=== PATIENT | female | born 1965 | race Caucasian/White ===

== ENCOUNTER → 2017-12-16 | Outpatient (CLI) | payer MEDICARE ==
[~2017-12-16] MED LIST: ASPI1TAB PO; BACLOFEN; CALCIUM PO; CEPH500C PO; CLN.1T PO; CYMBALTA; DCS100C PO; DIPH25TA82 PO; DOXY100C2 PO; DULO60CA6 PO; LD5PT TOP; LEVO125T PO; LISI40TA PO; MTH10T PO; MTH750T; MULT1CAP27 PO; OMG1KC PO; SENN-35 PO; TPR100T
--- NOTE | 2017-12-16 12:24 | Diagnostic Imaging Report ---
INDICATION: Routine screening. COMPARISON: 01/18/2011. TECHNIQUE: 2D and 3D bilateral screening mammography was performed with CAD. FINDINGS: Both breasts are heterogeneously dense, limiting the sensitivity of mammography. The overall parenchymal pattern appears stable. No discrete mass or malignant appearing microcalcifications are seen. The axillae are unremarkable. IMPRESSION: No mammographic features suspicious for malignancy are identified. ACR BI-RADS Category 1: Negative. Result letter will be mailed to the patient. Note: At least 10% of breast cancer is not imaged by mammography. Dictated by: Dictated on workstation # [id number]
== END ==
LOC: RAD 08:47
PROVIDERS: ATTEND Internal Medicine
DX: Z12.31 Encounter for screening mammogram for malignant neoplasm of breast (principal)
CPT/HCPCS: 77067

== ENCOUNTER 2020-04-22 13:52 | Emergency (ER) | payer MEDICARE ==
[~2020-04-22] VITALS: Ht 160 cm; Wt 74.8 kg
--- NOTE | 2020-04-22 14:16 | ED General ---
General Stated Complaint: AMS Source of Information: Patient, EMS Exam Limitations: Physical Impairments History of Present Illness Date Seen by Provider: Apr 22, 2020 Time Seen by Provider: 14:00 Initial Comments Patient is a 55-year-old female who presents to the emergency room by ambulance today with possible accidental overdose on baclofen. Reportedly by EMS patient's home health nurse called EMS secondary to the patient's altered mental status. It was determined that the patient took 2 10 mg baclofen tablets this morning around 7 AM. In addition to this she has a baclofen pump with morphine in place in her abdomen. 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 Patient is intermittently responsive to questions but seems to become distracted and agitated quite easily. Patient states as far as review of systems "the weather really knocked me down". She will not answer specific questions as to recent fever, chills, cough congestion, nausea vomiting or diarrhea. Review of systems is difficult secondary to the patient's level of altered mental status. Timing/Duration: 4-6 Hours Severity: Moderate Allergies and Home Medications Allergies Coded Allergies: No Known Drug Allergies (Verified , 08/15/11) Home Medications Aspirin/Acetaminophen/Caffeine 1 Tab Tablet, 1 TAB PO Q6H PRN, (Reported) Cephalexin Monohydrate 500 Mg Capsule, 500 EACH PO TID, (Reported) Clonidine Hcl 0.1 Mg Tab, 0.1 MG PO HS, (Reported) Diphenhydramine Hcl 25 Mg Tablet, 25 MG PO BID PRN, (Reported) NEEDED FOR ITCHING Docusate Sodium 100 Mg Capsule, 100 MG PO TID PRN, (Reported) NEEDED FOR CONSTIPATION Doxycycline Hyclate 100 Mg Capsule, 100 MG PO BID, (Reported) Duloxetine Hcl 60 Mg Capsule.dr, 60 MG PO DAILY, (Reported) Levothyroxine Sodium 125 Mcg Tablet, 125 MCG PO DAILY, (Reported) Lidocaine 1 Ea Patch, 1 EA TOP DAILY PRN, (Reported) NEEDED ON IN AM OFF AT HS Lisinopril 40 Mg Tablet, 40 MG PO HS, (Reported) Methadone Hcl 10 Mg Tab, 40 MG PO TID, (Reported) Multivitamins 1 Each Capsule, 1 EACH PO DAILY, (Reported) Straughn 3 Polyunsat Fatty Acids 1,000 Mg Cap, 1,000 MG PO 1200, 1700, (Reported) Sennosides/Docusate Sodium 1 Tab Tablet, 1 TAB PO Q48H PRN, (Reported) [Calcium ] , 300 MG PO 1200, 1700, (Reported) Patient Home Medication List Home Medication List Reviewed: Yes Review of Systems Review of Systems Constitutional: see HPI Past Agoqzzg-Nuykqi-Mkurgd Hx Past Medical History Reproductive Disorders: No Physical Exam Vital Signs Vital Signs - First Documented 04/22/20 04/22/20 04/22/20 13:52 16:00 18:29 Temp 36.4 Pulse 94 Resp 14 B/P (MAP) 86/56 (66) Pulse Ox 98 O2 Delivery Room Air O2 Flow Rate 2.00 Capillary Refill : Height, Weight, BMI Height: '" Weight: lbs. oz. kg; BMI Method: General Appearance: No Apparent Distress, WD/WN HEENT: PERRL/EOMI Neck: Normal Inspection Respiratory: No Accessory Muscle Use, Crackles (RIGHT UPPER LUNG), Decreased Breath Sounds (RIGHT LOWER LUNG), Other (Coarse wheezy breath sounds noted to the left lateral lung herrera; respiratory effort appears adequate, the patient is breathing approximately 14 times a minute) Cardiovascular: Regular Rate, Rhythm, Systolic Murmur (3/6 at LUSB), Tachycardia Gastrointestinal: Normal Bowel Sounds, Non Tender, Soft, Other (Baclofen pump palpated in the left lower abdomen) Extremity: Normal Inspection, No Pedal Edema Neurologic/Psychiatric: Alert, No Motor/Sensory Deficits, Depressed Affect, Disoriented Skin: Pallor Focused Exam Lactate Level 04/22/20 14:03: Lactic Acid Level 2.62*H 04/22/20 16:10: Lactic Acid Level 1.40 Lactic Acid Level Procedures/Interventions Lumen: triple Central Line Procedure: betadine prep, sterile drapes applied, sterile dressing applied Position: femoral (R) Anesthesia: Lidocaine Volume Anesthetic (ccs): 2 Complications: none Post Position: sutured, good blood return Progress/Results/Core Measures Suspected Sepsis SIRS Temperature: Pulse: Respiratory Rate: Laboratory Tests 04/22/20 14:03: White Blood Count 33.4*H Blood Pressure / Mean: 04/22/20 14:03: Lactic Acid Level 2.62*H 04/22/20 16:10: Lactic Acid Level 1.40 Laboratory Tests 04/22/20 14:03: Creatinine 2.64H, Platelet Count 431H, Total Bilirubin 0.3 Results/Orders Lab Results Laboratory Tests Test 04/22/20 14:03 04/22/20 14:22 04/22/20 15:40 04/22/20 15:42 Range/Units White Blood Count 33.4 *H 4.3-11.0 10^3/uL Red Blood Count 3.19 L 3.80-5.11 10^6/uL Hemoglobin 9.6 L 11.5-16.0 g/dL Hematocrit 31 L 35-52 % Mean Corpuscular Volume 98 80-99 fL Mean Corpuscular Hemoglobin 30 25-34 pg Mean Corpuscular Hemoglobin Concent 31 L 32-36 g/dL Red Cell Distribution Width 12.9 10.0-14.5 % Platelet Count 431 H 130-400 10^3/uL Mean Platelet Volume 11.6 9.0-12.2 fL Immature Granulocyte % (Auto) 2 % Neutrophils (%) (Auto) 87 H 42-75 % Lymphocytes (%) (Auto) 5 L 12-44 % Monocytes (%) (Auto) 7 0-12 % Eosinophils (%) (Auto) 0 0-10 % Basophils (%) (Auto) 0 0-10 % Neutrophils # (Auto) 29.0 H 1.8-7.8 10^3/uL Lymphocytes # (Auto) 1.6 1.0-4.0 10^3/uL Monocytes # (Auto) 2.2 H 0.0-1.0 10^3/uL Eosinophils # (Auto) 0.0 0.0-0.3 10^3/uL Basophils # (Auto) 0.1 0.0-0.1 10^3/uL Immature Granulocyte # (Auto) 0.5 H 0.0-0.1 10^3/uL Neutrophils % (Manual) 78 % Lymphocytes % (Manual) 4 % Monocytes % (Manual) 4 % Eosinophils % (Manual) 0 % Basophils % (Manual) 0 % Band Neutrophils 14 % Blood Morphology Comment NORMAL Sodium Level 144 135-145 MMOL/L Potassium Level 2.9 L 3.6-5.0 MMOL/L Chloride Level 109 H 98-107 MMOL/L Carbon Dioxide Level 17 L 21-32 MMOL/L Anion Gap 18 H 5-14 MMOL/L Blood Urea Nitrogen 41 H 7-18 MG/DL Creatinine 2.64 H 0.60-1.30 MG/DL Estimat Glomerular Filtration Rate 19 BUN/Creatinine Ratio 16 Glucose Level 105 70-105 MG/DL Lactic Acid Level 2.62 *H 0.50-2.00 MMOL/L Calcium Level 8.8 8.5-10.1 MG/DL Corrected Calcium 9.4 8.5-10.1 MG/DL Total Bilirubin 0.3 0.1-1.0 MG/DL Aspartate Amino Transf (AST/SGOT) 9 5-34 U/L Alanine Aminotransferase (ALT/SGPT) 9 0-55 U/L Alkaline Phosphatase 114 40-136 U/L Total Protein 6.5 6.4-8.2 GM/DL Albumin 3.2 3.2-4.5 GM/DL Procalcitonin 16.86 H <0.10 NG/ML Urine Color YELLOW Urine Clarity CLOUDY Urine pH 5.0 5-9 Urine Specific [place] >=1.030 1.016-1.022 Urine Protein NEGATIVE NEGATIVE Urine Glucose (UA) NEGATIVE NEGATIVE Urine Ketones TRACE H NEGATIVE Urine Nitrite NEGATIVE NEGATIVE Urine Bilirubin 1+ H NEGATIVE Urine Urobilinogen 0.2 < = 1.0 MG/DL Urine Leukocyte Esterase NEGATIVE NEGATIVE Urine RBC (Auto) NEGATIVE NEGATIVE Urine RBC 0-2 /HPF Urine WBC 0-2 /HPF Urine Squamous Epithelial Cells 10-25 H /HPF Urine Crystals PRESENT H /LPF Urine Amorphous Sediment FEW LIDA URATES H /LPF Urine Bacteria TRACE /HPF Urine Casts NONE /LPF Urine Mucus NEGATIVE /LPF Urine Culture Indicated NO Blood Gas Puncture Site R RAD Blood Gas Patient Temperature 36.2 Arterial Blood pH 7.28 *L 7.37-7.43 Arterial Blood Partial Pressure CO2 35 35-45 MMHG Arterial Blood Partial Pressure O2 67 L 79-93 MMHG Arterial Blood HCO3 16 *L 23-27 MMOL/L Arterial Blood Total CO2 17.6 L 21.0-31.0 MMOL/L Arterial Blood Oxygen Saturation 92 L 94-100 % Arterial Blood Base Excess -9.1 L -2.5-2.5 MMOL/L Ray Test YES-POS Blood Gas Ventilator Setting NO Blood Gas Inspired Oxygen RA Coronavirus 2018 (JODI) Negative Negative Test 04/22/20 16:10 Range/Units Lactic Acid Level 1.40 0.50-2.00 MMOL/L Micro Results Microbiology 04/22/20 Blood Culture - Preliminary, Resulted No growth 04/22/20 Blood Culture - Preliminary, Resulted No growth My Orders Orders - ALBA DE DIOS MD Cbc With Automated Diff (04/22/20 14:18) Comprehensive Metabolic Panel (04/22/20 14:18) Blood Culture (04/22/20 14:18) Chest 1 View, Ap/Pa Only (04/22/20 14:18) Ed Iv/Invasive Line Start (04/22/20 14:18) Ed Iv/Invasive Line Start (04/22/20 14:18) Vital Signs Adult Sepsis Patie Q15M (04/22/20 14:18) O2 (04/22/20 14:18) Remove Rings In Anticipation O (04/22/20 14:18) Lactic Acid Analyzer (04/22/20 14:18) Ns Iv 1000 Ml (Sodium Chloride 0.9%) (04/22/20 14:30) Procalcitonin (Pct) (04/22/20 14:18) Manual Differential (04/22/20 14:03) Ua Culture If Indicated (04/22/20 14:44) Ceftriaxone For Iv Use (Rocephin For I (04/22/20 15:30) Vancomycin Injection (Vancomycin Injecti (04/22/20 15:30) Azithromycin Injection (Zithromax Inject (04/22/20 15:30) Ns Iv 1000 Ml (Sodium Chloride 0.9%) (04/22/20 15:30) Covid 19 Inhouse Test (04/22/20 15:36) Vancomycin Injection (Vancomycin Injecti (04/22/20 15:39) Ns (Ivpb) (Sodium Chloride 0.9%) (04/22/20 15:39) Arterial Blood Gas (04/22/20 15:44) Potassium Cl 10meq/50ml Ivpb (Kcl 10 Meq (04/22/20 16:00) Norepinephrine 4 Mg/250 Ml (Norepinephri (04/22/20 17:47) Norepinephrine 4 Mg/250 Ml (Norepinephri (04/22/20 18:00) Medications Given in ED Vital Signs/I&O 04/22/20 23:59 Intake Total 2630 ml Balance 2630 ml Capillary Refill : Progress Note : Time: 14:42 Progress Note Nathan, the patient significant other is also present for further history. He states that the patient has been suffering from significant episodes of spasticity and states that she has been taking her supplemental baclofen to try and alleviate the symptoms. He states this morning he guesses that she took 2 as 1 did not seem to help yesterday. He also states that for the last 3 months she has been suffering with some upper respiratory congestion. She has had several inhalers and nasal sprays through [facility] [place] as well as through [facility] pharmacy. On speaking with the pharmacist at [facility] the patient was on prednisone back in January 2020 as well as doxycycline. She also had prescriptions for ProAir, Zyrtec, Flonase and Symbicort. These were filled on January 21. Nathan states that the patient has had increased cough and congestion worsening over the last week. He is concerned that she might have pneumonia. He denies any other symptomatology such as dysuria, urgency or frequency or any complaints of diarrhea. He states that she is mostly constipated secondary to her spasticity. 1545 Patient reevaluated and noted to have respiratory effort of about 12 a minute. ABG is obtained. When I discussed with the patient transfer to [facility] the patient became wide-awake started breathing about 20-21 times a minute. She was quite agitated at the thought of having to be admitted to the hospital. Her significant other is at the bedside and telling her that she will be admitted for further care. I discussed the case with Mickie the midlevel practitioner on for Dr. Munroe at [facility] who accepts the patient for admission. Rapid Covid test has also been obtained. 1626 ABG shows a metabolic acidosis with concurrent respiratory acidosis, a total of approximately 2500 cc of fluids have been given which include 2 L of normal saline plus to 250 cc bags of antibiotics. Current blood pressure is 121/67 with a heart rate in the upper 90s; I did place the paatient on 3L of O2 per nasal cannula 1800 Also notified by the significant other that she has a cervico-pleural drain placed in late 2018. this may account for a portion of the fluid in her right chest cavity, but certainly not the septic shock Levophed started for Systolic blood pressure of 70 Diagnostic Imaging Diagonstic Imaging: Xray Plain Films/CT/US/NM/MRI: chest Comments [facility] [place], [place] NAME: CANDI CASAS [facility] REC#: [id number] PT STATUS: REG ER : 1965 PHYSICIAN: ALBA DE DIOS MD ADMIT DATE: 04/22/20/ER Draft Date of Exam:04/22/20 CHEST 1 VIEW, AP/PA ONLY INDICATION: Altered mental status. Sepsis. COMPARISON: 01/20/2007. FINDINGS: Single frontal radiographic view of the chest was obtained and demonstrates interval development of large opacification occupying the middle and lateral half of the right chest suggestive of loculated effusion. Radiopaque tubing is noted projecting over the right upper and right lung bases. This was present on prior exam and may be on the basis of prior HARNESS PREPARER shunt tubing. Clinical correlation however is advised. Cardiac silhouette and pulmonary vasculature are within normal limits. Left lung is relatively clear. There is no large effusion on the left. No pneumothorax is seen on either side. Osseous structures show no gross acute abnormalities. IMPRESSION: 1. Interval development of large right-sided pleural effusion; possibly loculated. Correlation with postcontrast CT of the chest may be of benefit. 2. Chronic radiopaque tubing projecting over the right upper and lower lung herrera. Correlation with previous HARNESS PREPARER shunt is recommended. Dictated on workstation # [id number] Dict: 04/22/20 1454 Trans: 04/22/20 1458 [facility] [id number] Interpreted by: PEDRO DRISCOLL MD Critical Care Note Critical Care Start Time: 14:00 Stop Time: 16:00 Total Time (minutes) 1 hour critical care time in the evaluation and management of this patient with sepsis, baclofen overdose. Time includes primary evaluation of the patient ongoing reevaluations, fluid resuscitation, antibiotics, interpretation of laboratory values, discussion with critical care at [facility], review of the medical record discussion with ancillary staff and family Departure Impression Primary Impression: Sepsis Qualified Codes: A41.9 - Sepsis, unspecified organism; R65.20 - Severe sepsis without septic shock; N17.9 - Acute kidney failure, unspecified Additional Impressions: Metabolic acidosis Acute respiratory acidosis Septic shock Disposition: XF SHT-TRM HOSP Condition: Stable Transfer Transfer Reason: Exceeds level of care Time Spoke to Accepting Phy: 15:40 Transfer Progress Notes Case discussed with Mickie the nurse practitioner on for critical care at [facility] who accepts the patient for admission for Dr. Munroe Transfer Time: 18:10 Transfer Facility: [facility] Method of Transfer: EMS Departure-Patient Inst. Referrals: DENAE VILLATORO MD (PCP/Family) Primary Care Physician ALBA DE DIOS MD Apr 22, 2020 14:16
[2020-04-22 14:24] LABS: BASOPHILS # (AUTO) 0.1 10^3/uL (0.0-0.1); BASOPHILS % (AUTO) 0 % (0-10); EOSINOPHILS % (AUTO) 0 % (0-10); HEMATOCRIT 31 % (35-52); HEMOGLOBIN 9.6 g/dL (11.5-16.0); LYMPHOCYTES # (AUTO) 1.6 10^3/uL (1.0-4.0); LYMPHOCYTES % (AUTO) 5 % (12-44); MEAN CORPUSCULAR HEMOGLOBIN 30 pg (25-34); MEAN CORPUSCULAR HGB CONC 31 g/dL (32-36); MEAN CORPUSCULAR VOLUME 98 fL (80-99); MEAN PLATELET VOLUME 11.6 fL (9.0-12.2); MONOCYTES # (AUTO) 2.2 10^3/uL (0.0-1.0); MONOCYTES % (AUTO) 7 % (0-12); NEUTROPHILS % (AUTO) 87 % (42-75); PLATELET COUNT 431 10^3/uL (130-400)
[2020-04-22 14:26] LABS: WHITE BLOOD COUNT 33.4 10^3/uL (4.3-11.0)
[2020-04-22 14:29] LABS: ALBUMIN 3.2 GM/DL (3.2-4.5)
[2020-04-22 14:30] LABS: POTASSIUM 2.9 MMOL/L (3.6-5.0)
[2020-04-22] MEDS ORDERED: NS IV 1000 ML 1,000 ML IV SCH ×2 (14:30→15:30)
[2020-04-22 14:31] LABS: CALCIUM 8.8 MG/DL (8.5-10.1)
[2020-04-22 14:32] LABS: TOTAL PROTEIN 6.5 GM/DL (6.4-8.2)
[2020-04-22 14:34] LABS: BILIRUBIN,TOTAL 0.3 MG/DL (0.1-1.0)
[2020-04-22 14:36] LABS: CREATININE SERUM 2.64 MG/DL (0.60-1.30)
[2020-04-22 14:42] LABS: BAND NEUTROPHILS 14 %; BASOPHILS % (MANUAL) 0 %; EOSINOPHILS % (MANUAL) 0 %; LYMPHOCYTES % (MANUAL) 4 %; MONOCYTES % (MANUAL) 4 %; NEUTROPHILS % (MANUAL) 78 %; RBC MORPH NORMAL
[2020-04-22 14:49] LABS: CLARITY,URINE CLOUDY; COLOR,URINE YELLOW; GLUCOSE, URINE (UA) NEGATIVE (NEGATIVE); KETONES,URINE TRACE (NEGATIVE); LEUKOCYTE ESTERASE ,URINE NEGATIVE (NEGATIVE); NITRITE,URINE NEGATIVE (NEGATIVE); PROTEIN,URINE NEGATIVE (NEGATIVE)
--- NOTE | 2020-04-22 14:58 | Diagnostic Imaging Report ---
INDICATION: Altered mental status. Sepsis. COMPARISON: 01/20/2007. FINDINGS: Single frontal radiographic view of the chest was obtained and demonstrates interval development of large opacification occupying the middle and lateral half of the right chest suggestive of loculated effusion. Radiopaque tubing is noted projecting over the right upper and right lung bases. This was present on prior exam and may be on the basis of prior RAIL SETTER shunt tubing. Clinical correlation however is advised. Cardiac silhouette and pulmonary vasculature are within normal limits. Left lung is relatively clear. There is no large effusion on the left. No pneumothorax is seen on either side. Osseous structures show no gross acute abnormalities. IMPRESSION: 1. Interval development of large right-sided pleural effusion; possibly loculated. Correlation with postcontrast CT of the chest may be of benefit. 2. Chronic radiopaque tubing projecting over the right upper and lower lung herrera. Correlation with previous RAIL SETTER shunt is recommended. Dictated by: Dictated on workstation # [id number]
[2020-04-22 15:01] LABS: BACTERIA,URINE TRACE /HPF; RBC,URINE 0-2 /HPF; WBC,URINE 0-2 /HPF
[2020-04-22 15:02] LABS: AMORPHOUS SEDIMENT,UR FEW AMOR URATES /LPF; BILIRUBIN,URINE 1+ (NEGATIVE)
[2020-04-22] MEDS ORDERED: VANCOMYCIN INJECTION 1,000 MG in NS (IVPB) 250 ML IV SCH (15:30)
[2020-04-22] MEDS ORDERED: cefTRIAXone FOR IV USE 1,000 MG in WATER (STERILE) FOR INJECTION 10 ML IV ONE (15:30)
[2020-04-22] MEDS ORDERED: AZITHROMYCIN INJECTION 500 MG in NS (IVPB) 250 ML IV ONE (15:30)
[2020-04-22] MEDS ORDERED: NS (IVPB) 250 ML ONE (15:39)
[2020-04-22] MEDS ORDERED: VANCOMYCIN 1000 MG/VIAL ONE (15:39)
[2020-04-22 15:48] LABS: ABG BASE EXCESS -9.1 MMOL/L (-2.5-2.5); ABG OXYGEN SATURATION 92 % (94-100); ABG PCO2 35 MMHG (35-45); ABG PO2 67 MMHG (79-93); ABG TCO2 17.6 MMOL/L (21.0-31.0)
[2020-04-22 15:49] LABS: ALLENS TEST YES-POS; INSPIRED O2 RA; PATIENT TEMP 36.2; VENTILATOR NO
[2020-04-22 15:51] LABS: ABG PH 7.28 (7.37-7.43)
[2020-04-22] MEDS: POTASSIUM CL 10MEQ/50ML IVPB 50 ML IV SCH ×2 (16:18→17:18)
[2020-04-22] MEDS ORDERED: NOREPINEPHRINE 4 MG/250 ML 250 ML IV ONE (17:47)
[2020-04-22] MEDS ORDERED: NOREPINEPHRINE 4 MG/250 ML 250 ML IV SCH (18:00)
[2020-04-22 18:29] VITALS: BP 129/80
== END 2020-04-22 18:29 | disposition short-term general hospital (02) ==
LOC: EDUNIT# 13:52 → ER 13:54
DX: A41.9 Sepsis, unspecified organism (principal); R65.21 Severe sepsis with septic shock; E87.2 Acidosis; Z20.822 Contact with and (suspected) exposure to COVID-19; Z79.82 Long term (current) use of aspirin
CPT/HCPCS: 51702; 71045; 80053; 81000; 82805; 83605; 84145; 85007; 85027; 87040; 96361; 96365; 96367; 96368; 96375; 99285; U0002; 36415; 87635

== ENCOUNTER 2020-05-12 13:34 | Inpatient (IN) | payer MEDICARE ==
[~2020-05-12] VITALS: Ht 160 cm; Wt 60.6 kg
[2020-05-12 13:20] VITALS: BP 140/92
[~2020-05-12 13:34] MED LIST changes: +ACET250T3 PO; +ALPRAZolam 0.25 MG (XANAX) TAB PO PRN; +BACL10TA PO; +BISACODYL 10 MG SUPP (DULCOLAX) PR PRN; +CALCIUM CARBONATE 500 MG (TUMS) TAB.CHEW PO PRN; +DOCUSATE SODIUM 100 MG (COLACE) CAP PO PRN; +DULO60CA59 PO; +FLEET ENEMA ADULT 1 EA BTL PR PRN; +LACTULOSE SYRUP 10GM/15ML (ENULOSE) 30ML UDC PO PRN; +LISI20TA26 PO; +LOPERAMIDE 2 MG (IMODIUM) TABLET PO PRN; +METH10TA2 PO; +MULT-1136 PO; +ONDANSETRON 4 MG (ZOFRAN) ORAL DISSOLVE TAB PO PRN; +POLY17PO6 PO; +THYR180T2 PO; +diphenhydrAMINE 25 MG TAB (BENADRYL) PO PRN; +guaiFENesin/CODEINE (ROBITUSSIN AC) 10ML UDC PO PRN
--- NOTE | 2020-05-12 14:53 | Occupational Therapy Eval ---
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 Current History Pt admitted with sepsis and AMS 04/22/20, then transferred to [facility]. Pt intubated 04/23 with respiratory failure, extubated 05/03. Pt transferred to [facility] 05/12/20 for continued medication management and skilled therapies. Reviewed History: Yes Social History Home: Single Level Current Living Status: Significant Other Entry Into Home: Stairs With Railing Steps Into Home: 2 ADL-Prior Level of Function SCALE: Activities may be completed with or without assistive devices. 0-Bbwptrliwj-lpmxvqy completes the activity by him/herself with no assistance from a helper. 5-Set-up or Clean-up Assistance-helper sets up or cleans up; patient completes activity. [place] assists only prior to or following the activity. 4-Supervision or Touching Assistance-helper provides verbal cues and/or touching/steadying and/or contact guard assistance as patient completes activity. Assistance may be provided throughout the activity or intermittently. 3-Partial/Moderate Assistance-helper does LESS THAN HALF the effort. [place] lifts, holds or supports trunk or limbs, but provides less than half the effort. 2-Substantial/Maximal Assistance-helper does MORE THAN HALF the effort. [place] lifts or holds trunk or limbs and provides more than half the effort. 6-Kqxirprld-zlogum does ALL the effort. Patient does none of the effort to complete the activity. Or, the assistance of 2 or more helpers is required for the patient to complete the activity. If activity was not attempted, code reason: 7-Patient Refused. 9-Not Applicable-not attempted and the patient did not perform the activity before the current illness, exacerbation or injury. 10-Not Attempted due to Environmental Limitations-(lack of equipment, weather restraints, etc.). 88-Not Attempted due to Medical Conditions or Safety Concerns. ADL PLOF Comments Pt reports being independent with ADLs using AE as needed independent and functional mobility without AD. She has a tub/shower with a shower chair, grab bars in the tub and by the toilet. She was physically able to do all IADLs she needed to but her s.o. Nathan, helps with laundry and cooking. She has 2 dogs and a cat at home. Self Care: Independent Functional Cognition: Independent DME/Equipment: Bath Chair, Grab Bars, Shower Leisure Interests: hand embroidery, spending time with her pets. OT Current Status Subjective Pt agreeable to OT evaluation, then OT/PT cotreat. Pt did not verbalize any pain during tx. Mental Status/Objective Patient Orientation: Person, Place, Time, Situation Current Glasses/Contacts: Yes Hand Dominance: Right Upper Extremity ROM decreased, BUE shoulder flexion to approx 90 degrees. WFL PROM. Upper Extremity Coordination decreased Upper Extremity Sensation Pt reports having decreased sensation throughout her whole body (L side worse than R), then only area that feels "normal" is on her R cheek of her face. Pt states she has no feeling in her L ulnar nerve distribution. Upper Extremity Strength grossly 3/5 BUEs ADL-Treatment Eating (QC): 5 (Per pt report, she requires assistance opening containers. She is able to use utensils to cut food and bring food to mouth.) Oral Hygiene (QC): 7 Shower/Bathe Self (QC): 7 Upper Body Dressing (QC): 7 Lower Body Dressing (QC): 7 On/Off Footwear (QC): 7 Toileting Hygiene (QC): 3 (Pt required assistance managing clothes down, able to perform hygiene and manage clothes up.) Other Treatments OT evaluation complete, then OT/PT cotreat due to skill of 2 clinicians required which a rehab/pre vocational counselor could not perform in order to coordinate UE/LEs, and due to pt's limitations in strength, mobility, activity tolerance, and to decrease fall risk. OT focused on ADLs, UE placement, cues for sequencing and safety while PT focused on LE placement, gross overall movement, mobility, and transfers. Pt transferred from w/c to [facility] over toilet, completed toileting, then used FWW to ambulate to recliner in her room. Pt took a rest break, then performed functional transfer to EOB, then supine <-> sit. Pt used FWW to ambulate to [facility], performing functional transfers in/out of car simulation, 1 step, and over uneven surface mat, then into the therapy gym. Pt took a seated rest b reak, then attempted to turkey picker an object from the floor. Pt indicates her dogs are trained to turkey picker items off of the floor and this is not something she has done in a very long time. In order to increase dynamic standing balance, activity tolerance, and UE strength, pt stood in parallel bars and complete balloon batting activity with OT (pt held onto bar with 1 hand, hitting balloon with other hand), as PT focused on balance. Pt completed x2 with seated rest break between trials. Pt used FWW to return to her room, sat EOB, then supine. Patient performs bed mobility and supine <-> sit with independence, sit <-> stand min assist, transfers min assist, car transfer CGA. Patient needs occasional cues for hand placement or positioning during transfers. Post tx, pt laying in bed, call light in reach and all needs met. Education OT Patient Education: Correct positioning, Energy conservation, Exercise program, Modified ADL techniques, Progress toward Goal/Update tx plan, Purpose of tx/functional activities, Rehab process Teaching Recipient: Patient Teaching Methods: Discussion Response to Teaching: Verbalize Understanding OT Short Term Goals Short Term Goals Time Frame: May 25, 2020 Toileting hygiene: 4 Shower/bathe self: 4 Upper body dressin Lower body dressin Putting on/taking off footwear: 4 OT Financial Aid Counselor Goals Usp Goals Time Frame: Jun 03, 2020 Eating (QC): 6 Oral Hygiene (QC): 6 Toileting Hygiene (QC): 6 Shower/Bathe Self (QC): 6 Upper Body Dressing (QC): 6 Lower Body Dressing (QC): 6 On/Off Footwear (QC): 6 Additional Goals: 1-Demonstrate ADL Tasks, 2-Verbalize Understanding, 3- ImproveStrength/Gerald 1=Demonstrate adherence to instructed precautions during ADL tasks. 2=Patient will verbalize/demonstrate understanding of assistive devices/modifications for ADL. 3=Patient will improve strength/tolerance for activity to enable patient to perform ADL's. OT Education/Plan Problem List/Assessment Assessment: Decreased Activ Tolerance, Decreased UE Strength, Impaired Funct Balance, Impaired I ADL's, Impaired Self-Care Skills, Visual-Perceptual Deficit Discharge Recommendations Plan/Recommendations: Continue POC Therapy Discharge Recommendati: Home & Family Treatment Plan/Plan of Care Patient would benefit from OT for education, treatment and training to promote independence in ADL's, mobility, safety and/or upper extremity function for ADL's. Plan of Care: ADL Retraining, Functional Mobility, Group Exercise/Act as Ind, UE Funct Exercise/Act Treatment Duration: Jun 03, 2020 Frequency: At least 5 of 7 days/Wk (IRF) Estimated Hrs Per Day: 1.5 hours per day Agreement: Yes Rehab Potential: Good Time/GCodes Start Time: 13:20 Stop Time: 14:45 Total Time Billed (hr/min): 75 Billed Treatment Time 1028-8358 OT evaluation, 0480-2241 PT evaluation, [id number] OT/PT cotreat. 1, EVM (10'), ADL (15'), FA 3 (50') ELIF ALVARADO OT May 12, 2020 14:53
[2020-05-12] MEDS ORDERED: BACLOFEN 10 MG (LIORESAL) TAB PO PRN (15:00)
[2020-05-12] MEDS ORDERED: polyethylene glycoL POWDER 17 GM (MIRALAX) PACK PO PRN (15:00)
--- NOTE | 2020-05-12 15:02 | Physical Therapy Evaluation ---
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 Reviewed History: Yes Social History Home: Single Level Current Living Status: Significant Other Entry Into Home: Stairs With Railing PT Steps Into Home: 2 Prior Prior Level of Function SCALE: Activities may be completed with or without assistive devices. 3-Fymjsxduph-gduoafz completes the activity by him/herself with no assistance from a helper. 5-Set-up or Clean-up Assistance-helper sets up or cleans up; patient completes activity. [place] assists only prior to or following the activity. 4-Supervision or Touching Assistance-helper provides verbal cues and/or touchin g/steadying and/or contact guard assistance as patient completes activity. Assistance may be provided throughout the activity or intermittently. 3-Partial/Moderate Assistance-helper does LESS THAN HALF the effort. [place] lifts, holds or supports trunk or limbs, but provides less than half the effort. 2-Substantial/Maximal Assistance-helper does MORE THAN HALF the effort. [place] lifts or holds trunk or limbs and provides more than half the effort. 3-Mksncwtqm-hfrlwk does ALL the effort. Patient does none of the effort to complete the activity. Or, the assistance of 2 or more helpers is required for the patient to complete the activity. If activity was not attempted, code reason: 7-Patient Refused. 9-Not Applicable-not attempted and the patient did not perform the activity before the current illness, exacerbation or injury. 10-Not Attempted due to Environmental Limitations-(lack of equipment, weather restraints, etc.). 88-Not Attempted due to Medical Conditions or Safety Concerns. Bed Mobility: 6 Transfers (B,C,W/C): 6 Gait: 6 Stairs: 6 Indoor Mobility (Ambulation): Independent Stairs: Independent PT Evaluation-Current Subjective Patient in WC pre tx, agrees to PT, has no complaints of pain, will be co- treating with OT for part of tx due to poor patient mobility, severe fatigue with activity, coordinate UE and LE during activity, safety and reduce risk of falls. Pt/Family Goals to be independent at home Objective Patient Orientation: Person, Place, Situation ROM/Strength ROM Lower Extremities WNL Strength Lower Extremities LLE (hip flexion 3+/5, knee flexion 3+/5, knee extension 4/5, dorsiflexion 4/5), RLE (hip flexion 3+/5, knee flexion 3+/5, knee extension 4/5, dorsiflexion 4/5) Sensory Vision: Functional Hearing: Functional Sensation Right Lower Extremit: Impaired Sensation Left Lower Extremity: Impaired Transfers Roll Left & Right (QC): 6 Sit to Lying (QC): 6 Lying to Sitting/Side of Bed(Q: 6 Sit to Stand (QC): 3 Chair/Ljn-xe-Phtig Xfer(QC): 3 Toilet Transfer (QC): 3 Car Transfer (QC): 4 Patient performs bed mobility and supine <-> sit with independence, sit <-> stand min assist, transfers min assist, car transfer CGA. Patient needs occasional cues for hand placement or positioning during transfers. Gait Does the Patient Walk?: Yes Mode of Locomotion: Walk Anticipated Mode of Locomotion: Walk Walk 10 feet (QC): 4 Walk 50 ft with 2 Turns(QC): 4 Walk 150 ft (QC): 88 Walking 10ft/uneven surface-QC: 4 Distance: 120', 60'x2 Gait Assistive Device: FWW Comments/Gait Description Patient can ambulate 120' with a rolling walker with CGA (including 50' with at least 2 turns of 90 degrees and 10' over an uneven surface). Patient has ataxic gait and has unsteady moments during ambulation but did not have a forrest LOB. Wheelchair Training Does the Pt Use a Wheelchair?: No Wheel 50 ft with 2 turns (QC): 9 Wheel 150 ft (QC): 9 Stairs #of Steps: 1 1 Step (curb) (QC): 3 4 Steps (QC): 88 12 Steps (QC): 88 Walking Assistive Device: Walker Patient can go up and down 1 step using a rolling walker with min assist, needed assist to maintain balance as she was stepping up and down Balance Sitting Static: Normal Sitting Dynamic: Normal Standing Static: Fair Standing Dynamic: Fair Picking up an Object (QC): 3 Treatment Standing balance and endurance activity hitting balloon with one hand while supporting with the other. Assessment/Needs Patient in bed post tx with nurse call, phone, tray, all needs met. Patient has impaired mobility, strength, endurance, balance. Patient is unsteady during ambulation and needs somebody with her to walk to the restroom or even during transfers to recliner. Rehab Potential: Fair PT Short Term Goals Short Term Goals Time Frame: May 19, 2020 Roll Left & Right: 6 Sit to lyin Lying to sitting on side of be: 6 Sit to stand: 4 Chair/nhe-lz-vsrlx transfer: 4 Walk 10 feet: 4 Walk 50 feet with two turns: 4 Walk 150 feet: 4 PT Headlight Adjuster Goals Headlight Adjuster Goals PT Headlight Adjuster Goals Time Frame: Jun 02, 2020 Roll Left & Right (QC): 6 Sit to Lying (QC): 6 Lying-Sitting on Side/Bed(QC): 6 Sit to Stand (QC): 6 Chair/Dua-nw-Ohdke Xfer(QC): 6 Toilet Transfer (QC): 6 Car Transfer (QC): 6 Does the Patient Walk: Yes Walk 10 feet (QC): 4 (SBA) Walk 50ft with 2 Turns (QC): 4 (SBA) Walk 150 ft (QC): 4 (SBA) Walking 10ft on Uneven Surface: 4 (SBA) 1 Step (curb) (QC): 4 4 Steps (QC): 4 12 Steps (QC): 88 Picking up an Object (QC): 4 Wheel 50 feet with 2 turns (QC: 9 Wheel 150 feet: 9 PT Plan Problem List Problem List: Activity Tolerance, Functional Strength, Safety, Balance, Gait, Transfer, Bed Mobility, ROM Treatment/Plan Treatment Plan: Continue Plan of Care Treatment Plan: Bed Mobility, Education, Functional Activity Gerald, Functional Strength, Group Therapy, Gait, Safety, Therapeutic Exercise, Transfers Treatment Duration: Jun 02, 2020 Frequency: At least 5 of 7 days/Wk (IRF) Estimated Hrs Per Day: 1.5 hours per day Patient and/or Family Agrees t: Yes Safety Risks/Education Patient Education: Gait Training, Transfer Techniques, Steps, Correct Positioning, Safety Issues Teaching Recipient: Patient Teaching Methods: Demonstration, Discussion Response to Teaching: Reinforcement Needed Discharge Recommendations Plan Patient will perform bed mobility and transfer training, balance and endurance training, functional strengthening, stair training, gait training, and education, to improve functional mobility and independence at home. Therapy Discharge Recommendati: Home & Family Time/GCodes Time In: 1330 Time Out: 1445 Total Billed Treatment Time: 75 Total Billed Treatment 1 visit EVM 10' EX 15' FA 50' [id number] PT talhaal, [id number] co-treat MYRNA SILVERIO PT May 12, 2020 15:02
--- NOTE | 2020-05-12 15:39 | ST Cognitive Linguistic Eval ---
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 Cadena Medical History Pertinent Medical History: HTN Reviewed History: Yes Social History Current Living Status: Significant Other Speech PLF-Current Status Prior Level of Function Patient lives at home with her significant other who assists her as needed. Subjective Patient was pleasant with the cognitive and dysphagia assessments. Language Eval: Auditory Comprehends Simple Yes/No Ques: Functional Indent/Objects Multiple Rubio: Functional Ident/Pics in Multiple Rubio: Functional Follows 1-Step Commands: Functional Follows Complex Directions: Functional Follows General Conversations: Functional Language Eval: Verbal Language Completes Spontaneous Greeting: Functional Produces Auto, Serial Info: Functional Imitates Simple Words/Phrases: Functional Word Finding: Functional Requests Basic Needs: Functional States Basic Personal Info: Functional Expresses Complex Ideas: Functional Cognitive Patient Orientation A and O x3 Objective Cognitive Domain Attention: WNL Memory: WNL Problem Solving: Functional Executive Functions: WNL Visuospatial Skills: WNL Composite Severity Rating: WNL Clock Drawing Severity Rating: WNL Objective Formal/Standardized Tests [facility] Mental Status ([facility]) Results 29/30, within normal range of function Oral Motor/Speech Production Within Normal Limits Impression Patient is a pleasant 55 y/o female who was admitted to the ARU due to debility and recent intubation. Patient was given the SLUMS at bedside with a score of 29/30 obtained. This score is within normal range of function and does not indicate the need for further cognitive services. Patient is currently on a Dysphagia II diet level which she will need to continue with. Due to her spinal disorders, she has difficulty with mastication of regular texture foods. The softer diet level decreases this need. Patient will receive skilled dysphagia therapy for safe oral intake training. Speech Patient Assess Expression of Ideas/Wants: Expression (4) Understanding Verbal Content: Understands (4) Brief Interview-Mental Status: Yes Repetition of Three Words: Three (3) Temporal Orientation: Year: Correct (3) Temporal Orientation: Month: Accurate within 5 days(2) Temporal Orientation: Day: Correct (1) Recall : Wear to say "Sock": Yes, no cue required (2) Recall : Color: Yes, no cue required (2) Recall : Bed: Yes, no cue required (2) Memory/Recall Ability: Current season, That he or she is in a hsp/hsp unit Speech Short Term Goals Short Term Goals Short Term Goals 1) The patient will tolerate least restrictive diet level without s/s of aspiration at 90% or greater. 2) Patient/caregiver will utilize compensatory strategies as trained at 90% or greater so that she can have safe oral intake. Speech Mcfp Goals Mcfp Goals Patient will maintain adequate nutrition/hydration via safe effective swallow function. Speech-Plan Patient/Family Goals Patient/Family Goals: Patient plans on returning to her home where she lives with her SO. Treatment Plan Speech Therapy Treatment Plan: Continue Plan of Care Treatment Duration: May 12, 2020 Frequency: 4 times per week (Patient will receive dysphagia therapy 4-5x per week) Estimated Hrs Per Day: .5 hour per day Rehab Potential: Fair Barriers to Learning: None identified Pt/Family Agrees to Plan: Yes Safety Risks/Education Teaching Recipient: Patient Teaching Methods: Discussion Response to Teaching: Verbalize Understanding Education Topics Provided: Safety within her room, communication of wants/needs Diet level, safety strategies for oral intake Time Speech Therapy Time In: 15:15 Speech Therapy Time Out: 15:45 Total Billed Time: 30 Billed Treatment Time 1, SHILO, AYESHA, DYSEVS, DYST JOSHUA Hu May 12, 2020 15:39
[2020-05-12 16:00] VITALS: BP 131/65
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
[2020-05-12] MEDS: METHADONE 10 MG (DOLOPHINE) TAB PO SCH (20:41)
[2020-05-12] MEDS: SENNA W/DOCUSATE (SENOKOT S) TABLET PO SCH ×2 (20:41→20:42)
[2020-05-12] MEDS: MELATONIN 3 MG TABLET PO PRN (20:41)
[2020-05-12] MEDS: DOCUSATE SODIUM 100 MG (COLACE) CAP PO SCH (20:41)
[2020-05-12] MEDS: polyethylene glycoL POWDER 17 GM (MIRALAX) PACK PO SCH ×2 (20:41→20:42)
[2020-05-13 06:03] VITALS: BP 111/56
[2020-05-13 06:03] LABS: BASOPHILS % (AUTO) 1 % (0-10); EOSINOPHILS # (AUTO) 0.3 10^3/uL (0.0-0.3); EOSINOPHILS % (AUTO) 4 % (0-10); HEMATOCRIT 34 % (35-52); HEMOGLOBIN 10.1 g/dL (11.5-16.0); LYMPHOCYTES # (AUTO) 1.9 10^3/uL (1.0-4.0); LYMPHOCYTES % (AUTO) 22 % (12-44); MEAN CORPUSCULAR HEMOGLOBIN 30 pg (25-34); MEAN CORPUSCULAR HGB CONC 30 g/dL (32-36); MEAN CORPUSCULAR VOLUME 101 fL (80-99); MONOCYTES % (AUTO) 12 % (0-12); NEUTROPHILS # (AUTO) 5.3 10^3/uL (1.8-7.8); NEUTROPHILS % (AUTO) 62 % (42-75); PLATELET COUNT 259 10^3/uL (130-400); WHITE BLOOD COUNT 8.6 10^3/uL (4.3-11.0)
[2020-05-13 06:04] LABS: CHLORIDE 108 MMOL/L (98-107); SODIUM 142 MMOL/L (135-145)
[2020-05-13 06:06] LABS: GLUCOSE 90 MG/DL (70-105)
[2020-05-13 06:07] LABS: CARBON DIOXIDE 21 MMOL/L (21-32)
[2020-05-13 06:08] LABS: BILIRUBIN,TOTAL 0.4 MG/DL (0.1-1.0)
[2020-05-13 06:09] LABS: ALKALINE PHOSPHATASE 136 U/L (40-136)
[2020-05-13 06:10] LABS: CREATININE SERUM 0.67 MG/DL (0.60-1.30); GFR ESTIMATED > 60
[2020-05-13 06:11] LABS: BUN/CREATININE RATIO 15
[2020-05-13 06:12] LABS: ALANINE AMINOTRANSFERASE 17 U/L (0-55)
--- NOTE | 2020-05-13 06:17 | PM&R Progress Note ---
Subjective HPI/CC On Admission Date Seen by Provider: May 13, 2020 Time Seen by Provider: 11:00 Subjective/Events-last exam 05/13/20: Patient doing well No pain reported Previous diarrhea before admit to holding laxatives but giving Colace Talked about labs results Potassium OTC at home for years but potassium level is 4.0 so will continue to hold and I updated her on that Review of Systems General: Fatigue Neurological: Weakness Objective Exam Vital Signs Vital Signs Date Time Temp Pulse Resp B/P (MAP) Pulse Ox O2 Delivery O2 Flow Rate FiO2 05/14/20 06:00 35.8 90 16 115/71 (86) 97 Room Air Capillary Refill : General Appearance: No Apparent Distress, WD/WN HEENT: PERRL/EOMI, Normal ENT Inspection, Pharynx Normal Neck: Full Range of Motion, Normal Inspection, Non Tender, Supple, Carotid Bruit Respiratory: Chest Non Tender, Lungs Clear, Normal Breath Sounds, No Accessory Muscle Use, No Respiratory Distress Cardiovascular: Regular Rate, Rhythm, No Edema, No Gallop, No JVD, No Murmur, Normal Peripheral Pulses Gastrointestinal: Normal Bowel Sounds, No Organomegaly, No Pulsatile Mass, Non Tender, Soft Back: Normal Inspection, No CVA Tenderness, No Vertebral Tenderness Extremity: Normal Capillary Refill, Normal Inspection, Normal Range of Motion, Non Tender, No Calf Tenderness, No Pedal Edema Neurologic/Psychiatric: Alert, Oriented x3, No Motor/Sensory Deficits, Normal Mood/Affect, Abnormal Gait, Motor Weakness (lower extremities 4/5) Skin: Normal Color, Warm/Dry Lymphatic: No Adenopathy Results/Procedures Lab Patient resulted labs reviewed. FIM Transfers Therapy Code Descriptions/Definitions Functional [place] Measure: 0=Not Assessed/NA 4=Minimal Assistance 1=Total Assistance 5=Supervision or Setup 2=Maximal Assistance 6=Modified [place] 3=Moderate Assistance 7=Complete IndependenceSCALE: Activities may be completed with or without assistive devices. 8-Bbttdqtbjz-vqenjdq completes the activity by him/herself with no assistance from a helper. 5-Set-up or Clean-up Assistance-helper sets up or cleans up; patient completes activity. [place] assists only prior to or following the activity. 4-Supervision or Touching Assistance-helper provides verbal cues and/or to uching/steadying and/or contact guard assistance as patient completes activity. Assistance may be provided throughout the activity or intermittently. 3-Partial/Moderate Assistance-helper does LESS THAN HALF the effort. [place] lifts, holds or supports trunk or limbs, but provides less than half the effort. 2-Substantial/Maximal Assistance-helper does MORE THAN HALF the effort. [place] lifts or holds trunk or limbs and provides more than half the effort. 3-Qsnzfptmm-yffvkj does ALL the effort. Patient does none of the effort to complete the activity. Or, the assistance of 2 or more helpers is required for the patient to complete the activity. If activity was not attempted, code reason: 7-Patient Refused. 9-Not Applicable-not attempted and the patient did not perform the activity before the current illness, exacerbation or injury. 10-Not Attempted due to Environmental Limitations-(lack of equipment, weather restraints, etc.). 88-Not Attempted due to Medical Conditions or Safety Concerns. Roll Left to Right (QC): 6 Sit to Lying (QC): 6 Sit to Stand (QC): 3 Chair/Vot-xk-[place] Xfer(QC): 3 Car Transfer (QC): 4 Gait Training Does the Patient Walk?: Yes Walk 10 feet (QC): 4 Walk 50 ft with 2 Turns(QC): 4 Walk 150 ft (QC): 88 Walking 10ft/uneven surface-QC: 4 Gait Assistive Device: FWW Wheelchair Training Does the Pt Use a Wheelchair?: No Wheel 50 ft with 2 turns (QC): 9 Wheel 150 ft (QC): 9 Stair Training #of Steps: 1 1 Step (curb) (QC): 3 4 Steps (QC): 88 12 Steps (QC): 88 Balance Picking up an Object (QC): 3 ADL-Treatment Eating (QC): 5 (Per pt report, she requires assistance opening containers. 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
--- NOTE | 2020-05-13 06:17 | Individualized Plan of Care ---
Individualized Plan of Care Rehab Nursing IPOC Order Admission Date May 12, 2020 at 13:34 Current Orders Orders Admission Order(Inpt,Obs,Sdc) (05/12/20 05:28) Vital Signs: Per Unit Policy ( ,16,00 (05/12/20 05:28) Andrea Fair[place] (05/12/20 05:28) Sequential Compression Device .admit (05/12/20 05:28) Licensed Plumber-Inpt Rehab Con (05/12/20 05:28) Rehab Nursing Orders-Ipoc (05/12/20 05:28) Physical Therapy Rehab Orders (05/12/20 05:28) Occupational Therapy Rehab Ord (05/12/20 05:28) Speech Therapy Rehab Orders (05/12/20 05:28) Cbc With Automated Diff (05/13/20 06:00) Comprehensive Metabolic Panel (05/13/20 06:00) Intake & Output 06,14,22 (05/12/20 05:28) Precautions (Aru) (05/12/20 05:28) Rehab-Intensity Of Therapy (05/12/20 05:28) Initiate Admission Nursing Pro .admission (05/12/20 05:28) Alprazolam Tablet (Xanax Tablet) (05/12/20 05:30) Calcium Carbonate Chew Tablet (Antacid C (05/12/20 05:30) Diphenhydramine Tablet (Benadryl Tablet) (05/12/20 05:30) Docusate Sodium Capsule (Colace Capsule) (05/12/20 09:00) Docusate Sodium Capsule (Colace Capsule) (05/12/20 05:30) Bisacodyl Suppository (Dulcolax Supposit (05/12/20 05:30) Lactulose Oral Solution (Enulose Oral So (05/12/20 05:30) Na Phos/Na Biphos Enema (Fleet Enema Yovani (05/12/20 05:30) Guaifenesin/Codeine Syrup (Robitussin Ac (05/12/20 05:30) Loperamide Tablet (Imodium Tablet) (05/12/20 05:30) Melatonin Tablet (Melatonin Tablet) (05/12/20 05:30) Polyethylene Glycol Powder Pkt (Miralax (05/12/20 09:00) Ondansetron Oral Dissolve Tab (Zofran (05/12/20 05:30) Senna S Tablet (Senokot S Tablet) (05/12/20 09:00) Initiate Admission Nursing Pro .admission (05/12/20 05:28) Admission Arrival Bed Request (05/12/20 13:34) Acetaminophen Tablet/Caplet (Tylenol T (05/12/20 14:15) Patient Visit (05/12/20 ) Speech Sound Lang Comp (05/12/20 ) Treat. Speech/Lang/Voice (05/12/20 ) Dysphagia Evaluation Std (05/12/20 ) Dysphagia Therapy (05/12/20 ) Acetazolamide Tablet (Diamox Tablet) (05/13/20 09:00) Baclofen Tablet (Lioresal Tablet) (05/12/20 15:00) Lisinopril Tablet (Zestril Tablet) (05/13/20 09:00) Methadone Tablet (Dolophine Tablet) (05/12/20 21:00) Polyethylene Glycol Powder Pkt (Miralax (05/12/20 15:00) Duloxetine Capsule (Cymbalta Capsule) (05/13/20 09:00) Therapeutic Multivitamin Tab (Vitamins, (05/13/20 07:00) Thyroid ([place]) Tablet (Thyroid ([place] (05/13/20 09:00) Patient Visit (05/12/20 ) Pt Eval Moderate Complexity (05/12/20 ) Exercise Therap, Ea 15 Min (05/12/20 ) Functional Activities, Ea 15 (05/12/20 ) Dys2 Mechanically Altered (05/13/20 Breakfast) Patient Visit (05/13/20 ) Functional Activities, Ea 15 (05/13/20 ) Gait Training, Ea 15 Min (05/13/20 ) Exercise Therap, Ea 15 Min (05/13/20 ) Patient Visit (05/13/20 ) Dysphagia Therapy (05/13/20 ) Rehab Nursing Orders: Ongoing Assess. of Cognitive Status, Ongoing Assess. of Function Status, Bladder Management, Bladder Scan, Bladder Training, Bowel Management, Bowel Training, Disease Management & Educaiton, DVT Prophylaxis, Fall Prevention, Fluid/Electrolyte/Nutrition Mgmt, Infection Prevention, Medication Management & Education, Management of Risks & Complications, Nutrition Management, Pain Management, Patient/Family Support, Safety Management Intensity of Therapy to be met Patient to be seen: Min.3h per day/5 of 7d PT IPOC Problem List: Activity Tolerance, Functional Strength, Safety, Balance, Gait, Transfer, Bed Mobility, ROM Treatment Plan: Continue Plan of Care Bed Mobility, Education, Functional Activity Gerald, Functional Strength, Group Therapy, Gait, Safety, Therapeutic Exercise, Transfers Treatment Duration: Jun 02, 2020 Frequency: At least 5 of 7 days/Wk (IRF) Estimated Hrs Per Day: 1.5 hours per day OT IPOC Problems: Decreased Activ Tolerance, Decreased UE Strength, Impaired Funct Balance, Impaired I ADL's, Impaired Self-Care Skills, Visual-Perceptual Deficit OT Treatment, Training and Edu: Yes Plan of Care: ADL Retraining, Functional Mobility, Group Exercise/Act as Ind, UE Funct Exercise/Act Treatment Duration: Jun 03, 2020 Frequency: At least 5 of 7 days/Wk (IRF) Estimated Hrs Per Day: 1.[address] IPOC Speech Therapy Treatment Plan: Continue Plan of Care Treatment Duration: May 12, 2020 Frequency: 4 times per week (Patient will receive dysphagia therapy 4-5x per week) Estimated Hrs Per Day: .5 hour per day Licensed Plumber/Case Mgmt Licensed Plumber/Case Managemen: Discharge Planning Dietitian/Director Of Clinical Trials Dietitian/Director Of Clinical Trials to monitor nutritional status and make changes and/or recommendations as needed and work with speech pathology on dietary upgrades as the occur. Physician IPOC Medical Issues being managed closely and that require the 24 hour availability of a physician: Patient with severe neuro deficit chronically and recent empyema with long ICU course at [facility] will need close monitoring for decompensation Medical Issues: Bowel/Bladder Function, DVT Prophylaxis, Falls Precautions, Fluid/Electrolyte/Nutrition Balance, Infection Protection, Pain Management Brief Synthesis of Preadmission Screen, Post-Admission Evaluation, and Therapy Evaluations: PT OT will focus on regaining strength and mobility with the use of AD in order to regain enough independence to return to live alone Medical Prognosis: Good Anticipated Length of Stay: 10 days MAYKEL BURNS DO May 13, 2020 06:17
[2020-05-13] MEDS: MULTIVIT W/MINERALS TAB (THERAGRAN M) PO SCH (06:41)
[2020-05-13] MEDS: DOCUSATE SODIUM 100 MG (COLACE) CAP PO SCH ×2 (07:57→21:23)
[2020-05-13] MEDS: DULoxetine 30 MG (CYMBALTA) CAP PO SCH (07:58)
[2020-05-13] MEDS: lisINopril 20 MG (PRINIVIL) TABLET PO SCH (07:58)
--- NOTE | 2020-05-13 08:11 | Occupational Ther Daily Note ---
OT Current Status-Daily Note Subjective Pt alert, sitting on EOB. Pt agrees to therapy. Pt c/o aching in lower body. Mental Status/Objective Patient Orientation: Person, Place, Time, Situation ADL-Treatment Pt agrees to shower. CGA for ambulation due to weakness of B LE's. Pt stated that she had already completed toilet with nrsg. CGA to transfer into shower using FWW, grabbars and shower bench. Min A to stand from shower bench and transfer out of shower due to increased fatigue. Pt then sits to complete dressing. After set up, pt completes upper body dressing and footwear by self. After set up, threads clothing over feet by self then CGA for safety in standing while pt manipulate pants. Pt ambulates and stands at sink to complete oral care with SBA for safety. Pt ambulated to bed using FWW. Independent with bed mobility. After session, pt lying in bed with call light/phone in reach. All needs met in room. Nrsg in room. Therapy Code Descriptions/Definitions Functional [place] Measure: 0=Not Assessed/NA 4=Minimal Assistance 1=Total Assistance 5=Supervision or Setup 2=Maximal Assistance 6=Modified [place] 3=Moderate Assistance 7=Complete IndependenceSCALE: Activities may be completed with or without assistive devices. 9-Fslnwmxqsk-alpswvu completes the activity by him/herself with no assistance from a helper. 5-Set-up or Clean-up Assistance-helper sets up or cleans up; patient completes activity. [place] assists only prior to or following the activity. 4-Supervision or Touching Assistance-helper provides verbal cues and/or touching/steadying and/or contact guard assistance as patient completes activity. Assistance may be provided throughout the activity or intermittently. 3-Partial/Moderate Assistance-helper does LESS THAN HALF the effort. [place] lifts, holds or supports trunk or limbs, but provides less than half the effort. 2-Substantial/Maximal Assistance-helper does MORE THAN HALF the effort. [place] lifts or holds trunk or limbs and provides more than half the effort. 0-Abdvhwjrq-tosjmx does ALL the effort. Patient does none of the effort to complete the activity. Or, the assistance of 2 or more helpers is required for the patient to complete the activity. If activity was not attempted, code reason: 7-Patient Refused. 9-Not Applicable-not attempted and the patient did not perform the activity before the current illness, exacerbation or injury. 10-Not Attempted due to Environmental Limitations-(lack of equipment, weather restraints, etc.). 88-Not Attempted due to Medical Conditions or Safety Concerns. Eating (QC): 5 Oral Hygiene (QC): 4 Shower/Bathe Self (QC): 4 (Using hand held shower, grabbars and shower bench pt completes with SBA for safety.) Upper Body Dressing (QC): 5 Lower Body Dressing (QC): 4 On/Off Footwear: 5 Toileting Hygiene (QC): 4 (Using clinical judgment, pt requires CGA to manipulate clothing and sits to cleanse self.) Toilet Transfer (QC): 4 (Using clinical judgement CGA for safety during transfer.) OT Short Term Goals Short Term Goals Time Frame: May 25, 2020 Toileting hygiene: 4 Shower/bathe self: 4 Upper body dressin Lower body dressin Putting on/taking off footwear: 4 OT Assisted Goals Transit Clerk Goals Time Frame: Jun 03, 2020 Eating (QC): 6 Oral Hygiene (QC): 6 Toileting Hygiene (QC): 6 Shower/Bathe Self (QC): 6 Upper Body Dressing (QC): 6 Lower Body Dressing (QC): 6 On/Off Footwear (QC): 6 Additional Goals: 1-Demonstrate ADL Tasks, 2-Verbalize Understanding, 3- ImproveStrength/Gerald 1=Demonstrate adherence to instructed precautions during ADL tasks. 2=Patient will verbalize/demonstrate understanding of assistive devices/modifications for ADL. 3=Patient will improve strength/tolerance for activity to enable patient to perform ADL's. OT Education/Plan Problem List/Assessment Assessment: Decreased Activ Tolerance, Impaired Funct Balance, Impaired Self- Care Skills Discharge Recommendations Plan/Recommendations: Continue POC Treatment Plan/Plan of Care Patient would benefit from OT for education, treatment and training to promote independence in ADL's, mobility, safety and/or upper extremity function for ADL's. Plan of Care: ADL Retraining, Functional Mobility, Group Exercise/Act as Ind, UE Funct Exercise/Act Treatment Duration: Jun 03, 2020 Frequency: At least 5 of 7 days/Wk (IRF) Estimated Hrs Per Day: 1.5 hours per day Agreement: Yes Rehab Potential: Fair Time/GCodes Start Time: 07:00 Stop Time: 08:15 Total Time Billed (hr/min): 75 Billed Treatment Time 1 visit-ADL 5 (75 min) FRITZ MELO May 13, 2020 08:11
[2020-05-13] MEDS: METHADONE 10 MG (DOLOPHINE) TAB PO SCH ×2 (08:31→21:23)
[2020-05-13] MEDS: THYROID (ARMOUR) 60 MG TABLET PO SCH (08:31)
[2020-05-13] MEDS: acetaZOLAMIDE 250 MG (DIAMOX) TAB PO SCH (08:31)
[2020-05-13] MEDS: SENNA W/DOCUSATE (SENOKOT S) TABLET PO SCH ×2 (08:45→21:24)
[2020-05-13] MEDS: polyethylene glycoL POWDER 17 GM (MIRALAX) PACK PO SCH ×2 (08:45→21:24)
--- NOTE | 2020-05-13 09:56 | Speech Therapy Daily Note ---
Speech Daily Progress Note Subjective Date Seen by Provider: May 13, 2020 Time Seen by Provider: 00:30 Patient was sitting on the side of her bed when I entered her room. Patient states she slept well last night. Objective Patient drank a protein shake with small sips at 90% as directed without s/s of aspiration given minimal cuing. Assessment Assessment Current Status: Good Progress Treatment Plan Continue Plan of Care Speech Short Term Goals Short Term Goals Short Term Goals 1) The patient will tolerate least restrictive diet level without s/s of aspiration at 90% or greater. 2) Patient/caregiver will utilize compensatory strategies as trained at 90% or greater so that she can have safe oral intake. Speech Assisted Goals Biochemist Goals Patient will maintain adequate nutrition/hydration via safe effective swallow function. Speech-Plan Patient/Family Goals Patient/Family Goals: Patient plans on returning to her home where she lives with her SO. Treatment Plan Speech Therapy Treatment Plan: Continue Plan of Care Treatment Duration: May 20, 2020 Frequency: 4 times per week (Patient will receive dysphagia therapy 4-5x per week) Estimated Hrs Per Day: .5 hour per day Rehab Potential: Fair Barriers to Learning: Patient's recent serious illness for weeks Pt/Family Agrees to Plan: Yes Safety Risks/Education Teaching Recipient: Patient Teaching Methods: Demonstration, Discussion Response to Teaching: Verbalize Understanding, Return Demonstration Education Topics Provided: Continued safety of oral intake strategies Time Speech Therapy Time In: 09:00 Speech Therapy Time Out: 09:30 Total Billed Time: 30 Billed Treatment Time 1KAR BETHANIA May 13, 2020 09:56
--- NOTE | 2020-05-13 11:54 | Physical Therapy Daily Note ---
PT Daily Note-Current Subjective Pt sitting at EOB of bed finishing ST upon arrival. Pt agrees to PT. Pain Location: No Pain Reported Mental Status Patient Orientation: Person, Place, Time, Situation Transfers SCALE: Activities may be completed with or without assistive devices. 4-Lalkcbikud-hxlradz completes the activity by him/herself with no assistance from a helper. 5-Set-up or Clean-up Assistance-helper sets up or cleans up; patient completes activity. [place] assists only prior to or following the activity. 4-Supervision or Touching Assistance-helper provides verbal cues and/or touching/steadying and/or contact guard assistance as patient completes activity. Assistance may be provided throughout the activity or intermittently. 3-Partial/Moderate Assistance-helper does LESS THAN HALF the effort. [place] lifts, holds or supports trunk or limbs, but provides less than half the effort. 2-Substantial/Maximal Assistance-helper does MORE THAN HALF the effort. [place] lifts or holds trunk or limbs and provides more than half the effort. 5-Qinlsllbt-gsxxtg does ALL the effort. Patient does none of the effort to complete the activity. Or, the assistance of 2 or more helpers is required for the patient to complete the activity. If activity was not attempted, code reason: 7-Patient Refused. 9-Not Applicable-not attempted and the patient did not perform the activity before the current illness, exacerbation or injury. 10-Not Attempted due to Environmental Limitations-(lack of equipment, weather restraints, etc.). 88-Not Attempted due to Medical Conditions or Safety Concerns. Sit to Stand (QC): 4 Toilet Transfer (QC): 4 Weight Bearing Full Weight Bearing Full Weight Bearing Gait Training Does the Patient Walk?: Yes Distance: 150' Walk 10 feet (QC): 4 Walk 50 ft with 2 Turns(QC): 4 Walk 150 ft (QC): 4 Gait Persons Needed: 1 Gait Assistive Device: FWW Exercises NuStep Minutes: 15 NuStep Workload: 3 Treatments TF to standing then uses BR. Pt amb. in hallway then takes short RB followed by using NuStep. After taking RB, pt amb. back to room to rest. Pt lays Supine in bed with all needs met, call light in hand. [id number]: Pt transfers to standing then uses BR before amb. in hallway. Pt returns to room to rest in bed at end of tx. All needs met, call light in hand. Assessment Current Status: Good Progress Pt fatigued by end of tx. PT Short Term Goals Short Term Goals Time Frame: May 19, 2020 Roll Left & Right: 6 Sit to lyin Lying to sitting on side of be: 6 Sit to stand: 4 Chair/hvo-ye-jdlnn transfer: 4 Walk 10 feet: 4 Walk 50 feet with two turns: 4 Walk 150 feet: 4 PT Usp Goals Poultice Machine Operator Goals PT Usp Goals Time Frame: Jun 02, 2020 Roll Left & Right (QC): 6 Sit to Lying (QC): 6 Lying-Sitting on Side/Bed(QC): 6 Sit to Stand (QC): 6 Chair/Rak-ix-Epadz Xfer(QC): 6 Toilet Transfer (QC): 6 Car Transfer (QC): 6 Does the Patient Walk: Yes Walk 10 feet (QC): 4 (SBA) Walk 50ft with 2 Turns (QC): 4 (SBA) Walk 150 ft (QC): 4 (SBA) Walking 10ft on Uneven Surface: 4 (SBA) 1 Step (curb) (QC): 4 4 Steps (QC): 4 12 Steps (QC): 88 Picking up an Object (QC): 4 Wheel 50 feet with 2 turns (QC: 9 Wheel 150 feet: 9 PT Plan Problem List Problem List: Activity Tolerance, Functional Strength, Safety, Gait, Transfer Treatment/Plan Treatment Plan: Continue Plan of Care Treatment Plan: Bed Mobility, Education, Functional Activity Gerald, Functional Strength, Group Therapy, Gait, Safety, Therapeutic Exercise, Transfers Treatment Duration: Jun 02, 2020 Frequency: At least 5 of 7 days/Wk (IRF) Estimated Hrs Per Day: 1.5 hours per day Patient and/or Family Agrees t: Yes Safety Risks/Education Patient Education: Gait Training, Transfer Techniques, Correct Positioning, Safety Issues Teaching Recipient: Patient Teaching Methods: Discussion Response to Teaching: Verbalize Understanding Time/GCodes Time In: 1320 Time Out: 1340 Total Billed Treatment Time: 20 Total Billed Treatment 1, GT (20m) OLESYA GRANADOS DRESS DESIGNER May 13, 2020 11:54
[2020-05-13 17:35] VITALS: BP 126/73
[2020-05-13] MEDS: MELATONIN 3 MG TABLET PO PRN (21:23)
[2020-05-14 06:00] VITALS: BP 115/71
[2020-05-14] MEDS: MULTIVIT W/MINERALS TAB (THERAGRAN M) PO SCH (06:21)
[2020-05-14] MEDS: THYROID (ARMOUR) 60 MG TABLET PO SCH (08:02)
[2020-05-14] MEDS: METHADONE 10 MG (DOLOPHINE) TAB PO SCH ×2 (08:02→20:46)
[2020-05-14] MEDS: DULoxetine 30 MG (CYMBALTA) CAP PO SCH (08:02)
[2020-05-14] MEDS: acetaZOLAMIDE 250 MG (DIAMOX) TAB PO SCH (08:02)
[2020-05-14] MEDS: polyethylene glycoL POWDER 17 GM (MIRALAX) PACK PO SCH ×2 (08:02→20:45)
[2020-05-14] MEDS: DOCUSATE SODIUM 100 MG (COLACE) CAP PO SCH ×2 (08:02→20:45)
[2020-05-14] MEDS: SENNA W/DOCUSATE (SENOKOT S) TABLET PO SCH ×2 (08:02→20:45)
[2020-05-14] MEDS: lisINopril 20 MG (PRINIVIL) TABLET PO SCH (08:02)
--- NOTE | 2020-05-14 11:25 | Physical Therapy Daily Note ---
PT Daily Note-Current Subjective Pt laying Supine in bed upon arrival. Pt agrees to PT. Pain Location: No Pain Reported Mental Status Patient Orientation: Person, Place, Time, Situation Transfers SCALE: Activities may be completed with or without assistive devices. 2-Tbrvuqvtkg-svuhiey completes the activity by him/herself with no assistance from a helper. 5-Set-up or Clean-up Assistance-helper sets up or cleans up; patient completes activity. [place] assists only prior to or following the activity. 4-Supervision or Touching Assistance-helper provides verbal cues and/or touching/steadying and/or contact guard assistance as patient completes activity. Assistance may be provided throughout the activity or intermittently. 3-Partial/Moderate Assistance-helper does LESS THAN HALF the effort. [place] lifts, holds or supports trunk or limbs, but provides less than half the effort. 2-Substantial/Maximal Assistance-helper does MORE THAN HALF the effort. [place] lifts or holds trunk or limbs and provides more than half the effort. 2-Jlryhseiw-gazemq does ALL the effort. Patient does none of the effort to complete the activity. Or, the assistance of 2 or more helpers is required for the patient to complete the activity. If activity was not attempted, code reason: 7-Patient Refused. 9-Not Applicable-not attempted and the patient did not perform the activity be fore the current illness, exacerbation or injury. 10-Not Attempted due to Environmental Limitations-(lack of equipment, weather restraints, etc.). 88-Not Attempted due to Medical Conditions or Safety Concerns. Sit to Lying (QC): 5 Lying to Sitting/Side of Bed(Q: 5 Sit to Stand (QC): 4 Toilet Transfer (QC): 4 Weight Bearing Full Weight Bearing Full Weight Bearing Gait Training Does the Patient Walk?: Yes Distance: 175' Walk 10 feet (QC): 4 Walk 50 ft with 2 Turns(QC): 4 Walk 150 ft (QC): 4 Gait Persons Needed: 1 Gait Assistive Device: FWW Treatments TF to EOB then standing. Pt asks to use BR then amb in hallway. Pt returns to rest in bed at end of tx. All needs met, call light in hand. Assessment Current Status: Good Progress Pt is demonstrating increased activity tolerance and body control. PT Short Term Goals Short Term Goals Time Frame: May 19, 2020 Roll Left & Right: 6 Sit to lyin Lying to sitting on side of be: 6 Sit to stand: 4 Chair/gzl-qu-oacub transfer: 4 Walk 10 feet: 4 Walk 50 feet with two turns: 4 Walk 150 feet: 4 PT Anesthesia Technician Goals Long-Term Goals PT Anesthesia Technician Goals Time Frame: Jun 02, 2020 Roll Left & Right (QC): 6 Sit to Lying (QC): 6 Lying-Sitting on Side/Bed(QC): 6 Sit to Stand (QC): 6 Chair/Psx-pw-Evvvm Xfer(QC): 6 Toilet Transfer (QC): 6 Car Transfer (QC): 6 Does the Patient Walk: Yes Walk 10 feet (QC): 4 (SBA) Walk 50ft with 2 Turns (QC): 4 (SBA) Walk 150 ft (QC): 4 (SBA) Walking 10ft on Uneven Surface: 4 (SBA) 1 Step (curb) (QC): 4 4 Steps (QC): 4 12 Steps (QC): 88 Picking up an Object (QC): 4 Wheel 50 feet with 2 turns (QC: 9 Wheel 150 feet: 9 PT Plan Problem List Problem List: Activity Tolerance, Transfer Treatment/Plan Treatment Plan: Continue Plan of Care Treatment Plan: Bed Mobility, Education, Functional Activity Gerald, Functional Strength, Group Therapy, Gait, Safety, Therapeutic Exercise, Transfers Treatment Duration: Jun 02, 2020 Frequency: At least 5 of 7 days/Wk (IRF) Estimated Hrs Per Day: 1.5 hours per day Patient and/or Family Agrees t: Yes Safety Risks/Education Patient Education: Transfer Techniques, Correct Positioning, Safety Issues Teaching Recipient: Patient Teaching Methods: Discussion Response to Teaching: Verbalize Understanding Time/GCodes Time In: 1010 Time Out: 1030 Total Billed Treatment Time: 20 Total Billed Treatment 1, GT (20m) OLESYA GRANADOS GARAGE MECHANIC May 14, 2020 11:25
--- NOTE | 2020-05-14 12:24 | PM&R Progress Note ---
Subjective HPI/CC On Admission Date Seen by Provider: May 14, 2020 Time Seen by Provider: 12:00 Subjective/Events-last exam 05/14/20: Patient doing well Tired today No BM yet since 05/10 No falls 05/13/20: Patient doing well No pain reported Previous diarrhea before admit to holding laxatives but giving Colace Talked about labs results Potassium OTC at home for years but potassium level is 4.0 so will continue to hold and I updated her on that Review of Systems General: Fatigue Neurological: Weakness Objective Exam Vital Signs Vital Signs Date Time Temp Pulse Resp B/P (MAP) Pulse Ox O2 Delivery O2 Flow Rate FiO2 05/14/20 18:18 36.5 92 18 110/68 (82) 94 Room Air Capillary Refill : General Appearance: No Apparent Distress, WD/WN HEENT: PERRL/EOMI, Normal ENT Inspection, Pharynx Normal Neck: Full Range of Motion, Normal Inspection, Non Tender, Supple, Carotid Bruit Respiratory: Chest Non Tender, Lungs Clear, Normal Breath Sounds, No Accessory Muscle Use, No Respiratory Distress Cardiovascular: Regular Rate, Rhythm, No Edema, No Gallop, No JVD, No Murmur, Normal Peripheral Pulses Gastrointestinal: Normal Bowel Sounds, No Organomegaly, No Pulsatile Mass, Non Tender, Soft Back: Normal Inspection, No CVA Tenderness, No Vertebral Tenderness Extremity: Normal Capillary Refill, Normal Inspection, Normal Range of Motion, Non Tender, No Calf Tenderness, No Pedal Edema Neurologic/Psychiatric: Alert, Oriented x3, No Motor/Sensory Deficits, Normal Mood/Affect, Abnormal Gait, Motor Weakness (lower extremities 4/5) Skin: Normal Color, Warm/Dry Lymphatic: No Adenopathy Results/Procedures Lab Patient resulted labs reviewed. FIM Transfers Therapy Code Descriptions/Definitions Functional [place] Measure: 0=Not Assessed/NA 4=Minimal Assistance 1=Total Assistance 5=Supervision or Setup 2=Maximal Assistance 6=Modified [place] 3=Moderate Assistance 7=Complete IndependenceSCALE: Activities may be completed with or without assistive devices. 3-Ylhwcbuqka-nrelams completes the activity by him/herself with no assistance from a helper. 5-Set-up or Clean-up Assistance-helper sets up or cleans up; patient completes activity. [place] assists only prior to or following the activity. 4-Supervision or Touching Assistance-helper provides verbal cues and/or touching/steadying and/or contact guard assistance as patient completes activity. Assistance may be provided throughout the activity or intermittently. 3-Partial/Moderate Assistance-helper does LESS THAN HALF the effort. [place] lifts, holds or supports trunk or limbs, but provides less than half the effort. 2-Substantial/Maximal Assistance-helper does MORE THAN HALF the effort. [place] lifts or holds trunk or limbs and provides more than half the effort. 7-Gbalzocaw-bnopnx does ALL the effort. Patient does none of the effort to complete the activity. Or, the assistance of 2 or more helpers is required for the patient to complete the activity. If activity was not attempted, code reason: 7-Patient Refused. 9-Not Applicable-not attempted and the patient did not perform the activity before the current illness, exacerbation or injury. 10-Not Attempted due to Environmental Limitations-(lack of equipment, weather restraints, etc.). 88-Not Attempted due to Medical Conditions or Safety Concerns. Roll Left to Right (QC): 6 Sit to Lying (QC): 5 Sit to Stand (QC): 4 Chair/Zjt-qr-Jelim Xfer(QC): 3 Car Transfer (QC): 4 Gait Training Does the Patient Walk?: Yes Distance: 175' Walk 10 feet (QC): 4 Walk 50 ft with 2 Turns(QC): 4 Walk 150 ft (QC): 4 Walking 10ft/uneven surface-QC: 4 Gait Persons Needed: 1 Gait Assistive Device: FWW Wheelchair Training Does the Pt Use a Wheelchair?: No Wheel 50 ft with 2 turns (QC): 9 Wheel 150 ft (QC): 9 Stair Training #of Steps: 1 1 Step (curb) (QC): 3 4 Steps (QC): 88 12 Steps (QC): 88 Balance Picking up an Object (QC): 3 ADL-Treatment Eating (QC): 5 Oral Hygiene (QC): 4 Shower/Bathe Self (QC): 4 (Using hand held shower, grabbars and shower bench pt completes with SBA for safety.) Upper Body Dressing (QC): 5 Lower Body Dressing (QC): 4 On/Off Footwear (QC): 5 Toileting Hygiene (QC): 4 (Using clinical judgment, pt requires CGA to manipulate clothing and sits to cleanse self.) Toilet Transfer (QC): 4 (Using clinical judgement CGA for safety during transfer.) Assessment/Plan Assessment and Plan Assess & Plan/Chief Complaint Assessment: 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
[2020-05-14 18:18] VITALS: BP 110/68
[2020-05-14] MEDS: MELATONIN 3 MG TABLET PO PRN (20:46)
[2020-05-15 05:24] VITALS: BP 99/68
[2020-05-15] MEDS: MULTIVIT W/MINERALS TAB (THERAGRAN M) PO SCH (06:58)
[2020-05-15 09:55] VITALS: BP 127/60
[2020-05-15] MEDS: acetaZOLAMIDE 250 MG (DIAMOX) TAB PO SCH (09:56)
[2020-05-15] MEDS: lisINopril 20 MG (PRINIVIL) TABLET PO SCH (09:56)
[2020-05-15] MEDS: METHADONE 10 MG (DOLOPHINE) TAB PO SCH ×2 (09:56→20:35)
[2020-05-15] MEDS: THYROID (ARMOUR) 60 MG TABLET PO SCH (09:57)
[2020-05-15] MEDS: DULoxetine 30 MG (CYMBALTA) CAP PO SCH (09:57)
[2020-05-15] MEDS: SENNA W/DOCUSATE (SENOKOT S) TABLET PO SCH ×2 (09:59→20:40)
[2020-05-15] MEDS: DOCUSATE SODIUM 100 MG (COLACE) CAP PO SCH ×2 (09:59→20:40)
[2020-05-15] MEDS: polyethylene glycoL POWDER 17 GM (MIRALAX) PACK PO SCH ×2 (09:59→20:35)
--- NOTE | 2020-05-15 12:03 | PM&R Progress Note ---
Subjective HPI/CC On Admission Date Seen by Provider: May 15, 2020 Time Seen by Provider: 12:10 Subjective/Events-last exam 05/15/20: Patient denies issues Family at bedside today No falls Feels good Eating well 05/14/20: Patient doing well Tired today No BM yet since 05/10 No falls 05/13/20: Patient doing well No pain reported Previous diarrhea before admit to holding laxatives but giving Colace Talked about labs results Potassium OTC at home for years but potassium level is 4.0 so will continue to hold and I updated her on that Review of Systems General: Fatigue, Malaise Neurological: Weakness, Incoordination Objective Exam Vital Signs Vital Signs Date Time Temp Pulse Resp B/P (MAP) Pulse Ox O2 Delivery O2 Flow Rate FiO2 05/15/20 17:06 36.3 89 18 111/53 (72) 93 Room Air Capillary Refill : General Appearance: No Apparent Distress, WD/WN HEENT: PERRL/EOMI, Normal ENT Inspection, Pharynx Normal Neck: Full Range of Motion, Normal Inspection, Non Tender, Supple, Carotid Bruit Respiratory: Chest Non Tender, Lungs Clear, Normal Breath Sounds, No Accessory Muscle Use, No Respiratory Distress Cardiovascular: Regular Rate, Rhythm, No Edema, No Gallop, No JVD, No Murmur, Normal Peripheral Pulses Gastrointestinal: Normal Bowel Sounds, No Organomegaly, No Pulsatile Mass, Non Tender, Soft Back: Normal Inspection, No CVA Tenderness, No Vertebral Tenderness Extremity: Normal Capillary Refill, Normal Inspection, Normal Range of Motion, Non Tender, No Calf Tenderness, No Pedal Edema Neurologic/Psychiatric: Alert, Oriented x3, No Motor/Sensory Deficits, Normal Mood/Affect, Abnormal Gait, Motor Weakness (lower extremities 4/5) Skin: Normal Color, Warm/Dry Lymphatic: No Adenopathy Results/Procedures Lab Patient resulted labs reviewed. FIM Transfers Therapy Code Descriptions/Definitions Functional [place] Measure: 0=Not Assessed/NA 4=Minimal Assistance 1=Total Assistance 5=Supervision or Setup 2=Maximal Assistance 6=Modified [place] 3=Moderate Assistance 7=Complete IndependenceSCALE: Activities may be completed with or without assistive devices. 0-Qgavftfzrs-glpdewe completes the activity by him/herself with no assistance from a helper. 5-Set-up or Clean-up Assistance-helper sets up or cleans up; patient completes activity. [place] assists only prior to or following the activity. 4-Supervision or Touching Assistance-helper provides verbal cues and/or touching/steadying and/or contact guard assistance as patient completes a ctivity. Assistance may be provided throughout the activity or intermittently. 3-Partial/Moderate Assistance-helper does LESS THAN HALF the effort. [place] lifts, holds or supports trunk or limbs, but provides less than half the effort. 2-Substantial/Maximal Assistance-helper does MORE THAN HALF the effort. [place] lifts or holds trunk or limbs and provides more than half the effort. 8-Iexnhaqkc-quhzqt does ALL the effort. Patient does none of the effort to complete the activity. Or, the assistance of 2 or more helpers is required for the patient to complete the activity. If activity was not attempted, code reason: 7-Patient Refused. 9-Not Applicable-not attempted and the patient did not perform the activity before the current illness, exacerbation or injury. 10-Not Attempted due to Environmental Limitations-(lack of equipment, weather restraints, etc.). 88-Not Attempted due to Medical Conditions or Safety Concerns. Roll Left to Right (QC): 6 Sit to Lying (QC): 5 Sit to Stand (QC): 4 Chair/Dbr-np-Mcjrp Xfer(QC): 3 Car Transfer (QC): 4 Gait Training Does the Patient Walk?: Yes Distance: 175' Walk 10 feet (QC): 4 Walk 50 ft with 2 Turns(QC): 4 Walk 150 ft (QC): 4 Walking 10ft/uneven surface-QC: 4 Gait Persons Needed: 1 Gait Assistive Device: FWW Wheelchair Training Does the Pt Use a Wheelchair?: No Wheel 50 ft with 2 turns (QC): 9 Wheel 150 ft (QC): 9 Stair Training #of Steps: 1 1 Step (curb) (QC): 3 4 Steps (QC): 88 12 Steps (QC): 88 Balance Picking up an Object (QC): 3 ADL-Treatment Eating (QC): 5 Oral Hygiene (QC): 4 Shower/Bathe Self (QC): 4 (Using hand held shower, grabbars and shower bench pt completes with SBA for safety.) Upper Body Dressing (QC): 5 Lower Body Dressing (QC): 4 On/Off Footwear (QC): 5 Toileting Hygiene (QC): 4 (Using clinical judgment, pt requires CGA to manipulate clothing and sits to cleanse self.) Toilet Transfer (QC): 4 (Using clinical judgement CGA for safety during transfer.) Assessment/Plan Assessment and Plan Assess & Plan/Chief Complaint Assessment: 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
[2020-05-15 17:06] VITALS: BP 111/53
[2020-05-15] MEDS: MELATONIN 3 MG TABLET PO PRN (20:39)
[2020-05-16 05:14] VITALS: BP 120/57
[2020-05-16 05:31] LABS: BASOPHILS % (AUTO) 0 % (0-10); EOSINOPHILS # (AUTO) 0.2 10^3/uL (0.0-0.3); EOSINOPHILS % (AUTO) 4 % (0-10); HEMATOCRIT 32 % (35-52); HEMOGLOBIN 9.4 g/dL (11.5-16.0); LYMPHOCYTES # (AUTO) 1.8 10^3/uL (1.0-4.0); LYMPHOCYTES % (AUTO) 28 % (12-44); MEAN CORPUSCULAR HEMOGLOBIN 30 pg (25-34); MEAN CORPUSCULAR HGB CONC 29 g/dL (32-36); MEAN CORPUSCULAR VOLUME 101 fL (80-99); MEAN PLATELET VOLUME 10.7 fL (9.0-12.2); MONOCYTES # (AUTO) 0.8 10^3/uL (0.0-1.0); MONOCYTES % (AUTO) 12 % (0-12); NEUTROPHILS # (AUTO) 3.6 10^3/uL (1.8-7.8); NEUTROPHILS % (AUTO) 56 % (42-75); PLATELET COUNT 283 10^3/uL (130-400); WHITE BLOOD COUNT 6.4 10^3/uL (4.3-11.0)
[2020-05-16 05:59] LABS: ALANINE AMINOTRANSFERASE 17 U/L (0-55); ALKALINE PHOSPHATASE 147 U/L (40-136); BILIRUBIN,TOTAL 0.2 MG/DL (0.1-1.0); BUN/CREATININE RATIO 22; CALCIUM 8.9 MG/DL (8.5-10.1); CARBON DIOXIDE 21 MMOL/L (21-32); CHLORIDE 112 MMOL/L (98-107); CREATININE SERUM 0.78 MG/DL (0.60-1.30); GFR ESTIMATED > 60; GLUCOSE 98 MG/DL (70-105); SODIUM 143 MMOL/L (135-145)
[2020-05-16] MEDS: MULTIVIT W/MINERALS TAB (THERAGRAN M) PO SCH (06:33)
[2020-05-16] MEDS: DULoxetine 30 MG (CYMBALTA) CAP PO SCH (07:19)
[2020-05-16] MEDS: METHADONE 10 MG (DOLOPHINE) TAB PO SCH ×2 (07:20→20:46)
[2020-05-16] MEDS: SENNA W/DOCUSATE (SENOKOT S) TABLET PO SCH ×2 (07:20→20:47)
[2020-05-16] MEDS: acetaZOLAMIDE 250 MG (DIAMOX) TAB PO SCH (07:20)
[2020-05-16] MEDS: lisINopril 20 MG (PRINIVIL) TABLET PO SCH (07:20)
[2020-05-16] MEDS: polyethylene glycoL POWDER 17 GM (MIRALAX) PACK PO SCH ×2 (07:20→20:47)
[2020-05-16] MEDS: DOCUSATE SODIUM 100 MG (COLACE) CAP PO SCH ×2 (07:21→20:47)
[2020-05-16] MEDS: THYROID (ARMOUR) 60 MG TABLET PO SCH (07:21)
--- NOTE | 2020-05-16 08:53 | Occupational Ther Daily Note ---
OT Current Status-Daily Note Subjective Pt alert, sitting on EOB. Nrsg in room. No c/o pain. Agrees to therapy. Mental Status/Objective Patient Orientation: Person, Place, Time, Situation Attachments: Other-See Comments (Baclofen pump L side upper torso) ADL-Treatment Pt is progressing with endurance and strength though at times quadriceps do give out, B LE's buckle and requires min A to CGA for sit <--> stand. Pt able to set up own meal and use regular utensils to eat. Pt ambulates to bathroom and transfers to toilet using FWW and CGA for safety. Pt stabilizes B LE against toilet while manipulating clothing with SBA then is able to sit and complete hygiene after toileting by self. CGA to transfer into shower using FWW, grabbars and hand held shower. Sitting on shower bench, pt is able to complete own shower (leans side to side to cleanse buttocks). After set up, pt able to complete upper body dressing and footwear by self. After set up, pt able to thread pants/briefs over feet then CGA for safety in standing while pt hikes pants over hips by self. Pt standing at sink, stabilizing body against counter, completes oral care independently. Due to fatigue pt lays down on bed before ambulating to therapy gym. Therapy Code Descriptions/Definitions Functional [place] Measure: 0=Not Assessed/NA 4=Minimal Assistance 1=Total Assistance 5=Supervision or Setup 2=Maximal Assistance 6=Modified [place] 3=Moderate Assistance 7=Complete IndependenceSCALE: Activities may be completed with or without assistive devices. 5-Mrtzmlabxq-rhroxed completes the activity by him/herself with no assistance from a helper. 5-Set-up or Clean-up Assistance-helper sets up or cleans up; patient completes activity. [place] assists only prior to or following the activity. 4-Supervision or Touching Assistance-helper provides verbal cues and/or touching/steadying and/or contact guard assistance as patient completes activity. Assistance may be provided throughout the activity or intermittently. 3-Partial/Moderate Assistance-helper does LESS THAN HALF the effort. [place] lifts, holds or supports trunk or limbs, but provides less than half the effort. 2-Substantial/Maximal Assistance-helper does MORE THAN HALF the effort. [place] lifts or holds trunk or limbs and provides more than half the effort. 5-Jxhyttfig-cwuiqh does ALL the effort. Patient does none of the effort to complete the activity. Or, the assistance of 2 or more helpers is required for the patient to complete the activity. If activity was not attempted, code reason: 7-Patient Refused. 9-Not Applicable-not attempted and the patient did not perform the activity before the current illness, exacerbation or injury. 10-Not Attempted due to Environmental Limitations-(lack of equipment, weather restraints, etc.). 88-Not Attempted due to Medical Conditions or Safety Concerns. Eating (QC): 6 Oral Hygiene (QC): 6 Shower/Bathe Self (QC): 5 Upper Body Dressing (QC): 5 Lower Body Dressing (QC): 4 On/Off Footwear: 5 Toileting Hygiene (QC): 4 Toilet Transfer (QC): 4 Other Treatment Pt ambulated to therapy gym to complete arm bike to increase strength and activity tolerance for daily functional tasks. 8 min at 15 grace resistance with extended break after to recovery before ambulating back to room. Pt independent with bed mobility. After session, pt lying in bed with call light/phone in reach. All needs met in room. OT Short Term Goals Short Term Goals Time Frame: May 25, 2020 Toileting hygiene: 4 Shower/bathe self: 4 Upper body dressin Lower body dressin Putting on/taking off footwear: 4 OT Printing Machine Operator Goals Printing Machine Operator Goals Time Frame: Jun 03, 2020 Eating (QC): 6 Oral Hygiene (QC): 6 Toileting Hygiene (QC): 6 Shower/Bathe Self (QC): 6 Upper Body Dressing (QC): 6 Lower Body Dressing (QC): 6 On/Off Footwear (QC): 6 Additional Goals: 1-Demonstrate ADL Tasks, 2-Verbalize Understanding, 3- ImproveStrength/Gerald 1=Demonstrate adherence to instructed precautions during ADL tasks. 2=Patient will verbalize/demonstrate understanding of assistive devices/modifi cations for ADL. 3=Patient will improve strength/tolerance for activity to enable patient to perform ADL's. OT Education/Plan Problem List/Assessment Assessment: Decreased Activ Tolerance, Decreased UE Strength, Impaired Funct Balance, Impaired Self-Care Skills Discharge Recommendations Plan/Recommendations: Continue POC Treatment Plan/Plan of Care Patient would benefit from OT for education, treatment and training to promote independence in ADL's, mobility, safety and/or upper extremity function for ADL's. Plan of Care: ADL Retraining, Functional Mobility, Group Exercise/Act as Ind, UE Funct Exercise/Act Treatment Duration: Jun 03, 2020 Frequency: At least 5 of 7 days/Wk (IRF) Estimated Hrs Per Day: 1.5 hours per day Agreement: Yes Rehab Potential: Fair Time/GCodes Start Time: 07:15 Stop Time: 08:45 Total Time Billed (hr/min): 90 Billed Treatment Time 1 visit-ADL 5 (70 min) EX 1 (20 min) FRITZ MELO May 16, 2020 08:53
--- NOTE | 2020-05-16 09:10 | PM&R Progress Note ---
Subjective HPI/CC On Admission Date Seen by Provider: May 16, 2020 Time Seen by Provider: 09:15 Subjective/Events-last exam 05/16/20: No major issues No BM since 05/12 Hgb 9.4 Albumin 3.3 05/15/20: Patient denies issues Family at bedside today No falls Feels good Eating well 05/14/20: Patient doing well Tired today No BM yet since 05/10 No falls 05/13/20: Patient doing well No pain reported Previous diarrhea before admit to holding laxatives but giving Colace Talked about labs results Potassium OTC at home for years but potassium level is 4.0 so will continue to hold and I updated her on that Review of Systems General: Fatigue, Malaise Neurological: Weakness Objective Exam Vital Signs Vital Signs Date Time Temp Pulse Resp B/P (MAP) Pulse Ox O2 Delivery O2 Flow Rate FiO2 05/16/20 20:30 94 Room Air 05/16/20 16:33 36.1 92 16 98/51 (67) Capillary Refill : General Appearance: No Apparent Distress, WD/WN HEENT: PERRL/EOMI, Normal ENT Inspection, Pharynx Normal Neck: Full Range of Motion, Normal Inspection, Non Tender, Supple, Carotid Bruit Respiratory: Chest Non Tender, Lungs Clear, Normal Breath Sounds, No Accessory Muscle Use, No Respiratory Distress Cardiovascular: Regular Rate, Rhythm, No Edema, No Gallop, No JVD, No Murmur, Normal Peripheral Pulses Gastrointestinal: Normal Bowel Sounds, No Organomegaly, No Pulsatile Mass, Non Tender, Soft Back: Normal Inspection, No CVA Tenderness, No Vertebral Tenderness Extremity: Normal Capillary Refill, Normal Inspection, Normal Range of Motion, Non Tender, No Calf Tenderness, No Pedal Edema Neurologic/Psychiatric: Alert, Oriented x3, No Motor/Sensory Deficits, Normal Mood/Affect, Abnormal Gait, Motor Weakness (lower extremities 4/5) Skin: Normal Color, Warm/Dry Lymphatic: No Adenopathy Results/Procedures Lab Laboratory Tests 05/16/20 05:25 Patient resulted labs reviewed. FIM Transfers Therapy Code Descriptions/Definitions Functional [place] Measure: 0=Not Assessed/NA 4=Minimal Assistance 1=Total Assistance 5=Supervision or Setup 2=Maximal Assistance 6=Modified [place] 3=Moderate Assistance 7=Complete IndependenceSCALE: Activities may be completed with or without assistive devices. 2-Zelgtpwvys-cfloaof completes the activity by him/herself with no assistance from a helper. 5-Set-up or Clean-up Assistance-helper sets up or cleans up; patient completes activity. [place] assists only prior to or following the activity. 4-Supervision or Touching Assistance-helper provides verbal cues and/or touching/steadying and/or contact guard assistance as patient completes activity. Assistance may be provided throughout the activity or intermittently. 3-Partial/Moderate Assistance-helper does LESS THAN HALF the effort. [place] lifts, holds or supports trunk or limbs, but provides less than half the effort. 2-Substantial/Maximal Assistance-helper does MORE THAN HALF the effort. [place] lifts or holds trunk or limbs and provides more than half the effort. 7-Pmcuaheft-ymojps does ALL the effort. Patient does none of the effort to complete the activity. Or, the assistance of 2 or more helpers is required for the patient to complete the activity. If activity was not attempted, code reason: 7-Patient Refused. 9-Not Applicable-not attempted and the patient did not perform the activity before the current illness, exacerbation or injury. 10-Not Attempted due to Environmental Limitations-(lack of equipment, weather restraints, etc.). 88-Not Attempted due to Medical Conditions or Safety Concerns. Roll Left to Right (QC): 6 Sit to Lying (QC): 5 Sit to Stand (QC): 4 Chair/Gbx-wp-Nypkz Xfer(QC): 3 Car Transfer (QC): 4 Gait Training Does the Patient Walk?: Yes Distance: 175' Walk 10 feet (QC): 4 Walk 50 ft with 2 Turns(QC): 4 Walk 150 ft (QC): 4 Walking 10ft/uneven surface-QC: 4 Gait Persons Needed: 1 Gait Assistive Device: FWW Wheelchair Training Does the Pt Use a Wheelchair?: No Wheel 50 ft with 2 turns (QC): 9 Wheel 150 ft (QC): 9 Stair Training #of Steps: 1 1 Step (curb) (QC): 3 4 Steps (QC): 88 12 Steps (QC): 88 Balance Picking up an Object (QC): 3 ADL-Treatment Eating (QC): 6 Oral Hygiene (QC): 6 Shower/Bathe Self (QC): 5 Upper Body Dressing (QC): 5 Lower Body Dressing (QC): 4 On/Off Footwear (QC): 5 Toileting Hygiene (QC): 4 Toilet Transfer (QC): 4 Assessment/Plan Assessment and Plan Assess & Plan/Chief Complaint Assessment: 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
--- NOTE | 2020-05-16 09:58 | Physical Therapy Daily Note ---
PT Daily Note-Current Subjective Pt. agrees to Rx. States she just needs some rest breaks . c/o she has a headache starting but is she rests she will be able to stop it in its tracks Pain Location: Medial Location Body Site: Head Pain Description: Ache Mental Status Patient Orientation: Normal For Age Attachments: Other-See Comments (mask) Transfers SCALE: Activities may be completed with or without assistive devices. 6-Eqtwtpyzkg-ctaytke completes the activity by him/herself with no assistance from a helper. 5-Set-up or Clean-up Assistance-helper sets up or cleans up; patient completes activity. [place] assists only prior to or following the activity. 4-Supervision or Touching Assistance-helper provides verbal cues and/or touching/steadying and/or contact guard assistance as patient completes activity. Assistance may be provided throughout the activity or intermittently. 3-Partial/Moderate Assistance-helper does LESS THAN HALF the effort. [place] lifts, holds or supports trunk or limbs, but provides less than half the effort. 2-Substantial/Maximal Assistance-helper does MORE THAN HALF the effort. [place] lifts or holds trunk or limbs and provides more than half the effort. 6-Tstijrcgl-uummkj does ALL the effort. Patient does none of the effort to complete the activity. Or, the assistance of 2 or more helpers is required for the patient to complete the activity. If activity was not attempted, code reason: 7-Patient Refused. 9-Not Applicable-not attempted and the patient did not perform the activity before the current illness, exacerbation or injury. 10-Not Attempted due to Environmental Limitations-(lack of equipment, weather restraints, etc.). 88-Not Attempted due to Medical Conditions or Safety Concerns. Roll Left & Right (QC): 6 Sit to Lying (QC): 6 Lying to Sitting/Side of Bed(Q: 6 Sit to Stand (QC): 4 Chair/Oul-jp-Zukyl Xfer(QC): 4 emphasis on sit to stand , wt shift forward and glut strength, pt. using rocking momentum to rise, counting to 3 Weight Bearing Full Weight Bearing Full Weight Bearing Gait Training Does the Patient Walk?: Yes Walk 10 feet (QC): 4 Walk 50 ft with 2 Turns(QC): 4 Gait Persons Needed: 1 Gait Assistive Device: FWW [id number], 75ftx2 wide FAIZA, no forrest LOB, min ataxia Exercises Supine Ex: Bridging, Ankle pumps, Quad Set, Rolling, Glut sets, Heel Slides, Short Arc Quads, Scooting, Straight leg raise, Hip abd/add Supine Reps: 15 Seated Therapy Exercises: Ankle pumps, Sit to stand, Long arc quads, Hip flexion, Hip abd/add Seated Reps: 12 Assessment Current Status: Good Progress PT Short Term Goals Short Term Goals Time Frame: May 19, 2020 Roll Left & Right: 6 Sit to lyin Lying to sitting on side of be: 6 Sit to stand: 4 Chair/djo-ie-sqrub transfer: 4 Walk 10 feet: 4 Walk 50 feet with two turns: 4 Walk 150 feet: 4 PT Radiation Therapist Goals Radiation Therapist Goals PT Radiation Therapist Goals Time Frame: Jun 02, 2020 Roll Left & Right (QC): 6 Sit to Lying (QC): 6 Lying-Sitting on Side/Bed(QC): 6 Sit to Stand (QC): 6 Chair/Fmj-ei-Xgisk Xfer(QC): 6 Toilet Transfer (QC): 6 Car Transfer (QC): 6 Does the Patient Walk: Yes Walk 10 feet (QC): 4 (SBA) Walk 50ft with 2 Turns (QC): 4 (SBA) Walk 150 ft (QC): 4 (SBA) Walking 10ft on Uneven Surface: 4 (SBA) 1 Step (curb) (QC): 4 4 Steps (QC): 4 12 Steps (QC): 88 Picking up an Object (QC): 4 Wheel 50 feet with 2 turns (QC: 9 Wheel 150 feet: 9 PT Plan Treatment/Plan Treatment Plan: Continue Plan of Care Treatment Plan: Bed Mobility, Education, Functional Activity Gerald, Functional Strength, Group Therapy, Gait, Safety, Therapeutic Exercise, Transfers Treatment Duration: Jun 02, 2020 Frequency: At least 5 of 7 days/Wk (IRF) Estimated Hrs Per Day: 1.5 hours per day Patient and/or Family Agrees t: Yes Safety Risks/Education Patient Education: Gait Training, Transfer Techniques, Correct Positioning, Disease Process, Safety Issues Teaching Recipient: Patient Teaching Methods: Demonstration, Discussion Response to Teaching: Verbalize Understanding, Return Demonstration, Reinforcement Needed Time/GCodes Time In: 900 Time Out: 1000 Total Billed Treatment Time: 60 Total Billed Treatment 1,EX30m,FA10m,GT20m CHAI HANNA COURT OFFICER May 16, 2020 09:58
--- NOTE | 2020-05-16 10:20 | Progress Note ---
PRECIOUS SCHNEIDER MED STUDENT 05/16/20 1020: Progress Note PROGRESS: Pt awake and lying in bed following OT session. Pt notes being tired following session and shower earlier in the morning. Pt denies pain/ SOB/ chest pain, but notes no BM since 05/12. Pt does explain that this is not unusual for her to go days without one. Very pleasant conversation. PLAN: Labs stable Continue PT/OT to regain strength Evaluate PT/OT progress at end of week SIRI BURNS DO 05/17/20 0510: Supervisory-Addendum Brief Verification & Attestation Participated in pt care: history, MDM, physical Personally performed: exam, history, MDM, supervision of care Care discussed with: Medical Student Procedures: n/a Results interpretation: Verified all documentation Verification and Attestation of Medical Student E/M Service A medical student performed and documented this service in my presence. I reviewed and verified all information documented by the medical student and made modifications to such information, when appropriate. I personally performed the physical exam and medical decision making. Siri Burns, May 17, 2020,05:10 PRECIOUS SCHNEIDER MED STUDENT May 16, 2020 10:20 SIRI BURNS DO May 17, 2020 05:10
[2020-05-16] MEDS: ACETAMINOPHEN 325 MG TABLET PO PRN (13:44)
--- NOTE | 2020-05-16 14:27 | Physical Therapy Daily Note ---
PT Daily Note-Current Subjective Pt. c/o headache still hanging on at 08/11 and requests pain meds of nurse. Pain Numeric Pain Scale: 6 Location: Medial Location Body Site: Head Pain Description: Ache Mental Status Patient Orientation: Normal For Age Attachments: Other-See Comments (mask) Transfers SCALE: Activities may be completed with or without assistive devices. 5-Pqtdvohsui-diyehpn completes the activity by him/herself with no assistance from a helper. 5-Set-up or Clean-up Assistance-helper sets up or cleans up; patient completes activity. [place] assists only prior to or following the activity. 4-Supervision or Touching Assistance-helper provides verbal cues and/or touching/steadying and/or contact guard assistance as patient completes activity. Assistance may be provided throughout the activity or intermittently. 3-Partial/Moderate Assistance-helper does LESS THAN HALF the effort. [place] lifts, holds or supports trunk or limbs, but provides less than half the effort. 2-Substantial/Maximal Assistance-helper does MORE THAN HALF the effort. [place] lifts or holds trunk or limbs and provides more than half the effort. 2-Oprjifmzm-mirkck does ALL the effort. Patient does none of the effort to complete the activity. Or, the assistance of 2 or more helpers is required for the patient to complete the activity. If activity was not attempted, code reason: 7-Patient Refused. 9-Not Applicable-not attempted and the patient did not perform the activity before the current illness, exacerbation or injury. 10-Not Attempted due to Environmental Limitations-(lack of equipment, weather restraints, etc.). 88-Not Attempted due to Medical Conditions or Safety Concerns. sup to sit SBA, sit to stands all CGA to min as pt. fatigues needing more assist Weight Bearing Full Weight Bearing Full Weight Bearing Gait Training Does the Patient Walk?: Yes Gait Assistive Device: FWW 75 ft x 2 50 ft x 1 , slow, CGA Exercises Seated Therapy Exercises: Ankle pumps, Sit to stand, Long arc quads, Hip flexion, Hip abd/add Seated Reps: 12 Treatments in bed after Rx with call mueller and cool cloth Assessment Current Status: Good Progress PT Short Term Goals Short Term Goals Time Frame: May 19, 2020 Roll Left & Right: 6 Sit to lyin Lying to sitting on side of be: 6 Sit to stand: 4 Chair/cng-qf-mjold transfer: 4 Walk 10 feet: 4 Walk 50 feet with two turns: 4 Walk 150 feet: 4 PT Fpc Goals Instructor Physical Education Goals PT Instructor Physical Education Goals Time Frame: Jun 02, 2020 Roll Left & Right (QC): 6 Sit to Lying (QC): 6 Lying-Sitting on Side/Bed(QC): 6 Sit to Stand (QC): 6 Chair/Pfb-lf-Lcgrw Xfer(QC): 6 Toilet Transfer (QC): 6 Car Transfer (QC): 6 Does the Patient Walk: Yes Walk 10 feet (QC): 4 (SBA) Walk 50ft with 2 Turns (QC): 4 (SBA) Walk 150 ft (QC): 4 (SBA) Walking 10ft on Uneven Surface: 4 (SBA) 1 Step (curb) (QC): 4 4 Steps (QC): 4 12 Steps (QC): 88 Picking up an Object (QC): 4 Wheel 50 feet with 2 turns (QC: 9 Wheel 150 feet: 9 PT Plan Treatment/Plan Treatment Plan: Continue Plan of Care Treatment Plan: Bed Mobility, Education, Functional Activity Gerald, Functional Strength, Group Therapy, Gait, Safety, Therapeutic Exercise, Transfers Treatment Duration: Jun 02, 2020 Frequency: At least 5 of 7 days/Wk (IRF) Estimated Hrs Per Day: 1.5 hours per day Patient and/or Family Agrees t: Yes Safety Risks/Education Patient Education: Gait Training, Disease Process, Safety Issues Time/GCodes Time In: 1330 Time Out: 1345 Total Billed Treatment Time: 15 Total Billed Treatment 1,GT15m CHAI HANNA INSPECTOR HEATING AND REFRIGERATION May 16, 2020 14:27
--- NOTE | 2020-05-16 14:51 | Speech Therapy Daily Note ---
Speech Daily Progress Note Subjective Date Seen by Provider: May 16, 2020 Time Seen by Provider: 00:30 Patient was resting in her bed following her other therapies. Objective Patient continues to utilize compensatory strategies as trained for all oral intake at 85%. Assessment Assessment Current Status: Good Progress Treatment Plan Continue Plan of Care Speech Short Term Goals Short Term Goals Short Term Goals 1) The patient will tolerate least restrictive diet level without s/s of aspiration at 90% or greater. 2) Patient/caregiver will utilize compensatory strategies as trained at 90% or greater so that she can have safe oral intake. Speech Prison Goals Prison Goals Patient will maintain adequate nutrition/hydration via safe effective swallow function. Speech-Plan Patient/Family Goals Patient/Family Goals: Patient plans on returning to her home where she lives with her SO. Treatment Plan Speech Therapy Treatment Plan: Continue Plan of Care Treatment Duration: May 20, 2020 Frequency: 4 times per week (Patient will receive dysphagia therapy 4-5x per week) Estimated Hrs Per Day: .5 hour per day Rehab Potential: Fair Barriers to Learning: Patient's recent serious illness for many days under sedation Pt/Family Agrees to Plan: Yes Safety Risks/Education Teaching Recipient: Patient Teaching Methods: Demonstration, Discussion Response to Teaching: Verbalize Understanding, Return Demonstration Education Topics Provided: Continued safety with oral intake Time Speech Therapy Time In: 14:30 Speech Therapy Time Out: 15:00 Total Billed Time: 30 Billed Treatment Time 1KAR BETHANIA May 16, 2020 14:51
[2020-05-16 16:33] VITALS: BP 98/51
[2020-05-16] MEDS: MELATONIN 3 MG TABLET PO PRN (20:46)
[2020-05-17] MEDS: MULTIVIT W/MINERALS TAB (THERAGRAN M) PO SCH (06:29)
[2020-05-17 06:30] VITALS: BP 142/72
[2020-05-17] MEDS: METHADONE 10 MG (DOLOPHINE) TAB PO SCH ×2 (08:28→20:47)
[2020-05-17] MEDS: THYROID (ARMOUR) 60 MG TABLET PO SCH (08:28)
[2020-05-17] MEDS: acetaZOLAMIDE 250 MG (DIAMOX) TAB PO SCH (08:28)
[2020-05-17] MEDS: DULoxetine 30 MG (CYMBALTA) CAP PO SCH (08:29)
[2020-05-17 08:30] VITALS: BP 100/64
--- NOTE | 2020-05-17 08:31 | Occupational Ther Daily Note ---
OT Current Status-Daily Note Subjective Pt alert, sitting EOB. Pt agrees to therapy. No c/o pain. Mental Status/Objective Patient Orientation: Person, Place, Time, Situation Attachments: Other-See Comments (Baclofen pump) ADL-Treatment Pt declines shower today. Pt requests to use toilet. Using FWW, pt ambulates to bathroom with close SBA due to B LE weakness. SBA for toilet transfer and clothing manipulation, independent sitting to cleanse after toileting. Pt stood at sink with supervision to complete oral care. Therapy Code Descriptions/Definitions Functional [place] Measure: 0=Not Assessed/NA 4=Minimal Assistance 1=Total Assistance 5=Supervision or Setup 2=Maximal Assistance 6=Modified [place] 3=Moderate Assistance 7=Complete IndependenceSCALE: Activities may be completed with or without assistive devices. 0-Hetzkqpiwl-tdpndqa completes the activity by him/herself with no assistance from a helper. 5-Set-up or Clean-up Assistance-helper sets up or cleans up; patient completes activity. [place] assists only prior to or following the activity. 4-Supervision or Touching Assistance-helper provides verbal cues and/or touching/steadying and/or contact guard assistance as patient completes activity. Assistance may be provided throughout the activity or intermittently. 3-Partial/Moderate Assistance-helper does LESS THAN HALF the effort. [place] lifts, holds or supports trunk or limbs, but provides less than half the effort. 2-Substantial/Maximal Assistance-helper does MORE THAN HALF the effort. [place] lifts or holds trunk or limbs and provides more than half the effort. 6-Ztiitrjmr-chzbca does ALL the effort. Patient does none of the effort to complete the activity. Or, the assistance of 2 or more helpers is required for the patient to complete the activity. If activity was not attempted, code reason: 7-Patient Refused. 9-Not Applicable-not attempted and the patient did not perform the activity before the current illness, exacerbation or injury. 10-Not Attempted due to Environmental Limitations-(lack of equipment, weather restraints, etc.). 88-Not Attempted due to Medical Conditions or Safety Concerns. Pt takes increased time to complete all tasks due to low endurance and increased time needed for recovery. Other Treatment Pt ambulated to/from therapy gym using FWW with CGA for safety due to B LE weakness. B UE strengthening and fine motor dexterity exercises completed for daily functional tasks and increasing activity tolerance. Arm bike 15 min with minimal resistance, standing at counter and completing fine motor tasks. After session, pt lying in bed with call light/phone in reach. All needs met in room. Education OT Patient Education: Energy conservation Teaching Recipient: Patient Teaching Methods: Discussion Response to Teaching: Verbalize Understanding, Return Demonstration OT Short Term Goals Short Term Goals Time Frame: May 25, 2020 Toileting hygiene: 4 Shower/bathe self: 4 Upper body dressin Lower body dressin Putting on/taking off footwear: 4 OT Dry Mill Operator Goals Dry Mill Operator Goals Time Frame: Jun 03, 2020 Eating (QC): 6 Oral Hygiene (QC): 6 Toileting Hygiene (QC): 6 Shower/Bathe Self (QC): 6 Upper Body Dressing (QC): 6 Lower Body Dressing (QC): 6 On/Off Footwear (QC): 6 Additional Goals: 1-Demonstrate ADL Tasks, 2-Verbalize Understanding, 3- ImproveStrength/Gerald 1=Demonstrate adherence to instructed precautions during ADL tasks. 2=Patient will verbalize/demonstrate understanding of assistive devic es/modifications for ADL. 3=Patient will improve strength/tolerance for activity to enable patient to perform ADL's. OT Education/Plan Problem List/Assessment Assessment: Decreased Activ Tolerance, Decreased UE Strength, Impaired Coordination, Impaired Funct Balance Discharge Recommendations Plan/Recommendations: Continue POC Treatment Plan/Plan of Care Patient would benefit from OT for education, treatment and training to promote independence in ADL's, mobility, safety and/or upper extremity function for ADL's. Plan of Care: ADL Retraining, Functional Mobility, Group Exercise/Act as Ind, UE Funct Exercise/Act Treatment Duration: Jun 03, 2020 Frequency: At least 5 of 7 days/Wk (IRF) Estimated Hrs Per Day: 1.5 hours per day Agreement: Yes Rehab Potential: Fair Time/GCodes Start Time: 07:15 Stop Time: 08:30 Total Time Billed (hr/min): 75 Billed Treatment Time 1 visit-ADL 2 (30 min) EX 3 (45 min) FRITZ MELO May 17, 2020 08:31
[2020-05-17] MEDS: DOCUSATE SODIUM 100 MG (COLACE) CAP PO SCH ×2 (09:18→20:48)
[2020-05-17] MEDS: SENNA W/DOCUSATE (SENOKOT S) TABLET PO SCH ×2 (09:19→20:48)
[2020-05-17] MEDS: polyethylene glycoL POWDER 17 GM (MIRALAX) PACK PO SCH ×2 (09:19→20:48)
[2020-05-17 09:53] VITALS: BP 119/57
[2020-05-17] MEDS: lisINopril 20 MG (PRINIVIL) TABLET PO SCH (09:53)
--- NOTE | 2020-05-17 09:53 | PM&R Progress Note ---
Subjective HPI/CC On Admission Date Seen by Provider: May 17, 2020 Time Seen by Provider: 08:45 Subjective/Events-last exam 05/17/20: No issues reported No pain reported Participating in therapy Gaining strength 05/16/20: No major issues No BM since 05/12 Hgb 9.4 Albumin 3.3 05/15/20: Patient denies issues Family at bedside today No falls Feels good Eating well 05/14/20: Patient doing well Tired today No BM yet since 05/10 No falls 05/13/20: Patient doing well No pain reported Previous diarrhea before admit to holding laxatives but giving Colace Talked about labs results Potassium OTC at home for years but potassium level is 4.0 so will continue to hold and I updated her on that Review of Systems Neurological: Weakness Objective Exam Vital Signs Vital Signs Date Time Temp Pulse Resp B/P (MAP) Pulse Ox O2 Delivery O2 Flow Rate FiO2 05/17/20 20:50 Room Air 05/17/20 16:07 36.3 92 16 101/52 (68) 93 Capillary Refill : General Appearance: No Apparent Distress, WD/WN HEENT: PERRL/EOMI, Normal ENT Inspection, Pharynx Normal Neck: Full Range of Motion, Normal Inspection, Non Tender, Supple, Carotid Bruit Respiratory: Chest Non Tender, Lungs Clear, Normal Breath Sounds, No Accessory Muscle Use, No Respiratory Distress Cardiovascular: Regular Rate, Rhythm, No Edema, No Gallop, No JVD, No Murmur, Normal Peripheral Pulses Gastrointestinal: Normal Bowel Sounds, No Organomegaly, No Pulsatile Mass, Non Tender, Soft Back: Normal Inspection, No CVA Tenderness, No Vertebral Tenderness Extremity: Normal Capillary Refill, Normal Inspection, Normal Range of Motion, Non Tender, No Calf Tenderness, No Pedal Edema Neurologic/Psychiatric: Alert, Oriented x3, No Motor/Sensory Deficits, Normal Mood/Affect, Abnormal Gait, Motor Weakness (lower extremities 4/5) Skin: Normal Color, Warm/Dry Lymphatic: No Adenopathy Results/Procedures Lab Patient resulted labs reviewed. FIM Transfers Therapy Code Descriptions/Definitions Functional [place] Measure: 0=Not Assessed/NA 4=Minimal Assistance 1=Total Assistance 5=Supervision or Setup 2=Maximal Assistance 6=Modified [place] 3=Moderate Assistance 7=Complete IndependenceSCALE: Activities may be completed with or without assistive devices. 7-Jkbwmfncxp-chrrpfu completes the activity by him/herself with no assistance from a helper. 5-Set-up or Clean-up Assistance-helper sets up or cleans up; patient completes activity. [place] assists only prior to or following the activity. 4-Supervision or Touching Assistance-helper provides verbal cues and/or touching/steadying and/or contact guard assistance as patient completes activity. Assistance may be provided throughout the activity or intermittently. 3-Partial/Moderate Assistance-helper does LESS THAN HALF the effort. [place] lifts, holds or supports trunk or limbs, but provides less than half the effort. 2-Substantial/Maximal Assistance-helper does MORE THAN HALF the effort. [place] lifts or holds trunk or limbs and provides more than half the effort. 2-Odmkozmuq-boalvu does ALL the effort. Patient does none of the effort to complete the activity. Or, the assistance of 2 or more helpers is required for the patient to complete the activity. If activity was not attempted, code reason: 7-Patient Refused. 9-Not Applicable-not attempted and the patient did not perform the activity before the current illness, exacerbation or injury. 10-Not Attempted due to Environmental Limitations-(lack of equipment, weather restraints, etc.). 88-Not Attempted due to Medical Conditions or Safety Concerns. Roll Left to Right (QC): 6 Sit to Lying (QC): 6 Sit to Stand (QC): 4 Chair/Hlb-pw-Zreus Xfer(QC): 4 Car Transfer (QC): 4 Gait Training Does the Patient Walk?: Yes Distance: 175' Walk 10 feet (QC): 4 Walk 50 ft with 2 Turns(QC): 4 Walk 150 ft (QC): 4 Walking 10ft/uneven surface-QC: 4 Gait Persons Needed: 1 Gait Assistive Device: FWW Wheelchair Training Does the Pt Use a Wheelchair?: No Wheel 50 ft with 2 turns (QC): 9 Wheel 150 ft (QC): 9 Stair Training #of Steps: 1 1 Step (curb) (QC): 3 4 Steps (QC): 88 12 Steps (QC): 88 Balance Picking up an Object (QC): 3 ADL-Treatment Eating (QC): 6 Oral Hygiene (QC): 6 Shower/Bathe Self (QC): 5 Upper Body Dressing (QC): 5 Lower Body Dressing (QC): 4 On/Off Footwear (QC): 5 Toileting Hygiene (QC): 4 Toilet Transfer (QC): 4 Assessment/Plan Assessment and Plan Assess & Plan/Chief Complaint Assessment: 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
--- NOTE | 2020-05-17 11:17 | Speech Therapy Daily Note ---
Speech Daily Progress Note Subjective Date Seen by Provider: May 17, 2020 Time Seen by Provider: 00:30 Patient was resting in her bed following her OT session which she says really worked her hard today. Objective Patient is utilizing compensatory strategies as trained with food/drink alternating, small bites/sips and chin tuck at 85% with minimal cuing. Assessment Assessment Current Status: Good Progress Treatment Plan Continue Plan of Care Speech Short Term Goals Short Term Goals Short Term Goals 1) The patient will tolerate least restrictive diet level without s/s of a spiration at 90% or greater. 2) Patient/caregiver will utilize compensatory strategies as trained at 90% or greater so that she can have safe oral intake. Speech Gang Hemstitching Machine Operator Goals [facility]dc Goals Patient will maintain adequate nutrition/hydration via safe effective swallow function. Speech-Plan Patient/Family Goals Patient/Family Goals: Patient plans on returning to her home where she lives with her SO. Treatment Plan Speech Therapy Treatment Plan: Continue Plan of Care Treatment Duration: May 20, 2020 Frequency: 4 times per week (Patient will receive dysphagia therapy 4-5x per week) Estimated Hrs Per Day: .5 hour per day Rehab Potential: Fair Barriers to Learning: Patient's recent lengthy serious illness, debility Pt/Family Agrees to Plan: Yes Safety Risks/Education Teaching Recipient: Patient Teaching Methods: Demonstration, Discussion Response to Teaching: Verbalize Understanding, Return Demonstration Education Topics Provided: Continued safety of all oral intake, protein intake Time Speech Therapy Time In: 09:30 Speech Therapy Time Out: 10:00 Total Billed Time: 30 Billed Treatment Time 1, DYST JOSHUA Hu May 17, 2020 11:17
--- NOTE | 2020-05-17 12:18 | Physical Therapy Daily Note ---
PT Daily Note-Current Subjective Pt laying Supine in bed upon arrival. Pt agrees to PT. Pain Location: No Pain Reported Mental Status Patient Orientation: Person, Place, Time, Situation Transfers SCALE: Activities may be completed with or without assistive devices. 2-Qvvuwampbk-ncyxxgw completes the activity by him/herself with no assistance from a helper. 5-Set-up or Clean-up Assistance-helper sets up or cleans up; patient completes activity. [place] assists only prior to or following the activity. 4-Supervision or Touching Assistance-helper provides verbal cues and/or touching/steadying and/or contact guard assistance as patient completes activity. Assistance may be provided throughout the activity or intermittently. 3-Partial/Moderate Assistance-helper does LESS THAN HALF the effort. Emily lifts, holds or supports trunk or limbs, but provides less than half the effort. 2-Substantial/Maximal Assistance-helper does MORE THAN HALF the effort. Emily lifts or holds trunk or limbs and provides more than half the effort. 0-Clecjufbg-uomgpw does ALL the effort. Patient does none of the effort to complete the activity. Or, the assistance of 2 or more helpers is required for the patient to complete the activity. If activity was not attempted, code reason: 7-Patient Refused. 9-Not Applicable-not attempted and the patient did not perform the activity be fore the current illness, exacerbation or injury. 10-Not Attempted due to Environmental Limitations-(lack of equipment, weather restraints, etc.). 88-Not Attempted due to Medical Conditions or Safety Concerns. Sit to Lying (QC): 5 Lying to Sitting/Side of Bed(Q: 5 Sit to Stand (QC): 4 Weight Bearing Full Weight Bearing Full Weight Bearing Gait Training Does the Patient Walk?: Yes Distance: 150' Walk 10 feet (QC): 4 Walk 50 ft with 2 Turns(QC): 4 Walk 150 ft (QC): 4 Gait Persons Needed: 1 Gait Assistive Device: FWW Exercises Seated Therapy Exercises: Ankle pumps, Long arc quads, Hip flexion, Kicking ac tivity, Glut set Seated Reps: 15 NuStep Minutes: 15 NuStep Workload: 4 Treatments [id number]: TF to standing and uses RB. Pt amb in hallway. After short RB, pt uses NuStep for 15m at WL 4 and completes Seated Ex before amb in hallway. Pt returns to room and rests in bed at end of tx after practicing TF stand-sit. All needs met, call light in hand. [id number]: LOAN INSPECTOR issues and reviews written HEP for Supine & Seated Ex. Pt resting in bed at end of tx. All needs met, call light in hand. Assessment Current Status: Good Progress Pt is gaining strength and activity tolerance. PT Short Term Goals Short Term Goals Time Frame: May 19, 2020 Roll Left & Right: 6 Sit to lyin Lying to sitting on side of be: 6 Sit to stand: 4 Chair/mmg-zt-teyux transfer: 4 Walk 10 feet: 4 Walk 50 feet with two turns: 4 Walk 150 feet: 4 PT Sole Leather Cutting Machine Operator Goals Sole Leather Cutting Machine Operator Goals PT Sole Leather Cutting Machine Operator Goals Time Frame: Jun 02, 2020 Roll Left & Right (QC): 6 Sit to Lying (QC): 6 Lying-Sitting on Side/Bed(QC): 6 Sit to Stand (QC): 6 Chair/Qtv-vn-Metbp Xfer(QC): 6 Toilet Transfer (QC): 6 Car Transfer (QC): 6 Does the Patient Walk: Yes Walk 10 feet (QC): 4 (SBA) Walk 50ft with 2 Turns (QC): 4 (SBA) Walk 150 ft (QC): 4 (SBA) Walking 10ft on Uneven Surface: 4 (SBA) 1 Step (curb) (QC): 4 4 Steps (QC): 4 12 Steps (QC): 88 Picking up an Object (QC): 4 Wheel 50 feet with 2 turns (QC: 9 Wheel 150 feet: 9 PT Plan Treatment/Plan Treatment Plan: Continue Plan of Care Treatment Plan: Bed Mobility, Education, Functional Activity Gerald, Functional Strength, Group Therapy, Gait, Safety, Therapeutic Exercise, Transfers Treatment Duration: Jun 02, 2020 Frequency: At least 5 of 7 days/Wk (IRF) Estimated Hrs Per Day: 1.5 hours per day Patient and/or Family Agrees t: Yes Safety Risks/Education Patient Education: Transfer Techniques, Correct Positioning, Safety Issues Teaching Recipient: Patient Teaching Methods: Discussion Response to Teaching: Verbalize Understanding Time/GCodes Time In: 1000 Time Out: 1400 Total Billed Treatment Time: 80 Total Billed Treatment [id number]: 1, EX x2 (30m), FA (15m), GT (15m) [id number]: 1, EX (15m) OLESYA GRANADOS LOAN INSPECTOR May 17, 2020 12:18
[2020-05-17] MEDS ORDERED: LISI1TAB26 PO (15:15)
[2020-05-17] MEDS ORDERED: THYR90TA PO (15:15)
[2020-05-17] MEDS ORDERED: MELA3TAB39 PO (15:16)
[2020-05-17 16:07] VITALS: BP 101/52
[2020-05-17] MEDS: MELATONIN 3 MG TABLET PO PRN (20:46)
[2020-05-18 06:15] VITALS: BP 106/53
[2020-05-18] MEDS: MULTIVIT W/MINERALS TAB (THERAGRAN M) PO SCH (06:58)
[2020-05-18] MEDS: THYROID (ARMOUR) 60 MG TABLET PO SCH (08:25)
[2020-05-18] MEDS: DULoxetine 30 MG (CYMBALTA) CAP PO SCH (08:25)
[2020-05-18] MEDS: lisINopril 20 MG (PRINIVIL) TABLET PO SCH (08:26)
[2020-05-18] MEDS: METHADONE 10 MG (DOLOPHINE) TAB PO SCH ×2 (08:26→20:38)
[2020-05-18] MEDS: acetaZOLAMIDE 250 MG (DIAMOX) TAB PO SCH (08:26)
[2020-05-18] MEDS: DOCUSATE SODIUM 100 MG (COLACE) CAP PO SCH ×2 (08:27→20:40)
[2020-05-18] MEDS: SENNA W/DOCUSATE (SENOKOT S) TABLET PO SCH ×2 (08:28→20:40)
[2020-05-18] MEDS: polyethylene glycoL POWDER 17 GM (MIRALAX) PACK PO SCH ×2 (08:28→20:40)
[2020-05-18 08:31] VITALS: BP 120/60
--- NOTE | 2020-05-18 08:33 | Occupational Ther Daily Note ---
OT Current Status-Daily Note Subjective Pt alert, sitting EOB. Pt agrees to therapy. No c/o pain at this time. Mental Status/Objective Patient Orientation: Person, Place, Time, Situation Attachments: Other-See Comments (Baclofen Pump) ADL-Treatment Pt agrees to shower. Pt able to open containers and use regular utensils to eat, independently. Pt was given bags to retrieve clothes sitting on EOB then pt used FWW to transport clothing into bathroom. Supervision to transfer onto toilet and manipulate clothing then while sitting pt completes hygiene by self. Pt doffs upper body clothing and footwear by self, supervision in standing to hike pants over hips then doffs by self over feet in sitting. Pt transfers into shower with CGA for safety. Pt completes shower independently sitting on shower bench to bathe entire body (leans side to side to cleanse buttocks) using grabbars and hand held shower. Pt dons upper body clothing and footwear independently. Pt threads feet through pants legs independently, SBA in standing to hike pants over hips for safety. Pt then ambulates to sink using FWW and stabilizes self with counter to complete oral care independently. Therapy Code Descriptions/Definitions Functional [place] Measure: 0=Not Assessed/NA 4=Minimal Assistance 1=Total Assistance 5=Supervision or Setup 2=Maximal Assistance 6=Modified [place] 3=Moderate Assistance 7=Complete IndependenceSCALE: Activities may be completed with or without assistive devices. 4-Exylpwllkw-ubrrond completes the activity by him/herself with no assistance from a helper. 5-Set-up or Clean-up Assistance-helper sets up or cleans up; patient completes activity. [place] assists only prior to or following the activity. 4-Supervision or Touching Assistance-helper provides verbal cues and/or touching/steadying and/or contact guard assistance as patient completes activity. Assistance may be provided throughout the activity or intermittently. 3-Partial/Moderate Assistance-helper does LESS THAN HALF the effort. [place] lifts, holds or supports trunk or limbs, but provides less than half the effort. 2-Substantial/Maximal Assistance-helper does MORE THAN HALF the effort. [place] lifts or holds trunk or limbs and provides more than half the effort. 5-Cdxwzcgdx-ecwqyb does ALL the effort. Patient does none of the effort to co mplete the activity. Or, the assistance of 2 or more helpers is required for the patient to complete the activity. If activity was not attempted, code reason: 7-Patient Refused. 9-Not Applicable-not attempted and the patient did not perform the activity before the current illness, exacerbation or injury. 10-Not Attempted due to Environmental Limitations-(lack of equipment, weather restraints, etc.). 88-Not Attempted due to Medical Conditions or Safety Concerns. Eating (QC): 6 Oral Hygiene (QC): 6 Shower/Bathe Self (QC): 6 Upper Body Dressing (QC): 5 Lower Body Dressing (QC): 4 On/Off Footwear: 5 Toileting Hygiene (QC): 4 Toilet Transfer (QC): 4 Pt has AE and AD at home for transfers and ADLs. Pt's will be taking off a week from work to make sure of pt's safety. Other Treatment Pt given light resistance theraband and exercises to increase wrist and hand strength for daily functional tasks. Skilled instruction needed for correct technique and modifications. Pt completed wrist flex/ext/radial deviation exercises 2 sets 10 reps. Pt fatigued quickly. After session, pt lying in bed with call light/phone in reach. All needs met in room. OT Short Term Goals Short Term Goals Time Frame: May 25, 2020 Toileting hygiene: 4 Shower/bathe self: 4 Upper body dressin Lower body dressin Putting on/taking off footwear: 4 OT Detention Goals Transmission Engineer Goals Time Frame: Jun 03, 2020 Eating (QC): 6 Oral Hygiene (QC): 6 Toileting Hygiene (QC): 6 Shower/Bathe Self (QC): 6 Upper Body Dressing (QC): 6 Lower Body Dressing (QC): 6 On/Off Footwear (QC): 6 Additional Goals: 1-Demonstrate ADL Tasks, 2-Verbalize Understanding, 3- ImproveStrength/Gerald 1=Demonstrate adherence to instructed precautions during ADL tasks. 2=Patient will verbalize/demonstrate understanding of assistive devices/modifications for ADL. 3=Patient will improve strength/tolerance for activity to enable patient to perform ADL's. OT Education/Plan Problem List/Assessment Assessment: Decreased Activ Tolerance, Decreased UE Strength, Impaired Funct Balance Discharge Recommendations Plan/Recommendations: Continue POC Treatment Plan/Plan of Care Patient would benefit from OT for education, treatment and training to promote independence in ADL's, mobility, safety and/or upper extremity function for ADL's. Plan of Care: ADL Retraining, Functional Mobility, Group Exercise/Act as Ind, UE Funct Exercise/Act Treatment Duration: Jun 03, 2020 Frequency: At least 5 of 7 days/Wk (IRF) Estimated Hrs Per Day: 1.5 hours per day Agreement: Yes Rehab Potential: Fair Time/GCodes Start Time: 07:15 Stop Time: 08:30 Total Time Billed (hr/min): 75 Billed Treatment Time 1 visit-ADL 4 (55 min) EX 1 (20 min) FRITZ MELO May 18, 2020 08:32
--- NOTE | 2020-05-18 09:39 | PM&R Progress Note ---
Subjective HPI/CC On Admission Date Seen by Provider: May 18, 2020 Time Seen by Provider: 09:30 Subjective/Events-last exam 05/18/20: Monitor closely Diarrhea is an issue since laxatives given for days HR usually 110 no symptoms Getting stronger 05/17/20: No issues reported No pain reported Participating in therapy Gaining strength 05/16/20: No major issues No BM since 05/12 Hgb 9.4 Albumin 3.3 05/15/20: Patient denies issues Family at bedside today No falls Feels good Eating well 05/14/20: Patient doing well Tired today No BM yet since 05/10 No falls 05/13/20: Patient doing well No pain reported Previous diarrhea before admit to holding laxatives but giving Colace Talked about labs results Potassium OTC at home for years but potassium level is 4.0 so will continue to hold and I updated her on that Review of Systems General: Fatigue, Malaise Neurological: Weakness Objective Exam Vital Signs Vital Signs Date Time Temp Pulse Resp B/P (MAP) Pulse Ox O2 Delivery O2 Flow Rate FiO2 05/18/20 20:40 Room Air 05/18/20 17:19 36.2 89 18 95/49 (64) 97 Capillary Refill : General Appearance: No Apparent Distress, WD/WN HEENT: PERRL/EOMI, Normal ENT Inspection, Pharynx Normal Neck: Full Range of Motion, Normal Inspection, Non Tender, Supple, Carotid Bruit Respiratory: Chest Non Tender, Lungs Clear, Normal Breath Sounds, No Accessory Muscle Use, No Respiratory Distress Cardiovascular: Regular Rate, Rhythm, No Edema, No Gallop, No JVD, No Murmur, Normal Peripheral Pulses Gastrointestinal: Normal Bowel Sounds, No Organomegaly, No Pulsatile Mass, Non Tender, Soft Back: Normal Inspection, No CVA Tenderness, No Vertebral Tenderness Extremity: Normal Capillary Refill, Normal Inspection, Normal Range of Motion, Non Tender, No Calf Tenderness, No Pedal Edema Neurologic/Psychiatric: Alert, Oriented x3, No Motor/Sensory Deficits, Normal Mood/Affect, Abnormal Gait, Motor Weakness (lower extremities 4/5) Skin: Normal Color, Warm/Dry Lymphatic: No Adenopathy Results/Procedures Lab Patient resulted labs reviewed. FIM Transfers Therapy Code Descriptions/Definitions Functional [place] Measure: 0=Not Assessed/NA 4=Minimal Assistance 1=Total Assistance 5=Supervision or Setup 2=Maximal Assistance 6=Modified [place] 3=Moderate Assistance 7=Complete IndependenceSCALE: Activities may be completed with or without assistive devices. 1-Nkizykfjbo-ecglfpz completes the activity by him/herself with no assistance from a helper. 5-Set-up or Clean-up Assistance-helper sets up or cleans up; patient completes activity. [place] assists only prior to or following the activity. 4-Supervision or Touching Assistance-helper provides verbal cues and/or touching/steadying and/or contact guard assistance as patient completes activity. Assistance may be provided throughout the activity or intermittently. 3-Partial/Moderate Assistance-helper does LESS THAN HALF the effort. [place] lifts, holds or supports trunk or limbs, but provides less than half the effort. 2-Substantial/Maximal Assistance-helper does MORE THAN HALF the effort. [place] lifts or holds trunk or limbs and provides more than half the effort. 6-Mtcdqxmbl-bdgobt does ALL the effort. Patient does none of the effort to complete the activity. Or, the assistance of 2 or more helpers is required for the patient to complete the activity. If activity was not attempted, code reason: 7-Patient Refused. 9-Not Applicable-not attempted and the patient did not perform the activity before the current illness, exacerbation or injury. 10-Not Attempted due to Environmental Limitations-(lack of equipment, weather restraints, etc.). 88-Not Attempted due to Medical Conditions or Safety Concerns. Roll Left to Right (QC): 6 Sit to Lying (QC): 5 Sit to Stand (QC): 4 Chair/Ugx-yu-Dbbls Xfer(QC): 4 Car Transfer (QC): 4 Gait Training Does the Patient Walk?: Yes Distance: 150' Walk 10 feet (QC): 4 Walk 50 ft with 2 Turns(QC): 4 Walk 150 ft (QC): 4 Walking 10ft/uneven surface-QC: 4 Gait Persons Needed: 1 Gait Assistive Device: FWW Wheelchair Training Does the Pt Use a Wheelchair?: No Wheel 50 ft with 2 turns (QC): 9 Wheel 150 ft (QC): 9 Stair Training #of Steps: 1 1 Step (curb) (QC): 3 4 Steps (QC): 88 12 Steps (QC): 88 Balance Picking up an Object (QC): 3 ADL-Treatment Eating (QC): 6 Oral Hygiene (QC): 6 Shower/Bathe Self (QC): 6 Upper Body Dressing (QC): 5 Lower Body Dressing (QC): 4 On/Off Footwear (QC): 5 Toileting Hygiene (QC): 4 Toilet Transfer (QC): 4 Assessment/Plan Assessment and Plan Assess & Plan/Chief Complaint Assessment: 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
--- NOTE | 2020-05-18 11:26 | Speech Therapy Daily Note ---
Speech Daily Progress Note Subjective Date Seen by Provider: May 18, 2020 Time Seen by Provider: 00:30 Patient was resting in her bed following her shower this morning. Objective Patient continues to utilize compensatory strategies as trained at 90% with minimal cues. Assessment Assessment Current Status: Good Progress Treatment Plan Continue Plan of Care Speech Short Term Goals Short Term Goals Short Term Goals 1) The patient will tolerate least restrictive diet level without s/s of aspiration at 90% or greater. 2) Patient/caregiver will utilize compensatory strategies as trained at 90% or greater so that she can have safe oral intake. Speech Database Design Analyst Goals Assisted Goals Patient will maintain adequate nutrition/hydration via safe effective swallow function. Speech-Plan Patient/Family Goals Patient/Family Goals: Patient plans on returning to her home with her SO upon discharge. Treatment Plan Speech Therapy Treatment Plan: Continue Plan of Care Treatment Duration: May 20, 2020 Frequency: 4 times per week (Patient will receive dysphagia therapy 4-5x per week) Estimated Hrs Per Day: .5 hour per day Rehab Potential: Fair Barriers to Learning: Recovery from serious illness for a few weeks Pt/Family Agrees to Plan: Yes Safety Risks/Education Teaching Recipient: Patient Teaching Methods: Demonstration, Discussion Response to Teaching: Verbalize Understanding, Return Demonstration Education Topics Provided: Continued safety of oral intake Time Speech Therapy Time In: 09:30 Speech Therapy Time Out: 10:00 Total Billed Time: 30 Billed Treatment Time [address] May 18, 2020 11:26
--- NOTE | 2020-05-18 12:05 | Physical Therapy Daily Note ---
PT Daily Note-Current Subjective Pt sitting at EOB upon arrival. Pt agrees to PT. Pain Location: No Pain Reported Mental Status Patient Orientation: Person, Place, Time, Situation Transfers SCALE: Activities may be completed with or without assistive devices. 7-Lntkdhndqz-ljzhltm completes the activity by him/herself with no assistance from a helper. 5-Set-up or Clean-up Assistance-helper sets up or cleans up; patient completes activity. [place] assists only prior to or following the activity. 4-Supervision or Touching Assistance-helper provides verbal cues and/or touching/steadying and/or contact guard assistance as patient completes activity. Assistance may be provided throughout the activity or intermittently. 3-Partial/Moderate Assistance-helper does LESS THAN HALF the effort. [place] lifts, holds or supports trunk or limbs, but provides less than half the effort. 2-Substantial/Maximal Assistance-helper does MORE THAN HALF the effort. [place] lifts or holds trunk or limbs and provides more than half the effort. 4-Cmfpvvasi-upwsxh does ALL the effort. Patient does none of the effort to complete the activity. Or, the assistance of 2 or more helpers is required for the patient to complete the activity. If activity was not attempted, code reason: 7-Patient Refused. 9-Not Applicable-not attempted and the patient did not perform the activity before the current illness, exacerbation or injury. 10-Not Attempted due to Environmental Limitations-(lack of equipment, weather restraints, etc.). 88-Not Attempted due to Medical Conditions or Safety Concerns. Roll Left & Right (QC): 6 Sit to Lying (QC): 6 Lying to Sitting/Side of Bed(Q: 6 Sit to Stand (QC): 5 Chair/Xst-hr-Pwpse Xfer(QC): 5 Toilet Transfer (QC): 5 Car Transfer (QC): 6 Weight Bearing Full Weight Bearing Full Weight Bearing Gait Training Does the Patient Walk?: Yes Distance: 150'. 100' Walk 10 feet (QC): 5 Walk 50 ft with 2 Turns(QC): 5 Walk 150 ft (QC): 5 Walking 10ft/uneven surface-QC: 5 Gait Persons Needed: 1 Gait Assistive Device: FWW Wheelchair Training Does the Pt Use a Wheelchair?: No Stair Training Stair Training: Handrails/: 2 handrails #of Steps: 8 1 Step (curb) (QC): 5 4 Steps (QC): 5 12 Steps (QC): 7 Stairs: Pattern: Step to Balance Picking up an Object (QC): 5 Exercises NuStep Minutes: 15 NuStep Workload: 5 Treatments TF to standing and amb. in hallway. Pt completes QC scoring items listed above. Pt returns to room at end of tx with all needs met, call light in hand. Assessment Current Status: Good Progress Fox. tx well PT Short Term Goals Short Term Goals Time Frame: May 19, 2020 Roll Left & Right: 6 Sit to lyin Lying to sitting on side of be: 6 Sit to stand: 4 Chair/row-iw-unyye transfer: 4 Walk 10 feet: 4 Walk 50 feet with two turns: 4 Walk 150 feet: 4 PT Director For [employer] Goals Director For [employer] Goals PT [facility] Goals Time Frame: Jun 02, 2020 Roll Left & Right (QC): 6 Sit to Lying (QC): 6 Lying-Sitting on Side/Bed(QC): 6 Sit to Stand (QC): 6 Chair/Emf-fw-Cmlki Xfer(QC): 6 Toilet Transfer (QC): 6 Car Transfer (QC): 6 Does the Patient Walk: Yes Walk 10 feet (QC): 4 (SBA) Walk 50ft with 2 Turns (QC): 4 (SBA) Walk 150 ft (QC): 4 (SBA) Walking 10ft on Uneven Surface: 4 (SBA) 1 Step (curb) (QC): 4 4 Steps (QC): 4 12 Steps (QC): 88 Picking up an Object (QC): 4 Wheel 50 feet with 2 turns (QC: 9 Wheel 150 feet: 9 PT Plan Problem List Problem List: Activity Tolerance Treatment/Plan Treatment Plan: Continue Plan of Care Treatment Plan: Bed Mobility, Education, Functional Activity Gerald, Functional Strength, Group Therapy, Gait, Safety, Therapeutic Exercise, Transfers Treatment Duration: Jun 02, 2020 Frequency: At least 5 of 7 days/Wk (IRF) Estimated Hrs Per Day: 1.5 hours per day Patient and/or Family Agrees t: Yes Safety Risks/Education Patient Education: Steps, Correct Positioning, Safety Issues Teaching Recipient: Patient Teaching Methods: Discussion Response to Teaching: Verbalize Understanding Time/GCodes Time In: 1030 Time Out: 1145 Total Billed Treatment Time: 75 Total Billed Treatment 1, GT (15m), EX x2 (30m), FA x2 (30m) OLESYA GRANADOS PTA May 18, 2020 12:05
[2020-05-18] MEDS: ACETAMINOPHEN 325 MG TABLET PO PRN (12:30)
[2020-05-18 17:19] VITALS: BP 95/49
[2020-05-18] MEDS: MELATONIN 3 MG TABLET PO PRN (20:39)
[2020-05-19 05:50] VITALS: BP 103/55
--- NOTE | 2020-05-19 06:06 | PM&R Progress Note ---
Subjective HPI/CC On Admission Date Seen by Provider: May 19, 2020 Time Seen by Provider: 08:00 Subjective/Events-last exam 05/19/20: Patient doing well BM this am DC tomorrow 05/18/20: Monitor closely Diarrhea is an issue since laxatives given for days HR usually 110 no symptoms Getting stronger 05/17/20: No issues reported No pain reported Participating in therapy Gaining strength 05/16/20: No major issues No BM since 05/12 Hgb 9.4 Albumin 3.3 05/15/20: Patient denies issues Family at bedside today No falls Feels good Eating well 05/14/20: Patient doing well Tired today No BM yet since 05/10 No falls 05/13/20: Patient doing well No pain reported Previous diarrhea before admit to holding laxatives but giving Colace Talked about labs results Potassium OTC at home for years but potassium level is 4.0 so will continue to hold and I updated her on that Review of Systems General: Fatigue, Malaise Objective Exam Vital Signs Vital Signs Date Time Temp Pulse Resp B/P (MAP) Pulse Ox O2 Delivery O2 Flow Rate FiO2 05/19/20 20:00 Room Air 05/19/20 15:57 36.0 87 16 97/66 (76) 97 Capillary Refill : General Appearance: No Apparent Distress, WD/WN HEENT: PERRL/EOMI, Normal ENT Inspection, Pharynx Normal Neck: Full Range of Motion, Normal Inspection, Non Tender, Supple, Carotid Bruit Respiratory: Chest Non Tender, Lungs Clear, Normal Breath Sounds, No Accessory Muscle Use, No Respiratory Distress Cardiovascular: Regular Rate, Rhythm, No Edema, No Gallop, No JVD, No Murmur, Normal Peripheral Pulses Gastrointestinal: Normal Bowel Sounds, No Organomegaly, No Pulsatile Mass, Non Tender, Soft Back: Normal Inspection, No CVA Tenderness, No Vertebral Tenderness Extremity: Normal Capillary Refill, Normal Inspection, Normal Range of Motion, Non Tender, No Calf Tenderness, No Pedal Edema Neurologic/Psychiatric: Alert, Oriented x3, No Motor/Sensory Deficits, Normal Mood/Affect, Abnormal Gait, Motor Weakness (lower extremities 4/5) Skin: Normal Color, Warm/Dry Lymphatic: No Adenopathy Results/Procedures Lab Patient resulted labs reviewed. FIM Transfers Therapy Code Descriptions/Definitions Functional [place] Measure: 0=Not Assessed/NA 4=Minimal Assistance 1=Total Assistance 5=Supervision or Setup 2=Maximal Assistance 6=Modified [place] 3=Moderate Assistance 7=Complete IndependenceSCALE: Activities may be completed with or without assistive devices. 2-Ysbbohoorm-pqxqxzg completes the activity by him/herself with no assistance from a helper. 5-Set-up or Clean-up Assistance-helper sets up or cleans up; patient completes activity. [place] assists only prior to or following the activity. 4-Supervision or Touching Assistance-helper provides verbal cues and/or touching/steadying and/or contact guard assistance as patient completes activity. Assistance may be provided throughout the activity or intermittently. 3-Partial/Moderate Assistance-helper does LESS THAN HALF the effort. [place] lifts, holds or supports trunk or limbs, but provides less than half the effort. 2-Substantial/Maximal Assistance-helper does MORE THAN HALF the effort. [place] lifts or holds trunk or limbs and provides more than half the effort. 0-Iyisvhfck-ebebcx does ALL the effort. Patient does none of the effort to complete the activity. Or, the assistance of 2 or more helpers is required for the patient to complete the activity. If activity was not attempted, code reason: 7-Patient Refused. 9-Not Applicable-not attempted and the patient did not perform the activity befo re the current illness, exacerbation or injury. 10-Not Attempted due to Environmental Limitations-(lack of equipment, weather re straints, etc.). 88-Not Attempted due to Medical Conditions or Safety Concerns. Roll Left to Right (QC): 6 Sit to Lying (QC): 6 Sit to Stand (QC): 5 Chair/Oyt-mr-Mglmp Xfer(QC): 5 Car Transfer (QC): 6 Gait Training Does the Patient Walk?: Yes Distance: 150'. 100' Walk 10 feet (QC): 5 Walk 50 ft with 2 Turns(QC): 5 Walk 150 ft (QC): 5 Walking 10ft/uneven surface-QC: 5 Gait Persons Needed: 1 Gait Assistive Device: FWW Wheelchair Training Does the Pt Use a Wheelchair?: No Wheel 50 ft with 2 turns (QC): 9 Wheel 150 ft (QC): 9 Stair Training Stair Training: Handrails/: 2 handrails #of Steps: 8 1 Step (curb) (QC): 5 4 Steps (QC): 5 12 Steps (QC): 7 Stairs: Pattern: Step to Balance Picking up an Object (QC): 5 ADL-Treatment Eating (QC): 6 Oral Hygiene (QC): 6 Shower/Bathe Self (QC): 6 Upper Body Dressing (QC): 5 Lower Body Dressing (QC): 4 On/Off Footwear (QC): 5 Toileting Hygiene (QC): 4 Toilet Transfer (QC): 4 Assessment/Plan Assessment and Plan Assess & Plan/Chief Complaint Assessment: 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
[2020-05-19] MEDS: MULTIVIT W/MINERALS TAB (THERAGRAN M) PO SCH (06:41)
[2020-05-19] MEDS ORDERED: LISI20TA26 PO (08:25)
[2020-05-19] MEDS: SENNA W/DOCUSATE (SENOKOT S) TABLET PO SCH ×2 (08:25→19:37)
[2020-05-19] MEDS: polyethylene glycoL POWDER 17 GM (MIRALAX) PACK PO SCH ×2 (08:25→19:37)
[2020-05-19] MEDS: DOCUSATE SODIUM 100 MG (COLACE) CAP PO SCH ×2 (08:25→19:37)
--- NOTE | 2020-05-19 08:26 | D/C HH Face to Face Order ---
D/C Face to Face Orders Reconcile Patient Problems Problems Reviewed?: Yes Instructions for Patient Via [facility], Patient Instructions/FollowUp: PCP 1 week Physician to follow Patient: PCP Discharge Diet for Home: No Restrictions Patient Problems: Debility s/p critical illness Patient Data-Allergies,Ht & Wt Patient Allergies: Coded Allergies: No Known Drug Allergies (Verified , 08/15/11) Home Health Need/Face to Face Date of Face to Face: May 19, 2020 Clinical Findings: Generalized weakness and fatigue, Instability, Muscle weakness, Shortness of breath, Unsteady gait I have seen Pt [id number]: Yes Discharged To: Home Diagnosis/Conditions: Debility s/p critical illness Patient is Homebound due to: Gabriela fall risk due to instabilty, Muscle weakness Homebound Status Due to the above stated illness, injury or surgical procedure (medical condition or diagnosis) and associated clinical findings, the patient is homebound because of his/her inability to leave home except with aid of a supportive device and/or person AND leaving the home requires a considerable and taxing effort or is medically contraindicated. Pt req the following assistanc: Walker Home Health Nursing Orders Home Health Services Order: Nursing Services, Design Specialist-Evaluate & Treat, Physical Therapy-Evaluate & Treat Certify Stmt I certify that this patient is under my care and that I, a nurse practitioner or a physician; a periodicals library assistant working with me, had a face to face encounter that - meets the physician face to face encounter requirements with this patient as MAYKEL Carpenter DO May 19, 2020 08:26
[2020-05-19] MEDS: THYROID (ARMOUR) 60 MG TABLET PO SCH (08:27)
[2020-05-19] MEDS: acetaZOLAMIDE 250 MG (DIAMOX) TAB PO SCH (08:27)
[2020-05-19] MEDS: DULoxetine 30 MG (CYMBALTA) CAP PO SCH (08:27)
--- NOTE | 2020-05-19 08:27 | Occupational Ther Daily Note ---
OT Current Status-Daily Note Subjective Pt alert, sitting on EOB. Pt agrees to therapy. No c/o pain at this time. Mental Status/Objective Patient Orientation: Person, Place, Time, Situation ADL-Treatment Pt declines shower and change of clothing today. Pt dons/doffs shoes independently. Pt ambulates into bathroom and stands at sink to complete oral care independently. Independent with toilet transfer and toileting. Therapy Code Descriptions/Definitions Functional [place] Measure: 0=Not Assessed/NA 4=Minimal Assistance 1=Total Assistance 5=Supervision or Setup 2=Maximal Assistance 6=Modified [place] 3=Moderate Assistance 7=Complete IndependenceSCALE: Activities may be completed with or without assistive devices. 7-Zsgtkbtfwv-qlslhii completes the activity by him/herself with no assistance from a helper. 5-Set-up or Clean-up Assistance-helper sets up or cleans up; patient completes activity. [place] assists only prior to or following the activity. 4-Supervision or Touching Assistance-helper provides verbal cues and/or touching/steadying and/or contact guard assistance as patient completes activity. Assistance may be provided throughout the activity or intermittently. 3-Partial/Moderate Assistance-helper does LESS THAN HALF the effort. [place] lifts, holds or supports trunk or limbs, but provides less than half the effort. 2-Substantial/Maximal Assistance-helper does MORE THAN HALF the effort. [place] lifts or holds trunk or limbs and provides more than half the effort. 8-Atwpssgfl-lgyeig does ALL the effort. Patient does none of the effort to complete the activity. Or, the assistance of 2 or more helpers is required for the patient to complete the activity. If activity was not attempted, code reason: 7-Patient Refused. 9-Not Applicable-not attempted and the patient did not perform the activity before the current illness, exacerbation or injury. 10-Not Attempted due to Environmental Limitations-(lack of equipment, weather restraints, etc.). 88-Not Attempted due to Medical Conditions or Safety Concerns. Oral Hygiene (QC): 6 On/Off Footwear: 6 Toileting Hygiene (QC): 6 Toilet Transfer (QC): 6 Other Treatment Pt ambulates to therapy gym using FWW. B UE strengthening completed to increase strength and activity tolerance for daily functional tasks. Arm bike at 15 grace resistance for 12 min. Using 1# hand wt, pt completed wrist flex/ext and radial dev exercises 3 sets 10 reps. Multiple resistive fine motor tasks completed to increase whiskey regauger and pinch strength. After therapy, pt lying in bed with call light/phone in reach. All needs met in room. OT Short Term Goals Short Term Goals Time Frame: May 25, 2020 Toileting hygiene: 4 Shower/bathe self: 4 Upper body dressin Lower body dressin Putting on/taking off footwear: 4 OT Supervisor Sleeping Bag Department Goals Nursing Home Goals Time Frame: Jun 03, 2020 Eating (QC): 6 (met) Oral Hygiene (QC): 6 (met) Toileting Hygiene (QC): 6 (met) Shower/Bathe Self (QC): 6 (met) Upper Body Dressing (QC): 6 (not met-set up) Lower Body Dressing (QC): 6 (not met-set up) On/Off Footwear (QC): 6 (met) Additional Goals: 1-Demonstrate ADL Tasks, 2-Verbalize Understanding, 3- ImproveStrength/Gerald 1=Demonstrate adherence to instructed precautions during ADL tasks. 2=Patient will verbalize/demonstrate understanding of assistive devices/modifications for ADL. 3=Patient will improve strength/tolerance for activity to enable patient to perform ADL's. OT Education/Plan Problem List/Assessment Assessment: Decreased Activ Tolerance Discharge Recommendations Plan/Recommendations: Continue POC Treatment Plan/Plan of Care Patient would benefit from OT for education, treatment and training to promote independence in ADL's, mobility, safety and/or upper extremity function for ADL's. Plan of Care: ADL Retraining, Functional Mobility, Group Exercise/Act as Ind, UE Funct Exercise/Act Treatment Duration: Jun 03, 2020 Frequency: At least 5 of 7 days/Wk (IRF) Estimated Hrs Per Day: 1.5 hours per day Agreement: Yes Rehab Potential: Fair Time/GCodes Start Time: 07:15 Stop Time: 08:30 Total Time Billed (hr/min): 75 Billed Treatment Time 1 visit-ADL 2 (30 min) EX 3 (45 min) FRITZ MELO May 19, 2020 08:27
[2020-05-19] MEDS: METHADONE 10 MG (DOLOPHINE) TAB PO SCH ×2 (08:28→20:39)
[2020-05-19] MEDS: lisINopril 20 MG (PRINIVIL) TABLET PO SCH (08:28)
--- NOTE | 2020-05-19 12:11 | Speech Therapy Daily Note ---
Speech Daily Progress Note Subjective Date Seen by Provider: May 19, 2020 Time Seen by Provider: 00:30 Patient was resting in her bed following her OT and PT this morning. Objective Patient continues to utilize compensatory strategies for safe intake at 95% without cues needed. Assessment Assessment Current Status: Good Progress Treatment Plan Discontinue ST, Goals Met Speech Short Term Goals Short Term Goals Short Term Goals 1) The patient will tolerate least restrictive diet level without s/s of aspiration at 90% or greater. 2) Patient/caregiver will utilize compensatory strategies as trained at 90% or greater so that she can have safe oral intake. Speech Care Home Goals Care Home Goals Patient will maintain adequate nutrition/hydration via safe effective swallow function. Speech-Plan Patient/Family Goals Patient/Family Goals: Patient is returning to her home tomorrow where she lives with her SO. Treatment Plan Speech Therapy Treatment Plan: Discontinue ST, Goals Met Treatment Duration: May 20, 2020 Frequency: 4 times per week (Patient will receive dysphagia therapy 4-5x per week) Estimated Hrs Per Day: .5 hour per day Rehab Potential: Fair Barriers to Learning: Patient's recent critical illness/recovery Pt/Family Agrees to Plan: Yes Safety Risks/Education Teaching Recipient: Patient Teaching Methods: Demonstration, Discussion Response to Teaching: Verbalize Understanding, Return Demonstration Education Topics Provided: Continued safety with oral intake upon her return home Time Speech Therapy Time In: 10:00 Speech Therapy Time Out: 10:30 Total Billed Time: 30 Billed Treatment Time 1, DYST No QUALITY CODES: EXPRESSION OF IDEAS/NEEDS: 4 UNDERSTANDING VERBAL CONTENT: 4 BRIEF INTERVIEW: YES REPETITION OF 3 WORDS: 3 TEMPORAL ORIENTATION: YEAR: CORRECT, MONTH: CORRECT, DAY: CORRECT RECALL: SOCK: YES, COLOR: YES, BED: YES MEMORY/RECALL ABILITY: SEASON, LOCATION OF ROOM, STAFF NAMES, THAT SHE IS IN THE HOSPITAL JOSHUA DELCID May 19, 2020 12:11
--- NOTE | 2020-05-19 12:15 | Physical Therapy Daily Note ---
PT Daily Note-Current Subjective Pt sitting on EOB upon arrival. Pt agrees to PT. Pt excited for DC tomorrow. Pain Location: No Pain Reported Mental Status Patient Orientation: Person, Place, Time, Situation Transfers SCALE: Activities may be completed with or without assistive devices. 0-Fsofobqymy-xzmkoyn completes the activity by him/herself with no assistance from a helper. 5-Set-up or Clean-up Assistance-helper sets up or cleans up; patient completes activity. [place] assists only prior to or following the activity. 4-Supervision or Touching Assistance-helper provides verbal cues and/or touching/steadying and/or contact guard assistance as patient completes activity. Assistance may be provided throughout the activity or intermittently. 3-Partial/Moderate Assistance-helper does LESS THAN HALF the effort. [place] lifts, holds or supports trunk or limbs, but provides less than half the effort. 2-Substantial/Maximal Assistance-helper does MORE THAN HALF the effort. [place] lifts or holds trunk or limbs and provides more than half the effort. 8-Xjeymjjky-vlbwkh does ALL the effort. Patient does none of the effort to complete the activity. Or, the assistance of 2 or more helpers is required for the patient to complete the activity. If activity was not attempted, code reason: 7-Patient Refused. 9-Not Applicable-not attempted and the patient did not perform the activity before the current illness, exacerbation or injury. 10-Not Attempted due to Environmental Limitations-(lack of equipment, weather restraints, etc.). 88-Not Attempted due to Medical Conditions or Safety Concerns. Roll Left & Right (QC): 6 Sit to Lying (QC): 6 Lying to Sitting/Side of Bed(Q: 6 Sit to Stand (QC): 6 Chair/Cbl-xw-Tyqnz Xfer(QC): 6 Toilet Transfer (QC): 6 Car Transfer (QC): 6 Weight Bearing Full Weight Bearing Full Weight Bearing Gait Training Does the Patient Walk?: Yes Distance: 150' x2 Walk 10 feet (QC): 6 Walk 50 ft with 2 Turns(QC): 6 Walk 150 ft (QC): 6 Walking 10ft/uneven surface-QC: 6 Gait Persons Needed: 1 Gait Assistive Device: FWW Wheelchair Training Does the Pt Use a Wheelchair?: No Stair Training Stair Training: Handrails/: 2 handrails #of Steps: 4 1 Step (curb) (QC): 5 4 Steps (QC): 5 12 Steps (QC): 7 Stairs: Pattern: Step to Balance Picking up an Object (QC): 6 Exercises Seated Therapy Exercises: Ankle pumps, Long arc quads, Hip flexion, Kicking activity, Glut set Seated Reps: 15 NuStep Minutes: 15 NuStep Workload: 4 Treatments [id number]: TF to standing and amb. in hallway. Pt completes Seated EX then uses NuStep before taking short RB. Pt amb in hallway and returns to room to use BR and return to EOB. All needs met, call light in hand. [id number]: TF to standing and amb in hallway (150' x2) with short RB before returning to room at end of tx. All needs met, call light in hand. Assessment Current Status: Good Progress Pt has gained confidence and improved with strength, activity tolerance and independence of tasks. PT Short Term Goals Short Term Goals Time Frame: May 19, 2020 Roll Left & Right: 6 Sit to lyin Lying to sitting on side of be: 6 Sit to stand: 4 Chair/mnz-sk-omwgj transfer: 4 Walk 10 feet: 4 Walk 50 feet with two turns: 4 Walk 150 feet: 4 PT Photographer Still Goals Photographer Still Goals PT Photographer Still Goals Time Frame: Jun 02, 2020 Roll Left & Right (QC): 6 Sit to Lying (QC): 6 Lying-Sitting on Side/Bed(QC): 6 Sit to Stand (QC): 6 Chair/Zls-kb-Kwcyu Xfer(QC): 6 Toilet Transfer (QC): 6 Car Transfer (QC): 6 Does the Patient Walk: Yes Walk 10 feet (QC): 4 (SBA) Walk 50ft with 2 Turns (QC): 4 (SBA) Walk 150 ft (QC): 4 (SBA) Walking 10ft on Uneven Surface: 4 (SBA) 1 Step (curb) (QC): 4 4 Steps (QC): 4 12 Steps (QC): 88 Picking up an Object (QC): 4 Wheel 50 feet with 2 turns (QC: 9 Wheel 150 feet: 9 PT Plan Treatment/Plan Treatment Plan: Continue Plan of Care Treatment Plan: Bed Mobility, Education, Functional Activity Gerald, Functional Strength, Group Therapy, Gait, Safety, Therapeutic Exercise, Transfers Treatment Duration: Jun 02, 2020 Frequency: At least 5 of 7 days/Wk (IRF) Estimated Hrs Per Day: 1.5 hours per day Patient and/or Family Agrees t: Yes Safety Risks/Education Patient Education: Steps, Correct Positioning, Safety Issues Teaching Recipient: Patient Teaching Methods: Discussion Response to Teaching: Verbalize Understanding Time/GCodes Time In: 1100 Time Out: 1445 Total Billed Treatment Time: 80 Total Billed Treatment [id number]: 1, GT (15m), EX x2 (30m) & FA (15m) [id number]: 1, FA (20m) OLESYA GRANADOS [address] May 19, 2020 12:15
[2020-05-19 15:57] VITALS: BP 97/66
[2020-05-19] MEDS: MELATONIN 3 MG TABLET PO PRN (20:38)
--- NOTE | 2020-05-20 05:36 | Discharge Summary ---
Diagnosis/Chief Complaint Date of Admission May 12, 2020 at 13:34 Date of Discharge Discharge Date: May 20, 2020 Discharge Summary Discharge Physical Examination Allergies: Coded Allergies: No Known Drug Allergies (Verified , 08/15/11) Vitals & I&Os Vital Signs Date Time Temp Pulse Resp B/P (MAP) Pulse Ox O2 Delivery O2 Flow Rate FiO2 05/19/20 20:00 Room Air 05/19/20 15:57 36.0 87 16 97/66 (76) 97 Hospital Course Labs (last 24 hrs) Laboratory Tests 05/13/20 05:46: White Blood Count 8.6, Red Blood Count 3.36L, Hemoglobin 10.1L, Hematocrit 34L, Mean Corpuscular Volume 101H, Mean Corpuscular Hemoglobin 30, Mean Corpuscular Hemoglobin Concent 30L, Red Cell Distribution Width 16.0H, Platelet Count 259, Mean Platelet Volume 11.0, Immature Granulocyte % (Auto) 0, Neutrophils (%) (Auto) 62, Lymphocytes (%) (Auto) 22, Monocytes (%) (Auto) 12, Eosinophils (%) (Auto) 4, Basophils (%) (Auto) 1, Neutrophils # (Auto) 5.3, Lymphocytes # (Auto) 1.9, Monocytes # (Auto) 1.0, Eosinophils # (Auto) 0.3, Basophils # (Auto) 0.0, Immature Granulocyte # (Auto) 0.0, Sodium Level 142, Potassium Level 4.0, Chloride Level 108H, Carbon Dioxide Level 21, Anion Gap 13, Blood Urea Nitrogen 10, Creatinine 0.67, Estimat Glomerular Filtration Rate > 60, BUN/Creatinine Ratio 15, Glucose Level 90, Calcium Level 9.0, Corrected Calcium 9.8, Total Bilirubin 0.4, Aspartate Amino Transf (AST/SGOT) 20, Alanine Aminotransferase (ALT/SGPT) 17, Alkaline Phosphatase 136, Total Protein 6.0L, Albumin 3.0L 05/16/20 05:25: White Blood Count 6.4, Red Blood Count 3.18L, Hemoglobin 9.4L, Hematocrit 32L, Mean Corpuscular Volume 101H, Mean Corpuscular Hemoglobin 30, Mean Corpuscular Hemoglobin Concent 29L, Red Cell Distribution Width 15.9H, Platelet Count 283, Mean Platelet Volume 10.7, Immature Granulocyte % (Auto) 0, Neutrophils (%) (Auto) 56, Lymphocytes (%) (Auto) 28, Monocytes (%) (Auto) 12, Eosinophils (%) (Auto) 4, Basophils (%) (Auto) 0, Neutrophils # (Auto) 3.6, Lymphocytes # (Auto) 1.8, Monocytes # (Auto) 0.8, Eosinophils # (Auto) 0.2, Basophils # (Auto) 0.0, Immature Granulocyte # (Auto) 0.0, Sodium Level 143, Potassium Level 4.0, Chloride Level 112H, Carbon Dioxide Level 21, Anion Gap 10, Blood Urea Nitrogen 17, Creatinine 0.78, Estimat Glomerular Filtration Rate > 60, BUN/Creatinine Ratio 22, Glucose Level 98, Calcium Level 8.9, Corrected Calcium 9.7, Total Bilirubin 0.2, Aspartate Amino Transf (AST/SGOT) 20, Alanine Aminotransferase (ALT/SGPT) 17, Alkaline Phosphatase 147H, Total Protein 6.0L, Albumin 3.0L Pending Labs Laboratory Tests 05/13/20 05:46: White Blood Count 8.6, Red Blood Count 3.36, Hemoglobin 10.1, Hematocrit 34, Mean Corpuscular Volume 101, Mean Corpuscular Hemoglobin 30, Mean Corpuscular Hemoglobin Concent 30, Red Cell Distribution Width 16.0, Platelet Count 259, Mean Platelet Volume 11.0, Immature Granulocyte % (Auto) 0, Neutrophils (%) (Auto) 62, Lymphocytes (%) (Auto) 22, Monocytes (%) (Auto) 12, Eosinophils (%) (Auto) 4, Basophils (%) (Auto) 1, Neutrophils # (Auto) 5.3, Lymphocytes # (Auto) 1.9, Monocytes # (Auto) 1.0, Eosinophils # (Auto) 0.3, Basophils # (Auto) 0.0, Immature Granulocyte # (Auto) 0.0, Sodium Level 142, Potassium Level 4.0, Chloride Level 108, Carbon Dioxide Level 21, Anion Gap 13, Blood Urea Nitrogen 10, Creatinine 0.67, Estimat Glomerular Filtration Rate > 60, BUN/Creatinine Ratio 15, Glucose Level 90, Calcium Level 9.0, Corrected Calcium 9.8, Total Bilirubin 0.4, Aspartate Amino Transf (AST/SGOT) 20, Alanine Aminotransferase (ALT/SGPT) 17, Alkaline Phosphatase 136, Total Protein 6.0, Albumin 3.0 05/16/20 05:25: White Blood Count 6.4, Red Blood Count 3.18, Hemoglobin 9.4, Hematocrit 32, Mean Corpuscular Volume 101, Mean Corpuscular Hemoglobin 30, Mean Corpuscular Hemoglobin Concent 29, Red Cell Distribution Width 15.9, Platelet Count 283, Mean Platelet Volume 10.7, Immature Granulocyte % (Auto) 0, Neutrophils (%) (Auto) 56, Lymphocytes (%) (Auto) 28, Monocytes (%) (Auto) 12, Eosinophils (%) (Auto) 4, Basophils (%) (Auto) 0, Neutrophils # (Auto) 3.6, Lymphocytes # (Auto) 1.8, Monocytes # (Auto) 0.8, Eosinophils # (Auto) 0.2, Basophils # (Auto) 0.0, Immature Granulocyte # (Auto) 0.0, Sodium Level 143, Potassium Level 4.0, Chl oride Level 112, Carbon Dioxide Level 21, Anion Gap 10, Blood Urea Nitrogen 17, Creatinine 0.78, Estimat Glomerular Filtration Rate > 60, BUN/Creatinine Ratio 22, Glucose Level 98, Calcium Level 8.9, Corrected Calcium 9.7, Total Bilirubin 0.2, Aspartate Amino Transf (AST/SGOT) 20, Alanine Aminotransferase (ALT/SGPT) 17, Alkaline Phosphatase 147, Total Protein 6.0, Albumin 3.0 Discharge Home Medications: Active Scripts Active Lisinopril 20 Mg Tablet 20 Mg PO DAILY Reported Melatonin 3 Mg Tablet 3 Mg PO HS Lisinopril-Hctz 20-25 mg Tab (Lisinopril/Hydrochlorothiazide) 1 Each Tablet 1 Ea PO BID [place] Thyroid (Thyroid,Pork) 90 Mg Tablet 180 Mg PO DAILY Miralax (Polyethylene Glycol 3350) 17 Gm Powd.pack 17 Gm PO DAILY PRN Multivitamin 1 Each Tablet 1 Each PO DAILY Methadone HCl 10 Mg Tablet 10 Mg PO BID Duloxetine HCl 60 Mg Capsule.dr 60 Mg PO DAILY Baclofen 10 Mg Tablet 10 Mg PO TID PRN Acetazolamide 250 Mg Tablet 250 Mg PO DAILY Instructions to patient/family Please see electronic discharge instructions given to patient. Diagnosis/Problems Diagnosis/Problems (1) Arnold-Chiari malformation MAYKEL BURNS DO May 20, 2020 05:36
[2020-05-20 05:37] VITALS: BP 125/73
--- NOTE | 2020-05-20 05:37 | Discharge Summary ---
Diagnosis/Chief Complaint Date of Admission May 12, 2020 at 13:34 Date of Discharge Discharge Date: May 20, 2020 Discharge Summary Discharge Physical Examination Allergies: Coded Allergies: No Known Drug Allergies (Verified , 08/15/11) Vitals & I&Os Vital Signs Date Time Temp Pulse Resp B/P (MAP) Pulse Ox O2 Delivery O2 Flow Rate FiO2 05/20/20 05:37 36.0 85 17 125/73 (90) 96 Room Air Hospital Course Labs (last 24 hrs) Laboratory Tests 05/13/20 05:46: White Blood Count 8.6, Red Blood Count 3.36L, Hemoglobin 10.1L, Hematocrit 34L, Mean Corpuscular Volume 101H, Mean Corpuscular Hemoglobin 30, Mean Corpuscular Hemoglobin Concent 30L, Red Cell Distribution Width 16.0H, Platelet Count 259, Mean Platelet Volume 11.0, Immature Granulocyte % (Auto) 0, Neutrophils (%) (Auto) 62, Lymphocytes (%) (Auto) 22, Monocytes (%) (Auto) 12, Eosinophils (%) (Auto) 4, Basophils (%) (Auto) 1, Neutrophils # (Auto) 5.3, Lymphocytes # (Auto) 1.9, Monocytes # (Auto) 1.0, Eosinophils # (Auto) 0.3, Basophils # (Auto) 0.0, Immature Granulocyte # (Auto) 0.0, Sodium Level 142, Potassium Level 4.0, Chloride Level 108H, Carbon Dioxide Level 21, Anion Gap 13, Blood Urea Nitrogen 10, Creatinine 0.67, Estimat Glomerular Filtration Rate > 60, BUN/Creatinine Ratio 15, Glucose Level 90, Calcium Level 9.0, Corrected Calcium 9.8, Total Bilirubin 0.4, Aspartate Amino Transf (AST/SGOT) 20, Alanine Aminotransferase (ALT/SGPT) 17, Alkaline Phosphatase 136, Total Protein 6.0L, Albumin 3.0L 05/16/20 05:25: White Blood Count 6.4, Red Blood Count 3.18L, Hemoglobin 9.4L, Hematocrit 32L, Mean Corpuscular Volume 101H, Mean Corpuscular Hemoglobin 30, Mean Corpuscular Hemoglobin Concent 29L, Red Cell Distribution Width 15.9H, Platelet Count 283, Mean Platelet Volume 10.7, Immature Granulocyte % (Auto) 0, Neutrophils (%) (Auto) 56, Lymphocytes (%) (Auto) 28, Monocytes (%) (Auto) 12, Eosinophils (%) (Auto) 4, Basophils (%) (Auto) 0, Neutrophils # (Auto) 3.6, Lymphocytes # (Auto) 1.8, Monocytes # (Auto) 0.8, Eosinophils # (Auto) 0.2, Basophils # (Auto) 0.0, Immature Granulocyte # (Auto) 0.0, Sodium Level 143, Potassium Level 4.0, Chloride Level 112H, Carbon Dioxide Level 21, Anion Gap 10, Blood Urea Nitrogen 17, Creatinine 0.78, Estimat Glomerular Filtration Rate > 60, BUN/Creatinine Ratio 22, Glucose Level 98, Calcium Level 8.9, Corrected Calcium 9.7, Total Bilirubin 0.2, Aspartate Amino Transf (AST/SGOT) 20, Alanine Aminotransferase (ALT/SGPT) 17, Alkaline Phosphatase 147H, Total Protein 6.0L, Albumin 3.0L Pending Labs Laboratory Tests 05/13/20 05:46: White Blood Count 8.6, Red Blood Count 3.36, Hemoglobin 10.1, Hematocrit 34, Mean Corpuscular Volume 101, Mean Corpuscular Hemoglobin 30, Mean Corpuscular Hemoglobin Concent 30, Red Cell Distribution Width 16.0, Platelet Count 259, Mean Platelet Volume 11.0, Immature Granulocyte % (Auto) 0, Neutrophils (%) (Auto) 62, Lymphocytes (%) (Auto) 22, Monocytes (%) (Auto) 12, Eosinophils (%) (Auto) 4, Basophils (%) (Auto) 1, Neutrophils # (Auto) 5.3, Lymphocytes # (Auto) 1.9, Monocytes # (Auto) 1.0, Eosinophils # (Auto) 0.3, Basophils # (Auto) 0.0, Immature Granulocyte # (Auto) 0.0, Sodium Level 142, Potassium Level 4.0, Chloride Level 108, Carbon Dioxide Level 21, Anion Gap 13, Blood Urea Nitrogen 10, Creatinine 0.67, Estimat Glomerular Filtration Rate > 60, BUN/Creatinine Ratio 15, Glucose Level 90, Calcium Level 9.0, Corrected Calcium 9.8, Total Bilirubin 0.4, Aspartate Amino Transf (AST/SGOT) 20, Alanine Aminotransferase (ALT/SGPT) 17, Alkaline Phosphatase 136, Total Protein 6.0, Albumin 3.0 3/15/21 05:25: White Blood Count 6.4, Red Blood Count 3.18, Hemoglobin 9.4, Hematocrit 32, Mean Corpuscular Volume 101, Mean Corpuscular Hemoglobin 30, Mean Corpuscular Hemoglobin Concent 29, Red Cell Distribution Width 15.9, Platelet Count 283, Mean Platelet Volume 10.7, Immature Granulocyte % (Auto) 0, Neutrophils (%) (Auto) 56, Lymphocytes (%) (Auto) 28, Monocytes (%) (Auto) 12, Eosinophils (%) (Auto) 4, Basophils (%) (Auto) 0, Neutrophils # (Auto) 3.6, Lymphocytes # (Auto) 1.8, Monocytes # (Auto) 0.8, Eosinophils # (Auto) 0.2, Basophils # (Auto) 0.0, Immature Granulocyte # (Auto) 0.0, Sodium Level 143, Potassium Level 4.0, Chloride Level 112, Carbon Dioxide Level 21, Anion Gap 10, Blood Urea Nitrogen 17, Creatinine 0.78, Estimat Glomerular Filtration Rate > 60, BUN/Creatinine Ratio 22, Glucose Level 98, Calcium Level 8.9, Corrected Calcium 9.7, Total Bilirubin 0.2, Aspartate Amino Transf (AST/SGOT) 20, Alanine Aminotransferase (ALT/SGPT) 17, Alkaline Phosphatase 147, Total Protein 6.0, Albumin 3.0 Discharge Home Medications: Active Scripts Active Lisinopril 20 Mg Tablet 20 Mg PO DAILY Reported Melatonin 3 Mg Tablet 3 Mg PO HS [place] Thyroid (Thyroid,Pork) 90 Mg Tablet 180 Mg PO DAILY Miralax (Polyethylene Glycol 3350) 17 Gm Powd.pack 17 Gm PO DAILY PRN Multivitamin 1 Each Tablet 1 Each PO DAILY Methadone HCl 10 Mg Tablet 10 Mg PO BID Duloxetine HCl 60 Mg Capsule.dr 60 Mg PO DAILY Baclofen 10 Mg Tablet 10 Mg PO TID PRN Acetazolamide 250 Mg Tablet 250 Mg PO DAILY Instructions to patient/family Please see electronic discharge instructions given to patient. Diagnosis/Problems Diagnosis/Problems (1) Arnold-Chiari malformation MAYKEL BURNS DO May 20, 2020 05:37
[2020-05-20] MEDS: MULTIVIT W/MINERALS TAB (THERAGRAN M) PO SCH (06:10)
[2020-05-20] MEDS: THYROID (ARMOUR) 60 MG TABLET PO SCH (07:45)
[2020-05-20] MEDS: DULoxetine 30 MG (CYMBALTA) CAP PO SCH (07:46)
[2020-05-20] MEDS: METHADONE 10 MG (DOLOPHINE) TAB PO SCH (07:47)
[2020-05-20] MEDS: lisINopril 20 MG (PRINIVIL) TABLET PO SCH (07:47)
[2020-05-20] MEDS: acetaZOLAMIDE 250 MG (DIAMOX) TAB PO SCH (07:47)
[2020-05-20] MEDS: SENNA W/DOCUSATE (SENOKOT S) TABLET PO SCH (07:55)
[2020-05-20] MEDS: polyethylene glycoL POWDER 17 GM (MIRALAX) PACK PO SCH (07:55)
[2020-05-20] MEDS: DOCUSATE SODIUM 100 MG (COLACE) CAP PO SCH (07:55)
[2020-05-20 09:45] VITALS: BP 125/73
--- NOTE | 2020-05-20 10:25 | Therapy Team Discharge Summary ---
Therapy Discharge Summary Discharge Recommendations Date of Discharge Occupational Therapy Decreased Activ Tolerance Speech-Language Pathology Patient was admitted to the ARU s/p critical illness with debility. Patient was treated by ST due to dysphagia and difficulty with oral intake. Patient received skilled dysphagia therapy with all goals met. The patient is returning to her home today where she lives with her SO. PT Longterm Goals Longterm Goals PT Machine Shop Specialist Goals Time Frame: Jun 02, 2020 Roll Left to Right (QC): 6 Sit to Lying (QC): 6 Lying-Sitting on Side/Bed(QC): 6 Sit to Stand (QC): 6 Chair/Rkg-bd-Ypfzn Xfer(QC): 6 Car Transfer (QC): 6 Does the Patient Walk: Yes Walk 10 feet (QC): 4 (SBA) Walk 10ft-Uneven Surface(QC): 4 (SBA) Walk 50ft with 2 Turns (QC): 4 (SBA) Walk 150 ft (QC): 4 (SBA) Wheel 50 feet with 2 turns (QC: 9 1 Step (curb) (QC): 4 4 Steps (QC): 4 12 Steps (QC): 88 Picking up an Object (QC): 4 OT Machine Shop Specialist Goals Longterm Goals Time Frame: Jun 03, 2020 Eating (FIM): 6 Eating (QC): 6 (met) Oral Hygiene (QC): 6 (met) Shower/Bathe Self (QC): 6 (met) Upper Body Dressing (QC): 6 (not met-set up) Lower Body Dressing (QC): 6 (not met-set up) On/Off Footwear (QC): 6 (met) Toileting(FIM): 6 Toileting Hygiene (QC): 6 (met) Toilet/Commode Transfer (QC): 6 Additional Goals: 1-Demonstrate ADL Tasks, 2-Verbalize Understanding, 3- ImproveStrength/Gerald 1=Demonstrate adherence to instructed precautions during ADL tasks. 2=Patient will verbalize/demonstrate understanding of assistive devices/modifications for ADL. 3=Patient will improve strength/tolerance for activity to enable patient to perform ADL's. Speech Longterm Goals Machine Shop Specialist Goals Patient will maintain adequate nutrition/hydration via safe effective swallow f unction. JOSHUA DELCID May 20, 2020 10:25
--- NOTE | 2020-05-20 10:38 | Therapy Team Discharge Summary ---
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 At OF, pt was independent with I/ADLs and functional mobility, no AD/AE. Upon initial evaluation, pt required set up assist with eating, SBA oral care, SBA showering, set up upper body dressing, CGA lower body dressing, set up footwear and min A toileting. OT txs focused on increasing BUE strength and endurance, and increasing safety and independence with ADLs and functional mobility. At discharge pt was independent with eating, oral care, showering, footwear and toileting, but required set up assist with upper/lower body dressing. Pt met all LTGs except for upper/lower body dressing. Pt to discharge from facility on this date, d/c from OT at this time. Decreased Activ Tolerance PT Half-Way Goals Kettle Chipper Goals PT Kettle Chipper Goals Time Frame: Jun 02, 2020 Roll Left to Right (QC): 6 Sit to Lying (QC): 6 Lying-Sitting on Side/Bed(QC): 6 Sit to Stand (QC): 6 Chair/Zth-no-Ofume Xfer(QC): 6 Car Transfer (QC): 6 Does the Patient Walk: Yes Walk 10 feet (QC): 4 (SBA) Walk 10ft-Uneven Surface(QC): 4 (SBA) Walk 50ft with 2 Turns (QC): 4 (SBA) Walk 150 ft (QC): 4 (SBA) Wheel 50 feet with 2 turns (QC: 9 1 Step (curb) (QC): 4 4 Steps (QC): 4 12 Steps (QC): 88 Picking up an Object (QC): 4 OT Kettle Chipper Goals Kettle Chipper Goals Time Frame: Jun 03, 2020 Eating (FIM): 6 Eating (QC): 6 (met) Oral Hygiene (QC): 6 (met) Shower/Bathe Self (QC): 6 (met) Upper Body Dressing (QC): 6 (not met-set up) Lower Body Dressing (QC): 6 (not met-set up) On/Off Footwear (QC): 6 (met) Toileting(FIM): 6 Toileting Hygiene (QC): 6 (met) Toilet/Commode Transfer (QC): 6 Additional Goals: 1-Demonstrate ADL Tasks, 2-Verbalize Understanding, 3- ImproveStrength/Gerald 1=Demonstrate adherence to instructed precautions during ADL tasks. 2=Patient will verbalize/demonstrate understanding of assistive devices/modifications for ADL. 3=Patient will improve strength/tolerance for activity to enable patient to perform ADL's. Speech Half-Way Goals Kettle Chipper Goals Patient will maintain adequate nutrition/hydration via safe effective swallow function. ELIF ALVARADO OT May 20, 2020 10:38
--- NOTE | 2020-05-20 14:39 | Therapy Team Discharge Summary ---
Therapy Discharge Summary Discharge Recommendations Date of Discharge May 20, 2020 at 09:45 Physical Therapy Patient presents due to dx of Arnold Chiari Malformation Type 1 with Syringomyelia/Syringobulbia. Upon admission, patient performs bed mobility and supine <-> sit with independence, sit <-> stand min assist, transfers min assist, car transfer CGA, can ambulate 120' with a rolling walker with CGA (including 50' with at least 2 turns of 90 degrees and 10' over an uneven surface), can go up and down 1 step using a rolling walker with min assist, and can garbage pick up man an object off of the ground with min assist. Patient made good overall progress and was able to meet all LTG's. Now, patient performs transfers and ambulation (including ambulating 50' with 2 turns, and ambulating 10' on uneven surface) with independence, is independent with picking up objects off of floor, and needs set up with 2 handrails when navigating 4 steps. Patient was d/c from this facility today and is being d/c from PT. Occupational Therapy Decreased Activ Tolerance PT Fire Captain Marine Goals Mcc Goals PT Mcc Goals Time Frame: Jun 02, 2020 Roll Left to Right (QC): 6 Sit to Lying (QC): 6 Lying-Sitting on Side/Bed(QC): 6 Sit to Stand (QC): 6 Chair/Fbv-lh-Coped Xfer(QC): 6 Car Transfer (QC): 6 Does the Patient Walk: Yes Walk 10 feet (QC): 4 (SBA) Walk 10ft-Uneven Surface(QC): 4 (SBA) Walk 50ft with 2 Turns (QC): 4 (SBA) Walk 150 ft (QC): 4 (SBA) Wheel 50 feet with 2 turns (QC: 9 1 Step (curb) (QC): 4 4 Steps (QC): 4 12 Steps (QC): 88 Picking up an Object (QC): 4 OT Mcc Goals Mcc Goals Time Frame: Jun 03, 2020 Eating (FIM): 6 Eating (QC): 6 (met) Oral Hygiene (QC): 6 (met) Shower/Bathe Self (QC): 6 (met) Upper Body Dressing (QC): 6 (not met-set up) Lower Body Dressing (QC): 6 (not met-set up) On/Off Footwear (QC): 6 (met) Toileting(FIM): 6 Toileting Hygiene (QC): 6 (met) Toilet/Commode Transfer (QC): 6 Additional Goals: 1-Demonstrate ADL Tasks, 2-Verbalize Understanding, 3- ImproveStrength/Gerald 1=Demonstrate adherence to instructed precautions during ADL tasks. 2=Patient will verbalize/demonstrate understanding of assistive devices/modifications for ADL. 3=Patient will improve strength/tolerance for activity to enable patient to perform ADL's. Speech Fire Captain Marine Goals Mcc Goals Patient will maintain adequate nutrition/hydration via safe effective swallow function. MYRNA SILVERIO PT May 20, 2020 14:39
== END 2020-05-20 09:45 | disposition home health service (06) | DRG 91 ==
PROVIDERS: ADMIT Internal Medicine; ATTEND Internal Medicine
DX: G72.81 Critical illness myopathy (principal); G93.5 Compression of brain; G95.0 Syringomyelia and syringobulbia; K52.1 Toxic gastroenteritis and colitis; F32.9 Major depressive disorder, single episode, unspecified; T47.4X5A Adverse effect of other laxatives, initial encounter
CPT/HCPCS: 36415; 80053; 85025

== ENCOUNTER → 2020-08-19 | Outpatient (CLI) | payer MEDICARE ==
[~2020-08-19] MED LIST changes: -ALPRAZolam 0.25 MG (XANAX) TAB PO PRN; -BISACODYL 10 MG SUPP (DULCOLAX) PR PRN; -CALCIUM CARBONATE 500 MG (TUMS) TAB.CHEW PO PRN; -DOCUSATE SODIUM 100 MG (COLACE) CAP PO PRN; -FLEET ENEMA ADULT 1 EA BTL PR PRN; -LACTULOSE SYRUP 10GM/15ML (ENULOSE) 30ML UDC PO PRN; +LISI1TAB26 PO; -LOPERAMIDE 2 MG (IMODIUM) TABLET PO PRN; +MELA3TAB39 PO; -ONDANSETRON 4 MG (ZOFRAN) ORAL DISSOLVE TAB PO PRN; +THYR90TA PO; -diphenhydrAMINE 25 MG TAB (BENADRYL) PO PRN; -guaiFENesin/CODEINE (ROBITUSSIN AC) 10ML UDC PO PRN
--- NOTE | 2020-08-19 13:20 | Diagnostic Imaging Report ---
INDICATION: Routine screening. COMPARISON is made with prior mammogram from 12/16/2017. 2-D and 3-D bilateral screening mammography was performed with CAD. Both breasts are heterogeneously dense, limiting the sensitivity of mammography. No mass or malignant appearing microcalcifications are seen. Axillae are unremarkable. IMPRESSION: BI-RADS Category 1 No mammographic features suspicious for malignancy are identified. ACR BI-RADS Category 1: Negative. Result letter will be mailed to the patient. Note: At least 10% of breast cancer is not imaged by mammography. Dictated by: Dictated on workstation # [id number]
== END ==
LOC: RAD 09:16
PROVIDERS: ATTEND Internal Medicine
DX: Z12.31 Encounter for screening mammogram for malignant neoplasm of breast (principal)
CPT/HCPCS: 77063; 77067

== ENCOUNTER 2021-06-21 19:40 | Emergency (ER) | payer MEDICARE ==
[~2021-06-21] VITALS: Ht 160 cm; Wt 69.0 kg
[~2021-06-21 19:40] MED LIST changes: -LISI1TAB26 PO; +LISI1TAB48 PO; +METH-742 PO; -METH10TA2 PO
[2021-06-21 20:43] LABS: BASOPHILS % (AUTO) 0 % (0-10); EOSINOPHILS # (AUTO) 0.3 10^3/uL (0.0-0.3); EOSINOPHILS % (AUTO) 3 % (0-10); HEMATOCRIT 39 % (35-52); HEMOGLOBIN 12.3 g/dL (11.5-16.0); LYMPHOCYTES % (AUTO) 21 % (12-44); MEAN CORPUSCULAR HEMOGLOBIN 31 pg (25-34); MEAN CORPUSCULAR HGB CONC 32 g/dL (32-36); MEAN CORPUSCULAR VOLUME 97 fL (80-99); MEAN PLATELET VOLUME 10.6 fL (9.0-12.2); MONOCYTES # (AUTO) 0.5 10^3/uL (0.0-1.0); MONOCYTES % (AUTO) 5 % (0-12); NEUTROPHILS # (AUTO) 6.7 10^3/uL (1.8-7.8); NEUTROPHILS % (AUTO) 70 % (42-75); PLATELET COUNT 279 10^3/uL (130-400); WHITE BLOOD COUNT 9.6 10^3/uL (4.3-11.0)
[2021-06-21 20:51] LABS: ALBUMIN 4.1 GM/DL (3.2-4.5); POTASSIUM 3.6 MMOL/L (3.6-5.0)
[2021-06-21 20:52] LABS: CALCIUM 9.6 MG/DL (8.5-10.1)
[2021-06-21 20:53] LABS: TOTAL PROTEIN 6.5 GM/DL (6.4-8.2)
--- NOTE | 2021-06-21 20:54 | ED General ---
General Chief Complaint: Neurological Problems Stated Complaint: HIGH BLOOD PRESSURE, BODYACHES Nursing Triage Note: PT AMB TO RM 8 WITH HELP FROM WITH C/O WORESENING WEAKNESS, INCREASED BP, TROUBLE SWOLLING AND BLURRY VISION THAT GOT WORSE TODAY BUT HAS BEEN GOING ON FOR A FEW WEEKS Source of Information: Patient, Spouse History of Present Illness Date Seen by Provider: Jun 21, 2021 Time Seen by Provider: 20:25 Initial Comments PT ARRIVES VIA POV FROM HOME, PT WALKS IN WITH ASSIST FROM PT WITH A MULTITUDE OF CHRONIC COMPLAINTS STATES SHE HAS "SPINAL CORD DISEASE" ALL OF HER LIFE--SINCE CHILDHOOD--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 SHE HAS CHRONIC GENERALIZED PAIN, ESPECIALLY TO HER HEAD AND NECK. THIS PAIN IS WORSE WITH LAYING FLAT. SHE HAS HAD 2 "HINDBRAIN DECOMPRESSION SURGERIES" AND 2 "CERVICAL PLEURAL SHUNTS" AT C4--FIRST ONE IN 2002 WHICH FAILED AND HAD REPEAT SURGERY 2018. PT HAS A BACLOFEN PUMP, TAKES ORAL BACLOFEN AND METHADONE SHE HAS HYPERTENSION AND IS ON LISINOPRIL--STATES "MY BLOOD PRESSURE SKYROCKETS" AND TODAY IT WAS UP TO 150'S/90'S, AND FELT LIKE HER HEART RATE WAS FAST, BUT DID NOT CHECK HER PULSE. SHE ALSO TAKES DULOXETINE AND ARMOUR THYROID PT WITH CHRONIC GENERALIZED WEAKNESS AND COORDINATION PROBLEMS--LEFT > RIGHT CHRONIC BLURRY VISION/DECREASED VISION HAS CHRONIC DIFFICULTY SWALLOWING HAS CHRONIC NUMBNESS ON LEFT SIDE OF BODY FOR MANY YEARS, AND IN THE LAST YEAR SHE STARTED HAVING NUMBNESS ON THE RIGHT SIDE OF HER BODY STATES SHE DOES HAVE CONTROL OF BOWEL AND BLADDER "FOR THE MOST PART" HAS "WAVES OF DIZZINESS" --WORSE SINCE MARCH ALL SYMPTOMS ARE CHRONIC FOR MANY YEARS, AND PROGRESSIVELY GETTING WORSE OVER TIME, ESPECIALLY IN THE LAST YEAR, AND MORE SO SINCE MARCH. NONE OF THESE PROBLEMS ARE NEW IN ANY WAY. PT WAS REFERRED BACK TO NEUROSURGEON IN [place] THIS [place]AR, AND SAW HIM LAST WEEK. LAB AND MRI "AND SOME OTHER TESTS" ARE SCHEDULED FOR NEXT WEEK. BACLOFEN PUMP IS MANAGED BY [facility] [place], [place]. SHE HAS NOT HAD ANY RECENT CHANGES TO ANY OF HER MEDICATIONS NO MISSED DOSES OF MEDICATIONS SHE TOOK 1 EXCEDRIN AT 1600 TODAY FOR HER HEAD PAIN-NO RELIEF. NO FEVER OR RECENT ILLNESS NO URI SYMPTOMS NO NAUSEA/VOMITING NO COUGH, CHEST PAIN OR SHORTNESS OF BREATH PT HAS HAD COVID-19 VACCINE X 3 PT HAS HAD FLU VACCINE. PCP: DR. VILLATORO AT [facility] Allergies and Home Medications Allergies Coded Allergies: No Known Drug Allergies (Verified , 08/15/11) Patient Home Medication List Acetazolamide (Acetazolamide) 250 Mg Tablet, 250 MG PO DAILY, (Reported) Entered as Reported by: MARVIN WEBB on 05/12/20 1149 Baclofen (Baclofen) 10 Mg Tablet, 10 MG PO TID PRN for MUSCLE SPASMS, (Reported) Entered as Reported by: MARVIN WEBB on 05/12/20 1149 Duloxetine HCl (Duloxetine HCl) 60 Mg Capsule.dr, 60 MG PO DAILY, (Reported) Entered as Reported by: MARVIN WEBB on 05/12/20 1149 Hydrocodone/Acetaminophen (Hydrocodone-Acetamin 5-325 mg) 5 Mg-325 Mg Tablet, 1 EACH PO Q4-6 HOURS PRN for PAIN Prescribed by: HECTOR MARIANO on 06/21/21 2202 Lisinopril (Lisinopril) 20 Mg Tablet, 20 MG PO DAILY Prescribed by: MAYKEL BURNS on 05/19/20 0825 Melatonin (Melatonin) 3 Mg Tablet, 3 MG PO HS, (Reported) Entered as Reported by: MARVIN WEBB on 05/17/20 1516 Methadone HCl (Methadone HCl) 10 Mg Tablet, 10 MG PO BID, (Reported) Entered as Reported by: MARVIN WEBB on 05/12/20 1149 Multivitamin (Multivitamin) 1 Each Tablet, 1 EACH PO DAILY, (Reported) Entered as Reported by: MARVIN WEBB on 05/12/20 1149 Polyethylene Glycol 3350 (Miralax) 17 Gm Powd.pack, 17 GM PO DAILY PRN for CONSTIPATION-2ND LINE, (Reported) Entered as Reported by: MARVIN WEBB on 05/12/20 1149 Thyroid,Pork ([place] Thyroid) 90 Mg Tablet, 180 MG PO DAILY, (Reported) Entered as Reported by: MARVIN WEBB on 05/17/20 1515 Review of Systems Review of Systems Constitutional: see HPI EENTM: see HPI Respiratory: no symptoms reported Cardiovascular: no symptoms reported Gastrointestinal: no symptoms reported Genitourinary: no symptoms reported Musculoskeletal: see HPI Skin: no symptoms reported Psychiatric/Neurological: See HPI Past Abgqxyc-Zyyfqu-Vyzjne Hx Patient Social History Tobacco Use?: No Use of E-Cig and/or Vaping dev: No Substance use?: No Alcohol Use?: No Pt feels they are or have been: No Immunizations Up To Date Tetanus Booster (TDap): Unknown First/Initial COVID19 Vaccinat: 2020 Second COVID19 Vaccination Butch: 2020 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 PAST SURGICAL HISTORY: -2 "HIND BRAIN DECOMPRESSION SURGERIES" PER PT -2 "CERVICAL PLEURAL SHUNTS" AT C4--ONE IN 2002 ON THE RIGHT --FAILED, AND REPEAT SURGERY AT C4 ON THE LEFT IN 2018. -BACLOFEN PUMP PLACEMENT ADDITIONAL PAST MEDICAL HISTORY: -"SPINAL CORD DISEASE" ALL OF LIFE--SYRINGOMYELIA, SYRINGOBULBIA, ARACHNOIDITIS--( ARNOLD CHIARI MALFORMATION ) WITH AUTONOMIC DYSREFLEXIA, AND LEFT > RIGHT SIDE OF BODY NUMBNESS, BLURRY VISION, DIFFICULTY SWALLOWING, GENERALIZED PAIN--ESPECIALLY BACK OF HEAD AND NECK, AND GENERALIZED WEAKNESS Physical Exam Vital Signs Vital Signs - First Documented 06/21/21 20:00 Temp 36.7 Pulse 90 Resp 20 B/P (MAP) 157/99 (118) Capillary Refill : Height, Weight, BMI Height: '" Weight: lbs. oz. kg; 26.00 BMI Method: General Appearance: No Apparent Distress, WD/WN, Anxious, Other (MOANS AND WAILS WITH LAYING FLAT, TEARFUL) HEENT: PERRL/EOMI, TMs Normal, Normal ENT Inspection, Pharynx Normal, Moist Mucous Membranes, Other (PT IS ABLE TO HANDLE SECRETIONS AND SWALLOW LIQUIDS) Neck: Other (DIFFUSE POSTERIOR NECK TENDERNESS, VERY LIMITED ROM OF NECK DUE TO PAIN--IS CHRONIC AND NOT DIFFERENT THAN NORMAL) Respiratory: Normal Breath Sounds, No Accessory Muscle Use, No Respiratory Distress Cardiovascular: Regular Rate, Rhythm, No Edema, No JVD, No Murmur, Normal Peripheral Pulses Gastrointestinal: Non Tender, Soft Extremity: Normal Capillary Refill, Normal Range of Motion, Non Tender, No Calf Tenderness, No Pedal Edema Neurologic/Psychiatric: Alert, Oriented x3, aerodynamicist II-XII Norm as Tested, Other (TEARFUL AT TIMES. DECREASED SENSATION TO LEFT > RIGHT SIDE OF BODY--HAS VERY MINIMAL SENSATION TO LEFT ARM, HAS SOME SENSATION TO LEFT LEG. MOTOR INTACT, BUT HAS GENERALIZED WEAKNESS--LEFT> RIGHT, AND PROBLEMS WITH COORDINATION--UNABLE TO DO FINGER TO NOSE OR HEEL TO BRAR. PT HAS UNSTEADY GAIT --STATES IS CHRONIC AND NOT ANY DIFFERENT THAN NORMAL. ) Reflexes: 2+ Bicep (R), 2+ Bicep (L); 1+ Knee (R), 1+ Knee (L) Skin: Normal Color, Warm/Dry; No Rash Progress/Results/Core Measures Suspected Sepsis SIRS Temperature: Pulse: 90 Respiratory Rate: 20 Laboratory Tests 06/21/21 20:07: White Blood Count 9.6 Blood Pressure 157 /99 Mean: 118 Laboratory Tests 06/21/21 20:07: Creatinine 0.99, Platelet Count 279, Total Bilirubin 0.3 Results/Orders Lab Results Laboratory Tests Test 06/21/21 20:07 06/21/21 21:40 Range/Units White Blood Count 9.6 4.3-11.0 10^3/uL Red Blood Count 4.00 3.80-5.11 10^6/uL Hemoglobin 12.3 11.5-16.0 g/dL Hematocrit 39 35-52 % Mean Corpuscular Volume 97 80-99 fL Mean Corpuscular Hemoglobin 31 25-34 pg Mean Corpuscular Hemoglobin Concent 32 32-36 g/dL Red Cell Distribution Width 13.0 10.0-14.5 % Platelet Count 279 130-400 10^3/uL Mean Platelet Volume 10.6 9.0-12.2 fL Immature Granulocyte % (Auto) 0 % Neutrophils (%) (Auto) 70 42-75 % Lymphocytes (%) (Auto) 21 12-44 % Monocytes (%) (Auto) 5 0-12 % Eosinophils (%) (Auto) 3 0-10 % Basophils (%) (Auto) 0 0-10 % Neutrophils # (Auto) 6.7 1.8-7.8 10^3/uL Lymphocytes # (Auto) 2.0 1.0-4.0 10^3/uL Monocytes # (Auto) 0.5 0.0-1.0 10^3/uL Eosinophils # (Auto) 0.3 0.0-0.3 10^3/uL Basophils # (Auto) 0.0 0.0-0.1 10^3/uL Immature Granulocyte # (Auto) 0.0 0.0-0.1 10^3/uL Erythrocyte Sedimentation Rate 10 0-30 MM/HR Sodium Level 138 135-145 MMOL/L Potassium Level 3.6 3.6-5.0 MMOL/L Chloride Level 99 98-107 MMOL/L Carbon Dioxide Level 23 21-32 MMOL/L Anion Gap 16 H 5-14 MMOL/L Blood Urea Nitrogen 20 H 7-18 MG/DL Creatinine 0.99 0.60-1.30 MG/DL Estimat Glomerular Filtration Rate 68 BUN/Creatinine Ratio 20 Glucose Level 112 H 70-105 MG/DL Calcium Level 9.6 8.5-10.1 MG/DL Corrected Calcium 9.5 8.5-10.1 MG/DL Magnesium Level 1.8 1.6-2.4 MG/DL Total Bilirubin 0.3 0.1-1.0 MG/DL Aspartate Amino Transf (AST/SGOT) 23 5-34 U/L Alanine Aminotransferase (ALT/SGPT) 23 0-55 U/L Alkaline Phosphatase 123 40-136 U/L C-Reactive Protein High Sensitivity 0.21 0.00-0.50 MG/DL Total Protein 6.5 6.4-8.2 GM/DL Albumin 4.1 3.2-4.5 GM/DL TSH [place] Testing 2.81 0.35-4.94 UIU/ML Urine Color YELLOW Urine Clarity SL CLOUDY Urine pH 6.5 5-9 Urine Specific [place] >=1.030 1.016-1.022 Urine Protein TRACE H NEGATIVE Urine Glucose (UA) NEGATIVE NEGATIVE Urine Ketones 1+ H NEGATIVE Urine Nitrite NEGATIVE NEGATIVE Urine Bilirubin NEGATIVE NEGATIVE Urine Urobilinogen 0.2 < = 1.0 MG/DL Urine Leukocyte Esterase NEGATIVE NEGATIVE Urine RBC (Auto) NEGATIVE NEGATIVE Urine RBC NONE /HPF Urine WBC NONE /HPF Urine Squamous Epithelial Cells 10-25 H /HPF Urine Renal Epithelial Cells NONE /HPF Urine Crystals NONE /LPF Urine Bacteria NEGATIVE /HPF Urine Casts NONE /LPF Urine Mucus SMALL H /LPF Urine Other FEW SPERM H /HPF Urine Culture Indicated NO My Orders Orders - HECTOR MARIANO DO Ed Iv/Invasive Line Start (06/21/21 20:29) Monitor-Rhythm Ecg Trace Only (06/21/21 20:29) Cbc With Automated Diff (06/21/21:29) Comprehensive Metabolic Panel (06/21/21 20:29) Hs C Reactive Protein (06/21/21 20:29) Magnesium (06/21/21 20:29) Thyroid Analyzer (06/21/21 20:) Ua Culture If Indicated (06/21/21:) Erythrocyte Sedimentation Rate (06/21/21 20:29) Ekg Tracing (06/21/21 20:29) Ct Head/Cervical Spine Wo (06/21/21 20:41) Fentanyl Inj (Sublimaze Injection) (06/21/21 21:45) Medications Given in ED Current Medications Medications Dose Ordered Sig/Stevenson Route Start Time Stop Time Status Last Admin Dose Admin Fentanyl Citrate 50 mcg ONCE ONCE IVP 06/21/21 21:45 06/21/21 21:46 DC 06/21/21 21:43 50 MCG Vital Signs/I&O 06/21/21 20:00 Temp 36.7 Pulse 90 Resp 20 B/P (MAP) 157/99 (118) Capillary Refill : Blood Pressure Mean: 118 ECG Initial ECG Impression Date: Jun 21, 2021 Initial ECG Impression Time: 20:37 Initial ECG Rate: 82 Initial ECG Rhythm: Normal Sinus Diagnostic Imaging Comments CT HEAD/CERVICAL SPINE--PER RADIOLOGIST REPORT AT 2103 FINDINGS: The ventricles and sulci are within normal limits. There is no hydrocephalus. There is no midline shift. There is no mass, hemorrhage or extra-axial fluid collection. There is straightening of the normal cervical lordosis. There has been a laminectomy at C4-C5. Catheter is in place. Vertebral body heights are well-maintained. Prevertebral soft tissues are within normal limits. There is no fracture or traumatic subluxation. The odontoids intact. Lateral masses are well aligned. IMPRESSION: 1. No acute intracranial abnormality. 2. Postsurgical changes in the cervical spine with a C4-C5 laminectomy and catheter in place. There is, however, no acute fracture or traumatic subluxation. Reviewed: Reviewed by Me Departure Impression Primary Impression: exacerbation of chronic pain Disposition: HOME, SELF-CARE Condition: Stable Departure-Patient Inst. Decision time for Depature: 22:00 Referrals: DENAE VILLATORO MD (PCP/Family) Primary Care Physician Patient Instructions: Chronic Pain (DC) Add. Discharge Instructions: FOLLOW UP WITH DR. VILLATORO THIS WEEK FOR FURTHER CARE CONTINUE YOUR REGULAR MEDICATIONS PRESCRIBED All discharge instructions reviewed with patient and/or family. Voiced understanding. Scripts Hydrocodone/Acetaminophen (Hydrocodone-Acetamin 5-325 mg) 5 Mg-325 Mg Tablet 1 EACH PO Q4-6 HOURS PRN for PAIN, #20 TAB Prov: HECTOR MARIANO DO 06/21/21 HECTOR MARIANO DO Jun 21, 2021 20:54
[2021-06-21 20:55] LABS: BILIRUBIN,TOTAL 0.3 MG/DL (0.1-1.0)
[2021-06-21 20:57] LABS: CREATININE SERUM 0.99 MG/DL (0.60-1.30)
[2021-06-21 20:59] LABS: MAGNESIUM 1.8 MG/DL (1.6-2.4)
--- NOTE | 2021-06-21 21:00 | Diagnostic Imaging Report ---
PROCEDURE: CT head and CT cervical spine without contrast. TECHNIQUE: Multiple contiguous axial images were obtained through the brain and cervical spine without the use of intravenous contrast. Sagittal and coronal reformations through the cervical spine were then performed. Auto Exposure Controls were utilized during the CT exam to meet ALARA standards for radiation dose reduction. INDICATION: Head and neck pain. FINDINGS: The ventricles and sulci are within normal limits. There is no hydrocephalus. There is no midline shift. There is no mass, hemorrhage or extra-axial fluid collection. There is straightening of the normal cervical lordosis. There has been a laminectomy at C4-C5. Catheter is in place. Vertebral body heights are well-maintained. Prevertebral soft tissues are within normal limits. There is no fracture or traumatic subluxation. The odontoids intact. Lateral masses are well aligned. IMPRESSION: 1. No acute intracranial abnormality. 2. Postsurgical changes in the cervical spine with a C4-C5 laminectomy and catheter in place. There is, however, no acute fracture or traumatic subluxation. Dictated by: Dictated on workstation # [id number]
[2021-06-21 21:13] LABS: ERYTHROCYTE SEDIMENTATION RATE 10 MM/HR (0-30)
[2021-06-21 21:23] LABS: TSH (THYROID ANALYZER) 2.81 UIU/ML (0.35-4.94)
[2021-06-21] MEDS ORDERED: fentaNYL INJ 100 MCG/2 ML AMP IVP ONE (21:45)
[2021-06-21 21:48] LABS: BILIRUBIN,URINE NEGATIVE (NEGATIVE); CLARITY,URINE SL CLOUDY; COLOR,URINE YELLOW; GLUCOSE, URINE (UA) NEGATIVE (NEGATIVE); KETONES,URINE 1+ (NEGATIVE); LEUKOCYTE ESTERASE ,URINE NEGATIVE (NEGATIVE); NITRITE,URINE NEGATIVE (NEGATIVE); PH,URINE 6.5 (5-9); PROTEIN,URINE TRACE (NEGATIVE)
[2021-06-21 21:56] LABS: BACTERIA,URINE NEGATIVE /HPF
[2021-06-21 21:57] LABS: URINE OTHER FEW SPERM /HPF
[2021-06-21] MEDS ORDERED: ACHD5005 PO (22:02)
[2021-06-21 22:42] VITALS: BP 135/85
== END 2021-06-21 22:41 | disposition home or self-care (01) ==
LOC: EDUNIT# 19:40 → ER 19:42
DX: G89.29 Other chronic pain (principal); M54.2 Cervicalgia
CPT/HCPCS: 36415; 70450; 72125; 80053; 81000; 83735; 84443; 85025; 85652; 86141; 93005; 93041

== ENCOUNTER 2021-07-06 03:22 | Observation (INO) | payer MEDICARE ==
[~2021-07-06] VITALS: Ht 160 cm; Wt 68.7 kg
[~2021-07-06 03:22] MED LIST changes: +ACHD5005 PO
--- NOTE | 2021-07-06 03:40 | ED Psychosocial ---
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 She has a neurologist. She says she is in constant pain burning and she is not and she is tired of fighting and just wants to and be done with it. EMS remarks that her summonsed them because she was in the yard with a knife. She did not apparently make any harm to herself yet. She states she does not want to talk anymore and does not give much other meaningful history. She says she has not been able to sleep well for the past several days and is in constant pain but does not want anything for pain. Dr. Eduardo is her primary care doctor. 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 She has 2 decompression surgeries and cervical pleural shunts at C4 first in 2002 and a repeat in 2019. So after speaking to her and her together the crux of the story is that she has been having a rapidly progressing deterioration in her symptoms decreasing sensation and increasing pain throbbing in her head without any fevers or chills nausea or vomiting over the past several weeks. She did have a thorough work-up in the ER looking for infection. She also had MRIs repeated and got in with her neurosurgeon last week. She is upset because she has been calling trying to get a hold of her neurosurgeon to get a follow-up appointment to figure out what the next step of the plan is and was told by the neurosurgeons nurse that they are very busy and she needs to stop calling that they will get a hold of her with an appointment. This made her despair and brought her to her current presentation to the ER. Her states that just prior to coming to the ER she had said that she was done and had grabbed a knife and was mcc out the door although she struggles to walk in the past week. He got the knife away from her and that is when the patient informed her that she did not want to go on and there was no sense in treating her. Patient endorses insomnia despite melatonin 5 mg at night and has taken Benadryl a couple times with only minimal relief of her symptoms. She would like to explore something for her insomnia. She is not on anything for mood. Patient states she was on acetazolamide and it was helping up until a few weeks ago when it stopped helping so she stopped taking it. She did not discuss this with her neurosurgeon at her latest visit. (TAVO PADILLA) Allergies and Home Medications Allergies Coded Allergies: No Known Drug Allergies (Verified , 08/15/11) Patient Home Medication List Home Medication List Reviewed: Yes (TAVO PADILLA) Acetazolamide (Acetazolamide) 250 Mg Tablet, 250 MG PO DAILY, (Reported) Entered as Reported by: MARVIN WEBB on 05/12/20 1149 Baclofen (Baclofen) 10 Mg Tablet, 10 MG PO TID PRN for MUSCLE SPASMS, (Reported) Entered as Reported by: MARVIN WEBB on 05/12/20 1149 Duloxetine HCl (Duloxetine HCl) 60 Mg Capsule.dr, 60 MG PO DAILY, (Reported) Entered as Reported by: MARVIN WEBB on 05/12/20 1149 Hydrocodone/Acetaminophen (Hydrocodone-Acetamin 5-325 mg) 5 Mg-325 Mg Tablet, 1 EACH PO Q4-6 HOURS PRN for PAIN Prescribed by: HECTOR MARIANO on 06/21/21 2202 Lisinopril (Lisinopril) 20 Mg Tablet, 20 MG PO DAILY Prescribed by: MAYKEL BURNS on 05/19/20 0825 Melatonin (Melatonin) 3 Mg Tablet, 3 MG PO HS, (Reported) Entered as Reported by: MARVIN WEBB on 05/17/20 1516 Methadone HCl (Methadone HCl) 10 Mg Tablet, 10 MG PO BID, (Reported) Entered as Reported by: MARVIN WEBB on 05/12/20 1149 Multivitamin (Multivitamin) 1 Each Tablet, 1 EACH PO DAILY, (Reported) Entered as Reported by: MARVIN WEBB on 05/12/20 1149 Polyethylene Glycol 3350 (Miralax) 17 Gm Powd.pack, 17 GM PO DAILY PRN for CONSTIPATION-2ND LINE, (Reported) Entered as Reported by: MARVIN WEBB on 05/12/20 1149 Thyroid,Pork ([place] Thyroid) 90 Mg Tablet, 180 MG PO DAILY, (Reported) Entered as Reported by: MARVNI WEBB on 05/17/20 1515 Review of Systems Constitutional: No chills, No diaphoresis EENTM: No ear discharge, No ear pain Respiratory: No cough, No short of breath Cardiovascular: No chest pain, No edema Gastrointestinal: No abdominal pain, No constipation, No diarrhea, No nausea, No vomiting Genitourinary: No discharge, No dysuria Control/STD Prophylaxis: None Musculoskeletal: No back pain, No joint pain (TAVO PADILLA) All Other Systems Reviewed Negative Unless Noted: Yes (TAVO PADILLA) Past Yeewgqx-Hssaoj-Ncqnmp Hx Patient Social History Tobacco Use?: No Use of E-Cig and/or Vaping dev: No Substance use?: No (TAVO PADILLA) Immunizations Up To Date Tetanus Booster (TDap): Unknown First/Initial COVID19 Vaccinat: 2020 Second COVID19 Vaccination Butch: 2020 (TAVO PADILLA) Past Medical History Surgeries: Yes (SEE BELOW) Neurological Respiratory: Yes (EMPYEMA 04/2020) Pneumonia Cardiac: Yes (AUTONOMIC DYSREFLEXIA) Hypertension Neurological: Yes (SEE BELOW) Reproductive Disorders: No Genitourinary: Yes Bladder Infection Gastrointestinal: No Musculoskeletal: Yes (CHRONIC NECK/BACK/GENERALIZED PAIN ) Chronic Back Pain, Spasms Endocrine: No HEENT: Yes Psychosocial: Yes Anxiety, Depression Integumentary: No Blood Disorders: No (TAVO PADILLA) Family Medical History . 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 -BACLOFEN PUMP PLACEMENT -04/28/20--CHEST TUBE FOR EMPYEMA AND VATS PROCEDURE ADDITIONAL PAST MEDICAL HISTORY: -"SPINAL CORD DISEASE" ALL OF LIFE--SYRINGOMYELIA, SYRINGOBULBIA, ARACHNOIDITIS--( ARNOLD CHIARI MALFORMATION ) WITH AUTONOMIC DYSREFLEXIA, AND LEFT > RIGHT SIDE OF BODY NUMBNESS, BLURRY VISION, DIFFICULTY SWALLOWING, GENERALIZED PAIN--ESPECIALLY BACK OF HEAD AND NECK, AND GENERALIZED WEAKNESS 04/2020--ADMITTED TO [facility] FOR ACCIDENTAL OD ON BACLOFEN, REQUIRED INTUBATION; WAS ALSO SEPTIC WITH EMPYEMA AND REQUIRED CHEST TUBES AND VATS PROCEDURE--THOUGHT TO BE DUE TO SYRINGO-PLEURAL SHUNTS THAT HAD PREVIOUSLY BEEN PLACED IN 2019. (TAVO PADILLA) Physical Exam Vital Signs - First Documented 07/06/21 03:24 Temp 36.5 Pulse 90 Resp 18 B/P (MAP) 149/102 (118) Pulse Ox 99 O2 Delivery Room Air (JOSLYN QUINTANA MD) Capillary Refill : (TAVO PADILLA) Height, Weight, BMI Height: '" Weight: lbs. oz. kg; 26.00 BMI Method: General Appearance: WD/WN, mild distress HEENT: PERRL/EOMI, pharynx normal Neck: full range of motion, normal inspection Respiratory: no respiratory distress, no accessory muscle use Cardiovascular: normal peripheral pulses, regular rate, rhythm, no edema Extremities: normal inspection, normal capillary refill Neurologic/Psychiatric: alert, oriented x 3, other (Tearful, distraught, anxious affect. Endorsing suicidal ideation without a specific plan.) Behavior/Eye Contact: cooperative, good eye contact Skin: normal color, warm/dry (TAVO PADILLA) Progress/Results/Core Measures Results/Orders Lab Results Laboratory Tests Test 07/06/21 03:40 07/06/21 03:55 Range/Units White Blood Count 8.2 4.3-11.0 10^3/uL Red Blood Count 4.53 3.80-5.11 10^6/uL Hemoglobin 14.0 11.5-16.0 g/dL Hematocrit 44 35-52 % Mean Corpuscular Volume 97 80-99 fL Mean Corpuscular Hemoglobin 31 25-34 pg Mean Corpuscular Hemoglobin Concent 32 32-36 g/dL Red Cell Distribution Width 13.2 10.0-14.5 % Platelet Count 288 130-400 10^3/uL Mean Platelet Volume 10.6 9.0-12.2 fL Immature Granulocyte % (Auto) 0 % Neutrophils (%) (Auto) 49 42-75 % Lymphocytes (%) (Auto) 39 12-44 % Monocytes (%) (Auto) 7 0-12 % Eosinophils (%) (Auto) 4 0-10 % Basophils (%) (Auto) 1 0-10 % Neutrophils # (Auto) 4.0 1.8-7.8 10^3/uL Lymphocytes # (Auto) 3.2 1.0-4.0 10^3/uL Monocytes # (Auto) 0.6 0.0-1.0 10^3/uL Eosinophils # (Auto) 0.3 0.0-0.3 10^3/uL Basophils # (Auto) 0.0 0.0-0.1 10^3/uL Immature Granulocyte # (Auto) 0.0 0.0-0.1 10^3/uL Erythrocyte Sedimentation Rate 10 0-30 MM/HR Sodium Level 142 135-145 MMOL/L Potassium Level 3.4 L 3.6-5.0 MMOL/L Chloride Level 100 98-107 MMOL/L Carbon Dioxide Level 26 21-32 MMOL/L Anion Gap 16 H 5-14 MMOL/L Blood Urea Nitrogen 19 H 7-18 MG/DL Creatinine 1.15 0.60-1.30 MG/DL Estimat Glomerular Filtration Rate 57 BUN/Creatinine Ratio 17 Glucose Level 96 70-105 MG/DL Calcium Level 10.1 8.5-10.1 MG/DL Corrected Calcium 9.7 8.5-10.1 MG/DL Total Bilirubin 0.4 0.1-1.0 MG/DL Aspartate Amino Transf (AST/SGOT) 20 5-34 U/L Alanine Aminotransferase (ALT/SGPT) 17 0-55 U/L Alkaline Phosphatase 122 40-136 U/L Troponin I < 0.028 <0.028 NG/ML C-Reactive Protein High Sensitivity 1.25 H 0.00-0.50 MG/DL Total Protein 7.4 6.4-8.2 GM/DL Albumin 4.5 3.2-4.5 GM/DL Thyroid Stimulating Hormone (TSH) 1.10 0.35-4.94 UIU/ML Salicylates Level 10.1 5.0-20.0 MG/DL Acetaminophen Level < 10 L 10-30 UG/ML Serum Alcohol < 10 <10 MG/DL Urine Color YELLOW Urine Clarity CLEAR Urine pH 5.5 5-9 Urine Specific Chloride 1.020 1.016-1.022 Urine Protein NEGATIVE NEGATIVE Urine Glucose (UA) NEGATIVE NEGATIVE Urine Ketones TRACE H NEGATIVE Urine Nitrite NEGATIVE NEGATIVE Urine Bilirubin NEGATIVE NEGATIVE Urine Urobilinogen 0.2 < = 1.0 MG/DL Urine Leukocyte Esterase NEGATIVE NEGATIVE Urine RBC (Auto) NEGATIVE NEGATIVE Urine RBC NONE /HPF Urine WBC NONE /HPF Urine Squamous Epithelial Cells 10-25 H /HPF Urine Crystals NONE /LPF Urine Bacteria FEW H /HPF Urine Casts NONE /LPF Urine Mucus NEGATIVE /LPF Urine Culture Indicated NO Urine Opiates Screen NEGATIVE NEGATIVE Urine Oxycodone Screen NEGATIVE NEGATIVE Urine Methadone Screen POSITIVE H NEGATIVE Urine Propoxyphene Screen NEGATIVE NEGATIVE Urine Barbiturates Screen NEGATIVE NEGATIVE Ur Tricyclic Antidepressants Screen NEGATIVE NEGATIVE Urine Phencyclidine Screen NEGATIVE NEGATIVE Urine Amphetamines Screen NEGATIVE NEGATIVE Urine Methamphetamines Screen NEGATIVE NEGATIVE Urine Benzodiazepines Screen NEGATIVE NEGATIVE Urine Cocaine Screen NEGATIVE NEGATIVE Urine Cannabinoids Screen NEGATIVE NEGATIVE (JOSLYN QUINTANA MD) My Orders Orders - JOSLYN QUINTANA MD General/Regular (07/06/21 Breakfast) Lactic Acid Analyzer (07/06/21 07:45) Cefepime Injection (Maxipime Injection) (07/06/21 08:00) (JOSLYN QUINTANA MD) Medications Given in ED Current Medications Medications Dose Ordered Sig/Stevenson Route Start Time Stop Time Status Last Admin Dose Admin Lactated Ringer's 1,000 ml @ 0 mls/hr Q0M ONCE IV 07/06/21 03:45 07/06/21 03:46 DC 07/06/21 03:43 0 MLS/HR (JOSLYN QUINTANA MD) Vital Signs/I&O 07/06/21 03:24 Temp 36.5 Pulse 90 Resp 18 B/P (MAP) 149/102 (118) Pulse Ox 99 O2 Delivery Room Air (JOSLYN QUINTANA MD) Progress Progress Note #1: Time: 03:50 Progress Note Patient demanded to be left alone so we will oblige her for a while. She is a allowing us to obtain blood samples urine and an EKG. She does appear to be dehydrated so we will give her a liter of fluids IV. We offered something for her pain and she became incensed insisting she does not want to talk anymore and would like this provider to go away so we stepped out and let the nursing staff collect her labs. Progress Note #2: Time: 04:47 Progress Note Had a prolonged conversation with the patient and her and her opposition to her pain medicine is that it might make her feel good momentarily but if she does not have access to it all the time she does not want to just feel bad when she leaves here. She says she has a friend in one of her support groups who had their narcotics taken away from them rather abruptly and this caused her to almost so she has more fear of withdrawal from the narcotics than from addiction or dependency. She does want to have a repeat work-up today to make sure she is not having infection or anything else that we can figure out that might be causing her rapid progression of symptoms other than her Arnold-Chiari syndrome worsening. Plan to get labs including a CRP, ESR, blood cultures, chest x-ray, CT of the head and C-spine without IV contrast. Progress Note #3: Time: 05:18 Progress Note We will also check a TSH even though she says it was just checked 6 weeks ago and will suggest something for mood and sleep perhaps trazodone 150 mg at night. We have discussed resuming her acetazolamide with her as we have room to increase it upwards of 4 g a day. We suggested 250 twice a day for a week followed by a doubling to 500 twice a day. F/U with Dr Villatoro. Patient no longer endorses SI. (TAVO PADILLA) Progress Note : Time: 06:10 Progress Note Assumed care of the patient from Dr. Padilla. Bedside checkout done. Pending chest x-ray and CT results. Diamox 250 mg p[address] ordered by Dr. Padilla. We will continue that outpatient. We will likely get mental health screening pending medical clearance. Patient denies suicidality currently but does admit to situation earlier. Overall comfortable currently. Monitor patient. 0755: Chest x-ray does show concerns for right middle lobe pneumonia. Given her history of empyema and severe disease related to that including ICU stay and prolonged rehab, admission for IV antibiotics and repeat chest x-ray is indicated. I did discuss this with Dr. Burns and she agrees. Blood cultures and lactic acid ordered. Cefepime 1 g IV ordered. Patient to be admitted observation status. This was discussed with patient who agrees with plan. Concerns for depression and also being off Diamox also discussed as well has insomnia. (JOSLYN QUINTANA MD) Initial ECG Impression Date: July 06, 2021 Initial ECG Impression Time: 03:41 Initial ECG Rate: 86 Initial ECG Rhythm: Normal Sinus Initial ECG Intervals: Normal Initial ECG Impression: Normal Comment Normal sinus rhythm without clinically relevant ST changes. (TAVO PADILLA) Diagnostic Imaging Diagonstic Imaging: Xray Plain Films/CT/US/NM/MRI: chest Reviewed: Reviewed by Me Diagonstic Imaging: CT Plain Films/CT/US/NM/MRI: c-spine, head Reviewed: Reviewed by Me (TAVO PADILLA) Comments [facility], [place] NAME: AUGUSTOCANDI Schulz [facility] REC#: [id number] PT STATUS: REG ER : 1965 PHYSICIAN: TAVO PADILLA MD ADMIT DATE: 07/06/21/ER Draft Date of Exam:07/06/21 CHEST 1 VIEW, AP/PA ONLY INDICATION: Weakness. COMPARISON: 04/22/2020. FINDINGS: Single view of the chest demonstrates questionable developing infiltrate in the right middle lobe. Left lung is clear. The heart is normal. There is no pneumothorax or effusion. Osseous structures stable. IMPRESSION: Suspect infiltrate developing right middle lobe. Follow-up recommended. Dictated on workstation # [id number] Dict: 07/06/21620 Trans: 07/06/21622 [id number] Interpreted by: AMARILIS MULTANI Electronically signed by: Comments [facility] [place], [place] NAME: CANDI CASAS R [facility] REC#: [id number] PT STATUS: REG ER : 1965 PHYSICIAN: TAVO PADILLA MD ADMIT DATE: 07/06/21/ER Draft Date of Exam:07/06/21 CT HEAD/CERVICAL SPINE WO PROCEDURE: CT head and CT cervical spine without contrast. TECHNIQUE: Multiple contiguous axial images were obtained through the brain and cervical spine without the use of intravenous contrast. Sagittal and coronal reformations through the cervical spine were then performed. Auto Exposure Controls were utilized during the CT exam to meet ALARA standards for radiation dose reduction. INDICATION: Confusion, head and neck pain COMPARISON: 06/21/2021 CT head: There has been prior Chiari decompression. There is no ventriculomegaly. There is some stable effacement of the basal cisterns. There is no focus of acute ischemia or hemorrhage. There is no shift. No mass identified. There is no skull fracture. Paranasal sinuses and mastoids clear. IMPRESSION: 1. Status post prior Chiari decompression. No ventriculomegaly. 2. No focus of acute ischemia or hemorrhage. CT cervical spine: Postoperative changes seen involving the C4-C5 level. The shunt catheters are again seen in place. There is no traumatic malalignment or fracture. There is no inflammatory process. IMPRESSION: Stable postoperative changes involving the cervical spine. No obvious inflammatory change or fracture is identified. Dictated on workstation # [id number] Dict: 07/06/2144 Trans: 07/06/21 0658 [facility] [id number] Interpreted by: AMARILIS MULTANI Electronically signed by: (JOSLYN QUINTANA MD) Departure Communication (Admissions) Time/Spoke to Admitting Phy: 07:55 (JOSLYN QUINTANA MD) Impression Primary Impression: Right middle lobe pneumonia Qualified Codes: J18.9 - Pneumonia, unspecified organism Additional Impressions: Suicidal ideations Depression Qualified Codes: F32.A - Depression, unspecified Insomnia Qualified Codes: G47.00 - Insomnia, unspecified Disposition: 09 ADMITTED INPATIENT Condition: Stable Admissions Decision to Admit Reason: Admit from ER (General) Decision to Admit/Date: July 06, 2021 Time/Decision to Admit Time: 07:55 (JOSLYN QUINTANA MD) Departure-Patient Inst. Referrals: DENAE VILLATORO MD (PCP/Family) Primary Care Physician TAVO PADILLA July 06, 2021 03:40 JOSLYN QUINTANA MD July 06, 2021 06:47
[2021-07-06] MEDS ORDERED: LACTATED RINGERS 1,000 ML IV ONE (03:45)
[2021-07-06 03:52] LABS: BASOPHILS % (AUTO) 1 % (0-10); EOSINOPHILS # (AUTO) 0.3 10^3/uL (0.0-0.3); EOSINOPHILS % (AUTO) 4 % (0-10); HEMATOCRIT 44 % (35-52); LYMPHOCYTES # (AUTO) 3.2 10^3/uL (1.0-4.0); LYMPHOCYTES % (AUTO) 39 % (12-44); MEAN CORPUSCULAR HEMOGLOBIN 31 pg (25-34); MEAN CORPUSCULAR HGB CONC 32 g/dL (32-36); MEAN CORPUSCULAR VOLUME 97 fL (80-99); MEAN PLATELET VOLUME 10.6 fL (9.0-12.2); MONOCYTES # (AUTO) 0.6 10^3/uL (0.0-1.0); MONOCYTES % (AUTO) 7 % (0-12); NEUTROPHILS % (AUTO) 49 % (42-75); PLATELET COUNT 288 10^3/uL (130-400); WHITE BLOOD COUNT 8.2 10^3/uL (4.3-11.0)
[2021-07-06 04:00] LABS: BILIRUBIN,URINE NEGATIVE (NEGATIVE); CLARITY,URINE CLEAR; COLOR,URINE YELLOW; GLUCOSE, URINE (UA) NEGATIVE (NEGATIVE); KETONES,URINE TRACE (NEGATIVE); LEUKOCYTE ESTERASE ,URINE NEGATIVE (NEGATIVE); NITRITE,URINE NEGATIVE (NEGATIVE); PH,URINE 5.5 (5-9); PROTEIN,URINE NEGATIVE (NEGATIVE)
[2021-07-06 04:09] LABS: CHLORIDE 100 MMOL/L (98-107); POTASSIUM 3.4 MMOL/L (3.6-5.0); SODIUM 142 MMOL/L (135-145)
[2021-07-06 04:10] LABS: ALBUMIN 4.5 GM/DL (3.2-4.5)
[2021-07-06 04:11] LABS: CALCIUM 10.1 MG/DL (8.5-10.1)
[2021-07-06 04:12] LABS: GLUCOSE 96 MG/DL (70-105); TOTAL PROTEIN 7.4 GM/DL (6.4-8.2)
[2021-07-06 04:13] LABS: AMPHETAMINE SCREEN, URINE NEGATIVE (NEGATIVE); BACTERIA,URINE FEW /HPF; BARBITURATE SCREEN URINE NEGATIVE (NEGATIVE); BENZODIAZEPINES SCREEN URINE NEGATIVE (NEGATIVE); CANNABINOID SCREEN, URINE NEGATIVE (NEGATIVE); COCAINE SCREEN URINE NEGATIVE (NEGATIVE); METHADONE STAT POSITIVE (NEGATIVE); OPIATE SCREEN URINE NEGATIVE (NEGATIVE); OXYCODONE STAT NEGATIVE (NEGATIVE); PROPOXYPHENE STAT NEGATIVE (NEGATIVE); TRICYCLIC ANTIDEPRESSANTS SCRE NEGATIVE (NEGATIVE)
[2021-07-06 04:13] LABS: CARBON DIOXIDE 26 MMOL/L (21-32)
[2021-07-06 04:14] LABS: BILIRUBIN,TOTAL 0.4 MG/DL (0.1-1.0)
[2021-07-06 04:16] LABS: ALKALINE PHOSPHATASE 122 U/L (40-136); CREATININE SERUM 1.15 MG/DL (0.60-1.30); GFR ESTIMATED 57
[2021-07-06 04:17] LABS: ACETAMINOPHEN < 10 UG/ML (10-30); BUN/CREATININE RATIO 17
[2021-07-06 04:18] LABS: SALICYLATE 10.1 MG/DL (5.0-20.0)
[2021-07-06 04:19] LABS: ALANINE AMINOTRANSFERASE 17 U/L (0-55)
[2021-07-06] MEDS ORDERED: acetaZOLAMIDE 250 MG (DIAMOX) TAB PO STA (06:23)
--- NOTE | 2021-07-06 06:23 | Diagnostic Imaging Report ---
INDICATION: Weakness. COMPARISON: 04/22/2020. FINDINGS: Single view of the chest demonstrates questionable developing infiltrate in the right middle lobe. Left lung is clear. The heart is normal. There is no pneumothorax or effusion. Osseous structures stable. IMPRESSION: Suspect infiltrate developing right middle lobe. Follow-up recommended. Dictated by: Dictated on workstation # [id number]
--- NOTE | 2021-07-06 06:58 | Diagnostic Imaging Report ---
PROCEDURE: CT head and CT cervical spine without contrast. TECHNIQUE: Multiple contiguous axial images were obtained through the brain and cervical spine without the use of intravenous contrast. Sagittal and coronal reformations through the cervical spine were then performed. Auto Exposure Controls were utilized during the CT exam to meet ALARA standards for radiation dose reduction. INDICATION: Confusion, head and neck pain COMPARISON: 06/21/2021 CT head: There has been prior Chiari decompression. There is no ventriculomegaly. There is some stable effacement of the basal cisterns. There is no focus of acute ischemia or hemorrhage. There is no shift. No mass identified. There is no skull fracture. Paranasal sinuses and mastoids clear. IMPRESSION: 1. Status post prior Chiari decompression. No ventriculomegaly. 2. No focus of acute ischemia or hemorrhage. CT cervical spine: Postoperative changes seen involving the C4-C5 level. The shunt catheters are again seen in place. There is no traumatic malalignment or fracture. There is no inflammatory process. IMPRESSION: Stable postoperative changes involving the cervical spine. No obvious inflammatory change or fracture is identified. Dictated by: Dictated on workstation # [id number]
[2021-07-06] MEDS ORDERED: CEFEPIME INJECTION 1,000 MG in NS (IVPB) 50 ML IV ONE (08:00)
--- NOTE | 2021-07-06 08:00 | History & Physical-Hospitalist ---
History of Present Illness HPI/Chief Complaint CC: Fall HPI: This is a 56 yr old female with a past medical history of Chiari malformation. She recently had an MRI showing no problems with the apparatus that is worn internally for her condition. She presented to the ER with suicidal ideation, found to have a pneumonia and history of empyema. The decision was made to place her in observation, place her on IV antibiotics of Cefepime, and monitor closely. We will initiate PT and OT and evaluate her for rehab also. We will also have her screened from the [facility] for suicide. Source: patient Exam Limitations: no limitations Date Seen 07/06/21 Time Seen by a Provider: 11:30 Attending Physician PCP Ruslan Tracy MD Referring Physician Date of Admission Home Medications & Allergies Home Medications Reviewed patient Home Medication Reconciliation performed by pharmacy medication reconciliations prepress technician and/or nursing. Patients Allergies have been reviewed. Allergies Allergies Coded Allergies No Known Drug Allergies (Verified08/15/11) Past [id number]-Sauxlw Hx Patient Social History Marrital Status: Employed/Student: unemployed Tobacco Use?: No Smoking Status: Former Smoker Use of E-Cig and/or Vaping dev: No Substance use?: No Alcohol Use?: No Pt feels they are or have been: No Immunizations Up To Date Date of Influenza Vaccine: Mar 04, 2020 First/Initial COVID19 Vaccinat: 2020 Second COVID19 Vaccination Butch: 2020 Tetanus Booster (TDap): Unknown Date of Pneumonia Vaccine: Aug 02, 2009 Current Status Advance Directives: No Communicates: Verbally Primary Language: [place] Preferred Spoken Language: [place] Past Medical History Surgeries: Neurological Pneumonia Hypertension Bladder Infection Chronic Back Pain, Spasms Anxiety, Depression Blood Disorders: No Family Medical History . 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 -BACLOFEN PUMP PLACEMENT -04/28/20--CHEST TUBE FOR EMPYEMA AND VATS PROCEDURE ADDITIONAL PAST MEDICAL HISTORY: -"SPINAL CORD DISEASE" ALL OF LIFE--SYRINGOMYELIA, SYRINGOBULBIA, ARACHNOIDITIS--( ARNOLD CHIARI MALFORMATION ) WITH AUTONOMIC DYSREFLEXIA, AND LEFT > RIGHT SIDE OF BODY NUMBNESS, BLURRY VISION, DIFFICULTY SWALLOWING, GENERALIZED PAIN--ESPECIALLY BACK OF HEAD AND NECK, AND GENERALIZED WEAKNESS 04/2020--ADMITTED TO [facility] FOR ACCIDENTAL OD ON BACLOFEN, REQUIRED INTUBATION; WAS ALSO SEPTIC WITH EMPYEMA AND REQUIRED CHEST TUBES AND VATS PROCEDURE--THOUGHT TO BE DUE TO SYRINGO-PLEURAL SHUNTS THAT HAD PREVIOUSLY BEEN PLACED IN 2019. Review of Systems Constitutional: see HPI EENTM: no symptoms reported Respiratory: cough Cardiovascular: no symptoms reported Gastrointestinal: no symptoms reported Genitourinary: no symptoms reported Musculoskeletal: no symptoms reported Skin: no symptoms reported Psychiatric/Neurological: No Symptoms Reported All Other Systems Reviewed Negative Unless Noted: Yes Physical Exam Physical Exam Vital Signs Vital Signs - First Documented 07/06/21 03:24 Temp 36.5 Pulse 90 Resp 18 B/P (MAP) 149/102 (118) Pulse Ox 99 O2 Delivery Room Air Capillary Refill : Less Than 3 Seconds Height, Weight, BMI Height: '" Weight: lbs. oz. kg; 26.00 BMI Method: General Appearance: No Apparent Distress, Anxious, Chronically ill, Thin Eyes: Right Eye Normal Inspection, Right Eye PERRL HEENT: PERRL/EOMI, Normal ENT Inspection, Pharynx Normal, Moist Mucous Membranes Neck: Full Range of Motion, Normal Inspection, Non Tender Respiratory: Chest Non Tender, Lungs Clear, Normal Breath Sounds, No Accessory Muscle Use, No Respiratory Distress Cardiovascular: Regular Rate, Rhythm, No Edema, No Gallop, No JVD, No Murmur, Normal Peripheral Pulses Gastrointestinal: Normal Bowel Sounds, No Organomegaly, No Pulsatile Mass, Non Tender, Soft Back: Normal Inspection, No CVA Tenderness, No Vertebral Tenderness Extremity: Normal Capillary Refill, Normal Inspection, Normal Range of Motion, Non Tender, No Calf Tenderness, No Pedal Edema Neurologic/Psychiatric: Alert, Oriented x3, Depressed Affect, Motor Weakness (Lower extremity) Skin: Normal Color, Warm/Dry Lymphatic: No Adenopathy Results Results/Procedures Labs Laboratory Tests 07/06/21 03:40 Patient resulted labs reviewed. Assessment/Plan Admission Diagnosis Assessment: Early pneumonia History of empyema Arnold Chiari Malformation Type 1 with Syringomyelia/Syringobulbia Chronic debility Suicidal statements assessed to not be at risk by mental health screen Plan: IV antibiotics Supportive half-way meds Admission Status: Observation Diagnosis/Problems Diagnosis/Problems (1) Right middle lobe pneumonia (2) Suicidal ideations Status: Acute (3) Arnold-Chiari malformation (4) Insomnia Status: Acute Qualifiers: Insomnia type: unspecified Qualified Codes: G47.00 - Insomnia, unspecified MAYKEL BURNS DO July 06, 2021 08:00
[2021-07-06] MEDS ORDERED: diphenhydrAMINE 25 MG TAB (BENADRYL) PO PRN (09:00)
[2021-07-06] MEDS ORDERED: diphenhydrAMINE 50 MG/ML INJ (BENADRYL) IVP PRN (09:00)
[2021-07-06] MEDS ORDERED: morphine INJ 4 MG/ML 1 ML (VIAL/SYRINGE) IV PRN (09:00)
[2021-07-06] MEDS ORDERED: polyethylene glycoL POWDER 17 GM (MIRALAX) PACK PO PRN (09:00)
[2021-07-06] MEDS ORDERED: ONDANSETRON 4 MG/2 ML (SDV) Z0FRAN IV PRN (09:00)
[2021-07-06] MEDS ORDERED: MILK OF MAGNESIA 400 MG/5 ML 30 ML UDC PO PRN (09:00)
[2021-07-06] MEDS ORDERED: PATIENT MAY USE OWN MEDS, ALL PO SCH (09:00)
[2021-07-06] MEDS ORDERED: ANTACID SUSP 30 ML UDC (MYLANTA) PO PRN (09:00)
[2021-07-06] MEDS ORDERED: LACTULOSE SYRUP 10GM/15ML (ENULOSE) 30ML UDC PO PRN (09:00)
[2021-07-06] MEDS ORDERED: CEFEPIME INJECTION 2,000 MG in NS (IVPB) 50 ML IV SCH (09:00)
[2021-07-06] MEDS ORDERED: CALCIUM CARBONATE 500 MG (TUMS) TAB.CHEW PO PRN (09:00)
[2021-07-06] MEDS ORDERED: SENNOSIDES 8.6 MG (SENOKOT) TAB PO SCH (09:00)
[2021-07-06] MEDS ORDERED: DOCUSATE SODIUM 100 MG (COLACE) CAP PO SCH (09:00)
[2021-07-06] MEDS ORDERED: ENOXAPARIN 40 MG/0.4 ML (LOVENOX) SYR SC SCH (09:00)
[2021-07-06] MEDS ORDERED: NS IV 1000 ML 1,000 ML IV SCH (09:00)
[2021-07-06] MEDS ORDERED: BISACODYL 10 MG SUPP (DULCOLAX) PR PRN (09:00)
[2021-07-06] MEDS ORDERED: ONDANSETRON 4 MG (ZOFRAN) ORAL DISSOLVE TAB PO PRN (09:00)
[2021-07-06] MEDS ORDERED: MELATONIN 3 MG TABLET PO PRN (09:00)
[2021-07-06 09:09] VITALS: BP 140/82
[2021-07-06] MEDS ORDERED: METHADONE 10 MG (DOLOPHINE) TAB PO PRN (10:45)
[2021-07-06] MEDS: ACETAMINOPHEN 325 MG TABLET PO PRN ×2 (10:53→16:07)
[2021-07-06 11:11] VITALS: BP 176/90
--- NOTE | 2021-07-06 11:44 | Physical Therapy Progress Note ---
Therapy Progress Note Patient declined PT on this date due to 10/10 RAZA and sleep deprivation. RN notified. Will attempt tomorrow. 1 ref ADITYA NOLASCO PT July 06, 2021 11:44
[2021-07-06] MEDS ORDERED: ACET-2267 PO (12:07)
[2021-07-06] MEDS ORDERED: MECL-149 PO (12:07)
[2021-07-06] MEDS ORDERED: ASPI-789 PO (12:07)
[2021-07-06] MEDS ORDERED: MULT-1112 PO (12:07)
--- NOTE | 2021-07-06 12:51 | Occ Therapy Progress Note ---
Therapy Progress Note Pt declined OT/PT services on this date, OT will attempt evaluation tomorrow. ELIF ALVARADO OT July 06, 2021 12:50
[2021-07-06 16:00] VITALS: BP 132/82
[2021-07-06] MEDS ORDERED: CEFD300C3 PO (17:47)
--- NOTE | 2021-07-06 17:47 | Discharge Summary ---
Discharge Summary Hospital Course Was the Problem List Reviewed?: Yes Problems/Dx: (1) Right middle lobe pneumonia (2) Arnold-Chiari malformation Hospital Course Date of Admission: July 06, 2021 at 07:55 Admission Diagnosis : Family Physician/Provider: Ruslan Tracy MD Date of Discharge: 07/06/21 Discharge Diagnosis: Pneumonia Hospital Course: Brief course before she left AMA see HPI. Labs and Pending Lab Test: Laboratory Tests 07/06/21 03:40: White Blood Count 8.2, Red Blood Count 4.53, Hemoglobin 14.0, Hematocrit 44, Mean Corpuscular Volume 97, Mean Corpuscular Hemoglobin 31, Mean Corpuscular Hemoglobin Concent 32, Red Cell Distribution Width 13.2, Platelet Count 288, Mean Platelet Volume 10.6, Immature Granulocyte % (Auto) 0, Neutrophils (%) (Auto) 49, Lymphocytes (%) (Auto) 39, Monocytes (%) (Auto) 7, Eosinophils (%) (Auto) 4, Basophils (%) (Auto) 1, Neutrophils # (Auto) 4.0, Lymphocytes # (Auto) 3.2, Monocytes # (Auto) 0.6, Eosinophils # (Auto) 0.3, Basophils # (Auto) 0.0, Immature Granulocyte # (Auto) 0.0, Erythrocyte Sedimentation Rate 10, Sodium Level 142, Potassium Level 3.4L, Chloride Level 100, Carbon Dioxide Level 26, Anion Gap 16H, Blood Urea Nitrogen 19H, Creatinine 1.15, Estimat Glomerular Filtration Rate 57, BUN/Creatinine Ratio 17, Glucose Level 96, Calcium Level 10.1, Corrected Calcium 9.7, Total Bilirubin 0.4, Aspartate Amino Transf (AST/SGOT) 20, Alanine Aminotransferase (ALT/SGPT) 17, Alkaline Phosphatase 122, Troponin I < 0.028, C-Reactive Protein High Sensitivity 1.25H, Total Protein 7.4, Albumin 4.5, Thyroid Stimulating Hormone (TSH) 1.10, Salicylates Level 10.1, Acetaminophen Level < 10L, Serum Alcohol < 10 07/06/21 03:55: Urine Color YELLOW, Urine Clarity CLEAR, Urine pH 5.5, Urine Specific [place] 1.020, Urine Protein NEGATIVE, Urine Glucose (UA) NEGATIVE, Urine Ketones TRACEH , Urine Nitrite NEGATIVE, Urine Bilirubin NEGATIVE, Urine Urobilinogen 0.2, Urine Leukocyte Esterase NEGATIVE, Urine RBC (Auto) NEGATIVE, Urine RBC NONE, Urine WBC NONE, Urine Squamous Epithelial Cells 10-25H, Urine Crystals NONE, Urine Bacteria FEWH, Urine Casts NONE, Urine Mucus NEGATIVE, Urine Culture Indicated NO, Urine Opiates Screen NEGATIVE, Urine Oxycodone Screen NEGATIVE, Urine Methadone Screen POSITIVEH, Urine Propoxyphene Screen NEGATIVE, Urine Barbiturates Screen NEGATIVE, Ur Tricyclic Antidepressants Screen NEGATIVE, Urine Phencyclidine Screen NEGATIVE, Urine Amphetamines Screen NEGATIVE, Urine Methamphetamines Screen NEGATIVE, Urine Benzodiazepines Screen NEGATIVE, Urine Cocaine Screen NEGATIVE, Urine Cannabinoids Screen NEGATIVE 07/06/21 07:55: Lactic Acid Level 0.69 Home Meds Active Cefdinir 300 Mg Capsule 300 Mg PO BID Reported Excedrin Migraine Caplet (Aspirin/Acetaminophen/Caffeine) 250 Mg-250 Mg-65 Mg Tablet 2 Each PO Q6-8HR PRN Tylenol Extra Strength (Acetaminophen) 500 Mg Tablet 1,000 Mg PO Q8H PRN Meclizine HCl 25 Mg Tablet 25 Mg PO DAILY PRN Centrum Chewables Adults Tab (Multivit-Min/Iron/Folic/Vit K1) 8 Mg Iron-400 Mcg- 10 Mcg Tab.chew 1 Each PO DAILY Melatonin 3 Mg Tablet 3 Mg PO HS [place] Thyroid (Thyroid,Pork) 90 Mg Tablet 180 Mg PO DAILY TAKES 2 (90MG) TABS Methadone HCl 10 Mg Tablet 10 Mg PO DAILY Duloxetine HCl 60 Mg Capsule.dr 60 Mg PO DAILY Baclofen 10 Mg Tablet 10 Mg PO TID PRN Acetazolamide 250 Mg Tablet 250 Mg PO DAILY Assessment/Pt Instructions PCP in 1 week Discharge Planning: <30 minutes discharge planning Discharge Physical Examination Vital Signs Vital Signs Date Time Temp Pulse Resp B/P (MAP) Pulse Ox O2 Delivery O2 Flow Rate FiO2 07/06/21 16:00 35.9 80 18 132/82 (99) 93 Room Air Allergies: Coded Allergies: No Known Drug Allergies (Verified , 08/15/11) Discharge Summary Date of Admission July 06, 2021 at 07:55 Date of Discharge Discharge Date: July 06, 2021 MAYKEL BURNS DO July 06, 2021 17:47
[2021-07-06] MEDS ORDERED: MIRTAZAPINE 15 MG (REMERON) TAB PO SCH (21:00)
== END 2021-07-06 15:48 | disposition left against medical advice (07) ==
LOC: EDUNIT# 03:22 → ER 03:23 → 4TH 07:55
PROVIDERS: ADMIT Internal Medicine; ATTEND Internal Medicine
DX: J18.1 Lobar pneumonia, unspecified organism (principal); Q07.00 Arnold-Chiari syndrome without spina bifida or hydrocephalus; J43.9 Emphysema, unspecified; R53.81 Other malaise; G47.00 Insomnia, unspecified; R45.81 Low self-esteem; F32.A Depression, unspecified
CPT/HCPCS: 70450; 71045; 72125; 80053; 80306; 81000; 83605; 84443; 84484; 85025; 85652; 86141; 87040; 93005; 93041; 96372; 99284; G0378; G0480 ×3; 36415; 80320; 80329

== ENCOUNTER → 2022-05-24 | Outpatient (CLI) | payer MEDICARE ==
[~2022-05-24] MED LIST changes: +ACET-2267 PO; +ASPI1TAB23 PO; +CEFD300C3 PO; +MECL-149 PO; +MULT-1112 PO
[2022-05-24 13:31] LABS: BASOPHILS % (AUTO) 0 % (0-10); EOSINOPHILS # (AUTO) 0.4 10^3/uL (0.0-0.3); EOSINOPHILS % (AUTO) 3 % (0-10); HEMATOCRIT 30 % (35-52); HEMOGLOBIN 9.2 g/dL (11.5-16.0); LYMPHOCYTES % (AUTO) 14 % (12-44); MEAN CORPUSCULAR HEMOGLOBIN 30 pg (25-34); MEAN CORPUSCULAR HGB CONC 31 g/dL (32-36); MEAN CORPUSCULAR VOLUME 99 fL (80-99); MEAN PLATELET VOLUME 9.4 fL (9.0-12.2); MONOCYTES % (AUTO) 7 % (0-12); NEUTROPHILS # (AUTO) 11.1 10^3/uL (1.8-7.8); NEUTROPHILS % (AUTO) 76 % (42-75); PLATELET COUNT 354 10^3/uL (130-400); WHITE BLOOD COUNT 14.6 10^3/uL (4.3-11.0)
[2022-05-24 13:42] LABS: ALBUMIN 3.3 GM/DL (3.2-4.5); POTASSIUM 3.4 MMOL/L (3.6-5.0)
[2022-05-24 13:43] LABS: CALCIUM 9.2 MG/DL (8.5-10.1)
[2022-05-24 13:44] LABS: TOTAL PROTEIN 6.3 GM/DL (6.4-8.2)
[2022-05-24 13:46] LABS: BILIRUBIN,TOTAL 0.1 MG/DL (0.1-1.0)
[2022-05-24 13:48] LABS: CREATININE SERUM 1.51 MG/DL (0.60-1.30)
[2022-05-24 13:57] LABS: BAND NEUTROPHILS 2 %; LYMPHOCYTES % (MANUAL) 11 %; MONOCYTES % (MANUAL) 5 %; NEUTROPHILS % (MANUAL) 80 %
[2022-05-24 13:58] LABS: EOSINOPHILS % (MANUAL) 2 %; HYPOCHROMASIA SLIGHT
== END ==
LOC: WOUNDCARE 12:22
PROVIDERS: ATTEND Family Medicine
DX: G95.0 Syringomyelia and syringobulbia (principal); L89.313 Pressure ulcer of right buttock, stage 3; L89.323 Pressure ulcer of left buttock, stage 3; Q07.01 Arnold-Chiari syndrome with spina bifida; I95.89 Other hypotension; M62.3 Immobility syndrome (paraplegic); I96 Gangrene, not elsewhere classified
CPT/HCPCS: 11042; 80053; 85007; 85027; A6212; G0463; 36415

== ENCOUNTER → 2022-05-31 | Outpatient (CLI) | payer MEDICARE | LOC: WOUNDCARE 12:44 | PROVIDERS: ATTEND Family Medicine | DX: I96 Gangrene, not elsewhere classified (principal); L89.313 Pressure ulcer of right buttock, stage 3; L89.323 Pressure ulcer of left buttock, stage 3; G95.0 Syringomyelia and syringobulbia; Q07.01 Arnold-Chiari syndrome with spina bifida; I95.89 Other hypotension; M62.3 Immobility syndrome (paraplegic); D46.4 Refractory anemia, unspecified; N18.30 Chronic kidney disease, stage 3 unspecified; D63.1 Anemia in chronic kidney disease | CPT/HCPCS: 11042; 82306; 82607; 82728; 82746; 83540; 83550; 84134; A6212; G0463; 36415 ==

== ENCOUNTER → 2022-06-07 | Outpatient (CLI) | payer MEDICARE ==
[~2022-06-07] MED LIST changes: +AMOX1TAB12 PO; +AZIT250T12 PO; +BACI1CAP14 PO; +BACLOFEN INCATH; +CALC-308 PO; +LACT-72 PEG; +LORA10TA7 PO; +MELA5TAB14 PO; +POTA99TA26 PO; +TURM500T PO
== END ==
LOC: WOUNDCARE 12:44
PROVIDERS: ATTEND Family Medicine
DX: L89.313 Pressure ulcer of right buttock, stage 3 (principal); L89.323 Pressure ulcer of left buttock, stage 3; G95.0 Syringomyelia and syringobulbia; Q07.03 Arnold-Chiari syndrome with spina bifida and hydrocephalus; I95.89 Other hypotension; M62.3 Immobility syndrome (paraplegic); D46.4 Refractory anemia, unspecified; N18.30 Chronic kidney disease, stage 3 unspecified
CPT/HCPCS: 99212

== ENCOUNTER 2022-06-21 07:09 | Inpatient (IN) | payer MEDICARE, MEDICAID ==
[~2022-06-21] VITALS: Ht 155 cm; Wt 67.3 kg
[~2022-06-21 07:09] MED LIST changes: -AMOX1TAB12 PO; -AZIT250T12 PO; -BACI1CAP14 PO; -BACLOFEN INCATH; -CALC-308 PO; -LACT-72 PEG; -LORA10TA7 PO; -MELA5TAB14 PO; -POTA99TA26 PO; -TURM500T PO
[2022-06-21] MEDS ORDERED: methylPREDNISolone 125 MG (Solu-MEDROL) VIAL IV STA (07:16)
[2022-06-21] MEDS ORDERED: RT-ALBUTEROL SULF 2.5 MG/3 ML PRE-MIX VIAL INH STA (07:16)
[2022-06-21] MEDS ORDERED: NALOXONE 2 MG/2 ML (NARCAN) SYR ONE (07:27)
[2022-06-21] MEDS ORDERED: LIDOCAINE UROJET 2% GEL 10 ML PKG TOP ONE (07:30)
[2022-06-21] MEDS ORDERED: RT-ALBUTEROL/IPRATROPIUM 3 ML (DUONEB) VIAL INH ONE (07:30)
[2022-06-21] MEDS ORDERED: NS IV 1000 ML 1,000 ML IV SCH (07:30)
[2022-06-21] MEDS ORDERED: LACTATED RINGERS 1,000 ML IV ONE ×2 (07:30→09:57)
[2022-06-21 07:33] LABS: BASOPHILS # (AUTO) 0.1 10^3/uL (0.0-0.1); BASOPHILS % (AUTO) 0 % (0-10); EOSINOPHILS # (AUTO) 0.4 10^3/uL (0.0-0.3); EOSINOPHILS % (AUTO) 2 % (0-10); HEMATOCRIT 29 % (35-52); HEMOGLOBIN 8.6 g/dL (11.5-16.0); LYMPHOCYTES # (AUTO) 1.3 10^3/uL (1.0-4.0); LYMPHOCYTES % (AUTO) 7 % (12-44); MEAN CORPUSCULAR HEMOGLOBIN 29 pg (25-34); MEAN CORPUSCULAR HGB CONC 30 g/dL (32-36); MEAN CORPUSCULAR VOLUME 97 fL (80-99); MEAN PLATELET VOLUME 10.6 fL (9.0-12.2); MONOCYTES # (AUTO) 1.1 10^3/uL (0.0-1.0); MONOCYTES % (AUTO) 6 % (0-12); NEUTROPHILS # (AUTO) 15.9 10^3/uL (1.8-7.8); NEUTROPHILS % (AUTO) 84 % (42-75); PLATELET COUNT 327 10^3/uL (130-400); WHITE BLOOD COUNT 18.9 10^3/uL (4.3-11.0)
--- NOTE | 2022-06-21 07:41 | ED General ---
General Stated Complaint: UNRESPONSIVE Source of Information: EMS, Other (MALE S.O.-- LIVE-IN BOYFRIEND. ) (HECTOR HAMPTON DO) History of Present Illness Date Seen by Provider: Jun 21, 2022 Time Seen by Provider: 07:10 Initial Comments PT ARRIVES VIA EMS FROM HOME EMS WAS CALLED FOR PT WITH ALTERED MENTAL STATUS. INITIAL O2 SATS IN THE 60'S, UP TO 90'S ON O2 VIA NRB AT 10-12 LITERS INITIAL BP 60/18. NO IV BY EMS ON ARRIVAL, I SPOKE TO PT, AND SHE SAID "HELLO" AND ALSO "I'M HERE NOW" SHE HAS NOT HAD ANY OTHER VERBAL RESPONSE PT'S S.O. IS HERE SHORTLY AFTER PT'S ARRIVAL HE STATES THAT PT'S BASELINE IS NON-AMBULATORY, BUT IS NORMALLY VERY SHARP MENTALLY SHE IS NON-AMBULATORY AT BASELINE HE STATES SHE HAS HAD PROGRESSIVE LETHARGY, DECREASED MENTATION, AND SHORTNESS OF BREATH OVER THE LAST COUPLE OF WEEKS SHE WAS DIAGNOSED WITH PNEUMONIA 06/19/22 AND WAS PRESCRIBED AUGMENTIN AND ZITHROMAX AT [facility]. 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 CHRONIC DIZZINESS SHE IS FOLLOWED BY A NEUROSURGEON IN [place], [place] MALE S.O. STATES SHE HAS HAD BUILD UP OF FLUID AND PRESSURE IN HER HEAD OVER THE LAST COUPLE OF YEARS, AND HAS RECOMMENDED SHE HAVE PROCEDURE TO MONITOR INTRACRANIAL PRESSURE, BUT SHE HAS NOT BEEN WELL ENOUGH TO MAKE THE TRIP TO COMBINED LOCKS. HER BACLOFEN PUMP IS [facility]NAG[facility] [place], [place] HER METHADONE IS MANAGED BY DR. VILLATORO ALL THESE ISSUES ARE CHRONIC AND PROGRESSIVELY GETTING WORSE OVER THE LAST FEW YEARS ADDITIONALLY IN 2020, SHE HAD OVERDOSED ON BACLOFEN AND ALSO HAD PNEUMONIA WITH EMPYEMA AND REQUIRED INTUBATION AND PROLONGED HOSPITAL COURSE. PT'S S.O. HAS STATED THAT PT HAS VOICED MULTIPLE TIMES THAT SHE DID NOT WANT CPR OR TO BE ON A VENTILATOR EVER AGAIN. PCP: DR. VILLATORO (HECTOR HAMPTON DO) Allergies and Home Medications Allergies Coded Allergies: No Known Drug Allergies (Verified , 08/15/11) Patient Home Medication List Home Medication List Reviewed: Yes (ALBA DE DIOS MD) Acetazolamide (Acetazolamide) 250 Mg Tablet, 250 MG PO DAILY, (Reported) Entered as Reported by: MARVIN WEBB on 05/12/201148 Last Action: Reviewed Amoxicillin/Potassium Clav (Amox Tr-K Clv 875-125 mg Tab) 875 Mg-125 Mg Tablet, 1 EA PO BID, (Reported) Entered as Reported by: MARVIN WEBB on 06/21/221521 Last Action: Reviewed Azithromycin (Azithromycin) 250 Mg Tablet, 250 MG PO DAILY, (Reported) Entered as Reported by: MARVIN WEBB on 06/21/221521 Last Action: Reviewed Bacillus Coagulans/Inulin (Probiotic 1 B Cfu-250 mg Cap) 1 Billion Cell-250 Mg Capsule, 2 EACH PO 1800 W/DINNER, (Reported) Entered as Reported by: MARVIN WEBB on 06/21/221521 Last Action: Reviewed Baclofen (Baclofen) 10 Mg Tablet, 10 MG PO TID PRN for MUSCLE SPASMS, (Reported) Entered as Reported by: MARVIN WEBB on 05/12/201148 Last Action: Reviewed Calcium Carbonate (Calcium) 500 Mg Calcium (1250 Mg) Tab.chew, 1,000 MG PO 1800 W/DINNER, (Reported) Entered as Reported by: MARVIN WEBB on 06/21/221521 Last Action: Reviewed Duloxetine HCl (Duloxetine HCl) 60 Mg Capsule.dr, 60 MG PO DAILY, (Reported) Entered as Reported by: MARVIN WEBB on 05/12/201148 Last Action: Reviewed Lisinopril/Hydrochlorothiazide (Lisinopril-Hctz 20-25 mg Tab) 20 Mg-25 Mg Tablet, 1 EA PO BID WITH MEALS, (Reported) Entered as Reported by: MARVIN WEBB on 06/21/221521 Last Action: Reviewed Loratadine (Loratadine) 10 Mg Tablet, 10 MG PO 1800 W/DINNER, (Reported) Entered as Reported by: MARVIN WEBB on 06/21/22 152 Last Action: Reviewed Melatonin (Melatonin) 5 Mg Tablet, 5 MG PO HS, (Reported) Entered as Reported by: MARVIN WEBB on 06/21/22 152 Last Action: Reviewed Methadone HCl (Methadone HCl) 10 Mg Tablet, 20 MG PO DAILY W/BREAKFAST, (Reported) Entered as Reported by: MARVIN WEBB on 05/12/20 1149 Last Action: Continued Methadone HCl (Methadone HCl) 10 Mg Tablet, 10 MG PO 1800 W/DINNER, (Reported) Entered as Reported by: MARVIN WEBB on 06/21/221521 Last Action: Continued Multivit-Min/Iron/Folic/Vit K1 (Centrum Chewables Adults Tab) 8 Mg Iron-400 Mcg- 10 Mcg Tab.chew, 2 EACH PO 1800 W/DINNER, (Reported) Entered as Reported by: MARVIN WEBB on 07/06/21 120 Last Action: Reviewed Potassium Gluconate (Potassium) 595 Mg (99 Mg) Tablet, 99 MG PO 1800 W/DINNER, (Reported) Entered as Reported by: MARVIN WEBB on 06/21/22 152 Last Action: Reviewed Thyroid,Pork ([place] Thyroid) 90 Mg Tablet, 180 MG PO DAILY, (Reported) Entered as Reported by: MARVIN WEBB on 05/17/20 1515 Last Action: Reviewed Turmeric Root Extract (Turmeric) 500 Mg Tablet, 500 MG PO 1800 W/DINNER, (Reported) Entered as Reported by: MARVIN WEBB on 06/21/22 152 Last Action: Reviewed [Baclofen Infusion] , INCATH UD, (Reported) Entered as Reported by: MARVIN WEBB on 06/21/22 152 Last Action: Reviewed Discontinued Medications Acetaminophen (Tylenol Extra Strength) 500 Mg Tablet, 1,000 MG PO Q8H PRN for PAIN-MILD (1-4), (Reported) Discontinued Reason: No Longer Taking Entered as Reported by: MARVIN WEBB on 07/06/21 120 Last Action: Discontinued Aspirin/Acetaminophen/Caffeine (Excedrin Migraine Caplet) 250 Mg-250 Mg-65 Mg Tablet, 2 EACH PO Q6-8HR PRN for Headache, (Reported) Discontinued Reason: No Longer Taking Entered as Reported by: MARVIN WEBB on 07/06/21 120 Last Action: Discontinued Cefdinir (Cefdinir) 300 Mg Capsule, 300 MG PO BID Discontinued Reason: No Longer Taking Prescribed by: MAYKEL BURNS on 07/06/21 1747 Last Action: Discontinued Meclizine HCl (Meclizine HCl) 25 Mg Tablet, 25 MG PO DAILY PRN for DIZZINESS, (Reported) Discontinued Reason: No Longer Taking Entered as Reported by: MARVIN WEBB on 07/06/21 120 Last Action: Discontinued Melatonin (Melatonin) 3 Mg Tablet, 3 MG PO HS, (Reported) Discontinued Reason: No Longer Taking Entered as Reported by: MARVIN WEBB on 05/17/20 1516 Last Action: Discontinued Review of Systems Review of Systems Constitutional: see HPI Respiratory: see HPI Psychiatric/Neurological: See HPI (HECTOR HAMPTON DO) Past Gzhbdwm-Iosujh-Akjyqq Hx Immunizations Up To Date Tetanus Booster (TDap): Unknown First/Initial COVID19 Vaccinat: 2020 Second COVID19 Vaccination Butch: 2020 (HECTOR HAMPTON DO) Past Medical History Surgery/Hospitalization HX: shunt, baclofen pump Surgeries: Yes (SEE BELOW) Neurological Respiratory: Yes (EMPYEMA 04/2020) Pneumonia Cardiac: Yes (AUTONOMIC DYSREFLEXIA) Hypertension Neurological: Yes (SEE BELOW) Reproductive Disorders: No Genitourinary: Yes Bladder Infection Gastrointestinal: No Musculoskeletal: Yes (CHRONIC NECK/BACK/GENERALIZED PAIN ) Chronic Back Pain, Spasms Endocrine: No HEENT: Yes Psychosocial: Yes Anxiety, Depression Integumentary: No Blood Disorders: No (HECTOR HAMPTON DO) Family Medical History . PAST SURGICAL HISTORY: -2 "HIND BRAIN DECOMPRESSION SURGERIES" PER PT -2 "CERVICAL PLEURAL SHUNTS" AT C4--ONE IN 2002 ON THE RIGHT --FAILED, AND REPEAT SURGERY AT C4 ON THE LEFT IN 2018--SYRINGO-PLEURAL SHUNTS. -BACLOFEN PUMP PLACEMENT -04/28/20--CHEST TUBE FOR EMPYEMA AND VATS PROCEDURE ADDITIONAL PAST MEDICAL HISTORY: -"SPINAL CORD DISEASE" ALL OF LIFE--SYRINGOMYELIA, SYRINGOBULBIA, ARACHNOIDITIS--( ARNOLD CHIARI MALFORMATION ) WITH AUTONOMIC DYSREFLEXIA, AND LEFT > RIGHT SIDE OF BODY NUMBNESS, BLURRY VISION, DIFFICULTY SWALLOWING, GENERALIZED PAIN--ESPECIALLY BACK OF HEAD AND NECK, AND GENERALIZED WEAKNESS 04/2020--ADMITTED TO [facility] FOR ACCIDENTAL OD ON BACLOFEN, REQUIRED INTUBATION; WAS ALSO SEPTIC WITH EMPYEMA AND REQUIRED CHEST TUBES AND VATS PROCEDURE--THOUGHT TO BE DUE TO SYRINGO-PLEURAL SHUNTS THAT HAD PREVIOUSLY BEEN PLACED IN 2019. (HECTOR HAMPTON DO) Physical Exam Vital Signs Vital Signs - First Documented 06/21/22 07:11 Temp 36.6 Pulse 87 Resp 16 B/P (MAP) 64/43 (50) Pulse Ox 97 O2 Delivery Non Rebreather O2 Flow Rate 15.00 Capillary Refill : Height, Weight, BMI Height: '" Weight: lbs. oz. kg; 26.83 BMI Method: General Appearance: Mild Distress (VERY LETHARGIC, SEMI-ALERT. ) Respiratory: Other (DECREASED AERATION IN ALL LUNG PIMENTEL, BUT NO WHEEZING/RALES/RHONCHI. HAS FAIR RESPIRATORY EFFORT AT THIS TIME. ) Cardiovascular: Regular Rate, Rhythm Gastrointestinal: Soft Extremity: No Pedal Edema Neurologic/Psychiatric: Other (MENTATION NOTED ABOVE. PT OPENS EYES TO VOICE AND TACTILE STIMULI, SHE VERBALIZED A FEW WORDS ON ARRIVAL. SHE IS NOT ABLE TO ANSWER ANY QUESTIONS, OR FOLLOW COMMANDS. SHE HAS RANDOM NON-PURPOSEFUL MOVEMENTS OF HANDS) Skin: Pallor, Other (SOME MOTTLING TO LEFT HAND AND FOOT. ) (HECTOR HAMPTON DO) Vital Signs Vital Signs - First Documented 06/21/22 07:11 Temp 36.6 Pulse 87 Resp 16 B/P (MAP) 64/43 (50) Pulse Ox 97 O2 Delivery Non Rebreather O2 Flow Rate 15.00 (ALBA DE DIOS MD) Focused Exam Lactate Level 06/21/22 07:14: Lactic Acid Level 0.67 (HECTOR HAMPTON DO) Sepsis Stage: Septic Shock Possible Source: Pulmonary Lactate Level 06/21/22 07:14: Lactic Acid Level 0.67 (ALBA DE DIOS MD) Lactic Acid Level Laboratory Tests Test 06/21/22 07:14 Lactic Acid Level 0.67 MMOL/L (0.50-2.00) (HECTOR HAMPTON DO) Time of Focused Exam: 08:00 Respiratory: Rhonci (coarse ronchi bilaterally sats 93% on RA), Other (tachypnea) Cardiovascular: Regular Rate, Rhythm, Tachycardia Capillary Refill: Less Than 3 Seconds Peripheral Pulses: 1+ Radial Pulses (R), 1+ Radial Pulses (L) Skin: warm/dry, pallor Lactic Acid Level Laboratory Tests Test 06/21/22 07:14 Lactic Acid Level 0.67 MMOL/L (0.50-2.00) (ALBA DE DIOS MD) Within 3hrs of presentation: Admin fluids, Admin ABX, Blood cultures prior to ABX's, Focus exam, Lactate level (ALBA DE DIOS MD) Progress/Results/Core Measures Suspected Sepsis SIRS Temperature: Pulse: Respiratory Rate: Laboratory Tests 06/21/22 07:14: White Blood Count 18.9H Blood Pressure / Mean: 06/21/22 07:14: Lactic Acid Level 0.67 Laboratory Tests 06/21/22 07:14: Creatinine 4.25H, INR Comment 1.2, Platelet Count 327, Total Bilirubin 0.2 (HECTOR HAMPTON DO) SIRS Laboratory Tests 06/21/22 07:14: White Blood Count 18.9H 06/21/22 07:14: Lactic Acid Level 0.67 Laboratory Tests 06/21/22 07:14: Creatinine 4.25H, INR Comment 1.2, Platelet Count 327, Total Bilirubin 0.2 (ALBA DE DIOS MD) Results/Orders Lab Results Laboratory Tests Test 06/21/22 07:14 06/21/22 07:17 06/21/22 07:40 Range/Units White Blood Count 18.9 H 4.3-11.0 10^3/uL Red Blood Count 2.98 L 3.80-5.11 10^6/uL Hemoglobin 8.6 L 11.5-16.0 g/dL Hematocrit 29 L 35-52 % Mean Corpuscular Volume 97 80-99 fL Mean Corpuscular Hemoglobin 29 25-34 pg Mean Corpuscular Hemoglobin Concent 30 L 32-36 g/dL Red Cell Distribution Width 14.5 10.0-14.5 % Platelet Count 327 130-400 10^3/uL Mean Platelet Volume 10.6 9.0-12.2 fL Immature Granulocyte % (Auto) 1 % Neutrophils (%) (Auto) 84 H 42-75 % Lymphocytes (%) (Auto) 7 L 12-44 % Monocytes (%) (Auto) 6 0-12 % Eosinophils (%) (Auto) 2 0-10 % Basophils (%) (Auto) 0 0-10 % Neutrophils # (Auto) 15.9 H 1.8-7.8 10^3/uL Lymphocytes # (Auto) 1.3 1.0-4.0 10^3/uL Monocytes # (Auto) 1.1 H 0.0-1.0 10^3/uL Eosinophils # (Auto) 0.4 H 0.0-0.3 10^3/uL Basophils # (Auto) 0.1 0.0-0.1 10^3/uL Immature Granulocyte # (Auto) 0.1 0.0-0.1 10^3/uL Neutrophils % (Manual) 87 % Lymphocytes % (Manual) 4 % Monocytes % (Manual) 3 % Eosinophils % (Manual) 6 % Basophils % (Manual) 0 % Band Neutrophils 0 % Blood Morphology Comment NORMAL Erythrocyte Sedimentation Rate 28 0-30 MM/HR Prothrombin Time 15.9 H 12.2-14.7 SEC INR Comment 1.2 0.8-1.4 Activated Partial Thromboplast Time 38 H 24-35 SEC D-Dimer 1.81 H 0.00-0.49 UG/ML Sodium Level 137 135-145 MMOL/L Potassium Level 2.8 L 3.6-5.0 MMOL/L Chloride Level 100 98-107 MMOL/L Carbon Dioxide Level 20 L 21-32 MMOL/L Anion Gap 17 H 5-14 MMOL/L Blood Urea Nitrogen 70 H 7-18 MG/DL Creatinine 4.25 H 0.60-1.30 MG/DL Estimat Glomerular Filtration Rate 12 BUN/Creatinine Ratio 16 Glucose Level 113 H 70-105 MG/DL Lactic Acid Level 0.67 0.50-2.00 MMOL/L Calcium Level 8.8 8.5-10.1 MG/DL Corrected Calcium 9.7 8.5-10.1 MG/DL Magnesium Level 2.8 H 1.6-2.4 MG/DL Total Bilirubin 0.2 0.1-1.0 MG/DL Aspartate Amino Transf (AST/SGOT) 13 5-34 U/L Alanine Aminotransferase (ALT/SGPT) 9 0-55 U/L Alkaline Phosphatase 115 40-136 U/L Ammonia 20 11-32 UMOL/L Total Creatine Kinase 79 29-168 U/L Creatine Kinase MB 2.2 <6.6 NG/ML Myoglobin 534.9 H 10.0-92.0 NG/ML Troponin I < 0.028 <0.028 NG/ML C-Reactive Protein High Sensitivity 44.62 H 0.00-0.50 MG/DL B-Type Natriuretic Peptide 21.2 <100.0 PG/ML Total Protein 6.4 6.4-8.2 GM/DL Albumin 2.9 L 3.2-4.5 GM/DL Amylase Level 32 25-125 U/L Lipase 27 8-78 U/L Acetaminophen Level < 10 L 10-30 UG/ML Serum Alcohol < 10 <10 MG/DL Glucometer 106 70-110 MG/DL Urine Color YELLOW Urine Clarity SL CLOUDY Urine pH 5.5 5-9 Urine Specific [place] >=1.030 1.016-1.022 Urine Protein 1+ H NEGATIVE Urine Glucose (UA) NEGATIVE NEGATIVE Urine Ketones NEGATIVE NEGATIVE Urine Nitrite NEGATIVE NEGATIVE Urine Bilirubin NEGATIVE NEGATIVE Urine Urobilinogen 0.2 < = 1.0 MG/DL Urine Leukocyte Esterase 1+ H NEGATIVE Urine RBC (Auto) NEGATIVE NEGATIVE Urine RBC NONE /HPF Urine WBC 25-50 H /HPF Urine Squamous Epithelial Cells 5-10 /HPF Urine Renal Epithelial Cells 2-5 /HPF Urine Crystals NONE /LPF Urine Bacteria MODERATE H /HPF Urine Casts NONE /LPF Urine Mucus NEGATIVE /LPF Urine Culture Indicated CULTURE PENDING Urine Opiates Screen NEGATIVE NEGATIVE Urine Oxycodone Screen NEGATIVE NEGATIVE Urine Methadone Screen POSITIVE H NEGATIVE Urine Propoxyphene Screen NEGATIVE NEGATIVE Urine Barbiturates Screen NEGATIVE NEGATIVE Ur Tricyclic Antidepressants Screen NEGATIVE NEGATIVE Urine Phencyclidine Screen NEGATIVE NEGATIVE Urine Amphetamines Screen NEGATIVE NEGATIVE Urine Methamphetamines Screen NEGATIVE NEGATIVE Urine Benzodiazepines Screen NEGATIVE NEGATIVE Urine Cocaine Screen NEGATIVE NEGATIVE Urine Cannabinoids Screen NEGATIVE NEGATIVE My Orders Orders - HECTOR HAMPTON DO Accucheck Stat ONCE (06/21/22 07:16) Ed Iv/Invasive Line Start (06/21/22 07:16) Ekg Tracing (06/21/22 07:16) Catheter(Urinary) Insert & Ass 03,15 (06/21/22 07:16) O2 (06/21/22 07:16) Monitor-Rhythm Ecg Trace Only (06/21/22 07:16) Acetaminophen (06/21/22 07:16) Alcohol (06/21/22 07:16) Ammonia (06/21/22 07:16) Amylase (06/21/22 07:16) Arterial Blood Gas (06/21/22 07:16) Bnp Amanda (06/21/22 07:16) Cbc With Automated Diff (06/21/22 07:16) Comprehensive Metabolic Panel (06/21/22 07:16) Creatine Kinase (06/21/22 07:16) Creatine Kinase Mb (06/21/22 07:16) Hs C Reactive Protein (06/21/22 07:16) Fibrin Degradation Products (06/21/22 07:16) Drug Screen Stat (Urine) (06/21/22 07:16) Lactic Acid Analyzer (06/21/22 07:16) Lipase (06/21/22 07:16) Magnesium (06/21/22 07:16) Protime With Inr (06/21/22 07:16) Partial Thromboplastin Time (06/21/22 07:16) Thyroid Analyzer (06/21/22 07:16) Ua Culture If Indicated (06/21/22 07:16) Blood Culture (06/21/22 07:16) Erythrocyte Sedimentation Rate (06/21/22 07:16) Myoglobin Serum (06/21/22 07:16) Troponin I Sac (06/21/22 07:16) Chest 1 View, Ap/Pa Only (06/21/22 07:16) Ct Head Wo-R/O Stroke (06/21/22 07:16) Ed Iv/Invasive Line Start (06/21/22 07:16) Sputum Culture (06/21/22 07:16) Urine Culture (06/21/22 07:16) Ed Iv/Invasive Line Start (06/21/22 07:16) Ed Iv/Invasive Line Start (06/21/22 07:16) Vital Signs Adult Sepsis Patie Q15M (06/21/22 07:16) O2 (06/21/22 07:16) Remove Rings In Anticipation O (06/21/22 07:16) Lactated Ringers (Lr 1000 Ml Iv Solution (06/21/22 07:30) Lidocaine 2% (Urojet) (Xylocaine Urojet) (06/21/22 07:30) Albuterol Pre-Mix Nebs (Rt) (Proventil (06/21/22 07:16) Albuterol/Ipra Inhalation Soln (Duoneb I (06/21/22 07:30) Dexamethasone Injection (Decadron Injec (06/21/22 07:30) Rt Request For Service (06/21/22 07:16) Methylprednisolone Sod Succ (Solu-Medrol (06/21/22 07:16) Ed Iv/Invasive Line Start (06/21/22 07:16) Ns Iv 1000 Ml (Sodium Chloride 0.9%) (06/21/22 07:30) Svn Small Volume Nebulizer (06/21/22 07:16) Svn Small Volume Nebulizer (06/21/22 07:16) Naloxone Injection (Narcan Injection) (06/21/22 07:27) Manual Differential (06/21/22 07:14) Morphine Injection (Morphine Injection (06/21/22 07:45) Ketamine Syringe (Ketamine Syringe) (06/21/22 08:06) Covid 19 Inhouse Test (06/21/22 08:10) Influenza A And B By Pcr (06/21/22 08:10) Isolation Central Supply Req (06/21/22 08:10) Medications Given in ED Current Medications Medications Dose Ordered Sig/Stevenson Route Start Time Stop Time Status Last Admin Dose Admin Albuterol/ Ipratropium 3 ml ONCE ONCE INH 06/21/22 07:30 06/21/22 07:31 DC 06/21/22 07:40 3 ML Dexamethasone Sodium Phosphate 20 mg ONCE ONCE IH 06/21/22 07:30 06/21/22 07:31 DC 06/21/22 07:40 20 MG Ketamine HCl 50 mg STK-MED ONCE .ROUTE 06/21/22 08:06 06/21/22 08:10 DC 06/21/22 08:13 20 MG Vital Signs/I&O 06/21/22 06/21/22 06/21/22 06/21/22 07:11 07:11 07:42 08:13 Temp 36.6 36.07772 Pulse 87 Resp 16 35 B/P (MAP) 64/43 (50) Pulse Ox 97 97 O2 Delivery Non Rebreather Non Rebreather O2 Flow Rate 15.00 15.00 30.00 Capillary Refill : (HECTOR HAMPTON DO) Lab Results Laboratory Tests Test 06/21/22 07:14 06/21/22 07:17 06/21/22 07:40 06/21/22 08:18 Range/Units White Blood Count 18.9 H 4.3-11.0 10^3/uL Red Blood Count 2.98 L 3.80-5.11 10^6/uL Hemoglobin 8.6 L 11.5-16.0 g/dL Hematocrit 29 L 35-52 % Mean Corpuscular Volume 97 80-99 fL Mean Corpuscular Hemoglobin 29 25-34 pg Mean Corpuscular Hemoglobin Concent 30 L 32-36 g/dL Red Cell Distribution Width 14.5 10.0-14.5 % Platelet Count 327 130-400 10^3/uL Mean Platelet Volume 10.6 9.0-12.2 fL Immature Granulocyte % (Auto) 1 % Neutrophils (%) (Auto) 84 H 42-75 % Lymphocytes (%) (Auto) 7 L 12-44 % Monocytes (%) (Auto) 6 0-12 % Eosinophils (%) (Auto) 2 0-10 % Basophils (%) (Auto) 0 0-10 % Neutrophils # (Auto) 15.9 H 1.8-7.8 10^3/uL Lymphocytes # (Auto) 1.3 1.0-4.0 10^3/uL Monocytes # (Auto) 1.1 H 0.0-1.0 10^3/uL Eosinophils # (Auto) 0.4 H 0.0-0.3 10^3/uL Basophils # (Auto) 0.1 0.0-0.1 10^3/uL Immature Granulocyte # (Auto) 0.1 0.0-0.1 10^3/uL Neutrophils % (Manual) 87 % Lymphocytes % (Manual) 4 % Monocytes % (Manual) 3 % Eosinophils % (Manual) 6 % Basophils % (Manual) 0 % Band Neutrophils 0 % Blood Morphology Comment NORMAL Erythrocyte Sedimentation Rate 28 0-30 MM/HR Prothrombin Time 15.9 H 12.2-14.7 SEC INR Comment 1.2 0.8-1.4 Activated Partial Thromboplast Time 38 H 24-35 SEC D-Dimer 1.81 H 0.00-0.49 UG/ML Sodium Level 137 135-145 MMOL/L Potassium Level 2.8 L 3.6-5.0 MMOL/L Chloride Level 100 98-107 MMOL/L Carbon Dioxide Level 20 L 21-32 MMOL/L Anion Gap 17 H 5-14 MMOL/L Blood Urea Nitrogen 70 H 7-18 MG/DL Creatinine 4.25 H 0.60-1.30 MG/DL Estimat Glomerular Filtration Rate 12 BUN/Creatinine Ratio 16 Glucose Level 113 H 70-105 MG/DL Lactic Acid Level 0.67 0.50-2.00 MMOL/L Calcium Level 8.8 8.5-10.1 MG/DL Corrected Calcium 9.7 8.5-10.1 MG/DL Magnesium Level 2.8 H 1.6-2.4 MG/DL Total Bilirubin 0.2 0.1-1.0 MG/DL Aspartate Amino Transf (AST/SGOT) 13 5-34 U/L Alanine Aminotransferase (ALT/SGPT) 9 0-55 U/L Alkaline Phosphatase 115 40-136 U/L Ammonia 20 11-32 UMOL/L Total Creatine Kinase 79 29-168 U/L Creatine Kinase MB 2.2 <6.6 NG/ML Myoglobin 534.9 H 10.0-92.0 NG/ML Troponin I < 0.028 <0.028 NG/ML C-Reactive Protein High Sensitivity 44.62 H 0.00-0.50 MG/DL B-Type Natriuretic Peptide 21.2 <100.0 PG/ML Total Protein 6.4 6.4-8.2 GM/DL Albumin 2.9 L 3.2-4.5 GM/DL Amylase Level 32 25-125 U/L Lipase 27 8-78 U/L TSH [place] Testing 0.01 L 0.35-4.94 UIU/ML Acetaminophen Level < 10 L 10-30 UG/ML Serum Alcohol < 10 <10 MG/DL Glucometer 106 70-110 MG/DL Urine Color YELLOW Urine Clarity SL CLOUDY Urine pH 5.5 5-9 Urine Specific [place] >=1.030 1.016-1.022 Urine Protein 1+ H NEGATIVE Urine Glucose (UA) NEGATIVE NEGATIVE Urine Ketones NEGATIVE NEGATIVE Urine Nitrite NEGATIVE NEGATIVE Urine Bilirubin NEGATIVE NEGATIVE Urine Urobilinogen 0.2 < = 1.0 MG/DL Urine Leukocyte Esterase 1+ H NEGATIVE Urine RBC (Auto) NEGATIVE NEGATIVE Urine RBC NONE /HPF Urine WBC 25-50 H /HPF Urine Squamous Epithelial Cells 5-10 /HPF Urine Renal Epithelial Cells 2-5 /HPF Urine Crystals NONE /LPF Urine Bacteria MODERATE H /HPF Urine Casts NONE /LPF Urine Mucus NEGATIVE /LPF Urine Culture Indicated CULTURE PENDING Urine Opiates Screen NEGATIVE NEGATIVE Urine Oxycodone Screen NEGATIVE NEGATIVE Urine Methadone Screen POSITIVE H NEGATIVE Urine Propoxyphene Screen NEGATIVE NEGATIVE Urine Barbiturates Screen NEGATIVE NEGATIVE Ur Tricyclic Antidepressants Screen NEGATIVE NEGATIVE Urine Phencyclidine Screen NEGATIVE NEGATIVE Urine Amphetamines Screen NEGATIVE NEGATIVE Urine Methamphetamines Screen NEGATIVE NEGATIVE Urine Benzodiazepines Screen NEGATIVE NEGATIVE Urine Cocaine Screen NEGATIVE NEGATIVE Urine Cannabinoids Screen NEGATIVE NEGATIVE My Orders Orders - ALBA DE DIOS MD Morphine Injection (Morphine Injection (06/21/22 07:44) Ketamine Injection (Ketalar Injection) (06/21/22 08:00) Midazolam Injection (Versed Injection) (06/21/22 08:45) Medications Given in ED Current Medications Medications Dose Ordered Sig/Stevenson Route Start Time Stop Time Status Last Admin Dose Admin Albuterol/ Ipratropium 3 ml ONCE ONCE INH 06/21/22 07:30 06/21/22 07:31 DC 06/21/22 07:40 3 ML Dexamethasone Sodium Phosphate 20 mg ONCE ONCE IH 06/21/22 07:30 06/21/22 07:31 DC 06/21/22 07:40 20 MG Ketamine HCl 50 mg STK-MED ONCE .ROUTE 06/21/22 08:06 06/21/22 08:10 DC 06/21/22 08:13 20 MG Lactated Ringer's 1,000 ml @ 0 mls/hr Q0M ONCE IV 06/21/22 07:30 06/21/22 07:31 DC 06/21/22 07:26 1,000 MLS/HR Midazolam HCl 2 mg ONCE ONCE IVP 06/21/22 08:45 06/21/22 08:46 06/21/22 08:38 2 MG Morphine Sulfate 4 mg STK-MED ONCE .ROUTE 06/21/22 07:45 06/21/22 07:49 DC 06/21/22 07:47 4 MG Naloxone HCl 2 mg STK-MED ONCE .ROUTE 06/21/22 07:27 4/20/23 07:30 DC 06/21/22 07:28 2 MG Vital Signs/I&O 06/21/22 06/21/22 06/21/22 06/21/22 07:11 07:11 07:42 07:47 Temp 36.6 36.6 Pulse 87 Resp 16 35 B/P (MAP) 64/43 (50) Pulse Ox 97 97 O2 Delivery Non Rebreather Non Rebreather O2 Flow Rate 15.00 15.00 30.00 06/21/22 06/21/22 06/21/22 06/21/22 07:47 08:13 08:13 08:21 Temp 36.6 36.6 [id number] O2 Delivery Nasal Cannula O2 Flow Rate 2.00 (ALBA DE DIOS MD) Progress Note : Progress Note SEPSIS PROTOCOL INITIATED COVID AND FLU TESTING ORDERED INITIAL O2 SAT ON NRB AT 10 LITERS IS 100% PT PLACED ON BIPAP SHORTLY AFTER ARRIVAL AND HOUR LONG NEB TREATMENT ORDERED. . PT IS HYPOTENSIVE ON ARRIVAL, WITH BP IN 60'S/30'S, HR IN 70'S. GIVEN: -IV FLUIDS -CEFEPIME -SOLU-MEDROL -NARCAN--PT HAD IMPROVEMENT IN MENTATION, NOW MORE ALERT, HR AND BP UP, AND PT IS MOVING ALL EXTREMITIES. SPOKE WITH PT'S MALE S.O. AND UPDATED HIM ON PT'S CONDITION. DISCUSSED CODE STATUS AND HE STATES THAT SHE HAD STATED MULTIPLE TIMES THAT SHE DID NOT WANT TO HAVE CPR OR EVER BE PLACED ON A VENTILATOR AGAIN. 0800--CARE TURNED OVER TO DR. DE DIOS AT SHIFT CHANGE. (HECTOR HAMPTON DO) Progress Note : Time: 08:40 Progress Note Care assumed at [address] Hampton with disposition pending Patient seen and evaluated by me. work prior to my taking over care included "sepsis" and cardiac labs. Patient's had CBC, Chem-12, sed rate, lactic acid, blood cultures, CRP, troponin and BNP, TSH and free T4, ABG, coags and D-dimer. She had urine drug screen, alcohol and acetaminophen levels. COVID swab. Chest x-ray. EKG. On my exam patient is quite agitated, ill-appearing diffuse rhonchorous breath sounds. Abdomen soft does not appear tender. She is nondistended. Moving all 4 extremities. Very pale. Blood pressure has improved over blood pressure on arrival. Now at 100 systolic. She is tolerating BiPAP but barely. She was initially given Narcan and seemed to ", live" after that. I subsequently administered some morphine as the patient is longtime narcotic dependent. She occasionally will answer appropriately yes and no questions. I did remove her off the BiPAP and place her on oxygen by simple facemask which seem to calm her restlessness. She was able to maintain sats at approximately 93 to 94%, still tachypneic but not in distress. Differential diagnosis includes sepsis due to pneumonia, acute pulmonary e mbolism, toxic/metabolic encephalopathy, pulmonary edema, intoxication Labs reviewed by me include CBC with an 18.9 total white blood cell count, hemoglobin 8.6 hematocrit 29, platelets of 327. 84% neutrophils. Chemistry shows pertinent findings of a potassium of 2.8 BUN of 70 creatinine of 4.25. Lactic acid 0.67. Sed rate 28. Troponin undetectable. BNP is 21.2. TSH 0.01, free T40.93. Alcohol and acetaminophen are undetectable. COVID screen is negative. Coags PT of 15.9 PTT of 38 INR of 1.2. D-dimer elevated at 1.81. Blood gas obtained while the patient was on BiPAP at 30% pH of 7.3, PCO2 of 37 PaO2 of 68 SaO2 94%. EKG difficult to interpret secondary to baseline artifact. Chest x-ray independent interpretation by me, diffuse bilateral infiltrates versus pulmonary edema. patient treated with the 30 mg/kg IV fluid bolus. Dr. Hampton had previously ordered cefepime. Dr. Hampton also discussed with the patient's significant other the fact that she would not like to be intubated as she has had a very difficult course several years ago after intubation due to pneumonia at the hospital in [place]. Concern still for encephalopathy, PE. Patient not a good candidate for CT angio chest. Would likely benefit from VQ scan when more stable. Working diagnosis septic shock due to pneumonia. Case was discussed with Dr. Burns ([facility] ) on for [facility]. She accepts the patient to the ICU. (ALBA DE DIOS MD) ECG Initial ECG Impression Date: Jun 21, 2022 Initial ECG Impression Time: 09:10 Initial ECG Rate: 131 Initial ECG Rhythm: S.Tach Initial ECG Intervals NH 109 QRS 85 QTc 400 Comment significant artifact at baseline; no obvious ST seg elevation or depression; interpretation limited by patient movement affecting quality of EKG (ALBA DE DIOS MD) Diagnostic Imaging Diagonstic Imaging: Xray Plain Films/CT/US/NM/MRI: chest Comments [facility] [place] NAME: CANDI CASAS [facility] REC#: [id number] PT STATUS: ADM IN : 1965 PHYSICIAN: HECTOR HAMPTON DO ADMIT DATE: 06/21/22/ICU Signed Date of Exam:06/21/22 CHEST 1 VIEW, AP/PA ONLY INDICATION: Hypoxia. Comparison is made with prior examination from 07/06/2021. FINDINGS: There are diffuse bilateral pulmonary infiltrates somewhat more consolidated in the right upper lobe. There is no pleural effusion or pneumothorax. Mediastinum is unremarkable. Heart size is normal. IMPRESSION: Diffuse bilateral pulmonary infiltrates suspect for pneumonia. Some underlying central pulmonary venous congestion cannot be excluded. Recommend clinical correlation. Dictated by: Dictated on workstation # [id number] Dict: 06/21/22 0909 Trans: 06/21/22 1202 [id number] Interpreted by: RUDY BENSON MD Electronically signed by: RUDY BENSON MD 06/21/22 1202 (ALBA DE DIOS MD) Critical Care Note Critical Care Start Time: 07:15 Stop Time: 09:00 Total Time (minutes) 30 minutes critical care time in the evaluation and management of this patient presenting in septic shock. Time includes initial evaluation, management of the airway via supplemental oxygenation/BiPAP. Review and interpretation of lab work, review and interpretation of chest x-ray. Review of old records. Fluid resuscitation. Medication management. discussion with admitting provider. Discussion with family member. (ALBA DE DIOS MD) Departure Communication (Admissions) Time/Spoke to Admitting Phy: 08:[address] Burns ([facility] Hospitalist) accepts patient for admission, IP to ICU (ALBA DE DIOS MD) Impression Primary Impression: Septic shock Additional Impression: Acute renal failure Qualified Codes: N17.9 - Acute kidney failure, unspecified Disposition: 09 ADMITTED INPATIENT Condition: Critical Admissions Decision to Admit Reason: Admit from ER (General) Decision to Admit/Date: Jun 21, 2022 Time/Decision to Admit Time: 08:42 (ALBA DE DIOS MD) Departure-Patient Inst. Referrals: DENAE VILLATORO MD (PCP/Family) Primary Care Physician Copy Copies To 1: DENAE VILLATORO MDOHECTOR Beavers Jun 21, 2022 07:41 ALBA DE DIOS MD Jun 21, 2022 08:48
[2022-06-21 07:42] VITALS: BP 99/86
[2022-06-21 07:44] LABS: ALBUMIN 2.9 GM/DL (3.2-4.5); CHLORIDE 100 MMOL/L (98-107); POTASSIUM 2.8 MMOL/L (3.6-5.0); SODIUM 137 MMOL/L (135-145)
[2022-06-21] MEDS ORDERED: morphine INJ 10 MG/ML 1ML (SYR OR VIAL) IVP STA (07:44)
[2022-06-21 07:45] LABS: AMYLASE 32 U/L (25-125); CALCIUM 8.8 MG/DL (8.5-10.1)
[2022-06-21] MEDS ORDERED: morphine INJ 4 MG/ML 1 ML (VIAL/SYRINGE) ONE (07:45)
[2022-06-21 07:46] LABS: AMMONIA 20 UMOL/L (11-32); FIBRIN DEGRADATION PRODUCTS 1.81 UG/ML (0.00-0.49); GLUCOSE 113 MG/DL (70-105); INR 1.2 (0.8-1.4); PROTHROMBIN TIME PATIENT 15.9 SEC (12.2-14.7); TOTAL PROTEIN 6.4 GM/DL (6.4-8.2)
[2022-06-21 07:47] LABS: BILIRUBIN,URINE NEGATIVE (NEGATIVE); CLARITY,URINE SL CLOUDY; COLOR,URINE YELLOW; GLUCOSE, URINE (UA) NEGATIVE (NEGATIVE); KETONES,URINE NEGATIVE (NEGATIVE); LEUKOCYTE ESTERASE ,URINE 1+ (NEGATIVE); NITRITE,URINE NEGATIVE (NEGATIVE); PH,URINE 5.5 (5-9); PROTEIN,URINE 1+ (NEGATIVE)
[2022-06-21 07:47] LABS: CARBON DIOXIDE 20 MMOL/L (21-32)
[2022-06-21 07:48] LABS: BILIRUBIN,TOTAL 0.2 MG/DL (0.1-1.0)
[2022-06-21 07:50] LABS: ALKALINE PHOSPHATASE 115 U/L (40-136); CREATININE SERUM 4.25 MG/DL (0.60-1.30); GFR ESTIMATED 12
[2022-06-21 07:51] LABS: BUN/CREATININE RATIO 16
[2022-06-21 07:53] LABS: ALANINE AMINOTRANSFERASE 9 U/L (0-55); MAGNESIUM 2.8 MG/DL (1.6-2.4)
[2022-06-21 07:54] LABS: BACTERIA,URINE MODERATE /HPF; WBC,URINE 25-50 /HPF
[2022-06-21 07:54] LABS: CREATINE KINASE 79 U/L (29-168); LIPASE 27 U/L (8-78)
[2022-06-21 07:56] LABS: ERYTHROCYTE SEDIMENTATION RATE 28 MM/HR (0-30)
[2022-06-21 07:59] LABS: BAND NEUTROPHILS 0 %; BASOPHILS % (MANUAL) 0 %; EOSINOPHILS % (MANUAL) 6 %; LYMPHOCYTES % (MANUAL) 4 %; MONOCYTES % (MANUAL) 3 %; NEUTROPHILS % (MANUAL) 87 %; RBC MORPH NORMAL
[2022-06-21 08:00] LABS: AMPHETAMINE SCREEN, URINE NEGATIVE (NEGATIVE); BARBITURATE SCREEN URINE NEGATIVE (NEGATIVE); BENZODIAZEPINES SCREEN URINE NEGATIVE (NEGATIVE); CANNABINOID SCREEN, URINE NEGATIVE (NEGATIVE); COCAINE SCREEN URINE NEGATIVE (NEGATIVE); METHADONE STAT POSITIVE (NEGATIVE); OPIATE SCREEN URINE NEGATIVE (NEGATIVE); OXYCODONE STAT NEGATIVE (NEGATIVE); PROPOXYPHENE STAT NEGATIVE (NEGATIVE); TRICYCLIC ANTIDEPRESSANTS SCRE NEGATIVE (NEGATIVE)
[2022-06-21] MEDS ORDERED: KETAMINE HCL 100 MG/ML 5 ML VIAL IV ONE (08:00)
[2022-06-21 08:02] LABS: CREATINE KINASE MB 2.2 NG/ML (<6.6)
[2022-06-21] MEDS ORDERED: KETAMINE 50 MG/5 ML SYRINGE ONE (08:06)
[2022-06-21 08:14] LABS: TSH (THYROID ANALYZER) 0.01 UIU/ML (0.35-4.94)
[2022-06-21] MEDS ORDERED: CEFEPIME INJECTION 1,000 MG in NS (IVPB) 50 ML IV ONE (08:15)
[2022-06-21] MEDS ORDERED: MIDAZOLAM 2 MG/2 ML (VERSED) VIAL ONE (08:34)
[2022-06-21] MEDS ORDERED: MIDAZOLAM 2 MG/2 ML (VERSED) VIAL IVP ONE (08:45)
[2022-06-21 08:48] LABS: FREE T4 (FREE THYROXINE) 0.93 NG/DL (0.70-1.48)
--- NOTE | 2022-06-21 09:06 | Diagnostic Imaging Report ---
PROCEDURE: CT head wo r/o stroke. TECHNIQUE: Multiple contiguous axial images were obtained through the brain without the use of intravenous contrast. Auto Exposure Controls were utilized during the CT exam to meet ALARA standards for radiation dose reduction. INDICATION: Stroke. Correlation is made to prior head CT from 07/06/2021. Postop changes of occipital craniectomy are noted. The ventricles and sulci are within normal limits. The fountain-white matter differentiation is maintained. There is no midline shift. No acute intra-axial or extra-axial hemorrhage is detected. Cisterns are patent. Visualized paranasal sinuses demonstrate fluid within bilateral maxillary sinuses. IMPRESSION: Stable noncontrast head CT since 07/06/2021. No acute intracranial process is identified. Dictated by: Dictated on workstation # [id number]
--- NOTE | 2022-06-21 09:12 | Diagnostic Imaging Report ---
INDICATION: Hypoxia. Comparison is made with prior examination from 07/06/2021. FINDINGS: There are diffuse bilateral pulmonary infiltrates somewhat more consolidated in the right upper lobe. There is no pleural effusion or pneumothorax. Mediastinum is unremarkable. Heart size is normal. IMPRESSION: Diffuse bilateral pulmonary infiltrates suspect for pneumonia. Some underlying central pulmonary venous congestion cannot be excluded. Recommend clinical correlation. Dictated by: Dictated on workstation # [id number]
--- OUTSIDE RECORDS SUMMARY | 2022-06-21 09:40 | XMS REPORT ---
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 without prior episode F32.2 confirmed 59799898 Problem Syringomyelia G95.0 confirmed 838745 009 Problem Essential hypertension I10 confirmed 70838061 Problem Hypothyroid E03.9 confirmed 35263954 Problem Arnold-Chiari syndrome without spina bifida or hydrocephal us Q07.00 confirmed 999706331 ALLERGIES Allergen (clinical drug ingredient) Drug/Non Drug Allergy do cumented on EMR Reaction Allergy Type Onset Date Status Chlorhexidine anaphylaxis with or without facial swelling Drug Allergy Active ENCOUNTERS from 1965 to 2022-05-03 Encounter Location Date Provider Diagnosis [facility] [address] [facility] [facility] [id number] [place] [address] May, DENAE VILLATORO History of pneumonia Z87.01 and Follow-up exam Z09 IMMUNIZATIONS Vaccine Route Administration Date Status 2nd Booster MODERNA COVID-19, mRNA, 0.25mL IM Intramuscular August 21, 2021 Administered influenza RIV4 PFree (history) Unknown Feb 11, 2021 A dministered COVID-19 Moderna (history) Unknown Feb 11, 2021 Admin istered COVID-19 Moderna (history) Unknown June 23, 2020 Admin istered COVID-19 Moderna (history) Unknown May 25, 2020 Admin istered STATE FUNDED FLULUVAL QUAD 0.5ML 6 MONTHS AND UP 2019 IM Int ramuscular Jan 22, 2020 Administered PRIVATE TDAP (BOOSTRIX) IM Intramuscular Nov 22, 2017 Adminis tered SOCIAL HISTORY Sex Assigned At : Social History Observation Description Sex Assigned At Unknown Alcohol Screen (Audit-C) Question Answer Notes Did you have a drink containing alcohol in the past year? No Points 0 Interpretation Negative Sexual History Question Answer Notes Had sex in the past 12 months (vaginal, oral, or anal)? Yes Have you ever had a Sexually transmitted disease? No with Men only Use protection? No PHQ2 Question Answer Notes In the last 2 weeks, how often have you had little interest or pleasure in doing things? Not at all In the last 2 weeks, how often have you been feeling down, depressed, or hopeless? Not at all Total PHQ2 Score 0 Tobacco use other than smoking: Question Answer Notes Are you an other tobacco user? No REASON FOR REFERRAL No Information VITAL SIGNS Height 64 in May, Height-cm 162.56 cm May, Weight 141.1 lbs May, Weight-kg 64 kg May, Temperature 97.6 degrees Fahrenheit May, Heart Rate 103 bpm May, Respiratory Rate 20 bpm May, BMI 24.22 kg/m2 May, Blood pressure systolic 116 mmHg May, Blood pressure diastolic 70 mmHg May, MEDICATIONS Medication SIG (Take, Route, Frequency, Duration) Notes Start Da te End Date Status acetaZOLAMIDE 250 MG 1 tablet Orally Once a day per Via [facility] July, Active Azithromycin 250 mg 2 tablet on the first day, then 1 tablet daily for 4 days Orally Once a day for 5 day(s) Mar, A ctive Cymbalta 60 MG 1 capsule Orally Twice a day Active Excedrin Migraine 250-250-65 MG 2 tablets as needed Orally E very 6-8 hours per Via [facility] 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, 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 Thyroid 90 MG TAKE TWO TABLETS BY MOUTH DAILY for 30 Active Melatonin 5 MG 1 tablet at bedtime Orally Once a day pe r Via [facility] July, Active Lisinopril-hydroCHLOROthiazide 20-25 MG TAKE ONE TABLE T BY MOUTH TWICE A DAY for 90 Active Fluticasone Propionate 50 MCG/ACT 1 spray in each nost ril Nasally Once a day for 30 day(s) Sep, Active Multivitamin Adult - as directed Orally Active Turmeric Curcumin 500 MG as directed Orally Active Methadone HCl 10 MG 1 tablet Orally twice a day for 28 days Mar, Active Baclofen 10 MG 1 tablet as needed Orally Three times a day per Via [facility] July, Active Tylenol Extra Strength 500 MG 2 tablet as needed Orally Ever y 8 hours per Via [facility] July, Active PROCEDURES No Information RESULTS No Results REASON FOR VISIT Via [facility] 04/22-05/20 - pt states she is doing better - would like lungs liste evelin to and make sure all is ok - kpage am MEDICAL (GENERAL) HISTORY Type Description Date Medical History kiari malformation Medical History syringmyelia Medical History Chronic Pain-Methadone tx- T [facility]- using anti inflam. 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 Surgical History surgery for kiari malformation and syrin gmyelia 2001 Surgical History surgery to fix kiari malformation 2006 Surgical History spinal infusion pump x 2 Surgical History cathider placment Surgical History shunt at C5 left side 02/24/2019 Surgical History laproscopic - remove piece of shunt in p lural cavity 04/22-05/20/20 Hospitalization History surgeries Hospitalization History shunt at C5 02/24-02/26/2019 [facility] 04/22-05/20/20 Hospitalization History [facility] 07/06/21 Goals Section No Information Health Concerns No Information MEDICAL EQUIPMENT No Information MENTAL STATUS No Information FUNCTIONAL STATUS No Information ASSESSMENTS Encounter Date Diagnosis Assessment Notes Treatment Notes Treatm ent Clinical Notes May, History of pneumonia (ICD-10 - Z87.01) Resolved May, Follow-up exam (ICD-10 - Z09) PLAN OF TREATMENT Medication Medication Name Sig Start Date Stop Date Azithromycin 250 mg 2 tablet on the first day, then 1 tablet daily for 4 days Orally Once a day for 5 day(s) Mar, 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 Thyroid 90 MG TAKE TWO TABLETS BY MOUTH DAILY for 30 Treatment Notes Assessment Notes Clinical Notes History of pneumonia Resolved Next Appt Details 6 Months Reason:hypertension Follow Up:6 Monthshypertension Insurance Providers Payer Name Payer Address Payer Phone Insured Name Patient Relati onship to Insured Coverage Start Date Coverage End Date Subscriber Number Nu mber AARP Medicare Advantage Choice Plan 2 (PPO) [address] [facility] [address] Devika Ramírez Self - patient is the insured 2020 [id number] [place] MEDICARE Part A [address] [facility] [place] [address] Devika Ramírez Self - patient is the insured [id number] MEDICATIONS ADMINISTERED Medication Instructions Date of Administration Dosage cefTRIAXone Sodium Oct, 500 mg cefTRIAXone Sodium Oct, 500 mg ROCEPHIN 1 GM (IM) Nov, 1 g
--- OUTSIDE RECORDS SUMMARY | 2022-06-21 09:40 | XMS REPORT ---
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 without prior episode F32.2 confirmed 83571854 Problem Pressure ulcers of skin of multiple topographic sites L89.90 confirmed 827989102 Problem Essential hypertension I10 confirmed 52169438 Problem Hypothyroid E03.9 confirmed 41522160 Problem Arnold-Chiari syndrome without spina bifida or hydrocephal us Q07.00 confirmed 504024754 Problem Seasonal allergies J30.2 confirmed 4 72265766 ALLERGIES Allergen (clinical drug ingredient) Drug/Non Drug Allergy do cumented on EMR Reaction Allergy Type Onset Date Status Chlorhexidine anaphylaxis with or without facial swelling Drug Allergy Active ENCOUNTERS from 1965 to 2022-06-12 Encounter Location Date Provider [facility] [id number] [place] [address] Jun, LARON MONTERO Acute cystitis witho ut hematuria N30.00 IMMUNIZATIONS Vaccine Route Administration Date Status COVID-19 Moderna (history) Unknown Feb 11, 2021 Admin istered influenza RIV4 PFree (history) Unknown Feb 11, 2021 A dministered STATE FUNDED FLULUVAL QUAD 0.5ML 6 MONTHS AND UP 2019 IM Int ramuscular Jan 22, 2020 Administered 2nd Booster MODERNA COVID-19, mRNA, 0.25mL IM Intramuscular August 21, 2021 Administered COVID-19 Moderna (history) Unknown June 23, 2020 Admin istered COVID-19 Moderna (history) Unknown May 25, 2020 Admin istered PRIVATE TDAP (BOOSTRIX) IM Intramuscular Nov 22, [...] No Information VITAL SIGNS Height 64 in Jun, Height-cm 162.56 cm Jun, Weight 142.3 lbs Jun, Weight-kg 64.55 kg Jun, Temperature 98.0 degrees Fahrenheit Jun, Heart Rate 82 bpm Jun, Respiratory Rate 20 bpm Jun, Oximetry 96 % Jun, BMI 24.42 kg/m2 Jun, Blood pressure systolic 126 mmHg Jun, Blood pressure diastolic 87 mmHg Jun, MEDICATIONS Medication SIG (Take, Route, Frequency, Duration) Notes Start Da te End Date Status Cymbalta 60 MG 1 capsule Orally Twice a day Active Cefdinir 300 MG 1 capsule Orally Twice a day May, Active acetaZOLAMIDE 250 MG 1 tablet Orally Once a day per Via [facility] 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, 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 90 MG TAKE TWO TABLETS BY MOUTH DAILY for 30 Active Multivitamin Adult - as directed Orally Active Fluticasone Propionate 50 MCG/ACT 1 spray in each nost ril Nasally Once a day for 30 day(s) Sep, Active Excedrin Migraine 250-250-65 MG 2 tablets as needed Orally E very 6-8 hours per Via [facility] July, Active Baclofen 10 MG 1 tablet as needed Orally Three times a day per Via [facility] July, Active Melatonin 5 MG 1 tablet at bedtime Orally Once a day pe r Via [facility] July, Active Tylenol Extra Strength 500 MG 2 tablet as needed Orally Ever y 8 hours per Via [facility] July, Active Lisinopril-hydroCHLOROthiazide 20-25 MG TAKE ONE TABLE T BY MOUTH TWICE A DAY for 90 Active Methadone HCl 10 MG take 2 tablets in the mornin g and 1 tablet every night Orally every 12 hours for 28 days Mar, Active Turmeric Curcumin 500 MG as directed Orally Active PROCEDURES No Information RESULTS No Results REASON FOR VISIT UTI symptoms-burning with urination, urinary frequency and urinary urgency that got real bad yesterday afternoon and started about 48 hours ago.--FLORESITA Ryan MEDICAL (GENERAL) HISTORY Type Description Date Medical History kiari malformation Medical History syringmyelia Medical History Chronic Pain-Methadone tx- T [facility]- using anti inflam. 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 Surgical History surgery for kiari malformation and syrin gmyelia 2001 Surgical History surgery to fix kiari malformation 2005 Surgical History spinal infusion pump x 3 Surgical History cathider placment Surgical History shunt at C5 left side 02/24/2019 Surgical History laproscopic - remove piece of shunt in p lural cavity 04/22-05/20/20 Hospitalization History surgeries Hospitalization History shunt at C5 02/24-02/26/[facility] 04/22-05/20/20 Hospitalization History [facility] 07/06/21 Goals Section No Information Health Concerns No Information MEDICAL EQUIPMENT No Information MENTAL STATUS No Information FUNCTIONAL STATUS No Information ASSESSMENTS Encounter Date Diagnosis Assessment Notes Treatment Notes Treatm ent Clinical Notes Jun, Acute cystitis without hematuria (ICD-10 - N30.0 0) Urinary Tract Infection (UTI) in Women: Care Instructions material was published to portal PLAN OF TREATMENT Medication Medication Name Sig Start Date Stop Date Cefdinir 300 MG 1 capsule Orally Twice a day May, Treatment Notes Assessment Notes Clinical Notes Acute cystitis without hematuria Urinary Tract Infecti on (UTI) in Women: Care Instructions material was published to portal Insurance Providers Payer Name Payer Address Payer Phone Insured Name Patient Relati onship to Insured Coverage Start Date Coverage End Date Subscriber Number Group Bita HARLEY Medicare Advantage Choice Plan 2 (PPO) [address] [facility] [address] Devika Ramírez Self - patient is the insured 2020 [id number] NGS MEDICARE Part A [address] [facility] [address] Devika Ramírez Self - patient is the insured [id number] MEDICATIONS ADMINISTERED Medication Instructions Date of Administration Dosage cefTRIAXone Sodium Oct, 500 mg cefTRIAXone Sodium Oct, 500 mg ROCEPHIN 1 GM (IM) Nov, 1 g
[2022-06-21] MEDS ORDERED: ANTACID SUSP 30 ML UDC (MYLANTA) PO PRN (09:45)
[2022-06-21] MEDS ORDERED: BISACODYL 10 MG SUPP (DULCOLAX) PR PRN (09:45)
[2022-06-21] MEDS ORDERED: MILK OF MAGNESIA 400 MG/5 ML 30 ML UDC PO PRN (09:45)
[2022-06-21] MEDS ORDERED: diphenhydrAMINE 25 MG TAB (BENADRYL) PO PRN (09:45)
[2022-06-21] MEDS ORDERED: ACETAMINOPHEN 325 MG TABLET PO PRN (09:45)
[2022-06-21] MEDS ORDERED: NS IV 500 ML 500 ML IV PRN (09:45)
[2022-06-21] MEDS ORDERED: polyethylene glycoL POWDER 17 GM (MIRALAX) PACK PO PRN (09:45)
[2022-06-21] MEDS ORDERED: MELATONIN 3 MG TABLET PO PRN (09:45)
[2022-06-21] MEDS ORDERED: LACTULOSE SYRUP 10GM/15ML (ENULOSE) 30ML UDC PO PRN (09:45)
[2022-06-21] MEDS ORDERED: HEParin 1000 UNIT/ML (10ML VIAL) FOR BOLUS IV SCH (09:45)
[2022-06-21] MEDS ORDERED: diphenhydrAMINE 50 MG/ML INJ (BENADRYL) IVP PRN (09:45)
[2022-06-21] MEDS ORDERED: VANCOMYCIN INJECTION 0.1 MG in NS (IVPB) 250 ML IV SCH (09:45)
[2022-06-21] MEDS ORDERED: CALCIUM CARBONATE 500 MG (TUMS) TAB.CHEW PO PRN (09:45)
[2022-06-21 10:09] LABS: ABG BASE EXCESS -7.6 MMOL/L (-2.5-2.5); ABG OXYGEN SATURATION 94 % (94-100); ABG PCO2 37 MMHG (35-45); ABG PO2 68 MMHG (79-93); ABG TCO2 18.9 MMOL/L (21.0-31.0)
[2022-06-21 10:11] LABS: ALLENS TEST YES-POS; INSPIRED O2 30%; PATIENT TEMP 36.5; VENTILATOR NO
[2022-06-21] MEDS ORDERED: VANCOMYCIN 1250 MG/NS 250 ML PREMIX IV ONE (10:30)
[2022-06-21] MEDS: HEParin DRIP 25000 UNIT/500ML 500 ML IV SCH (10:39)
[2022-06-21 10:57] VITALS: BP 100/45
[2022-06-21] MEDS ORDERED: RT-ALBUTEROL/IPRATROPIUM 3 ML (DUONEB) VIAL INH PRN (11:15)
[2022-06-21] MEDS ORDERED: NS IV 1000 ML 1,000 ML ONE (11:22)
[2022-06-21] MEDS ORDERED: PHENYLEPHRINE DRIP 250 ML IV ONE (11:25)
[2022-06-21] MEDS: NS IV 1000 ML 1,000 ML IV SCH ×3 (11:28→23:08)
--- NOTE | 2022-06-21 11:28 | Tele-ICU Consult ---
History of Present Illness History of Present Illness Date Seen by Provider: Jun 21, 2022 Time Seen by Provider: 11:27 History of Present Illness (Tele-ICU Physician , consultation as per request of PCP Service provided via interactive audio and video telecommunications E-CARE system to a patient admitted to ICU bed in [facility]. Available chart/ vitals / labs / Images reviewed H&P is from ER notes Patient's information available about PMH, Shx, Fhx allergy reviewed inEMR. ROS as per chart and RN report Now in ICU, hemodynamically stable Video assessment done using teleICU camera, rest of exam as per RN Discussed with RN. Hospital course: A/P Sepsis / with shock ) with UTI and PNA - received 3 L NS - starting pressors and cont agressive fluid resuscitation Acute kidney failure - not oliguric , baez is in , cont IVF , repeat BMP stat PNA - bilat opaities on cxr - was tx with z max as outp 06/19---> -will finish atypical coverage , abd add HAP overage - h/o PNA 04/28/20-with EMPYEMA , s/p chest tube and VATS UTI - cont abx Acute mental status change - CT H negative - most likely TME ( was given narcan in Er , followed by morphine Elev ddimer - was presented with hypoxia , now on RA - no LE edema , but non-ambulatory - given labs and mental status can not do CT or VQ - was started on empiric heparin gtt Anemia - no acute bleeding , monitor Chronic pain syndrome -On methadone , and baclofene pump SYRINGOMYELIA, SYRINGOBULBIA,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 as perRN - POA reports DNI statius Lines : , (Central Line Necessity Reviewed) Baez: OG: Nutrition: Analgesia: Anxiety/ delirium VTE Prophylaxis:hep gtt Stress Ulcer Prophylaxis: ppi Plans in collaboration with bedside consultants and IM MDs. Discussed with RN to reach out if any questions or concerns A total of 35 minutes of critical care time was devoted to this patient today, required to treat and/or prevent further deterioration of critical care condition ( as above ) . I am remotely monitoring this patient from another state. I am unable to do the bedside exam, and history/physical and pertinent information is taken from other notes in the computer and bedside staff. . Allergies and Home Medications Allergies Coded Allergies: No Known Drug Allergies (Verified , 08/15/11) Home Medications Acetaminophen 500 Mg Tablet, 1,000 MG PO Q8H PRN for PAIN-MILD (1-4), (Reported) Acetazolamide 250 Mg Tablet, 250 MG PO DAILY, (Reported) Aspirin/Acetaminophen/Caffeine 250 Mg-250 Mg-65 Mg Tablet, 2 EACH PO Q6-8HR PRN for Headache, (Reported) Baclofen 10 Mg Tablet, 10 MG PO TID PRN for MUSCLE SPASMS, (Reported) Cefdinir 300 Mg Capsule, 300 MG PO BID Prescribed by: MAYKEL BURNS on 07/06/211746 Duloxetine HCl 60 Mg Capsule.dr, 60 MG PO DAILY, (Reported) Meclizine HCl 25 Mg Tablet, 25 MG PO DAILY PRN for DIZZINESS, (Reported) Melatonin 3 Mg Tablet, 3 MG PO HS, (Reported) Methadone HCl 10 Mg Tablet, 10 MG PO DAILY, (Reported) Multivit-Min/Iron/Folic/Vit K1 8 Mg Iron-400 Mcg-10 Mcg Tab.chew, 1 EACH PO DAILY, (Reported) Thyroid,Pork 90 Mg Tablet, 180 MG PO DAILY, (Reported) TAKES 2 (90MG) TABS Past Medical/Social/Family Hx Immunizations Up To Date First/Initial COVID19 Vaccinat: 2020 Second COVID19 Vaccination Butch: 2020 Tetanus Booster (TDap): Unknown Date of Pneumonia Vaccine: Aug 02, 2009 Current Status Primary Language: Greek Preferred Spoken Language: Greek Family Medical History Family Hx: . 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 Review of Systems Constitutional: see HPI Focused Exam Lactate Level 06/21/22 07:14: Lactic Acid Level 0.67 Height, Weight, BMI Height: '" Weight: lbs. oz. kg; 28.00 BMI Method: Time of Focused Exam: 08:00 Within 3hrs of presentation: Admin fluids, Admin ABX, Blood cultures prior to ABX's, Focus exam, Lactate level, Vasopressin therapy Exam Exam Patient acknowledged, consented, and participated in this virtual visit which was conducted using real time audio/video Vital Signs Date Time Temp Pulse Resp B/P (MAP) Pulse Ox O2 Delivery O2 Flow Rate FiO2 06/21/22 10:57 37.9 107 96 06/21/22 09:28 37.9 131 22 100/45 97 Room Air 06/21/22 08:21 Nasal Cannula 2.00 06/21/22 08:13 36.56899 06/21/22 08:13 36.6 06/21/22 07:47 36.6 06/21/22 07:47 36.6 06/21/22 07:42 35 30.00 06/21/22 07:11 36.6 87 16 64/43 (50) 97 Non Rebreather 15.00 06/21/22 07:11 97 Non Rebreather 15.00 Height & Weight Height: '" Weight: lbs. oz. kg; 28.00 BMI Method: General Appearance: Mild Distress (VERY LETHARGIC, SEMI-ALERT. ) Respiratory: Rhonci (coarse ronchi bilaterally sats 93% on RA), Other (tachypnea) Cardiovascular: Regular Rate, Rhythm Peripheral Pulses: 1+ Radial Pulses (R), 1+ Radial Pulses (L) Extremity: No Pedal Edema Neurologic/Psychiatric: Other (MENTATION NOTED ABOVE. PT OPENS EYES TO VOICE AND TACTILE STIMULI, SHE VERBALIZED A FEW WORDS ON ARRIVAL. SHE IS NOT ABLE TO ANSWER ANY QUESTIONS, OR FOLLOW COMMANDS. SHE HAS RANDOM NON-PURPOSEFUL MOVEMENTS OF HANDS) Skin: Pallor, Other (SOME MOTTLING TO LEFT HAND AND FOOT. ) Results Lab Laboratory Tests 06/21/22 07:14 Assessment/Plan Assessment/Plan 1 VINCENT VALLES MD Jun 21, 2022 11:28
[2022-06-21] MEDS ORDERED: NS IV 500 ML 500 ML IV ONE (11:30)
[2022-06-21] MEDS: PHENYLEPHRINE DRIP 250 ML IV SCH (11:33)
[2022-06-21] MEDS ORDERED: SODIUM BICARB 8.4% 50 MEQ/50 ML (ABBOTT) SYR ONE (11:40)
[2022-06-21] MEDS ORDERED: fentaNYL INJ 100 MCG/2 ML AMP IV ONE (11:45)
[2022-06-21 11:50] LABS: CALCIUM 8.2 MG/DL (8.5-10.1); CREATININE SERUM 3.19 MG/DL (0.60-1.30); POTASSIUM 2.7 MMOL/L (3.6-5.0)
--- NOTE | 2022-06-21 11:57 | Tele-ICU Progress Note ---
Progress Note Patient with shock , unresponsive discussed dx a, prognosis, tx , plans with boyfriend of 20 years ( surrogate POA) - she would like to be intubated for short period of time ( not prolonged vent support ) Elective intubation done without complications by Anesthesiology Orders for sedation and vent settings ( TV 8 cc/kg IBW) placed in EMR cxr , abg and cxr pending central line pending - cont pressors repeated labs pedning CCT 45 min Focused Exam Lactate Level 06/21/22 07:14: Lactic Acid Level 0.67 Height, Weight, BMI Height: '" Weight: lbs. oz. kg; 28.00 BMI Method: Time of Focused Exam: 08:00 VINCENT VALLES MD Jun 21, 2022 11:57
[2022-06-21] MEDS ORDERED: SODIUM BICARB 8.4% 50 MEQ/50 ML (ABBOTT) SYR IV ONE (12:00)
[2022-06-21] MEDS: PROPOFOL DRIP (ICU) 100 ML IV SCH ×2 (12:07→21:48)
--- NOTE | 2022-06-21 12:43 | Anesthesia-Procedure Note ---
Procedures/Interventions Procedure Start/Stop/Diagnosis Date of Procedure: Jun 21, 2022 Start Time: 11:38 Stop Time: 12:04 Intubation RSI: Yes 100% pre-Ox, [id number]: Yes Intubation Method: orotracheal Videoscope used: Yes Grade View: 2 Medications: Etomidate, Rocuronium, Succinylcholine Mask Ventilation: positive Positive End Tide CO2: Yes Breath Sounds after Intubation: bilateral-equal ETT Securred @ (cm): 23 Intubated with ease: Yes Intubation Complications: no complications Care turned over to: PIPPA RUIZ CRNA Jun 21, 2022 12:43
[2022-06-21 12:58] VITALS: BP 94/61
[2022-06-21] MEDS: AZITHROMYCIN INJECTION 250 MG in NS (IVPB) 250 ML IV SCH (13:19)
[2022-06-21 13:51] LABS: ABG BASE EXCESS -6.8 MMOL/L (-2.5-2.5); ABG OXYGEN SATURATION 66 % (94-100); ABG PCO2 40 MMHG (35-45)
[2022-06-21 13:54] LABS: ABG PH 7.29 (7.37-7.43); ABG PO2 38 MMHG (79-93); ALLENS TEST YES-POS; INSPIRED O2 100%; VENTILATOR YES
[2022-06-21 13:55] LABS: PATIENT TEMP 36.5
[2022-06-21] MEDS: NOREPINEPHRINE 8 MG/250 ML 250 ML IV SCH (13:55)
[2022-06-21] MEDS: POTASSIUM CL 10MEQ/50ML IVPB 50 ML IV SCH ×10 (13:56→23:38)
--- NOTE | 2022-06-21 14:17 | Diagnostic Imaging Report ---
INDICATION: Intubated. EXAMINATION: Chest from 06/21/2022. COMPARISON: 06/21/2022 at 08:46 a.m. FINDINGS: There is an ET tube which is appropriate in positioning. Enteric tube courses beneath the diaphragm with the tip towards the midline of the midabdomen. Heart is unremarkable. Pulmonary vasculature is congested. There are findings of edema throughout both lungs with more focal bibasilar and mid lung infiltrates bilaterally. There are no significant effusions. There is no pneumothorax. There is a nonspecific tubular structure at the right thoracic inlet, stable from previous imaging, perhaps due to previous central line placement. However, this appears inappropriately placed and clinical correlation is recommended. IMPRESSION: 1. ET tube and enteric tube as above with nonspecific tubular structure overlying the right thoracic inlet, see above discussion. 2. Pulmonary edema with bilateral infiltrates. Dictated by: Dictated on workstation # [id number]
[2022-06-21 14:25] LABS: ABG BASE EXCESS -8.4 MMOL/L (-2.5-2.5); ABG OXYGEN SATURATION 100 % (94-100); ABG PCO2 28 MMHG (35-45); ABG PH 7.37 (7.37-7.43); ABG PO2 273 MMHG (79-93)
[2022-06-21 14:29] LABS: ALLENS TEST YES-POS; INSPIRED O2 100%; PATIENT TEMP 36.4; VENTILATOR YES
[2022-06-21 14:37] VITALS: BP 122/75
[2022-06-21] MEDS: RT-ALBUTEROL/IPRATROPIUM 3 ML (DUONEB) VIAL INH SCH ×3 (14:41→22:33)
--- NOTE | 2022-06-21 14:41 | History & Physical-Hospitalist ---
THERESA KNOWLES Emma 06/21/22 1441: History of Present Illness HPI/Chief Complaint Could not obtain hx from patient bc she was intubated. History gathered from [facility] rt review. Ms. Ramírez is a 57 yo female with pmhx significant for Arnold chair malformation, autonomic dysreflexia, brain decompression surgeries, chronic generalized pain for which she takes methadone, chronic blurred vision, chronic dysphagia, and chronic numbness and dizziness who presented to the ED via EMS for AMS. Initial O2 sats in the 60s and pressure was 60/18. On arrival patient had limited verbal response. Pt significant other reports that patient is nonabulatory at baseline but is normally AOx3. He reports that patient has had increased lethargy, decreased mentation, and SOB over the last couple weeks. Pt was diagnosed with pneumonia on 06/19 at [facility] and was prescribed Augmenting and Zithromax. Sepsis protocol was initiated in ED and patient was placed on BIPAP, IV fluids, Cefepime, solumedrol. Pt also received narcan which improved patients mentation while in the ED. This morning in ICU patient seemed confused and had random nonpurposful movements of her hand. Pt became unresponsive and hypotensive in ICU. Discussed options with significant other who is POA and decision to intubate patient for short period of time was agreed upon. This was done without complications and central line was placed. Repeat labs, cxr, abg all ordered. No changes in status at this time. Source: other (chart review) Exam Limitations: clinical condition Date Seen 06/21/22 Time Seen by a Provider: 09:30 Attending Physician Ruslan Tracy MD PCP Admitting Physician: Siri Burns DO Attending Physician: Siri Burns DO Referring Physician Date of Admission Jun 21, 2022 at 09:35 Home Medications & Allergies Home Medications Reviewed patient Home Medication Reconciliation performed by pharmacy medication reconciliations tv technician and/or nursing. Patients Allergies have been reviewed. Allergies Allergies Coded Allergies No Known Drug Allergies (Verified08/15/11) Past Kjbrktg-Phzrti-Cewrlc Hx Immunizations Up To Date Date of Influenza Vaccine: Mar 04, 2020 First/Initial COVID19 Vaccinat: 2020 Second COVID19 Vaccination Butch: 2020 Tetanus Booster (TDap): Unknown Date of Pneumonia Vaccine: Aug 02, 2009 Current Status Primary Language: Lao Preferred Spoken Language: Lao Past Medical History Surgeries: Neurological Pneumonia Hypertension Bladder Infection Chronic Back Pain, Spasms Anxiety, Depression Blood Disorders: No Family Medical History . 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 -BACLOFEN PUMP PLACEMENT -04/28/20--CHEST TUBE FOR EMPYEMA AND VATS PROCEDURE ADDITIONAL PAST MEDICAL HISTORY: -"SPINAL CORD DISEASE" ALL OF LIFE--SYRINGOMYELIA, SYRINGOBULBIA, ARACHNOIDITIS--( ARNOLD CHIARI MALFORMATION ) WITH AUTONOMIC DYSREFLEXIA, AND LEFT > RIGHT SIDE OF BODY NUMBNESS, BLURRY VISION, DIFFICULTY SWALLOWING, GENERALIZED PAIN--ESPECIALLY BACK OF HEAD AND NECK, AND GENERALIZED WEAKNESS 04/2020--ADMITTED TO [facility] FOR ACCIDENTAL OD ON BACLOFEN, REQUIRED INTUBATION; WAS ALSO SEPTIC WITH EMPYEMA AND REQUIRED CHEST TUBES AND VATS PROCEDURE--THOUGHT TO BE DUE TO SYRINGO-PLEURAL SHUNTS THAT HAD PREVIOUSLY BEEN PLACED IN 2019. Review of Systems ROS-Unable to Obtain: Intubated Physical Exam Physical Exam Vital Signs Vital Signs - First Documented 06/21/22 06/21/22 07:11 12:00 Temp 36.6 Pulse 87 Resp 16 B/P (MAP) 64/43 (50) Pulse Ox 97 O2 Delivery Non Rebreather O2 Flow Rate 15.00 FiO2 100 Capillary Refill : Height, Weight, BMI Height: '" Weight: lbs. oz. kg; 28.00 BMI Method: General Appearance: Mild Distress HEENT: PERRL/EOMI Respiratory: No Accessory Muscle Use, Rhonci Cardiovascular: Regular Rate, Rhythm, Normal Peripheral Pulses Extremity: No Pedal Edema Neurologic/Psychiatric: Other (AMS) Skin: Warm/Dry, Pallor, Other (mottling to hand and foot) Results Results/Procedures Labs Laboratory Tests 06/21/22 07:14 06/21/22 11:29 Patient resulted labs reviewed. Imaging: Reviewed Imaging Report Assessment/Plan Admission Diagnosis sepsis Admission Status: Inpatient Order (span 2 midnights) Reason for Inpatient Admission: septic shock Assessment and Plan Sepsis with shock UTI and PNA Acute Kidney Failure PNA - bilateral opacities on CXR UTI Acute mental status change Elevated D dimer Anemia Chronic pain syndrome Arnold chiari malformation hypokalemia ABG Received 3 L NS pressers baez for KAMALA and continue IVF CBC, CMP continue abx for UTI CT head negative, likely toxic metabolic encephalopathy empiric heparin ggt monitor anemia baclofene pump central line placed replace potassium per protocol shock, unresponsive Intubation while in ICU Central line placed DVT prophylaxis: heparin gtt stress ulcer prophylaxis: ppi Code status: DNI; Sig other is POA, elective intubation for short period of time is what pt would want, not tank terminal gauger SIRI BURNS DO 06/22/22 0450: Review of Systems Constitutional: see HPI Physical Exam Physical Exam General Appearance: Chronically ill, Moderate Distress Respiratory: Lungs Clear, Normal Breath Sounds Cardiovascular: Regular Rate, Rhythm Assessment/Plan Admission Diagnosis Admission Status: Inpatient Order (span 2 midnights) Reason for Inpatient Admission: shock Supervisory-Addendum Brief Verification & Attestation Participated in pt care: history, MDM, physical Personally performed: exam, history, MDM, supervision of care Care discussed with: Medical Student Procedures: n/a Results interpretation: Verified all documentation Verification and Attestation of Medical Student E/M Service A medical student performed and documented this service in my presence. I reviewed and verified all information documented by the medical student and made modifications to such information, when appropriate. I personally performed the physical exam and medical decision making. Siri Burns, Jun 22, 2022,04:50 THERESA KNOWLES Jun 21, 2022 14:41 SIRI BURNS DO Jun 22, 2022 04:50
[2022-06-21] MEDS ORDERED: POTA99TA26 PO (15:22)
[2022-06-21] MEDS ORDERED: LISI1TAB48 PO (15:22)
[2022-06-21] MEDS ORDERED: BACLOFEN INCATH (15:22)
[2022-06-21] MEDS ORDERED: CALC-308 PO (15:22)
[2022-06-21] MEDS ORDERED: MELA5TAB14 PO (15:22)
[2022-06-21] MEDS ORDERED: AMOX1TAB12 PO (15:22)
[2022-06-21] MEDS ORDERED: AZIT250T12 PO (15:22)
[2022-06-21] MEDS ORDERED: METH-742 PO (15:22)
[2022-06-21] MEDS ORDERED: TURM500T PO (15:22)
[2022-06-21] MEDS ORDERED: LORA10TA7 PO (15:22)
[2022-06-21] MEDS ORDERED: BACI1CAP14 PO (15:22)
[2022-06-21 17:31] LABS: POTASSIUM 2.7 MMOL/L (3.6-5.0)
[2022-06-21 17:32] LABS: CALCIUM 8.2 MG/DL (8.5-10.1)
[2022-06-21 17:36] LABS: CREATININE SERUM 2.57 MG/DL (0.60-1.30)
[2022-06-21] MEDS ORDERED: inSUlin ASPART (NovoLOG) 1 UNIT/0.01 ML (CHARGE PER UNIT) SQ SCH (18:00)
[2022-06-21] MEDS: inSUlin ASPART (NovoLOG) 1 UNIT/0.01 ML (CHARGE PER UNIT) SC SCH ×2 (18:25→23:47)
[2022-06-21 19:05] VITALS: BP 113/69
[2022-06-21] MEDS: SODIUM BICARBONATE 8.4% VIAL 150 MEQ in WATER FOR INJECTION, STERILE 1,000 ML IV SCH (19:17)
[2022-06-21] MEDS ORDERED: SUCCINYLCHOLINE INJ 20 MG/1 ML 10 ML VIAL INJ ONE (19:30)
[2022-06-21] MEDS ORDERED: ROCURONIUM 50 MG/5 ML (ZEMURON) VIAL IV ONE (19:30)
[2022-06-21] MEDS ORDERED: ETOMIDATE IV SOLN 20 MG/10 ML VIAL IV ONE (19:30)
--- NOTE | 2022-06-21 19:53 | Consultation - Surgery ---
History of Present Illness History of Present Illness Patient Consulted On(henny/time) 06/21/22 19:38 Date Seen by Provider: Jun 21, 2022 Time Seen by Provider: 13:00 History of Present Illness Consult requested for Central line placment. Patient intubated and sedated. Unable to provide any information. No family at bedside. Came into hospital unresponsive. Required intubation. On pressors. Found to have UTI and B/l pneumonia. Needing central line due to multiple medications and pressors. Allergies and Home Medications Allergies Coded Allergies: No Known Drug Allergies (Verified , 08/15/11) Patient Home Medication List Home Medication List Reviewed: Yes Acetazolamide (Acetazolamide) 250 Mg Tablet, 250 MG PO DAILY, (Reported) Entered as Reported by: MARVIN WEBB on 05/12/201148 Last Action: Reviewed Amoxicillin/Potassium Clav (Amox Tr-K Clv 875-125 mg Tab) 875 Mg-125 Mg Tablet, 1 EA PO BID, (Reported) Entered as Reported by: MARVIN WEBB on 06/21/221521 Last Action: Reviewed Azithromycin (Azithromycin) 250 Mg Tablet, 250 MG PO DAILY, (Reported) Entered as Reported by: MARVIN WEBB on 06/21/221521 Last Action: Reviewed Bacillus Coagulans/Inulin (Probiotic 1 B Cfu-250 mg Cap) 1 Billion Cell-250 Mg Capsule, 2 EACH PO 1800 W/DINNER, (Reported) Entered as Reported by: MARVIN WEBB on 06/21/221521 Last Action: Reviewed Baclofen (Baclofen) 10 Mg Tablet, 10 MG PO TID PRN for MUSCLE SPASMS, (Reported) Entered as Reported by: MARVIN WEBB on 05/12/201148 Last Action: Reviewed Calcium Carbonate (Calcium) 500 Mg Calcium (1250 Mg) Tab.chew, 1,000 MG PO 1800 W/DINNER, (Reported) Entered as Reported by: MARVIN WEBB on 06/21/221521 Last Action: Reviewed Duloxetine HCl (Duloxetine HCl) 60 Mg Capsule.dr, 60 MG PO DAILY, (Reported) Entered as Reported by: MARVIN WEBB on 05/12/201148 Last Action: Reviewed Lisinopril/Hydrochlorothiazide (Lisinopril-Hctz 20-25 mg Tab) 20 Mg-25 Mg Tablet, 1 EA PO BID WITH MEALS, (Reported) Entered as Reported by: MARVIN WEBB on 06/21/221521 Last Action: Reviewed Loratadine (Loratadine) 10 Mg Tablet, 10 MG PO 1800 W/DINNER, (Reported) Entered as Reported by: MARVIN WEBB on 06/21/221521 Last Action: Reviewed Melatonin (Melatonin) 5 Mg Tablet, 5 MG PO HS, (Reported) Entered as Reported by: MARVIN WEBB on 06/21/221521 Last Action: Reviewed Methadone HCl (Methadone HCl) 10 Mg Tablet, 20 MG PO DAILY W/BREAKFAST, (Reported) Entered as Reported by: MARVIN WEBB on 05/12/20 1149 Last Action: Reviewed Methadone HCl (Methadone HCl) 10 Mg Tablet, 10 MG PO 1800 W/DINNER, (Reported) Entered as Reported by: MARVIN WEBB on 06/21/221521 Last Action: Reviewed Multivit-Min/Iron/Folic/Vit K1 (Centrum Chewables Adults Tab) 8 Mg Iron-400 Mcg- 10 Mcg Tab.chew, 2 EACH PO 1800 W/DINNER, (Reported) Entered as Reported by: MARVIN WEBB on 07/06/211206 Last Action: Reviewed Potassium Gluconate (Potassium) 595 Mg (99 Mg) Tablet, 99 MG PO 1800 W/DINNER, (Reported) Entered as Reported by: MARVIN WEBB on 06/21/221521 Last Action: Reviewed Thyroid,Pork ([place] Thyroid) 90 Mg Tablet, 180 MG PO DAILY, (Reported) Entered as Reported by: MARVIN WEBB on 05/17/20 1515 Last Action: Reviewed Turmeric Root Extract (Turmeric) 500 Mg Tablet, 500 MG PO 1800 W/DINNER, (Reported) Entered as Reported by: MARVIN WEBB on 06/21/221521 Last Action: Reviewed [Baclofen Infusion] , INCATH UD, (Reported) Entered as Reported by: MARVIN WEBB on 06/21/221521 Last Action: Reviewed Discontinued Medications Acetaminophen (Tylenol Extra Strength) 500 Mg Tablet, 1,000 MG PO Q8H PRN for PAIN-MILD (1-4), (Reported) Discontinued Reason: No Longer Taking Entered as Reported by: MARVIN WEBB on 07/06/211206 Last Action: Discontinued Aspirin/Acetaminophen/Caffeine (Excedrin Migraine Caplet) 250 Mg-250 Mg-65 Mg Tablet, 2 EACH PO Q6-8HR PRN for Headache, (Reported) Discontinued Reason: No Longer Taking Entered as Reported by: MARVIN WEBB on 07/06/211206 Last Action: Discontinued Cefdinir (Cefdinir) 300 Mg Capsule, 300 MG PO BID Discontinued Reason: No Longer Taking Prescribed by: MAYKEL BURNS on 07/06/211746 Last Action: Discontinued Meclizine HCl (Meclizine HCl) 25 Mg Tablet, 25 MG PO DAILY PRN for DIZZINESS, (Reported) Discontinued Reason: No Longer Taking Entered as Reported by: MARVIN WEBB on 07/06/211206 Last Action: Discontinued Melatonin (Melatonin) 3 Mg Tablet, 3 MG PO HS, (Reported) Discontinued Reason: No Longer Taking Entered as Reported by: MARVIN WEBB on 05/17/20 1516 Last Action: Discontinued Past [id number] Hx Patient Social History Smoking Status: Former Smoker Recent Hopitalizations: Yes (DYSREFLEXIA 2006) Alcohol Use?: No Have you traveled recently?: No Immunizations Up To Date Tetanus Booster (TDap): Unknown Date of Pneumonia Vaccine: Aug 02, 2009 Date of Influenza Vaccine: Mar 04, 2020 Surgeries History of Surgeries: Yes (SEE BELOW) Surgeries: Neurological Respiratory History of Respiratory Disorde: Yes (EMPYEMA 04/2020) Respiratory Disorders: Pneumonia Cardiovascular History of Cardiac Disorders: Yes (AUTONOMIC DYSREFLEXIA) Cardiac Disorders: Hypertension Neurological History of Neurological Disord: Yes (SEE BELOW) Reproductive System Hx Reproductive Disorders: No Genitourinary History of Genitourinary Disor: Yes Genitourinary Disorders: Bladder Infection Gastrointestinal History of Gastrointestinal Di: No Musculoskeletal History of Musculoskeletal Dis: Yes (CHRONIC NECK/BACK/GENERALIZED PAIN ) Musculoskeletal Disorders: Chronic Back Pain, Spasms Endocrine History of Endocrine Disorders: No HEENT History of HEENT Disorders: Yes Psychosocial History of Psychiatric Problem: Yes Behavioral Health Disorders: Anxiety, Depression Integumentary History of Skin or Integumenta: No Blood Transfusions History of Blood Disorders: No Reviewed Nursing Assessment Reviewed/Agree w Nursing PMH: Yes Family Medical History Significant Family History: No Pertinent Family Hx Review of Systems-General ROS-Unable to Obtain: unable to obtain secondary to intubated Physical Exam-General Problems Physical Exam Vital Signs Vital Signs - First Documented 06/21/22 06/21/22 07:11 12:00 Temp 36.6 Pulse 87 Resp 16 B/P (MAP) 64/43 (50) Pulse Ox 97 O2 Delivery Non Rebreather O2 Flow Rate 15.00 FiO2 100 Capillary Refill : Less Than 3 Seconds General Appearance: no apparent distress, other (intubated and sedated) HEENT: normal ENT inspection, other (intubated) Neck: supple, normal inspection Respiratory: chest non-tender, no respiratory distress, no accessory muscle use Cardiovascular: regular rate, rhythm, no JVD Gastrointestinal: soft, no organomegaly Rectal: deferred Extremities: non-tender, normal inspection Neurologic/Psychiatric: No alert, No oriented x 3; other (intubated/sedated) Skin: normal color, warm/dry Lymphatic: no adenopathy Data Review Labs Laboratory Tests 06/21/22 07:14: White Blood Count 18.9H, Red Blood Count 2.98L, Hemoglobin 8.6L, Hematocrit 29L, Mean Corpuscular Volume 97, Mean Corpuscular Hemoglobin 29, Mean Corpuscular Hemoglobin Concent 30L, Red Cell Distribution Width 14.5, Platelet Count 327, Mean Platelet Volume 10.6, Immature Granulocyte % (Auto) 1, Neutrophils (%) (Auto) 84H, Lymphocytes (%) (Auto) 7L, Monocytes (%) (Auto) 6, Eosinophils (%) (Auto) 2, Basophils (%) (Auto) 0, Neutrophils # (Auto) 15.9H, Lymphocytes # (Auto) 1.3, Monocytes # (Auto) 1.1H, Eosinophils # (Auto) 0.4H, Basophils # (Auto) 0.1, Immature Granulocyte # (Auto) 0.1, Neutrophils % (Manual) 87, Lymphocytes % (Manual) 4, Monocytes % (Manual) 3, Eosinophils % (Manual) 6, Bas ophils % (Manual) 0, Band Neutrophils 0, Blood Morphology Comment NORMAL, Erythrocyte Sedimentation Rate 28, Prothrombin Time 15.9H, INR Comment 1.2, Activated Partial Thromboplast Time 38H, D-Dimer 1.81H, Sodium Level 137, Potassium Level 2.8L, Chloride Level 100, Carbon Dioxide Level 20L, Anion Gap 17H, Blood Urea Nitrogen 70H, Creatinine 4.25H, Estimat Glomerular Filtration Rate 12, BUN/Creatinine Ratio 16, Glucose Level 113H, Lactic Acid Level 0.67, Calcium Level 8.8, Corrected Calcium 9.7, Magnesium Level 2.8H, Total Bilirubin 0.2, Aspartate Amino Transf (AST/SGOT) 13, Alanine Aminotransferase (ALT/SGPT) 9, Alkaline Phosphatase 115, Ammonia 20, Total Creatine Kinase 79, Creatine Kinase MB 2.2, Myoglobin 534.9H, Troponin I < 0.028, C-Reactive Protein High Sensitivity 44.62H, B-Type Natriuretic Peptide 21.2, Total Protein 6.4, Albumin 2.9L, Amylase Level 32, Lipase 27, Free Thyroxine 0.93, TSH [place] Testing 0.01L, Acetaminophen Level < 10L, Serum Alcohol < 10 06/21/22 07:17: Glucometer 106 06/21/22 07:40: Urine Color YELLOW, Urine Clarity SL CLOUDY, Urine pH 5.5, Urine Specific [place] >=1.030, Urine Protein 1+H, Urine Glucose (UA) NEGATIVE, Urine Ketones NEGATIVE, Urine Nitrite NEGATIVE, Urine Bilirubin NEGATIVE, Urine Urobilinogen 0.2, Urine Leukocyte Esterase 1+H, Urine RBC (Auto) NEGATIVE, Urine RBC NONE, Urine WBC 25-50H, Urine Squamous Epithelial Cells 5-10, Urine Renal Epithelial Cells 2-5, Urine Crystals NONE, Urine Bacteria MODERATEH, Urine Casts NONE, Urine Mucus NEGATIVE, Urine Culture Indicated CULTURE PENDING, Urine Opiates Screen NEGATIVE, Urine Oxycodone Screen NEGATIVE, Urine Methadone Screen POSITIVEH, Urine Propoxyphene Screen NEGATIVE, Urine Barbiturates Screen N EGATIVE, Ur Tricyclic Antidepressants Screen NEGATIVE, Urine Phencyclidine Screen NEGATIVE, Urine Amphetamines Screen NEGATIVE, Urine Methamphetamines Screen NEGATIVE, Urine Benzodiazepines Screen NEGATIVE, Urine Cocaine Screen NEGATIVE, Urine Cannabinoids Screen NEGATIVE 06/21/22 08:18: Influenza Type A (RT-PCR) Not Detected, Influenza Type B (RT-PCR) Not Detected, SARS-CoV-2 RNA (RT-PCR) Not Detected 06/21/22 09:50: Blood Gas Puncture Site RT RAD, Blood Gas Patient Temperature 36.5, Arterial Blood pH 7.30*L, Arterial Blood Partial Pressure CO2 37, Arterial Blood Partial Pressure O2 68L, Arterial Blood HCO3 18L, Arterial Blood Total CO2 18.9L, Arterial Blood Oxygen Saturation 94, Arterial Blood Base Excess -7.6L, Ray Test YES-POS, Blood Gas Ventilator Setting NO, Blood Gas Inspired Oxygen 30% 06/21/22 10:08: Activated Partial Thromboplast Time 33 06/21/22 11:29: Sodium Level 138, Potassium Level 2.7L, Chloride Level 107, Carbon Dioxide Level 14L, Anion Gap 17H, Blood Urea Nitrogen 60H, Creatinine 3.19#H, Estimat Glomerular Filtration Rate 17, BUN/Creatinine Ratio 19, Glucose Level 139H, Calcium Level 8.2L, Triglycerides Level 90 06/21/22 13:40: Blood Gas Puncture Site RT RAD, Blood Gas Patient Temperature 36.5, Arterial Blood pH 7.29*L, Arterial Blood Partial Pressure CO2 40, Arterial Blood Partial Pressure O2 38*L, Arterial Blood HCO3 19L, Arterial Blood Total CO2 20.0L, Arterial Blood Oxygen Saturation 66L, Arterial Blood Base Excess -6.8L, Ray Test YES-POS, Blood Gas Ventilator Setting YES, Blood Gas Inspired Oxygen 100% 06/21/22 14:14: Blood Gas Puncture Site RT RAD, Blood Gas Patient Temperature 36.4, Arterial Blood pH 7.37, Arterial Blood Partial Pressure CO2 28L, Arterial Blood Partial Pressure O2 273H, Arterial Blood HCO3 16*L, Arterial Blood Total CO2 17.0L, Arterial Blood Oxygen Saturation 100, Arterial Blood Base Excess -8.4L, Ray Test YES-POS, Blood Gas Ventilator Setting YES, Blood Gas Inspired Oxygen 100% 06/21/22 14:40: Activated Partial Thromboplast Time 165*H 06/21/22 17:06: Glucometer 206H 06/21/22 17:10: Sodium Level 141, Potassium Level 2.7L, Chloride Level 109H, Carbon Dioxide Level 13L, Anion Gap 19H, Blood Urea Nitrogen 55H, Creatinine 2.57#H, Estimat Glomerular Filtration Rate 21, BUN/Creatinine Ratio 21, Glucose Level 216H, Calcium Level 8.2L Assessment/Plan Assessment/Plan Assessment/Plan sepsis b/l pneumonia uti patient requiring pressor support also on Heparin drip will place right femoral u/s guided central line for under current situation safest will need PIcc try not to leave femoral central line in greater than 3 days. will sign off, call if needed. PROCEDURE: Right femoral v u/s guided central line placement. Right groin prepped and draped in sterile fashion. u/s used to place 3 mL of 1% lidocaine. Femoral vein then accessed and dark nonpulsatile blood returned. Wire inserted and needle removed. Skin incision made at wire and dilator advanced over wire and removed. Catheter was then inserted and secured. All ports accessed and flushed without difficulty. Sterile bandage applied. EVE RODRÍGUEZ DO Jun 21, 2022 19:53
[2022-06-21] MEDS: CEFEPIME INJECTION 1,000 MG in NS (IVPB) 50 ML IV SCH (20:50)
[2022-06-21] MEDS: SENNOSIDES 8.6 MG (SENOKOT) TAB PO SCH (20:54)
[2022-06-21] MEDS: DOCUSATE SODIUM 100 MG (COLACE) CAP PO SCH (20:54)
[2022-06-21 21:42] LABS: HEMATOCRIT 27 % (35-52); HEMOGLOBIN 8.5 g/dL (11.5-16.0); MEAN CORPUSCULAR HEMOGLOBIN 29 pg (25-34); MEAN CORPUSCULAR HGB CONC 32 g/dL (32-36); MEAN CORPUSCULAR VOLUME 92 fL (80-99); MEAN PLATELET VOLUME 10.7 fL (9.0-12.2); PLATELET COUNT 395 10^3/uL (130-400); WHITE BLOOD COUNT 26.9 10^3/uL (4.3-11.0)
[2022-06-21] MEDS ORDERED: POTASSIUM CL 10MEQ/50ML IVPB 200 ML IV ONE (22:32)
[2022-06-21 22:33] VITALS: BP 111/68
[2022-06-22] MEDS: PHENYLEPHRINE DRIP 250 ML IV SCH ×2 (01:26→14:35)
[2022-06-22] MEDS: RT-ALBUTEROL/IPRATROPIUM 3 ML (DUONEB) VIAL INH SCH ×6 (04:30→22:22)
[2022-06-22 05:12] LABS: BASOPHILS # (AUTO) 0.1 10^3/uL (0.0-0.1); BASOPHILS % (AUTO) 0 % (0-10); EOSINOPHILS % (AUTO) 0 % (0-10); HEMATOCRIT 24 % (35-52); HEMOGLOBIN 7.9 g/dL (11.5-16.0); LYMPHOCYTES # (AUTO) 1.7 10^3/uL (1.0-4.0); LYMPHOCYTES % (AUTO) 5 % (12-44); MEAN CORPUSCULAR HEMOGLOBIN 29 pg (25-34); MEAN CORPUSCULAR HGB CONC 33 g/dL (32-36); MEAN CORPUSCULAR VOLUME 90 fL (80-99); MEAN PLATELET VOLUME 10.8 fL (9.0-12.2); MONOCYTES # (AUTO) 0.9 10^3/uL (0.0-1.0); MONOCYTES % (AUTO) 3 % (0-12); NEUTROPHILS # (AUTO) 29.7 10^3/uL (1.8-7.8); NEUTROPHILS % (AUTO) 90 % (42-75); PLATELET COUNT 377 10^3/uL (130-400)
[2022-06-22 05:31] LABS: ALBUMIN 2.6 GM/DL (3.2-4.5); BILIRUBIN,TOTAL 0.1 MG/DL (0.1-1.0); CALCIUM 8.4 MG/DL (8.5-10.1); CREATININE SERUM 1.82 MG/DL (0.60-1.30); PHOSPHORUS 2.2 MG/DL (2.3-4.7); POTASSIUM 2.9 MMOL/L (3.6-5.0); TOTAL PROTEIN 5.9 GM/DL (6.4-8.2)
[2022-06-22 05:45] LABS: ANISOCYTOSIS SLIGHT; LYMPHOCYTES % (MANUAL) 8 %; MONOCYTES % (MANUAL) 3 %; NEUTROPHILS % (MANUAL) 89 %
[2022-06-22] MEDS: POTASSIUM CL 10MEQ/50ML IVPB 50 ML IV SCH ×7 (06:03→08:59)
[2022-06-22] MEDS: KCL 20 MEQ TAB (K-DUR) PO SCH (06:03)
[2022-06-22] MEDS: MAGNESIUM 1 GM/100 ML IVPB 100 ML IV SCH ×3 (06:03→20:25)
[2022-06-22] MEDS ORDERED: POTASSIUM CL 10MEQ/50ML IVPB 400 ML IV ONE (06:06)
[2022-06-22] MEDS: inSUlin ASPART (NovoLOG) 1 UNIT/0.01 ML (CHARGE PER UNIT) SC SCH ×3 (06:16→18:42)
[2022-06-22 06:39] VITALS: BP 113/65
[2022-06-22 06:43] LABS: ABG BASE EXCESS -6.3 MMOL/L (-2.5-2.5); ABG OXYGEN SATURATION 97 % (94-100); ABG PCO2 30 MMHG (35-45); ABG PO2 78 MMHG (79-93); ABG TCO2 18.6 MMOL/L (21.0-31.0)
[2022-06-22 06:44] LABS: ALLENS TEST POSITIVE; INSPIRED O2 40%; VENTILATOR NO
[2022-06-22 06:45] LABS: PATIENT TEMP 36.2
[2022-06-22] MEDS: PROPOFOL DRIP (ICU) 100 ML IV SCH ×3 (06:54→22:28)
[2022-06-22] MEDS: NS IV 1000 ML 1,000 ML IV SCH ×2 (06:54→22:28)
[2022-06-22] MEDS: HYDROmorphone 2 MG/ML VIAL (DILAUDID) IV PRN ×3 (07:42→17:13)
[2022-06-22] MEDS: CEFEPIME INJECTION 1,000 MG in NS (IVPB) 50 ML IV SCH ×2 (08:52→17:13)
[2022-06-22] MEDS: DOCUSATE SODIUM 100 MG (COLACE) CAP PO SCH ×2 (08:52→22:28)
[2022-06-22] MEDS: SENNOSIDES 8.6 MG (SENOKOT) TAB PO SCH ×2 (08:52→22:28)
[2022-06-22] MEDS: NOREPINEPHRINE 8 MG/250 ML 250 ML IV SCH ×2 (08:53→15:35)
[2022-06-22] MEDS ORDERED: TROUGH ORDER-PHARMACY XX ONE (09:00)
--- NOTE | 2022-06-22 09:15 | Tele-ICU Progress Note ---
Subjective Date Seen by a Provider: Jun 22, 2022 Time Seen by a Provider: 09:14 Subjective/Events-last exam (Tele-ICU Physician , Progress Note ) Service provided via interactive audio and video telecommunications E-CARE system to a patient admitted to ICU bed in [facility]. Patient is seen today due to persistent need of ICU care Available chart/ vitals / labs / Images reviewed Video assessment done using teleICU camera, rest of exam as per RN Discussed with RN Events overnight : Afebrile hemodynamically stable Respiratory - 30 I/O = pos Drips: heparin gtt bicarb 50 , ns 125 Pressors- norepi 0 .08 VENT SETTINGS and ABG reviewed NOT CANDIDATE for SBTreviewed possible contraindications including Cardiovascular Stability /Sedation Score / FI02/PEEP / ABG / CXR/ secretions Sedation, discussed with RN, RASS -1. on propofol 20 Hospital course: 06/21 - AMS, PNA , UTI , sepsis , KAMALA - INTUBATED in ICU 06/22 - AC 22 450 +5 30% ,, norepi 0.08 , prop 20 , bicarb gtt A/P Acute resp failure - intubated 06/21 inICU ( unresponsive , shock , minimal O2 needs prior to intubation ) - AC 22 450 +5 30% - to decr rr to 18 - thick secretions in ETT Sepsis / with shock with UTI and PNA - weaning pressors and cont agressive fluid resuscitation Acute kidney failure - not oliguric , baez is in , cont IVF , Cr is improving - will cont bicarb gtt today - to stop tomorrow PNA - bilat opaities on cxr - was tx with z max as outp 06/19---> -will finish atypical coverage , and add HAP overage ( h/o PNA 04/28/20-with EMPYEMA , s/p chest tube and VATS ) UTI - cont abx Acute mental status change - CT H negative - most likely TME ( was given narcan in Er , followed by morphine Elev ddimer - was presented with hypoxia , now on RA - no LE edema , but non-ambulatory - given labs and mental status can not do CT - will try VQ today - was started on empiric heparin gtt - Anemia - hb 7.9 - no acute bleeding , monitor Chronic pain syndrome -On methadone , and baclofene pump SYRINGOMYELIA, SYRINGOBULBIA,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 on 06/21 discussed dx a, prognosis, tx , plans with elias's boyfriend of 20 years ( surrogate POA) - she would like to be intubated for short period of time ( not prolonged vent support ) , no cardioversion /resuscitation Lines : R fem 06/21 , (Central Line Necessity Reviewed) Baez: 06/21 OG: Nutrition: TF to start 06/21 Analgesia: Anxiety/ delirium VTE Prophylaxis:hep gtt Stress Ulcer Prophylaxis: ppi Plans in collaboration with bedside consultants and IM MDs. Discussed with RN to reach out if any questions or concerns A total of 35 minutes of critical care time was devoted to this patient today, required to treat and/or prevent further deterioration of critical care condition ( as above ) . I am remotely monitoring this patient from another state. I am unable to do the bedside exam, and history/physical and pertinent information is taken from other notes in the computer and bedside staff. . Sepsis Event Evaluation Height, Weight, BMI Height: '" Weight: lbs. oz. kg; 28.59 BMI Method: Focused Exam Lactate Level 06/21/22 07:14: Lactic Acid Level 0.67 Time of Focused Exam: 08:00 Exam Exam Patient acknowledged, consented, and participated in this virtual visit which was conducted using real time audio/video Vital Signs Date Time Temp Pulse Resp B/P (MAP) Pulse Ox O2 Delivery O2 Flow Rate FiO2 06/22/22 09:00 114 22 102/61 (75) 99 Mechanical Ventilator 40.00 06/22/22 08:00 37.0 06/22/22 08:00 125 22 107/62 (78) 99 Mechanical Ventilator 40.00 06/22/22 07:00 103 06/22/22 07:00 105 21 110/70 (82) 99 Mechanical Ventilator 40.00 06/22/22 06:54 103 113/65 06/22/22 06:39 103 22 98 30 06/22/22 06:00 101 22 112/70 (84) 98 Mechanical Ventilator 40.00 06/22/22 05:00 104 22 110/63 (79) 98 Mechanical Ventilator 40.00 06/22/22 04:27 87 22 99 30 06/22/22 04:00 98 Mechanical Ventilator 40 06/22/22 04:00 102 22 107/61 (76) 98 Mechanical Ventilator 40.00 06/22/22 03:40 40 06/22/22 03:00 95 22 104/62 (76) 98 Mechanical Ventilator 40.00 06/22/22 02:00 95 21 111/65 (80) 98 Mechanical Ventilator 40.00 06/22/22 01:00 98 21 107/67 (80) 98 Mechanical Ventilator 40.00 06/22/22 01:00 100 06/22/22 00:17 36.8 06/22/22 00:00 100 21 106/65 (79) 98 Mechanical Ventilator 40.00 06/21/22 23:59 98 Mechanical Ventilator 40 06/21/22 23:40 40 06/21/22 23:00 97 21 106/62 (77) 98 Mechanical Ventilator 40.00 06/21/22 22:33 93 22 98 30 06/21/22 22:00 93 22 107/64 (78) 98 Mechanical Ventilator 40.00 06/21/22 21:48 102 113/69 06/21/22 21:00 92 22 122/71 (88) 98 Mechanical Ventilator 40.00 06/21/22 20:00 93 21 120/74 (89) 98 Mechanical Ventilator 40.00 06/21/22 20:00 36.7 06/21/22 20:00 98 Mechanical Ventilator 40 06/21/22 19:40 40 06/21/22 19:05 102 22 99 40 06/21/22 19:00 94 06/21/22 19:00 93 21 112/71 (85) 98 Mechanical Ventilator 40.00 06/21/22 18:00 97 21 109/67 (81) 98 Mechanical Ventilator 40.00 06/21/22 17:00 98 21 97/60 (72) 99 Mechanical Ventilator 40.00 06/21/22 16:09 93 105/59 06/21/22 16:07 99 Mechanical Ventilator 40 06/21/22 16:00 98 30 98/60 (73) 99 Mechanical Ventilator 40.00 06/21/22 15:49 36.5 06/21/22 15:40 40 06/21/22 15:37 93 84/59 06/21/22 15:00 96 22 103/66 (78) 99 Mechanical Ventilator 40.00 06/21/22 14:37 96 22 99 40 4/20/23 14:36 Mechanical Ventilator 40.00 06/21/22 14:32 101 122/75 06/21/22 14:02 90 85/69 06/21/22 14:00 82 21 85/69 (74) 100 Mechanical Ventilator 100.00 06/21/22 13:55 80 94/61 06/21/22 13:00 79 21 97/59 (72) 100 Mechanical Ventilator 100.00 06/21/22 13:00 80 06/21/22 12:58 84 22 100 100 06/21/22 12:07 89 95/56 06/21/22 12:00 100 Mechanical Ventilator 100 06/21/22 12:00 93 16 108/88 (95) 100 Mechanical Ventilator 100.00 06/21/22 11:49 89 73/40 06/21/22 11:33 107 62/40 06/21/22 11:00 110 21 86/47 (60) 97 06/21/22 10:57 37.9 107 96 06/21/22 09:30 95 Room Air 06/21/22 09:30 36.5 06/21/22 09:28 37.9 131 22 100/45 97 Room Air I & O 06/22/22 07:00 Intake Total 4350 ml Output Total 1200 ml Balance 3150 ml Height & Weight Height: '" Weight: lbs. oz. kg; 28.59 BMI Method: General Appearance: Chronically ill, Moderate Distress HEENT: PERRL/EOMI Respiratory: Lungs Clear, Normal Breath Sounds Cardiovascular: Regular Rate, Rhythm Capillary Refill: Less Than 3 Seconds Peripheral Pulses: 1+ Radial Pulses (R), 1+ Radial Pulses (L) Gastrointestinal: soft, no organomegaly Extremity: No Pedal Edema Neurologic/Psychiatric: Other (AMS) Skin: Warm/Dry, Pallor, Other (mottling to hand and foot) Results Lab Laboratory Tests 06/21/22 07:14 06/21/22 11:29 06/21/22 17:10 06/21/22 21:30 06/22/22 04:55 Assessment/Plan Assessment/Plan 1 VINCENT VALLES MD Jun 22, 2022 09:15
[2022-06-22] MEDS: AZITHROMYCIN INJECTION 250 MG in NS (IVPB) 250 ML IV SCH (09:32)
--- NOTE | 2022-06-22 09:44 | Diagnostic Imaging Report ---
CHEST 1 VIEW, AP/PA ONLY Indication: Pneumonia Comparison: 06/21/2022 Findings: Stable ET and enteric tubes. Mildly improved but persistent bilateral perihilar opacities. Improved versus redistributed small bilateral pleural effusions. No pneumothorax. Normal heart size. Impression: 1. Stable support devices. 2. Improved but persistent pulmonary opacities may be due to resolving edema. Dictated by: Dictated on workstation # [id number]
[2022-06-22] MEDS ORDERED: VANCOMYCIN 1 GM/NS 250 ML IVPB IV SCH ×2 (10:00)
[2022-06-22 10:25] VITALS: BP 109/69
--- NOTE | 2022-06-22 12:15 | Progress Note - Hospitalist ---
THERESA KNOWLES 06/22/22 1215: Subjective HPI/CC On Admission Date Seen by Provider: Jun 22, 2022 Time Seen by Provider: 09:00 Could not obtain hx from patient bc she was intubated. History gathered from chart review. Ms. Ramírez is a 57 yo female with pmhx significant for Arnold chair malformation, autonomic dysreflexia, brain decompression surgeries, chronic generalized pain for which she takes methadone, chronic blurred vision, chronic dysphagia, and chronic numbness and dizziness who presented to the ED via EMS fo r AMS. Initial O2 sats in the 60s and pressure was 60/18. On arrival patient had limited verbal response. Pt significant other reports that patient is nonabulatory at baseline but is normally AOx3. He reports that patient has had increased lethargy, decreased mentation, and SOB over the last couple weeks. Pt was diagnosed with pneumonia on 06/19 at [facility] and was prescribed Augmenting and Zithromax. Sepsis protocol was initiated in ED and patient was placed on BIPAP, IV fluids, Cefepime, solumedrol. Pt also received narcan which improved patients mentation while in the ED. This morning in ICU patient seemed confused and had random nonpurposful movements of her hand. Pt became unresponsive and hy potensive in ICU. Discussed options with significant other who is POA and decision to intubate patient for short period of time was agreed upon. This was done without complications and central line was placed. Repeat labs, cxr, abg all ordered. No changes in status at this time. Subjective/Events-last exam Vent day #2 Vent settings - 450, 22, 5, 30% Abx day 2: vanc and cefepime Abg 7.07/01/77 Pt getting V/Q scan today Cr improving, bicarb getting stopped tomorrow White count increased. Today 33 Potassium 2.9, replace CXR improved from yesterday Review of Systems could not obtain pt intubated Focused Exam Lactate Level 06/21/22 07:14: Lactic Acid Level 0.67 Time of Focused Exam: 08:00 Objective Exam Vital Signs Vital Signs Date Time Temp Pulse Resp B/P (MAP) Pulse Ox O2 Delivery O2 Flow Rate FiO2 06/22/22 12:00 107 18 108/67 (79) 99 Mechanical Ventilator 40.00 06/22/22 10:25 30 06/22/22 08:00 37.0 Capillary Refill : Less Than 3 Seconds Respiratory: Rhonci Cardiovascular: Regular Rate, Rhythm Extremity: No Pedal Edema Skin: Pallor Results/Procedures Lab Laboratory Tests 06/21/22 17:10 06/21/22 21:30 06/22/22 04:55 06/22/22 11:35 Patient resulted labs reviewed. Imaging: Reviewed Imaging Report Assessment/Plan Assessment and Plan Assess & Plan/Chief Complaint Sepsis with shock UTI and PNA Acute Kidney Failure PNA - bilateral opacities on CXR UTI Acute mental status change Elevated D dimer Anemia Chronic pain syndrome Arnold chiari malformation hypokalemia ABG Received 3 L NS pressers baez for KAMALA and continue IVF CBC, CMP continue abx for UTI CT head negative, likely toxic metabolic encephalopathy empiric heparin ggt monitor anemia baclofene pump central line placed replace potassium per protocol V/Q scan shock, unresponsive Intubation while in ICU Central line placed DVT prophylaxis: heparin gtt stress ulcer prophylaxis: ppi Code status: DNI; Sig other is POA, elective intubation for short period of time is what pt would want, not 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 I reviewed and verified all information documented by the medical student and made modifications to such information, when appropriate. I personally performed the physical exam and medical decision making. Siri Burns, Jun 22, 2022,16:43 THERESA KNOWLES Jun 22, 2022 12:15 SIRI BURNS DO Jun 22, 2022 16:43
[2022-06-22] MEDS: HEParin DRIP 25000 UNIT/500ML 500 ML IV SCH (12:32)
[2022-06-22] MEDS ORDERED: CATHETER FLUSH 10 ML SYR IVP PRN (13:00)
[2022-06-22 14:10] VITALS: BP 108/71
--- NOTE | 2022-06-22 15:25 | Diagnostic Imaging Report ---
INDICATION: Elevated D-dimer and acute renal failure. TECHNIQUE: Patient was administered 5.4 mCi technetium 99m MAA intravenously and imaging over the chest was performed in multiple obliquities. FINDINGS: Perfusion imaging does show a moderate-sized area of perfusion defect in the midportion of the right lung. There is some increased airspace disease noted at this location on the chest radiograph from the same day. There appears to be normal perfusion to the left lung. No other defects are seen. IMPRESSION: Matched airspace process and perfusion defect in the right midlung field, placing the patient in the low-probability category for pulmonary embolism. Dictated by: Dictated on workstation # [id number]
[2022-06-22] MEDS: METHADONE 10 MG (DOLOPHINE) TAB GT SCH (18:29)
[2022-06-22 18:35] VITALS: BP 111/73
[2022-06-22 18:42] LABS: ALBUMIN 2.5 GM/DL (3.2-4.5)
[2022-06-22 18:44] LABS: CALCIUM 8.4 MG/DL (8.5-10.1)
[2022-06-22 18:45] LABS: TOTAL PROTEIN 5.6 GM/DL (6.4-8.2)
[2022-06-22 18:47] LABS: BILIRUBIN,TOTAL 0.1 MG/DL (0.1-1.0)
[2022-06-22 18:49] LABS: CREATININE SERUM 1.41 MG/DL (0.60-1.30)
[2022-06-22 18:52] LABS: MAGNESIUM 2.1 MG/DL (1.6-2.4)
[2022-06-22] MEDS: SODIUM BICARBONATE 8.4% VIAL 150 MEQ in WATER FOR INJECTION, STERILE 1,000 ML IV SCH (18:52)
[2022-06-22 22:17] VITALS: BP 98/58
[2022-06-23] MEDS: CEFEPIME INJECTION 1,000 MG in NS (IVPB) 50 ML IV SCH ×3 (00:55→17:35)
[2022-06-23] MEDS: inSUlin ASPART (NovoLOG) 1 UNIT/0.01 ML (CHARGE PER UNIT) SC SCH ×5 (01:06→23:38)
[2022-06-23 02:22] VITALS: BP 119/74
[2022-06-23] MEDS: RT-ALBUTEROL/IPRATROPIUM 3 ML (DUONEB) VIAL INH SCH ×6 (02:22→22:18)
[2022-06-23] MEDS: PHENYLEPHRINE DRIP 250 ML IV SCH ×2 (03:31→17:37)
[2022-06-23] MEDS: HYDROmorphone 2 MG/ML VIAL (DILAUDID) IV PRN ×4 (03:36→12:19)
[2022-06-23] MEDS: DexMEDEtomidine 250 ML DRIP 250 ML IV SCH (04:44)
[2022-06-23 05:04] LABS: ABG BASE EXCESS -0.9 MMOL/L (-2.5-2.5); ABG OXYGEN SATURATION 98 % (94-100); ABG PCO2 32 MMHG (35-45); ABG PH 7.46 (7.37-7.43); ABG PO2 88 MMHG (79-93); ABG TCO2 23.4 MMOL/L (21.0-31.0)
[2022-06-23 05:04] LABS: BASOPHILS % (AUTO) 0 % (0-10); EOSINOPHILS % (AUTO) 0 % (0-10); HEMATOCRIT 23 % (35-52); HEMOGLOBIN 7.6 g/dL (11.5-16.0); LYMPHOCYTES # (AUTO) 2.5 10^3/uL (1.0-4.0); LYMPHOCYTES % (AUTO) 5 % (12-44); MEAN CORPUSCULAR HEMOGLOBIN 30 pg (25-34); MEAN CORPUSCULAR HGB CONC 33 g/dL (32-36); MEAN CORPUSCULAR VOLUME 90 fL (80-99); MEAN PLATELET VOLUME 10.6 fL (9.0-12.2); MONOCYTES # (AUTO) 2.4 10^3/uL (0.0-1.0); MONOCYTES % (AUTO) 4 % (0-12); NEUTROPHILS % (AUTO) 88 % (42-75); PLATELET COUNT 362 10^3/uL (130-400)
[2022-06-23 05:07] LABS: ALLENS TEST YES-POS
[2022-06-23 05:08] LABS: INSPIRED O2 25%; PATIENT TEMP 37.1; VENTILATOR YES
[2022-06-23 05:09] LABS: WHITE BLOOD COUNT 54.6 10^3/uL (4.3-11.0)
[2022-06-23 05:18] LABS: ALBUMIN 2.5 GM/DL (3.2-4.5); POTASSIUM 4.2 MMOL/L (3.6-5.0)
[2022-06-23 05:19] LABS: CALCIUM 8.4 MG/DL (8.5-10.1)
[2022-06-23 05:21] LABS: TOTAL PROTEIN 5.4 GM/DL (6.4-8.2)
[2022-06-23 05:22] LABS: BILIRUBIN,TOTAL 0.2 MG/DL (0.1-1.0)
[2022-06-23 05:24] LABS: CREATININE SERUM 1.23 MG/DL (0.60-1.30); PHOSPHORUS 2.7 MG/DL (2.3-4.7)
[2022-06-23 05:27] LABS: MAGNESIUM 2.8 MG/DL (1.6-2.4)
[2022-06-23 05:34] LABS: ANISOCYTOSIS SLIGHT; BAND NEUTROPHILS 4 %; LYMPHOCYTES % (MANUAL) 5 %; MONOCYTES % (MANUAL) 7 %; NEUTROPHILS % (MANUAL) 84 %
[2022-06-23] MEDS: POTASSIUM CL 10MEQ/50ML IVPB 50 ML IV SCH (05:34)
[2022-06-23] MEDS: MAGNESIUM 1 GM/100 ML IVPB 100 ML IV SCH (05:35)
[2022-06-23] MEDS: KCL 20 MEQ TAB (K-DUR) PO SCH (05:35)
--- NOTE | 2022-06-23 06:08 | Progress Note - Hospitalist ---
Subjective HPI/CC On Admission Date Seen by Provider: Jun 23, 2022 Time Seen by Provider: 11:00 Could not obtain hx from patient bc she was intubated. History gathered from chart review. Ms. Ramírez is a 57 yo female with pmhx significant for Arnold chair malformation, autonomic dysreflexia, brain decompression surgeries, chronic generalized pain for which she takes methadone, chronic blurred vision, chronic dysphagia, and chronic numbness and dizziness who presented to the ED via EMS for AMS. Initial O2 sats in the 60s and pressure was 60/18. On arrival patient had limited verbal response. Pt significant other reports that patient is nonabulatory at baseline but is normally AOx3. He reports that patient has had increased lethargy, decreased mentation, and SOB over the last couple weeks. Pt was diagnosed with pneumonia on 06/19 at [facility] and was prescribed Augmenting and Zithromax. Sepsis protocol was initiated in ED and patient was placed on BIPAP, IV fluids, Cefepime, solumedrol. Pt also received narcan which improved patients mentation while in the ED. This morning in ICU patient seemed confused and had random nonpurposful movements of her hand. Pt became unresponsive and hypotensive in ICU. Discussed options with significant other who is POA and decision to intubate patient for short period of time was agreed upon. This was done without complications and central line was placed. Repeat labs, cxr, abg all ordered. No changes in status at this time. Subjective/Events-last exam Still on vent Labs noted Sedation maintained Boyfriend at bedside IV abx maintained Review of Systems General: Fatigue, Malaise Focused Exam Lactate Level 06/21/22 07:14: Lactic Acid Level 0.67 Time of Focused Exam: 08:00 Objective Exam Vital Signs Vital Signs Date Time Temp Pulse Resp B/P (MAP) Pulse Ox O2 Delivery O2 Flow Rate FiO2 06/23/22 15:00 86 24 95/56 (68) 97 Mechanical Ventilator 25.00 06/23/22 14:55 25 06/23/22 11:29 36.7 Capillary Refill : Less Than 3 Seconds General Appearance: No Apparent Distress, WD/WN, Chronically ill Respiratory: Lungs Clear, Normal Breath Sounds Cardiovascular: Regular Rate, Rhythm Results/Procedures Lab Laboratory Tests 06/22/22 18:25 06/23/22 04:50 Patient resulted labs reviewed. Imaging: Reviewed Imaging Report Assessment/Plan Assessment and Plan Assess & Plan/Chief Complaint Sepsis with shock UTI and PNA Acute Kidney Failure PNA - bilateral opacities on CXR UTI Acute mental status change Elevated D dimer Anemia Chronic pain syndrome Arnold chiari malformation hypokalemia ABG Received 3 L NS pressers baez for KAMALA and continue IVF CBC, CMP continue abx for UTI CT head negative, likely toxic metabolic encephalopathy empiric heparin ggt monitor anemia baclofene pump central line placed replace potassium per protocol V/Q scan shock, unresponsive Intubation while in ICU Central line placed DVT prophylaxis: heparin gtt stress ulcer prophylaxis: ppi Code status: DNI; Sig other is POA, elective intubation for short period of time is what pt would want, not usp MAYKEL BURNS DO Jun 23, 2022 06:08
[2022-06-23 07:01] VITALS: BP 121/74
[2022-06-23] MEDS: SENNOSIDES 8.6 MG (SENOKOT) TAB PO SCH ×2 (07:15→21:07)
[2022-06-23] MEDS: METHADONE 10 MG (DOLOPHINE) TAB GT SCH ×2 (07:15→17:36)
[2022-06-23] MEDS: DOCUSATE SODIUM 100 MG (COLACE) CAP PO SCH ×2 (07:25→21:17)
--- NOTE | 2022-06-23 08:38 | Tele-ICU Progress Note ---
Subjective Date Seen by a Provider: Jun 23, 2022 Subjective/Events-last exam This virtual visit was conducted using real time audio/video. Thank you for asking us to see this patient for respiratory insufficiency due to pna, sepsis. Also AMS, UTI, KAMALA. Recent events: Secretions diminished, still thick, yellow. PE: VSS. O2 sat 98% on AC22/400/25%/+5. HEENT: No obvious masses, adenopathy or JVD. Chest: coarse on auscultation. CV: RRR S1 S2 No murmur or added sounds. Abd: Non-tender. Bowel sounds Y. : Unremarkable. Morrell Y. KENNEL OPERATOR/psychiatric: Grossly intact. No obvious focal findings. Extremities: Trace edema: upper ext. . Capillary refill < 3 seconds. Skin: unremarkable. Results: Elevated WCC 54.6, BUN 40. Decreased Alb 2.5. AB.46/32/88 on 25%.. CXR: B infilts. V/Q: low prob. Available chart/ vitals / labs / images reviewed. Video assessment done using teleICU camera, rest of exam as per RN. A/P: Respiratory insufficiency: Continue present management with vent, duonebs, Prec., Prop. Monitor for increasing oxygenation needs. No SBT due to secretions, increasing WCC, pressor requirement. Critical Care: critically ill patient. Cont. abx, hep., PPI, methadone, Levophed. Discussed with KATHLEEN Guerra. Asked RN to reach out to eICU if any questions or concerns later. Time spent with patient/coordination of care with other health professionals (mins): 30 Sepsis Event Evaluation Height, Weight, BMI Height: '" Weight: lbs. oz. kg; 28.59 BMI Method: Focused Exam Lactate Level 06/21/22 07:14: Lactic Acid Level 0.67 Time of Focused Exam: 08:00 Exam Exam Patient acknowledged, consented, and participated in this virtual visit which was conducted using real time audio/video Vital Signs Date Time Temp Pulse Resp B/P (MAP) Pulse Ox O2 Delivery O2 Flow Rate FiO2 06/23/22 08:00 88 13 100/63 (74) 98 Mechanical Ventilator 25.00 06/23/22 07:59 36.7 06/23/22 07:53 100 Mechanical Ventilator 25 06/23/22 07:31 25 06/23/22 07:01 87 18 99 25 06/23/22 07:00 92 06/23/22 07:00 86 17 121/74 (89) 99 Mechanical Ventilator 25.00 06/23/22 06:00 86 18 114/70 (85) 99 Mechanical Ventilator 25.00 06/23/22 05:00 88 18 114/76 (89) 98 Mechanical Ventilator 25.00 06/23/22 04:44 89 110/66 06/23/22 04:30 37.1 06/23/22 04:00 89 20 110/66 (81) 98 Mechanical Ventilator 25.00 06/23/22 04:00 98 Mechanical Ventilator 25 06/23/22 03:40 25 06/23/22 03:00 98 20 115/73 (87) 99 Mechanical Ventilator 25.00 06/23/22 02:22 103 18 98 25 06/23/22 02:00 89 17 119/74 (89) 99 Mechanical Ventilator 25.00 06/23/22 01:00 89 18 108/64 (79) 99 Mechanical Ventilator 25.00 06/23/22 01:00 90 06/23/22 00:00 98 17 108/66 (80) 99 Mechanical Ventilator 25.00 06/23/22 00:00 36.8 06/22/22 23:59 98 Mechanical Ventilator 25 06/22/22 23:40 25 06/22/22 23:00 93 18 108/65 (79) 99 Mechanical Ventilator 25.00 06/22/22 22:28 90 98/58 06/22/22 22:26 Mechanical Ventilator 25.00 06/22/22 22:17 90 18 100 30 06/22/22 22:00 90 17 98/59 (72) 100 Mechanical Ventilator 30.00 06/22/22 21:00 92 14 104/63 (77) 100 Mechanical Ventilator 30.00 06/22/22 20:00 36.2 06/22/22 20:00 98 Mechanical Ventilator 30 06/22/22 20:00 94 17 101/62 (75) 100 Mechanical Ventilator 30.00 06/22/22 19:40 30 06/22/22 19:00 102 06/22/22 19:00 98 17 102/66 (78) 100 Mechanical Ventilator 30.00 06/22/22 18:35 96 18 100 30 06/22/22 18:00 95 18 107/66 (80) 100 Mechanical Ventilator 40.00 06/22/22 17:00 97 30 110/68 (81) 100 Mechanical Ventilator 40.00 06/22/22 16:45 77/42 06/22/22 16:20 36.3 06/22/22 16:20 146/87 06/22/22 16:16 30 06/22/22 16:13 98 Mechanical Ventilator 30 06/22/22 16:00 100 17 102/59 (74) 99 Mechanical Ventilator 40.00 06/22/22 15:35 105 121/74 06/22/22 15:34 103 124/76 06/22/22 15:00 105 18 121/74 (91) 99 Mechanical Ventilator 40.00 06/22/22 14:10 112 22 99 30 06/22/22 14:00 105 108/71 (84) 99 Mechanical Ventilator 40.00 06/22/22 13:00 104 25 117/67 (85) 99 Mechanical Ventilator 40.00 06/22/22 12:43 106 06/22/22 12:00 98 Mechanical Ventilator 30 06/22/22 12:00 36.8 06/22/22 12:00 107 18 108/67 (79) 99 Mechanical Ventilator 40.00 06/22/22 11:40 30 06/22/22 11:00 111 18 104/60 (76) 99 Mechanical Ventilator 40.00 06/22/22 10:59 110 110/62 06/22/22 10:25 109 18 99 30 06/22/22 10:00 112 17 109/67 (81) 99 Mechanical Ventilator 40.00 06/22/22 09:00 114 22 102/61 (75) 99 Mechanical Ventilator 40.00 I & O 06/23/22 07:00 Intake Total 3985 ml Output Total 1500 ml Balance 2485 ml Height & Weight Height: '" Weight: lbs. oz. kg; 28.59 BMI Method: General Appearance: No Apparent Distress, WD/WN, Other (sedated) HEENT: PERRL/EOMI Respiratory: Rhonci (coarse ronchi bilaterally sats 93% on RA), Other (tachypnea) Cardiovascular: Regular Rate, Rhythm, Tachycardia Capillary Refill: Less Than 3 Seconds Peripheral Pulses: 1+ Radial Pulses (R), 1+ Radial Pulses (L) Gastrointestinal: soft, no organomegaly Extremity: No Pedal Edema Neurologic/Psychiatric: Other (AMS) Skin: Pallor Results Lab Laboratory Tests 06/21/22 11:29 06/21/22 17:10 06/21/22 21:30 06/22/22 04:55 06/22/22 11:35 06/22/22 18:25 06/23/22 04:50 Assessment/Plan Assessment/Plan See free text. Critical Care: Ventilator Management SHADIA LERNER MD Jun 23, 2022 08:38
[2022-06-23] MEDS: AZITHROMYCIN INJECTION 250 MG in NS (IVPB) 250 ML IV SCH (09:15)
[2022-06-23] MEDS: PROPOFOL DRIP (ICU) 100 ML IV SCH ×2 (09:18→17:36)
--- NOTE | 2022-06-23 09:43 | Diagnostic Imaging Report ---
EXAMINATION: Chest 1 view HISTORY: Pneumonia COMPARISON: 06/22/2022 FINDINGS: Endotracheal tube tip terminates 3 cm above the jean. The Gastric tube tip terminates below the field of view. Right-sided airspace opacity is similar to prior exam. No pneumothorax. Left lung is clear. IMPRESSION: 1. Unchanged right-sided airspace opacity in keeping with pneumonia. Dictated by: Dictated on workstation # [id number]
[2022-06-23 10:59] VITALS: BP 115/75
[2022-06-23] MEDS: NS IV 1000 ML 1,000 ML IV SCH (12:35)
[2022-06-23 14:55] VITALS: BP 115/75
[2022-06-23] MEDS: SODIUM BICARBONATE 8.4% VIAL 150 MEQ in WATER FOR INJECTION, STERILE 1,000 ML IV SCH (17:35)
[2022-06-23 18:39] VITALS: BP 94/58
[2022-06-23 22:18] VITALS: BP 92/68
[2022-06-23] MEDS: NOREPINEPHRINE 8 MG/250 ML 250 ML IV SCH (23:05)
[2022-06-24] MEDS: PROPOFOL DRIP (ICU) 100 ML IV SCH ×4 (00:37→19:21)
[2022-06-24] MEDS: CEFEPIME INJECTION 1,000 MG in NS (IVPB) 50 ML IV SCH ×4 (00:41→20:56)
[2022-06-24] MEDS: NS IV 1000 ML 1,000 ML IV SCH ×2 (02:01→13:33)
[2022-06-24] MEDS: DexMEDEtomidine 250 ML DRIP 250 ML IV SCH ×2 (02:12→18:15)
[2022-06-24 02:58] VITALS: BP 92/68
[2022-06-24] MEDS: RT-ALBUTEROL/IPRATROPIUM 3 ML (DUONEB) VIAL INH SCH ×6 (02:58→22:17)
[2022-06-24 04:57] LABS: ABG OXYGEN SATURATION 95 % (94-100); ABG PCO2 31 MMHG (35-45); ABG PH 7.53 (7.37-7.43); ABG PO2 62 MMHG (79-93)
[2022-06-24 04:58] LABS: ALLENS TEST YES-POS; INSPIRED O2 25%; VENTILATOR YES
[2022-06-24 04:59] LABS: PATIENT TEMP 36
[2022-06-24 05:00] LABS: BASOPHILS # (AUTO) 0.1 10^3/uL (0.0-0.1); BASOPHILS % (AUTO) 0 % (0-10); EOSINOPHILS # (AUTO) 0.2 10^3/uL (0.0-0.3); EOSINOPHILS % (AUTO) 1 % (0-10); HEMATOCRIT 23 % (35-52); HEMOGLOBIN 7.3 g/dL (11.5-16.0); LYMPHOCYTES # (AUTO) 4.3 10^3/uL (1.0-4.0); LYMPHOCYTES % (AUTO) 16 % (12-44); MEAN CORPUSCULAR HEMOGLOBIN 29 pg (25-34); MEAN CORPUSCULAR HGB CONC 32 g/dL (32-36); MEAN CORPUSCULAR VOLUME 91 fL (80-99); MEAN PLATELET VOLUME 10.3 fL (9.0-12.2); MONOCYTES # (AUTO) 1.2 10^3/uL (0.0-1.0); MONOCYTES % (AUTO) 4 % (0-12); NEUTROPHILS # (AUTO) 20.5 10^3/uL (1.8-7.8); NEUTROPHILS % (AUTO) 75 % (42-75); PLATELET COUNT 319 10^3/uL (130-400); WHITE BLOOD COUNT 27.5 10^3/uL (4.3-11.0)
[2022-06-24 05:17] LABS: ALBUMIN 2.3 GM/DL (3.2-4.5)
[2022-06-24 05:20] LABS: TOTAL PROTEIN 4.8 GM/DL (6.4-8.2)
[2022-06-24 05:22] LABS: BILIRUBIN,TOTAL 0.1 MG/DL (0.1-1.0)
[2022-06-24 05:23] LABS: PHOSPHORUS 1.9 MG/DL (2.3-4.7)
[2022-06-24 05:24] LABS: CREATININE SERUM 0.97 MG/DL (0.60-1.30)
[2022-06-24 05:26] LABS: MAGNESIUM 2.2 MG/DL (1.6-2.4)
[2022-06-24] MEDS: POTASSIUM CL 10MEQ/50ML IVPB 50 ML IV SCH (05:32)
[2022-06-24] MEDS: MAGNESIUM 1 GM/100 ML IVPB 100 ML IV SCH (05:32)
[2022-06-24] MEDS: KCL 20 MEQ TAB (K-DUR) PO SCH (05:32)
[2022-06-24] MEDS: PHENYLEPHRINE DRIP 250 ML IV SCH ×2 (06:20→20:10)
[2022-06-24] MEDS: inSUlin ASPART (NovoLOG) 1 UNIT/0.01 ML (CHARGE PER UNIT) SC SCH ×3 (06:20→18:02)
--- NOTE | 2022-06-24 06:33 | Progress Note - Hospitalist ---
Subjective HPI/CC On Admission Date Seen by Provider: Jun 24, 2022 Time Seen by Provider: 11:00 Could not obtain hx from patient bc she was intubated. History gathered from chart review. Ms. Ramírez is a 57 yo female with pmhx significant for Arnold chair malformation, autonomic dysreflexia, brain decompression surgeries, chronic generalized pain for which she takes methadone, chronic blurred vision, chronic dysphagia, and chronic numbness and dizziness who presented to the ED via EMS for AMS. Initial O2 sats in the 60s and pressure was 60/18. On arrival patient had limited verbal response. Pt significant other reports that patient is nonabulatory at baseline but is normally AOx3. He reports that patient has had increased lethargy, decreased mentation, and SOB over the last couple weeks. Pt was diagnosed with pneumonia on 06/19 at [facility] and was prescribed Augmenting and Zithromax. Sepsis protocol was initiated in ED and patient was placed on BIPAP, IV fluids, Cefepime, solumedrol. Pt also received narcan which improved patients mentation while in the ED. This morning in ICU patient seemed confused and had random nonpurposful movements of her hand. Pt became unresponsive and hypotensive in ICU. Discussed options with significant other who is POA and decision to intubate patient for short period of time was agreed upon. This was done without complications and central line was placed. Repeat labs, cxr, abg all ordered. No changes in status at this time. Subjective/Events-last exam No major changes Wbc improved CXR noted SBT later today Boyfriend at bedside Focused Exam Lactate Level Time of Focused Exam: 08:00 Objective Exam Vital Signs Vital Signs Date Time Temp Pulse Resp B/P (MAP) Pulse Ox O2 Delivery O2 Flow Rate FiO2 06/24/22 13:00 77 06/24/22 13:00 16 110/63 (79) 99 Mechanical Ventilator 35.00 06/24/22 12:00 36.7 06/24/22 12:00 35 Capillary Refill : Less Than 3 Seconds General Appearance: No Apparent Distress, WD/WN, Chronically ill, Other (sedated) Respiratory: Crackles, Rales Cardiovascular: Regular Rate, Rhythm Results/Procedures Lab Laboratory Tests 06/24/22 04:45 Patient resulted labs reviewed. Imaging: Reviewed Imaging Report Assessment/Plan Assessment and Plan Assess & Plan/Chief Complaint Sepsis with shock UTI and PNA Acute Kidney Failure PNA - bilateral opacities on CXR UTI Acute mental status change Elevated D dimer low prob of PE on VQ scan Anemia Chronic pain syndrome Arnold chiari malformation hypokalemia ABG Received 3 L NS pressers baez for KAMALA and continue IVF CBC, CMP continue abx for UTI CT head negative, likely toxic metabolic encephalopathy empiric heparin ggt monitor anemia baclofene pump central line placed replace potassium per protocol shock, unresponsive Intubation while in ICU Central line placed DVT prophylaxis: heparin gtt stress ulcer prophylaxis: ppi Code status: DNI; Sig other is POA, elective intubation for short period of time is what pt would want, 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
[2022-06-24 07:03] VITALS: BP 105/64
[2022-06-24] MEDS: METHADONE 10 MG (DOLOPHINE) TAB GT SCH ×2 (08:06→17:15)
[2022-06-24] MEDS: PANTOPRAZOLE 40 MG (PROTONIX) VIAL IV SCH (08:06)
[2022-06-24] MEDS: DOCUSATE SODIUM 100 MG (COLACE) CAP PO SCH ×2 (08:07→20:56)
[2022-06-24] MEDS: SENNOSIDES 8.6 MG (SENOKOT) TAB PO SCH ×2 (08:07→20:56)
[2022-06-24] MEDS: AZITHROMYCIN INJECTION 250 MG in NS (IVPB) 250 ML IV SCH (08:28)
--- NOTE | 2022-06-24 08:49 | Tele-ICU Progress Note ---
Subjective Date Seen by a Provider: Jun 24, 2022 Subjective/Events-last exam This virtual visit was conducted using real time audio/video. Thank you for asking us to see this patient for respiratory insufficiency due to pna, sepsis. Also AMS, UTI, KAMALA. Recent events: Secretions diminished, still thick, yellow. FiO2 35% PE: VSS. O2 sat 98% on AC22/400/35%/+5. HEENT: No obvious masses, adenopathy or JVD. Chest: coarse on auscultation. CV: RRR S1 S2 No murmur or added sounds. Abd: Non-tender. Bowel sounds Y. : Unremarkable. Morrell Y. SWEATBAND FLANGER/psychiatric: Grossly intact. No obvious focal findings. Extremities: Trace edema: upper ext. . Capillary refill < 3 seconds. Skin: unremarkable. Results: Elevated WCC 27.5, decreased, BUN 35, decreased. Decreased Alb 2.3. AB.53/31/62 on 25%. CXR: B infilts., improved. V/Q: low prob. Available chart/ vitals / labs / images reviewed. Video assessment done using teleICU camera, rest of exam as per RN. A/P: Respiratory insufficiency: Continue present management with vent, duonebs, Prec., Prop. Monitor for increasing oxygenation needs. Attempt SBT later this AM. Set rate reduced in order to decrease minute ventilation due to resp. alkalosis Critical Care: critically ill patient. Cont. abx, hep., PPI, methadone. Levophed D/Cd. Bicarb D/Cd due to alkalosis. Discussed with RN Isabella. Asked RN to reach out to eICU if any questions or concerns later. Time spent with patient/coordination of care with other health professionals (mins): 25 Sepsis Event Evaluation Height, Weight, BMI Height: '" Weight: lbs. oz. kg; 28.59 BMI Method: Focused Exam Time of Focused Exam: 08:00 Exam Exam Patient acknowledged, consented, and participated in this virtual visit which was conducted using real time audio/video Vital Signs Date Time Temp Pulse Resp B/P (MAP) Pulse Ox O2 Delivery O2 Flow Rate FiO2 06/24/22 08:00 80 17 122/72 (88) 99 Mechanical Ventilator 35.00 06/24/22 07:40 35 06/24/22 07:03 71 18 99 35 06/24/22 07:00 71 17 105/64 (77) 99 Mechanical Ventilator 35.00 06/24/22 07:00 71 06/24/22 06:00 77 18 127/87 (100) 99 Mechanical Ventilator 25.00 06/24/22 06:00 79 18 127/87 (100) 100 35.00 06/24/22 05:00 77 18 115/76 (89) 97 06/24/22 04:00 Mechanical Ventilator 25 06/24/22 04:00 36.0 78 18 106/64 (78) 97 Mechanical Ventilator 25.00 06/24/22 04:00 25 06/24/22 03:00 84 19 102/73 (82) 98 06/24/22 02:58 81 18 97 25 06/24/22 02:00 81 18 112/74 (88) 97 06/24/22 01:00 78 18 102/60 (72) 97 06/24/22 01:00 77 06/24/22 00:00 36.8 78 18 108/70 (82) 97 Mechanical Ventilator 25.00 06/23/22 23:52 Mechanical Ventilator 25 06/23/22 23:50 25 06/23/22 23:00 80 18 98/58 (71) 97 06/23/22 22:18 81 18 97 25 06/23/22 22:00 90 18 92/68 (77) 97 25.00 06/23/22 21:00 89 18 98/64 (75) 98 06/23/22 20:15 82 18 103/68 (77) 96 Mechanical Ventilator 25.00 06/23/22 20:00 Mechanical Ventilator 25 06/23/22 20:00 36.8 75 18 96/60 (72) 98 25.00 06/23/22 19:30 25 06/23/22 19:00 82 27 97/60 (72) 97 Mechanical Ventilator 25.00 06/23/22 19:00 92 06/23/22 18:39 88 18 99 25 06/23/22 18:00 82 17 105/63 (77) 98 Mechanical Ventilator 25.00 06/23/22 17:00 81 17 88/53 (65) 98 Mechanical Ventilator 25.00 06/23/22 16:00 25 06/23/22 16:00 97 Mechanical Ventilator 25 06/23/22 16:00 89 27 97/61 (72) 96 Mechanical Ventilator 25.00 06/23/22 15:00 86 24 95/56 (68) 97 Mechanical Ventilator 25.00 06/23/22 14:55 82 18 99 25 06/23/22 14:30 115/75 06/23/22 14:00 85 17 107/64 (78) 98 Mechanical Ventilator 25.00 06/23/22 13:18 81 111/68 06/23/22 13:00 81 17 111/68 (83) 98 Mechanical Ventilator 25.00 06/23/22 12:47 83 06/23/22 12:30 112/71 06/23/22 12:00 85 18 104/66 (79) 98 Mechanical Ventilator 25.00 06/23/22 11:45 97 Mechanical Ventilator 25 06/23/22 11:45 25 06/23/22 11:29 36.7 06/23/22 11:00 80 11 128/80 (97) 99 Mechanical Ventilator 25.00 06/23/22 10:59 81 18 99 25 06/23/22 10:30 115/75 06/23/22 10:00 89 110/69 (82) 99 Mechanical Ventilator 25.00 06/23/22 09:00 87 56 107/64 (80) 98 Mechanical Ventilator 25.00 I & O 06/24/22 07:00 Intake Total 6140 ml Output Total 1850 ml Balance 4290 ml Height & Weight Height: '" Weight: lbs. oz. kg; 28.59 BMI Method: General Appearance: Mild Distress (VERY LETHARGIC, SEMI-ALERT. ) HEENT: PERRL/EOMI Respiratory: Other (DECREASED AERATION IN ALL LUNG PIMENTEL, BUT NO WHEEZING/RALES/RHONCHI. HAS FAIR RESPIRATORY EFFORT AT THIS TIME. ) Cardiovascular: Regular Rate, Rhythm Capillary Refill: Less Than 3 Seconds Peripheral Pulses: 1+ Radial Pulses (R), 1+ Radial Pulses (L) Gastrointestinal: soft, no organomegaly Extremity: No Pedal Edema Neurologic/Psychiatric: Other (MENTATION NOTED ABOVE. PT OPENS EYES TO VOICE AND TACTILE STIMULI, SHE VERBALIZED A FEW WORDS ON ARRIVAL. SHE IS NOT ABLE TO ANSWER ANY QUESTIONS, OR FOLLOW COMMANDS. SHE HAS RANDOM NON-PURPOSEFUL MOVE MENTS OF HANDS) Skin: Pallor, Other (SOME MOTTLING TO LEFT HAND AND FOOT. ) Results Lab Laboratory Tests 06/22/22 11:35 06/22/22 18:25 06/23/22 04:50 06/24/22 04:45 Assessment/Plan Assessment/Plan See free text. Critical Care: Ventilator Management SHADIA LERNER MD Jun 24, 2022 08:49
--- NOTE | 2022-06-24 10:06 | Diagnostic Imaging Report ---
INDICATION: Pneumonia Single AP view of chest is obtained with comparison made to study of one day earlier. There is persistent airspace disease in the right perihilar and midlung regions. There is mild left perihilar atelectasis. No pneumothorax is seen. Support tubes remain in stable position. IMPRESSION: Continued infiltrate in the right lung is compatible with pneumonia. There is no evidence of significant adverse change. Dictated by: Dictated on workstation # [id number]
[2022-06-24 10:51] VITALS: BP 107/61
[2022-06-24 14:17] VITALS: BP 127/77
[2022-06-24] MEDS: NOREPINEPHRINE 8 MG/250 ML 250 ML IV SCH (18:35)
[2022-06-24 18:36] VITALS: BP 111/62
[2022-06-24 22:17] VITALS: BP 116/68
[2022-06-25] MEDS: NS IV 1000 ML 1,000 ML IV SCH (00:29)
[2022-06-25] MEDS: inSUlin ASPART (NovoLOG) 1 UNIT/0.01 ML (CHARGE PER UNIT) SC SCH ×5 (00:34→23:58)
[2022-06-25] MEDS: CEFEPIME INJECTION 1,000 MG in NS (IVPB) 50 ML IV SCH ×4 (01:08→20:14)
[2022-06-25] MEDS: RT-ALBUTEROL/IPRATROPIUM 3 ML (DUONEB) VIAL INH SCH ×6 (01:53→21:59)
[2022-06-25 01:55] VITALS: BP 121/68
[2022-06-25] MEDS: PROPOFOL DRIP (ICU) 100 ML IV SCH ×2 (02:10→07:30)
[2022-06-25 04:11] LABS: ABG BASE EXCESS 0.4 MMOL/L (-2.5-2.5); ABG OXYGEN SATURATION 97 % (94-100); ABG PCO2 39 MMHG (35-45); ABG PH 7.41 (7.37-7.43); ABG PO2 77 MMHG (79-93); ABG TCO2 25.7 MMOL/L (21.0-31.0)
[2022-06-25 04:12] LABS: ALLENS TEST YES-POS; INSPIRED O2 25%; PATIENT TEMP 37; VENTILATOR YES
[2022-06-25 04:13] LABS: BASOPHILS # (AUTO) 0.1 10^3/uL (0.0-0.1); BASOPHILS % (AUTO) 0 % (0-10); EOSINOPHILS # (AUTO) 0.5 10^3/uL (0.0-0.3); EOSINOPHILS % (AUTO) 2 % (0-10); HEMATOCRIT 25 % (35-52); HEMOGLOBIN 7.8 g/dL (11.5-16.0); LYMPHOCYTES # (AUTO) 3.5 10^3/uL (1.0-4.0); LYMPHOCYTES % (AUTO) 15 % (12-44); MEAN CORPUSCULAR HEMOGLOBIN 29 pg (25-34); MEAN CORPUSCULAR HGB CONC 31 g/dL (32-36); MEAN CORPUSCULAR VOLUME 94 fL (80-99); MEAN PLATELET VOLUME 10.1 fL (9.0-12.2); MONOCYTES # (AUTO) 0.9 10^3/uL (0.0-1.0); MONOCYTES % (AUTO) 4 % (0-12); NEUTROPHILS # (AUTO) 16.1 10^3/uL (1.8-7.8); NEUTROPHILS % (AUTO) 68 % (42-75); PLATELET COUNT 335 10^3/uL (130-400); WHITE BLOOD COUNT 23.6 10^3/uL (4.3-11.0)
[2022-06-25 04:19] LABS: ALBUMIN 2.3 GM/DL (3.2-4.5); POTASSIUM 4.2 MMOL/L (3.6-5.0)
[2022-06-25 04:20] LABS: CALCIUM 8.1 MG/DL (8.5-10.1)
[2022-06-25 04:21] LABS: TOTAL PROTEIN 4.8 GM/DL (6.4-8.2)
[2022-06-25 04:23] LABS: BILIRUBIN,TOTAL 0.1 MG/DL (0.1-1.0)
[2022-06-25 04:25] LABS: CREATININE SERUM 0.84 MG/DL (0.60-1.30); PHOSPHORUS 2.9 MG/DL (2.3-4.7)
[2022-06-25 04:28] LABS: MAGNESIUM 1.9 MG/DL (1.6-2.4)
[2022-06-25] MEDS: KCL 20 MEQ TAB (K-DUR) PO SCH (05:11)
[2022-06-25] MEDS: POTASSIUM CL 10MEQ/50ML IVPB 50 ML IV SCH (05:11)
[2022-06-25] MEDS: MAGNESIUM 1 GM/100 ML IVPB 100 ML IV SCH ×3 (05:11→07:25)
[2022-06-25 06:55] VITALS: BP 123/70
[2022-06-25] MEDS: DexMEDEtomidine 250 ML DRIP 250 ML IV SCH (07:31)
[2022-06-25] MEDS: PANTOPRAZOLE 40 MG (PROTONIX) VIAL IV SCH (08:12)
[2022-06-25] MEDS: METHADONE 10 MG (DOLOPHINE) TAB GT SCH ×2 (08:13→17:13)
[2022-06-25] MEDS: PHENYLEPHRINE DRIP 250 ML IV SCH ×2 (08:13→22:43)
[2022-06-25] MEDS: DOCUSATE SODIUM 100 MG (COLACE) CAP PO SCH ×2 (08:13→20:24)
[2022-06-25] MEDS: SENNOSIDES 8.6 MG (SENOKOT) TAB PO SCH ×2 (08:13→20:24)
--- NOTE | 2022-06-25 08:58 | Tele-ICU Progress Note ---
Subjective Date Seen by a Provider: Jun 25, 2022 Time Seen by a Provider: 08:57 Subjective/Events-last exam (Tele-ICU Physician , Progress Note ) Service provided via interactive audio and video telecommunications E-CARE system to a patient admitted to ICU bed in [facility]. Patient is seen today due to persistent need of ICU care Available chart/ vitals / labs / Images reviewed Video assessment done using teleICU camera, rest of exam as per RN Discussed with RN Events overnight : Afebrile hemodynamically stable Respiratory - 30 I/O = pos Drips: NS 80 Pressors- OFF 06/23 VENT SETTINGS and ABG reviewed CANDIDATE for SBTreviewed possible contraindications including Car diovascular Stability /Sedation Score / FI02/PEEP / ABG / CXR/ secretions Sedation, discussed with RN, RASS -1. on propofol 40 precedex 1 Hospital course: 06/21 - AMS, PNA , UTI , sepsis , KAMALA - INTUBATED in ICU 06/22 - AC 22 450 +5 30% ,, norepi 0.08 , prop 20 , bicarb gtt 06/24 - SBT - low TV , off pressors 06/25 - A/P Acute resp failure - intubated 06/21 inICU ( unresponsive , shock , minimal O2 needs prior to intubation ) - AC 22 450 +5 30% - to decr rr to 18 - thick secretions in ETT -06/24 - SBT - low TV 06/25 - nl ABG , on 25 % CANDIDATE for SBT today Sepsis / with shock with UTI and PNA RESOLVED < OFF presors 06/23 Acute kidney failure - RESOLVED PNA - bilat opaities on cxr - was tx with z max as outp 06/19---> -will finish atypical coverage , and add HAP overage ( h/o PNA 04/28/20-with EMPYEMA , s/p chest tube and VATS ) UTI -abx Acute mental status change - CT H negative - most likely TME ( was given narcan in Er , followed by morphine - will decreease sedation for reassessment , as per RN - on propofol and pre cedex seems neurologiucaly intackt Elev ddimer - was presented with hypoxia , - VQ 06/22- low prob ( matching defect ) - heparin gtt stopped Anemia - hb 7.9 - no acute bleeding , monitor Elv TGL on propofol - try to wean off Chronic pain syndrome -resumed home po methadone , and baclofene pump SYRINGOMYELIA, SYRINGOBULBIA,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 on 06/21 discussed dx a, prognosis, tx , plans with elias's boyfriend of 20 years ( surrogate POA) - she would like to be intubated for short period of time ( not prolonged vent support ) , no cardioversion /resuscitation Lines : R fem 06/21 , (Central Line Necessity Reviewed) Morrell: 06/21 OG: Nutrition: TF 06/21 - tolerates well Anxiety/ delirium VTE Prophylaxis:hep Stress Ulcer Prophylaxis: ppi Plans in collaboration with bedside consultants and IM MDs. Discussed with RN to reach out if any questions or concerns A total of 32 minutes of critical care time was devoted to this patient today, required to treat and/or prevent further deterioration of critical care condition ( as above ) . I am remotely monitoring this patient from another state. I am unable to do the bedside exam, and history/physical and pertinent information is taken from other notes in the computer and bedside staff. . Sepsis Event Evaluation Height, Weight, BMI Height: '" Weight: lbs. oz. kg; 28.59 BMI Method: Focused Exam Time of Focused Exam: 08:00 Exam Exam Patient acknowledged, consented, and participated in this virtual visit which was conducted using real time audio/video Vital Signs Date Time Temp Pulse Resp B/P (MAP) Pulse Ox O2 Delivery O2 Flow Rate FiO2 06/25/22 08:50 69 100/48 06/25/22 07:37 36.8 06/25/22 07:36 25 06/25/22 07:31 71 116/61 06/25/22 07:30 71 116/61 06/25/22 07:14 71 15 116/61 (79) 98 Mechanical Ventilator 25.00 06/25/22 07:12 70 06/25/22 06:55 71 16 98 25 06/25/22 06:10 67 109/62 06/25/22 06:00 67 15 109/62 (78) 97 Mechanical Ventilator 25.00 06/25/22 05:00 69 16 114/62 (79) 97 Mechanical Ventilator 25.00 06/25/22 04:00 85 15 110/54 (72) 94 Mechanical Ventilator 25.00 06/25/22 04:00 Mechanical Ventilator 25 06/25/22 03:40 25 06/25/22 03:00 76 16 101/48 (65) 99 Mechanical Ventilator 25.00 06/25/22 02:10 87 121/68 06/25/22 02:00 82 15 133/81 (98) 99 Mechanical Ventilator 25.00 06/25/22 01:55 87 16 98 25 06/25/22 01:00 76 15 121/82 (95) 99 Mechanical Ventilator 25.00 06/25/22 01:00 80 06/25/22 00:00 77 32 126/70 (88) 98 Mechanical Ventilator 25.00 06/24/22 23:59 Mechanical Ventilator 25 06/24/22 23:40 25 06/24/22 23:21 67 116/68 06/24/22 23:00 74 16 119/74 (89) 97 Mechanical Ventilator 25.00 06/24/22 22:17 67 16 98 35 06/24/22 22:15 67 116/68 06/24/22 22:00 71 21 116/68 (84) 97 Mechanical Ventilator 25.00 06/24/22 21:03 Mechanical Ventilator 25.00 06/24/22 21:00 72 15 112/66 (81) 98 Mechanical Ventilator 30.00 06/24/22 20:10 Mechanical Ventilator 30.00 06/24/22 20:00 78 26 100/73 (82) 98 Mechanical Ventilator 35.00 06/24/22 20:00 Mechanical Ventilator 30 06/24/22 19:42 37.1 06/24/22 19:40 30 06/24/22 19:21 68 111/62 06/24/22 19:00 80 06/24/22 19:00 82 27 97/60 (72) 97 Mechanical Ventilator 35.00 06/24/22 18:36 68 16 99 35 06/24/22 18:35 76 112/68 06/24/22 18:15 76 112/68 06/24/22 18:00 82 15 123/67 (85) 100 Mechanical Ventilator 35.00 06/24/22 17:00 76 18 112/68 (83) 100 Mechanical Ventilator 35.00 06/24/22 16:02 95 16 124/72 (89) 100 Mechanical Ventilator 35.00 06/24/22 16:00 Mechanical Ventilator 35 06/24/22 16:00 36.7 06/24/22 15:40 35 06/24/22 15:22 80 127/77 06/24/22 15:00 75 16 121/71 (88) 98 Mechanical Ventilator 35.00 06/24/22 14:17 80 16 99 35 06/24/22 14:00 101 19 104/56 (72) 100 Mechanical Ventilator 35.00 06/24/22 13:00 77 06/24/22 13:00 77 16 110/63 (79) 99 Mechanical Ventilator 35.00 06/24/22 12:00 36.7 06/24/22 12:00 Mechanical Ventilator 35 06/24/22 12:00 77 22 112/76 (88) 99 Mechanical Ventilator 35.00 06/24/22 11:40 35 06/24/22 11:14 74 109/60 06/24/22 11:00 74 16 109/60 (82) 99 Mechanical Ventilator 35.00 06/24/22 10:51 71 16 99 35 06/24/22 10:30 73 108/55 06/24/22 10:00 73 16 108/55 (76) 100 Mechanical Ventilator 35.00 06/24/22 09:00 82 18 108/65 (78) 100 Mechanical Ventilator 35.00 I & O 06/25/22 07:00 Intake Total 3280 ml Output Total 1525 ml Balance 1755 ml Height & Weight Height: '" Weight: lbs. oz. kg; 28.59 BMI Method: General Appearance: No Apparent Distress, WD/WN, Chronically ill, Other (sedated) HEENT: PERRL/EOMI Respiratory: Crackles, Rales Cardiovascular: Regular Rate, Rhythm Capillary Refill: Less Than 3 Seconds Peripheral Pulses: 1+ Radial Pulses (R), 1+ Radial Pulses (L) Gastrointestinal: soft, no organomegaly Extremity: No Pedal Edema Neurologic/Psychiatric: Other (MENTATION NOTED ABOVE. PT OPENS EYES TO VOICE AND TACTILE STIMULI, SHE VERBALIZED A FEW WORDS ON ARRIVAL. SHE IS NOT ABLE TO ANSWER ANY QUESTIONS, OR FOLLOW COMMANDS. SHE HAS RANDOM NON-PURPOSEFUL MOVEMENTS OF HANDS) Skin: Pallor, Other (SOME MOTTLING TO LEFT HAND AND FOOT. ) Results Lab Laboratory Tests 06/24/22 04:45 06/25/22 04:00 Assessment/Plan Assessment/Plan 1 VINCENT VALLES MD Jun 25, 2022 08:58
--- NOTE | 2022-06-25 10:00 | Progress Note ---
Subjective Subjective/Events-last exam Pt sitting up in bed, ventilator in place but alert and nodding/shaking head and able to write enough to express that she wants to know when ventilator will be removed. Denies pain. Focused Exam Time of Focused Exam: 08:00 Objective Exam Last Set of Vital Signs Vital Signs Date Time Temp Pulse Resp B/P (MAP) Pulse Ox O2 Delivery O2 Flow Rate FiO2 06/25/22 09:34 105 144/86 06/25/22 09:00 15 97 Mechanical Ventilator 25.00 06/25/22 08:00 25 06/25/22 07:37 36.8 Capillary Refill : Less Than 3 Seconds I&O Intake and Output 06/25/22 00:00 Intake Total 4530 ml Output Total 1975 ml Balance 2555 ml Intake Oral 0 ml IV Total 3450 ml Tube Feeding 480 ml Enteral Flush 400 ml Other 200 ml Output Urine Total 1975 ml General: Alert, No Acute Distress Lungs: Clear to Auscultation Heart: Regular Rate Abdomen: Normal Bowel Sounds, Soft Psych/Mental Status: Mood NL Results/Procedures Lab Laboratory Tests 06/24/22 11:57: Glucometer 109 06/24/22 17:24: Glucometer 100 06/25/22 00:33: Glucometer 120H 06/25/22 04:00: White Blood Count 23.6H, Red Blood Count 2.66L, Hemoglobin 7.8L, Hematocrit 25L, Mean Corpuscular Volume 94, Mean Corpuscular Hemoglobin 29, Mean Corpuscular Hemoglobin Concent 31L, Red Cell Distribution Width 15.0H, Platelet Count 335, Mean Platelet Volume 10.1, Immature Granulocyte % (Auto) 11, Neutrophils (%) (Auto) 68, Lymphocytes (%) (Auto) 15, Monocytes (%) (Auto) 4, Eosinophils (%) (Auto) 2, Basophils (%) (Auto) 0, Neutrophils # (Auto) 16.1H, Lymphocytes # (Auto) 3.5, Monocytes # (Auto) 0.9, Eosinophils # (Auto) 0.5H, Basophils # (Auto) 0.1, Immature Granulocyte # (Auto) 2.6H, Sodium Level 143, Potassium Level 4.2, Chloride Level 113H, Carbon Dioxide Level 21, Anion Gap 9, Blood Urea Nitrogen 29H, Creatinine 0.84, Estimat Glomerular Filtration Rate 82, BUN/Creatinine Ratio 35, Glucose Level 109H, Calcium Level 8.1L, Corrected Calcium 9.5, Phosphorus Level 2.9, Magnesium Level 1.9, Total Bilirubin 0.1, Aspartate Amino Transf (AST/SGOT) 24, Alanine Aminotransferase (ALT/SGPT) 16, Alkaline Phosphatase 119, Total Protein 4.8L, Albumin 2.3L, Triglycerides Level 205H 06/25/22 04:06: Blood Gas Puncture Site RIGHT RADIAL, Blood Gas Patient Temperature 37, Arterial Blood pH 7.41, Arterial Blood Partial Pressure CO2 39, Arterial Blood Partial Pressure O2 77L, Arterial Blood HCO3 25, Arterial Blood Total CO2 25.7, Arterial Blood Oxygen Saturation 97, Arterial Blood Base Excess 0.4, Ray Test YES-POS, Blood Gas Ventilator Setting YES, Blood Gas Inspired Oxygen 25% Microbiology 06/21/22 Gram Stain - Final, Resulted 06/21/22 Sputum Culture - Preliminary, Resulted Staphylococcus aureus Strep Species, Beta Hemolytic NOTE: 06/21/22 Urine Culture - Final, Complete NO GROWTH 06/21/22 Blood Culture - Preliminary, Resulted No growth Assessment/Plan Assessment/Plan (1) Pneumonia Status: Acute Assessment & Plan: Diffuse findings on initial CXR, persistent in right middle lobe. On cefepime. (2) Sepsis with acute hypoxic respiratory failure Status: Acute Assessment & Plan: Requiring intubation in ER. Anticipating extubation today. Qualifiers: (3) Septic shock Status: Resolved Assessment & Plan: Secondary to pneumonia. Shock resolved. (4) Acute renal failure Status: Resolved Assessment & Plan: Suspect secondary to septic shock. Qualifiers: Qualified Codes: N17.1 - Acute kidney failure with acute cortical necrosis (5) Metabolic acidosis Status: Resolved Assessment & Plan: Secondary to acute renal insufficiency. (6) Depression Status: Chronic (7) Chronic pain Status: Chronic Assessment & Plan: Home meds resumed. (8) Elevated d-dimer Status: Acute Assessment & Plan: V/Q scan low probability for PE. (9) Urinary tract infection Status: Resolved Assessment & Plan: Initially suspected, but micro with no growth (10) DVT prophylaxis Status: Acute Assessment & Plan: Enoxaparin EDUARDA DOLAN MD Jun 25, 2022 10:00
[2022-06-25 10:12] VITALS: BP 153/89
--- NOTE | 2022-06-25 12:54 | Diagnostic Imaging Report ---
INDICATION: Intubation, though indicate COMPARISON: 06/24/2022 TECHNIQUE: Single radiograph of the chest dated 06/25/2022. FINDINGS: Endotracheal tube and enteric catheter are stable. The cardiac silhouette is unchanged. Focal opacities within the right midlung have slightly improved since the prior examination. However, developing left basilar opacities are present. Trace left pleural effusion. No significant right pleural effusion. No pneumothorax. Osseous structures appear unchanged. IMPRESSION: Developing left basilar infiltrate versus atelectasis with associated trace left pleural effusion. Improving though persistent infiltrate within the right midlung. Unchanged lines and tubes. Dictated by: Dictated on workstation # [id number]
[2022-06-25] MEDS: NOREPINEPHRINE 8 MG/250 ML 250 ML IV SCH (13:51)
[2022-06-25 14:26] VITALS: BP 121/72
[2022-06-25] MEDS: ENOXAPARIN 40 MG/0.4 ML (LOVENOX) SYR SC SCH (16:21)
[2022-06-25] MEDS ORDERED: DEXTROSE 50% 50 ML (IMS) SYR IV ONE (23:45)
[2022-06-25] MEDS ORDERED: DEXTROSE 50% 50 ML (IMS) SYR ONE (23:56)
[2022-06-26] MEDS: RT-ALBUTEROL/IPRATROPIUM 3 ML (DUONEB) VIAL INH SCH ×5 (02:13→19:43)
[2022-06-26] MEDS: CEFEPIME INJECTION 1,000 MG in NS (IVPB) 50 ML IV SCH ×4 (02:15→20:48)
[2022-06-26] MEDS: ONDANSETRON 4 MG/2 ML (SDV) Z0FRAN IV PRN ×2 (04:20→11:44)
[2022-06-26 04:27] LABS: BASOPHILS % (AUTO) 0 % (0-10); EOSINOPHILS # (AUTO) 0.9 10^3/uL (0.0-0.3); EOSINOPHILS % (AUTO) 2 % (0-10); HEMATOCRIT 31 % (35-52); HEMOGLOBIN 9.5 g/dL (11.5-16.0); LYMPHOCYTES # (AUTO) 3.1 10^3/uL (1.0-4.0); LYMPHOCYTES % (AUTO) 8 % (12-44); MEAN CORPUSCULAR HEMOGLOBIN 29 pg (25-34); MEAN CORPUSCULAR HGB CONC 31 g/dL (32-36); MEAN CORPUSCULAR VOLUME 94 fL (80-99); MONOCYTES # (AUTO) 1.3 10^3/uL (0.0-1.0); MONOCYTES % (AUTO) 3 % (0-12); NEUTROPHILS # (AUTO) 28.8 10^3/uL (1.8-7.8); NEUTROPHILS % (AUTO) 73 % (42-75); PLATELET COUNT 419 10^3/uL (130-400)
[2022-06-26 04:29] LABS: WHITE BLOOD COUNT 39.4 10^3/uL (4.3-11.0)
[2022-06-26 04:38] LABS: ALBUMIN 2.7 GM/DL (3.2-4.5); POTASSIUM 3.9 MMOL/L (3.6-5.0)
[2022-06-26 04:39] LABS: CALCIUM 8.8 MG/DL (8.5-10.1)
[2022-06-26 04:40] LABS: TOTAL PROTEIN 5.4 GM/DL (6.4-8.2)
[2022-06-26] MEDS: inSUlin ASPART (NovoLOG) 1 UNIT/0.01 ML (CHARGE PER UNIT) SC SCH ×2 (04:41→12:06)
[2022-06-26 04:42] LABS: BILIRUBIN,TOTAL 0.2 MG/DL (0.1-1.0)
[2022-06-26 04:44] LABS: CREATININE SERUM 0.77 MG/DL (0.60-1.30); PHOSPHORUS 3.6 MG/DL (2.3-4.7)
[2022-06-26 04:47] LABS: MAGNESIUM 1.9 MG/DL (1.6-2.4)
[2022-06-26 05:03] LABS: BAND NEUTROPHILS 2 %; EOSINOPHILS % (MANUAL) 5 %; HYPOCHROMASIA SLIGHT; LYMPHOCYTES % (MANUAL) 8 %; METAMYELOCYTES % 2 %; MICROCYTOSIS SLIGHT; MONOCYTES % (MANUAL) 2 %; NEUTROPHILS % (MANUAL) 81 %
[2022-06-26] MEDS: POTASSIUM CL 10MEQ/50ML IVPB 50 ML IV SCH ×3 (05:34→08:35)
[2022-06-26] MEDS: KCL 20 MEQ TAB (K-DUR) PO SCH (05:35)
[2022-06-26] MEDS: MAGNESIUM 1 GM/100 ML IVPB 100 ML IV SCH ×3 (05:35→08:35)
--- NOTE | 2022-06-26 07:27 | Diagnostic Imaging Report ---
INDICATION: Respiratory distress Frontal chest obtained at 4:21 a.m. and compared with yesterday. Heart is normal in size. There is central vascular congestion with diffuse interstitial infiltrate and left basilar alveolar infiltrate. Patient has been extubated compared to the prior study. There is no pneumothorax. IMPRESSION: Unchanged central vascular congestion with interstitial edema versus infiltrate and left basilar alveolar infiltrate. No pneumothorax. Status post extubation. Dictated by: Dictated on workstation # [id number]
[2022-06-26] MEDS: DOCUSATE SODIUM 100 MG (COLACE) CAP PO SCH ×2 (08:36→19:34)
[2022-06-26] MEDS: METHADONE 10 MG (DOLOPHINE) TAB GT SCH ×2 (08:36→17:22)
[2022-06-26] MEDS: PANTOPRAZOLE 40 MG (PROTONIX) VIAL IV SCH (08:36)
[2022-06-26] MEDS: SENNOSIDES 8.6 MG (SENOKOT) TAB PO SCH ×2 (08:36→19:35)
[2022-06-26] MEDS: NOREPINEPHRINE 8 MG/250 ML 250 ML IV SCH (09:01)
--- NOTE | 2022-06-26 09:30 | Progress Note ---
Subjective Subjective/Events-last exam Pt alert and sitting up in bed, states she is feeling better than yesterday, but weak. She would like to change her code status to full code. Focused Exam Time of Focused Exam: 08:00 Objective Exam Last Set of Vital Signs Vital Signs Date Time Temp Pulse Resp B/P (MAP) Pulse Ox O2 Delivery O2 Flow Rate FiO2 06/26/22 09:00 94 29 144/72 (96) 94 Nasal Cannula 1.00 06/26/22 08:00 36.3 06/25/22 15:04 25 Capillary Refill : Less Than 3 Seconds I&O Intake and Output 06/26/22 00:00 Intake Total 2340 ml Output Total 1625 ml Balance 715 ml IV Total 1300 ml Tube Feeding 440 ml Enteral Flush 300 ml Other 300 ml Output Urine Total 1625 ml General: Alert, No Acute Distress Lungs: Clear to Auscultation, Normal Air Movement Heart: Regular Rate, No Murmurs Abdomen: Normal Bowel Sounds, Soft Neuro: Normal Speech Psych/Mental Status: Mood NL Results/Procedures Lab Laboratory Tests 06/25/22 12:02: Glucometer 113H 06/25/22 18:16: Glucometer 94 06/25/22 23:37: Glucometer 79 06/26/22 01:10: Glucometer 89 06/26/22 04:10: White Blood Count 39.4*H, Red Blood Count 3.30L, Hemoglobin 9.5#L, Hematocrit 31L, Mean Corpuscular Volume 94, Mean Corpuscular Hemoglobin 29, Mean Corpuscular Hemoglobin Concent 31L, Red Cell Distribution Width 14.9H, Platelet Count 419H, Mean Platelet Volume 10.0, Immature Granulocyte % (Auto) 14, Neutrophils (%) (Auto) 73, Lymphocytes (%) (Auto) 8L, Monocytes (%) (Auto) 3, Eosinophils (%) (Auto) 2, Basophils (%) (Auto) 0, Neutrophils # (Auto) 28.8H, Lymphocytes # (Auto) 3.1, Monocytes # (Auto) 1.3H, Eosinophils # (Auto) 0.9H, Basophils # (Auto) 0.0, Immature Granulocyte # (Auto) 5.3H, Neutrophils % (Manual) 81, Lymphocytes % (Manual) 8, Monocytes % (Manual) 2, Eosinophils % (Manual) 5, Metamyelocytes % 2, Band Neutrophils 2, Hypochromasia SLIGHT, Microcytosis SLIGHT, Macrocytosis SLIGHT, Sodium Level 142, Potassium Level 3.9, Chloride Level 111H, Carbon Dioxide Level 21, Anion Gap 10, Blood Urea Nitrogen 20H, Creatinine 0.77, Estimat Glomerular Filtration Rate 91, BUN/Creatinine Ratio 26, Glucose Level 96, Calcium Level 8.8, Corrected Calcium 9.8, Phosphorus Level 3.6, Magnesium Level 1.9, Total Bilirubin 0.2, Aspartate Amino Transf (AST/SGOT) 31, Alanine Aminotransferase (ALT/SGPT) 18, Alkaline Phosphatase 128, Total Protein 5.4L, Albumin 2.7L Microbiology 06/21/22 Gram Stain - Final, Complete 06/21/22 Sputum Culture - Final, Complete Staphylococcus aureus Strep Species, Beta Hemolytic NOTE: 06/21/22 Urine Culture - Final, Complete NO GROWTH 06/21/22 Blood Culture - Preliminary, Resulted No growth Assessment/Plan Assessment/Plan (1) Pneumonia Status: Acute Assessment & Plan: Diffuse findings on initial CXR, persistent in right middle lobe. On cefepime. (2) Sepsis with acute hypoxic respiratory failure Status: Acute Assessment & Plan: Requiring intubation in ER. Extubated on 06/25, doing well on minimal supplemental oxygen this am Qualifiers: (3) Septic shock Status: Resolved Assessment & Plan: Secondary to pneumonia. Shock resolved. (4) Acute renal failure Status: Resolved Assessment & Plan: Suspect secondary to septic shock. Qualifiers: Qualified Codes: N17.1 - Acute kidney failure with acute cortical necrosis (5) Metabolic acidosis Status: Resolved Assessment & Plan: Secondary to acute renal insufficiency. (6) Depression Status: Chronic (7) Chronic pain Status: Chronic Assessment & Plan: Home meds resumed. (8) Elevated d-dimer Status: Acute Assessment & Plan: V/Q scan low probability for PE. (9) Urinary tract infection Status: Resolved Assessment & Plan: Initially suspected, but micro with no growth (10) DVT prophylaxis Status: Acute Assessment & Plan: Enoxaparin EDUARDA DOALN MD Jun 26, 2022 09:30
--- NOTE | 2022-06-26 09:59 | Tele-ICU Progress Note ---
Subjective Date Seen by a Provider: Jun 26, 2022 Time Seen by a Provider: 09:59 Subjective/Events-last exam (Tele-ICU Physician , Progress Note ) Service provided via interactive audio and video telecommunications E-CARE system to a patient admitted to ICU bed in [facility]. Patient is seen today due to persistent need of ICU care Available chart/ vitals / labs / Images reviewed Video assessment done using teleICU camera, rest of exam as per RN Discussed with RN Events overnight : Afebrile hemodynamically stable Respiratory - 30 I/O = pos Drips: off Pressors- OFF 06/23 Hospital course: 06/21 - AMS, PNA , UTI , sepsis , KAMALA - INTUBATED in ICU 06/22 - AC 22 450 +5 30% ,, norepi 0.08 , prop 20 , bicarb gtt 06/24 - SBT - low TV , off pressors 06/25 - EXTUBATED A/P Acute resp failure - intubated 06/21 inICU ( unresponsive , shock , minimal O2 needs prior to intubation ) - 06/25 - EXTUBATED - on 1 l , strong cough , no secretions PNA - bilat opaities on cxr - was tx with z max as outp 06/19---> -will finish atypical coverage , and add HAP overage ( h/o PNA 04/28/20-with EMPYEMA , s/p chest tube and VATS ) UTI -abx Sepsis / with shock with UTI and PNA RESOLVED < OFF presors 06/23 Acute kidney failure - RESOLVED Acute mental status change - RESOLVED - CT H negative - most likely TME Elev ddimer - was presented with hypoxia , - VQ 06/22- low prob ( matching defect ) - heparin gtt stopped Anemia - hb 7.9 - no acute bleeding , monitor Elv TGL on propofol - off Chronic pain syndrome -resumed home po methadone , and baclofene pump SYRINGOMYELIA, SYRINGOBULBIA,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 on 06/21 discussed dx a, prognosis, tx , plans with elias's boyfriend of 20 years ( surrogate POA) - she would like to be intubated for short period of ti me ( not prolonged vent support ) , no cardioversion /resuscitation Lines : R fem 06/21 - removed 06/25 , (Central Line Necessity Reviewed) Morrell: 06/21 OG: Nutrition: Anxiety/ delirium VTE Prophylaxis:jose Stress Ulcer Prophylaxis: ppi Plans in collaboration with bedside consultants and IM MDs. Discussed with RN to reach out if any questions or concerns A total of 25 minutes of critical care time was devoted to this patient today, required to treat and/or prevent further deterioration of critical care condition ( as above ) . I am remotely monitoring this patient from another state. I am unable to do the bedside exam, and history/physical and pertinent information is taken from other notes in the computer and bedside staff. . Sepsis Event Evaluation Height, Weight, BMI Height: '" Weight: lbs. oz. kg; 28.59 BMI Method: Focused Exam Time of Focused Exam: 08:00 Exam Exam Patient acknowledged, consented, and participated in this virtual visit which was conducted using real time audio/video Vital Signs Date Time Temp Pulse Resp B/P (MAP) Pulse Ox O2 Delivery O2 Flow Rate FiO2 06/26/22 09:00 94 29 144/72 (96) 94 Nasal Cannula 1.00 06/26/22 08:00 94 Nasal Cannula 1.00 06/26/22 08:00 90 15 146/85 (105) 94 Nasal Cannula 1.00 06/26/22 08:00 36.3 06/26/22 07:49 94 Nasal Cannula 1.00 06/26/22 07:07 100 Nasal Cannula 1.00 06/26/22 07:00 90 26 147/80 (102) 97 Room Air 06/26/22 07:00 90 06/26/22 06:00 95 20 150/97 (114) 93 Room Air 06/26/22 05:00 96 24 155/79 (104) 95 Room Air 06/26/22 04:00 103 34 155/99 (117) 90 Room Air 06/26/22 04:00 94 Nasal Cannula 2.00 06/26/22 03:00 90 34 147/71 (96) 94 Room Air 06/26/22 02:24 100 Nasal Cannula 1.00 06/26/22 02:16 Room Air 06/26/22 02:00 97 15 141/73 (95) 100 Nasal Cannula 3.00 06/26/22 01:00 87 12 151/87 (108) 97 Nasal Cannula 3.00 06/26/22 01:00 90 06/26/22 00:00 92 12 132/85 (101) 97 Nasal Cannula 3.00 06/25/22 23:59 96 Nasal Cannula 3.00 06/25/22 23:58 36.6 06/25/22 23:00 92 12 145/86 (105) 97 Nasal Cannula 3.00 06/25/22 22:00 99 Nasal Cannula 2.00 06/25/22 22:00 94 15 147/89 (108) 100 Nasal Cannula 3.00 06/25/22 21:00 108 27 149/85 (106) 93 Nasal Cannula 3.00 06/25/22 20:00 92 27 156/101 (119) 98 Nasal Cannula 3.00 06/25/22 20:00 96 Nasal Cannula 3.00 06/25/22 19:30 36.2 06/25/22 19:00 95 33 138/68 (91) 99 Nasal Cannula 3.00 06/25/22 19:00 93 06/25/22 18:33 97 Nasal Cannula 3.00 06/25/22 18:07 36.8 105 100 06/25/22 18:00 94 26 130/77 (94) 99 Nasal Cannula 3.00 06/25/22 17:18 92 132/70 06/25/22 17:00 96 31 132/70 (90) 100 Nasal Cannula 3.00 06/25/22 16:08 36.3 06/25/22 16:00 96 39 126/72 (90) 100 Nasal Cannula 3.00 06/25/22 15:45 Nasal Cannula 3.00 06/25/22 15:04 100 Mechanical Ventilator 25 06/25/22 15:03 25 06/25/22 15:00 98 27 136/68 (90) 100 Mechanical Ventilator 25.00 06/25/22 14:26 101 18 100 30 06/25/22 14:00 89 18 132/70 (90) 99 Mechanical Ventilator 25.00 06/25/22 13:16 93 143/79 06/25/22 13:00 96 28 135/80 (98) 98 Mechanical Ventilator 25.00 06/25/22 12:03 100 25 138/84 (102) 97 Mechanical Ventilator 25.00 06/25/22 12:01 100 06/25/22 12:00 36.8 06/25/22 11:49 105 146/77 06/25/22 11:48 105 146/77 06/25/22 11:44 97 Mechanical Ventilator 25 06/25/22 11:43 25 06/25/22 11:00 105 30 146/77 (100) 95 Mechanical Ventilator 25.00 06/25/22 10:45 103 96 25 06/25/22 10:37 25 06/25/22 10:25 115 153/89 06/25/22 10:12 111 36 97 25 06/25/22 10:00 107 45 155/78 (103) 97 Mechanical Ventilator 25.00 I & O 06/26/22 07:00 Intake Total 1620 ml Output Total 2450 ml Balance -830 ml Height & Weight Height: '" Weight: lbs. oz. kg; 28.59 BMI Method: General Appearance: No Apparent Distress, WD/WN, Chronically ill, Other (sedated) HEENT: PERRL/EOMI Respiratory: Crackles, Rales Cardiovascular: Regular Rate, Rhythm Capillary Refill: Less Than 3 Seconds Peripheral Pulses: 1+ Radial Pulses (R), 1+ Radial Pulses (L) Gastrointestinal: soft, no organomegaly Extremity: No Pedal Edema Neurologic/Psychiatric: Other (MENTATION NOTED ABOVE. PT OPENS EYES TO VOICE AND TACTILE STIMULI, SHE VERBALIZED A FEW WORDS ON ARRIVAL. SHE IS NOT ABLE TO ANSWER ANY QUESTIONS, OR FOLLOW COMMANDS. SHE HAS RANDOM NON-PURPOSEFUL MOVEMENTS OF HANDS) Skin: Pallor, Other (SOME MOTTLING TO LEFT HAND AND FOOT. ) Results Lab Laboratory Tests 06/25/22 04:00 06/26/22 04:10 Assessment/Plan Assessment/Plan 1 VINCENT VALLES MD Jun 26, 2022 09:59
[2022-06-26] MEDS: PHENYLEPHRINE DRIP 250 ML IV SCH (11:11)
--- NOTE | 2022-06-26 11:27 | Physical Therapy Evaluation ---
PT Evaluation-General Medical Diagnosis Admission Date Jun 21, 2022 at 09:35 Medical Diagnosis: renal failure/septic shock Onset Date: Jun 21, 2022 Therapy Diagnosis Therapy Diagnosis: generalized weakness/debility Precautions Precautions/Isolations: Aspiration, Fall Prevention, Standard Precautions, Pressure Ulcer Referral Physician: Juan Carlos Reason for Referral: Evaluation/Treatment Medical History Pertinent Medical History: HTN Additional Medical History Chiari malformation Current History EMS from home due to AMS and decreased SAO2 Reviewed History: Yes Social History Home: Single Level Current Living Status: Significant Other Prior Prior Level of Function SCALE: Activities may be completed with or without assistive devices. 6-Mxkkeedpba-bfhtako completes the activity by him/herself with no assistance from a helper. 5-Set-up or Clean-up Assistance-helper sets up or cleans up; patient completes activity. [place] assists only prior to or following the activity. 4-Supervision or Touching Assistance-helper provides verbal cues and/or touching/steadying and/or contact guard assistance as patient completes activity. Assistance may be provided throughout the activity or intermittently. 3-Partial/Moderate Assistance-helper does LESS THAN HALF the effort. [place] lifts, holds or supports trunk or limbs, but provides less than half the effort. 2-Substantial/Maximal Assistance-helper does MORE THAN HALF the effort. [place] lifts or holds trunk or limbs and provides more than half the effort. 9-Mzxfffhlo-znbzca does ALL the effort. Patient does none of the effort to complete the activity. Or, the assistance of 2 or more helpers is required for the patient to complete the activity. If activity was not attempted, code reason: 7-Patient Refused. 9-Not Applicable-not attempted and the patient did not perform the activity before the current illness, exacerbation or injury. 10-Not Attempted due to Environmental Limitations-(lack of equipment, weather restraints, etc.). 88-Not Attempted due to Medical Conditions or Safety Concerns. Bed Mobility: 4 Transfers (B,C,W/C): 4 Gait: 9 Indoor Mobility (Ambulation): Not [place] Prior Devices Use: Manual wheelchair, Walker PT Evaluation-Current Subjective Patient agrees to PT. Objective Patient Orientation: Person, Time, Situation Attachments: Oxygen, Morrell Catheter ROM/Strength ROM Lower Extremities bilateral LE WFL Strength Lower Extremities 3-/5 grossly bilateral LE all planes Integumentary/Posture Bowel Incontinence: Yes Bladder Incontinence: Morrell Cath Posture WFL Neuromuscular (Tone, Coordination, Reflexes) diminished coordination Sensory Vision: Functional Hearing: Functional Transfers Lying to Sitting/Side of Bed(Q: 2 Sit to Stand (QC): 2 Chair/Nqd-hu-Vmvvp Xfer(QC): 2 Toilet Transfer (QC): 2 retropulsive with sit to stand and SPT Gait Does the Patient Walk?: No and Walking Goal NOT indicated Walk 10 feet (QC): 9 Walk 50 ft with 2 Turns(QC): 9 Walk 150 ft (QC): 9 Balance Sitting Static: Fair Sitting Dynamic: Fair Standing Static: Poor Standing Dynamic: Poor Assessment/Needs Patient will benefit from skilled PT to address functional strength and mobility to improve current LOF to safely return to home with significant other at maximum LOF. Patient is currently max assist with all mobility. Rehab Potential: Guarded PT Retirement Goals Elderly Companion Goals PT Retirement Goals Time Frame: July 14, 2022 Roll Left & Right (QC): 6 Sit to Lying (QC): 6 Lying-Sitting on Side/Bed(QC): 6 Sit to Stand (QC): 4 Chair/Zmb-yr-Nrxaq Xfer(QC): 4 PT Plan Problem List Problem List: Activity Tolerance, Functional Strength, Safety, Balance, Transfer, Bed Mobility Treatment/Plan Treatment Plan: Continue Plan of Care Treatment Plan: Bed Mobility, Education, Functional Activity Gerald, Functional Strength, Safety, Therapeutic Exercise, Transfers Treatment Duration: July 14, 2022 Frequency: 6 times per week Estimated Hrs Per Day: .25 hour per day Patient and/or Family Agrees t: Yes Safety Risks/Education Patient Education: Safety Issues Teaching Recipient: Patient Teaching Methods: Discussion Response to Teaching: Verbalize Understanding Time Time In: 1030 Time Out: 1046 DATE: Jun 26, 2022 Total Billed Treatment Time: 16 Total Billed Treatment 1 visit [facility] 16 min ADITYA NOLASCO PT Jun 26, 2022 11:27
--- NOTE | 2022-06-26 11:30 | Occupational Therapy Eval ---
OT Evaluation-General/PLF Medical Diagnosis Admission Date Jun 21, 2022 at 09:35 Medical Diagnosis: pneumonia, hypoxia, sepsis Onset Date: Jun 21, 2022 Therapy Diagnosis Therapy Diagnosis: weakness Precautions Precautions/Isolations: Aspiration, Fall Prevention, Standard Precautions, Pressure Ulcer Weight Bear Status Weight Bearing Restriction: Weight Bearing/Tolerated Referral Referral Reason: Activity Tolerance, Self Care, Evaluation/Treatment, Strengthening/ROM Medical History Pertinent Medical History: HTN Additional Medical History Minimal ambulation at home, uses walker for transfer, lives with significant other ADL-Prior Level of Function SCALE: Activities may be completed with or without assistive devices. 2-Nqeysmvnaq-xafmbyx completes the activity by him/herself with no assistance from a helper. 5-Set-up or Clean-up Assistance-helper sets up or cleans up; patient completes activity. [place] assists only prior to or following the activity. 4-Supervision or Touching Assistance-helper provides verbal cues and/or touching/steadying and/or contact guard assistance as patient completes activity. Assistance may be provided throughout the activity or intermittently. 3-Partial/Moderate Assistance-helper does LESS THAN HALF the effort. [place] lifts, holds or supports trunk or limbs, but provides less than half the effort. 2-Substantial/Maximal Assistance-helper does MORE THAN HALF the effort. [place] lifts or holds trunk or limbs and provides more than half the effort. 0-Hofgwleqz-ntkysy does ALL the effort. Patient does none of the effort to complete the activity. Or, the assistance of 2 or more helpers is required for the patient to complete the activity. If activity was not attempted, code reason: 7-Patient Refused. 9-Not Applicable-not attempted and the patient did not perform the activity before the current illness, exacerbation or injury. 10-Not Attempted due to Environmental Limitations-(lack of equipment, weather restraints, etc.). 88-Not Attempted due to Medical Conditions or Safety Concerns. ADL PLOF Comments Patient reports [place] ADLS however also reports no sensation for BM and today is not aware of BM in bed Self Care: Independent Functional Cognition: Independent Drive Self: No OT Current Status Subjective Reclined in bed and agreeable to OT Mental Status/Objective Patient Orientation: Person, Place, Time, Situation Attachments: Morrell Catheter, IV, Oxygen, SCD's, Telemetry Current Upper Extremity ROM BUE ROM WFLs Upper Extremity Strength -4/5 grossly w/ edema in hands and UEs, tremors w/ FMC ADL-Treatment Eating (QC): 88 (ST eval pending) Oral Hygiene (QC): 4 Shower/Bathe Self (QC): 88 Upper Body Dressing (QC): 3 Lower Body Dressing (QC): 2 On/Off Footwear (QC): 1 Toileting Hygiene (QC): 1 Education OT Patient Education: Progress toward Goal/Update tx plan, Purpose of tx/functional activities, Reviewed precautions, Rehab process, Safety issues, Transfer techniques Teaching Recipient: Patient Teaching Methods: Demonstration Response to Teaching: Verbalize Understanding, Reinforcement Needed OT Snf Goals Recreation Therapist Goals Eating (QC): 6 Oral Hygiene (QC): 6 Toileting Hygiene (QC): 5 Shower/Bathe Self (QC): 4 Upper Body Dressing (QC): 5 Lower Body Dressing (QC): 5 On/Off Footwear (QC): 5 1=Demonstrate adherence to instructed precautions during ADL tasks. 2=Patient will verbalize/demonstrate understanding of assistive devices/modifications for ADL. 3=Patient will improve strength/tolerance for activity to enable patient to perform ADL's. OT Education/Plan Problem List/Assessment Assessment: Decreased Activ Tolerance, Decreased Safety Aware, Decreased UE Strength, Impaired Coordination, Impaired Funct Balance, Impaired Self-Care Skills Discharge Recommendations Plan/Recommendations: Continue POC Therapy Discharge Recommendati: Post Acute OT Treatment Plan/Plan of Care Treatment,Training & Education: Yes Patient would benefit from OT for education, treatment and training to promote independence in ADL's, mobility, safety and/or upper extremity function for ADL's. Plan of Care: ADL Retraining, Concurrent Therapy, Functional Mobility, Group Exercise/Act as Ind, UE Funct Exercise/Act Treatment Duration: July 07, 2022 Frequency: 3 times per week (3-5 times per week) Estimated Hrs Per Day: .25 hour per day Agreement: Yes Rehab Potential: Guarded Time Start Time: 10:35 Stop Time: 10:50 DATE: Jun 26, 2022 Total Time Billed (hr/min): 15 Billed Treatment Time EVM 15 MIN SABI CHAVARRIA OT Jun 26, 2022 11:30
--- NOTE | 2022-06-26 11:50 | ST Dysphagia Evaluation ---
Speech Evaluation-General Medical Diagnosis Pneumonia, Hypoxia, Sepsis Onset Date: Jun 21, 2022 Therapy Diagnosis Therapy Diagnosis: Impaired Oropharyngeal Swallow Function Precautions Precautions: Fall, Aspiration Precautions/Isolations: Aspiration, Fall Prevention, Standard Precautions Referral Referring Physician: Dr. Geller Reason for Referral: Evaluation/Treatment Medical History Pertinent Medical History: HTN Reviewed History: Yes Social History Current Living Status: Significant Other Speech PLF/Current-Dysphagia Prior Level of Function The patient stated she has experienced swallowing difficulties for "over twenty years." The patient described the swallowing difficulty as a globus sensation with dry, solid consistencies and pills. Per patient, "I need a drink every time I am eating. I take a bite and then a drink. I put my pills in applesauce." The patient denied the presence of s/s of suspected aspiration with P.O. intake. Subjective The patient was lying in bed, awake and alert, upon entrance to her room by the clinician. The patient greeted the clinician appropriately and was agreeable to participation in the clinical bedside swallowing evaluation. The patient has a friend present at bedside, who remains for the entirety of the oropharyngeal swallowing evaluation. The patient was intubated for approximately five days, with recent extubation occurring. To note, the patient has a dry, breathy cough at baseline prior to the presentation of P.O. consistencies. Cognitive Status Patient Orientation: Person, Place, Time, Situation Oral Motor Skills Dentition: Natural Ability to Follow Directions: Good Oral Expression Ability: Mild Impairment Voice Voice Phonatory-Based Quality: Weak Voice Pitch: Normal Voice Loudness: Moderately Soft/Quiet Face Facial Symmetry: Symmetrical Oral-Facial Assessment Oral-Facial Dentition: Normal Labial Seal Description: Normal Smile: Normal Lingual Protrusion: Normal Lingual ROM: Normal Lingual Strength: Normal Volitional Dry Swallow: Yes Voluntary Cough: Yes Can Clear Throat Volitionally: Yes Productive Cough: Yes Productive Throat Clear: Yes Dysphagia Evaluation Consistencies Presented: Thin Liquid, Mechanical Soft, Pureed The patient politely deferred solid consistencies. The patient displayed prolonged, yet complete, bolus formation with mechanical soft consistencies. No additional oral impairments were noted throughout the evaluation. Laryngeal elevation was present to palpation. The patient displays an intermittently dysphonic vocal quality which may be secondary to recent intubation and true vocal cord irritation. A mild delay in the pharyngeal swallow onset was suspected. The patient was provided thin liquid via ice chip, thin liquid via teaspoon, thin liquid via single straw drink, puree, and a soft solid. Overt s/s of suspected aspiration were not demonstrated with any consistency provided throughout the evaluation. The patient's vocal quality remained unchanged in comparison to baseline. The patient independently completed swallowing strategies for improved bolus clearance including small bites and sips and alternating bites and sips on a 1:1 ratio. The patient reported she is a "grazer" and is more comfortable consuming smaller meals more frequently than three large meals. Dietary Recommendations: Mechanical Soft (MM5) Liquid Recommendations: Thin Recommendations: - MM5 with thin liquids, as tolerated. - Fully upright and alert for P.O. intake. - Small, single bites and sips. - Alternate solids and liquids on a 1:1 ratio. - Smaller, more frequent meals versus three large meals. - Crush medication and place in puree for administration. - Monitor for s/s of suspected aspiration with P.O. intake. If demonstrated, please contact speech pathology. - Speech pathology will continue to monitor the patient's diet tolerance throughout her acute hospitalization. The results and recommendations were provided to the patient, the patient's friend, and the patient's RN immediately following completion of the evaluation. Dysphagia Evaluation Summary The patient demonstrated mild oropharyngeal-esophageal dysphagia characterized by decreased lingual coordination, a suspected delay in the pharyngeal swallow response, and the presence of a globus sensation with dry solid consistencies. Speech Short Term Goals Short Term Goals Short Term Goals 1. The patient will demonstrate safe swallowing strategies with 80% accuracy, independently. Time Frame-STG: Three Days. Speech Fci Goals Fci Goals 1. The patient will tolerate the least restrictive diet consistency without s/s of suspected aspiration. Time Frame: One Week. Speech-Plan Treatment Plan Speech Therapy Treatment Plan: Continue Plan of Care Treatment Duration: Jun 29, 2022 Frequency: 4 times per week Estimated Hrs Per Day: .25 hour per day Rehab Potential: Fair Pt/Family Agrees to Plan: Yes Safety Risks/Education Teaching Recipient: Patient, Friend Teaching Methods: Discussion Response to Teaching: Verbalize Understanding, Reinforcement Needed Time Speech Therapy Time In: 10:06 Speech Therapy Time Out: 10:25 DATE: Jun 26, 2022 Total Billed Time: 19 Billed Treatment Time 1, KAR ROWELL [facility] ST Jun 26, 2022 11:50
[2022-06-26] MEDS: PROPOFOL DRIP (ICU) 100 ML IV SCH (13:02)
[2022-06-26] MEDS ORDERED: BACLOFEN 10 MG (LIORESAL) TAB PO PRN (13:15)
[2022-06-26] MEDS ORDERED: INULIN PO SCH (13:15)
[2022-06-26] MEDS ORDERED: BACILLUS COAGULANS PO SCH (13:15)
[2022-06-26] MEDS ORDERED: [UNRECOGNIZED DRUG - OTHER] PO SCH (13:15)
[2022-06-26] MEDS ORDERED: NON-FORMULARY MEDICATION 1 EA EA (Calcium Carbonate (Calcium) 1,000 MG) PO SCH (13:15)
[2022-06-26 16:03] VITALS: BP 139/76
[2022-06-26] MEDS: LACTOBACILLUS ACIDOPHILUS (PROBIOTIC) CAPSULE PO SCH (17:22)
[2022-06-26] MEDS: lisINopril 20 MG (PRINIVIL) TABLET PO SCH (17:22)
[2022-06-26] MEDS: CALCIUM CARBONATE 600 MG (CALCARB) TAB PO SCH (17:22)
[2022-06-26] MEDS: ENOXAPARIN 40 MG/0.4 ML (LOVENOX) SYR SC SCH (17:32)
[2022-06-26] MEDS ORDERED: NON-FORMULARY MEDICATION 1 EA EA (Lisinopril/Hydrochlorothiazide (Lisinopril-Hctz 20-25 mg PO SCH (18:00)
[2022-06-26 19:33] VITALS: BP 142/81
[2022-06-26] MEDS: ONDANSETRON 4 MG (ZOFRAN) ORAL DISSOLVE TAB PO PRN (20:48)
[2022-06-27] VITALS (7 sets, daily range): BP systolic 130–172; BP diastolic 65–104
[2022-06-27] MEDS: RT-ALBUTEROL/IPRATROPIUM 3 ML (DUONEB) VIAL INH SCH ×3 (02:42→21:39)
[2022-06-27] MEDS: CEFEPIME INJECTION 1,000 MG in NS (IVPB) 50 ML IV SCH ×4 (03:17→19:49)
[2022-06-27] MEDS: ONDANSETRON 4 MG/2 ML (SDV) Z0FRAN IV PRN ×3 (04:45→18:36)
[2022-06-27 05:40] LABS: BASOPHILS # (AUTO) 0.2 10^3/uL (0.0-0.1); BASOPHILS % (AUTO) 0 % (0-10); EOSINOPHILS # (AUTO) 0.7 10^3/uL (0.0-0.3); EOSINOPHILS % (AUTO) 2 % (0-10); HEMATOCRIT 29 % (35-52); HEMOGLOBIN 8.6 g/dL (11.5-16.0); LYMPHOCYTES # (AUTO) 4.2 10^3/uL (1.0-4.0); LYMPHOCYTES % (AUTO) 11 % (12-44); MEAN CORPUSCULAR HEMOGLOBIN 29 pg (25-34); MEAN CORPUSCULAR HGB CONC 30 g/dL (32-36); MEAN CORPUSCULAR VOLUME 96 fL (80-99); MEAN PLATELET VOLUME 10.3 fL (9.0-12.2); MONOCYTES # (AUTO) 1.5 10^3/uL (0.0-1.0); MONOCYTES % (AUTO) 4 % (0-12); NEUTROPHILS # (AUTO) 28.5 10^3/uL (1.8-7.8); NEUTROPHILS % (AUTO) 74 % (42-75); PLATELET COUNT 394 10^3/uL (130-400)
[2022-06-27 05:44] LABS: WHITE BLOOD COUNT 38.3 10^3/uL (4.3-11.0)
[2022-06-27 05:49] LABS: ALBUMIN 2.7 GM/DL (3.2-4.5); POTASSIUM 3.9 MMOL/L (3.6-5.0)
[2022-06-27 05:51] LABS: CALCIUM 9.1 MG/DL (8.5-10.1)
[2022-06-27 05:52] LABS: TOTAL PROTEIN 5.4 GM/DL (6.4-8.2)
[2022-06-27 05:54] LABS: BILIRUBIN,TOTAL 0.2 MG/DL (0.1-1.0)
[2022-06-27 05:55] LABS: PHOSPHORUS 4.1 MG/DL (2.3-4.7)
[2022-06-27 05:56] LABS: CREATININE SERUM 0.82 MG/DL (0.60-1.30)
[2022-06-27] MEDS ORDERED: NON-FORMULARY MEDICATION 1 EA EA (Duloxetine HCl 60 MG) PO SCH (09:00)
[2022-06-27] MEDS ORDERED: THYROID PORK 180 MG PO SCH (09:00)
[2022-06-27] MEDS: DOCUSATE SODIUM 100 MG (COLACE) CAP PO SCH ×2 (09:14→19:59)
[2022-06-27] MEDS: METHADONE 10 MG (DOLOPHINE) TAB GT SCH ×2 (09:14→18:37)
[2022-06-27] MEDS: LORATADINE (CLARITIN) 10 MG TAB PO SCH (09:14)
[2022-06-27] MEDS: acetaZOLAMIDE 250 MG (DIAMOX) TAB PO SCH (09:14)
[2022-06-27] MEDS: SENNOSIDES 8.6 MG (SENOKOT) TAB PO SCH ×2 (09:15→19:59)
[2022-06-27] MEDS: THYROID (ARMOUR) 60 MG TABLET PO SCH (09:15)
[2022-06-27] MEDS: DULoxetine 30 MG (CYMBALTA) CAP PO SCH (09:15)
[2022-06-27] MEDS: lisINopril 20 MG (PRINIVIL) TABLET PO SCH ×2 (09:16→18:37)
--- NOTE | 2022-06-27 11:48 | Progress Note ---
Subjective Subjective/Events-last exam Having vomiting, started last night, if she eats a few bites it seems to come right back up. Vomited after her morning meds today. States at home she furniture surfs, sometimes uses a walker. Focused Exam Time of Focused Exam: 08:00 Objective Exam Last Set of Vital Signs Vital Signs Date Time Temp Pulse Resp B/P (MAP) Pulse Ox O2 Delivery O2 Flow Rate FiO2 06/27/22 11:22 37.1 97 20 169/104 (125) 95 Nasal Cannula 2.00 06/26/22 20:37 21 Capillary Refill : Less Than 3 Seconds I&O Intake and Output 06/27/22 00:00 Intake Total 800 ml Output Total 2300 ml Balance -1500 ml Intake Oral 400 ml IV Total 400 ml Output Urine Total 2300 ml # Bowel Movements 11 # [place] 1 General: Alert, No Acute Distress Lungs: Other (ronchi expiratory) Heart: Regular Rate, No Murmurs Abdomen: Normal Bowel Sounds, Soft, No Tenderness Extremities: No Edema Neuro: Normal Speech Psych/Mental Status: Mood NL Results/Procedures Lab Laboratory Tests 06/26/22 12:06: Glucometer 97 06/27/22 05:16: White Blood Count 38.3*H, Red Blood Count 3.00L, Hemoglobin 8.6L, Hematocrit 29L , Mean Corpuscular Volume 96, Mean Corpuscular Hemoglobin 29, Mean Corpuscular Hemoglobin Concent 30L, Red Cell Distribution Width 14.8H, Platelet Count 394, Mean Platelet Volume 10.3, Immature Granulocyte % (Auto) 9, Neutrophils (%) (Auto) 74, Lymphocytes (%) (Auto) 11L, Monocytes (%) (Auto) 4, Eosinophils (%) (Auto) 2, Basophils (%) (Auto) 0, Neutrophils # (Auto) 28.5H, Lymphocytes # (Auto) 4.2H, Monocytes # (Auto) 1.5H, Eosinophils # (Auto) 0.7H, Basophils # (Auto) 0.2H, Immature Granulocyte # (Auto) 3.3H, Sodium Level 141, Potassium Level 3.9, Chloride Level 109H, Carbon Dioxide Level 20L, Anion Gap 12, Blood Urea Nitrogen 18, Creatinine 0.82, Estimat Glomerular Filtration Rate 84, BUN/Creatinine Ratio 22, Glucose Level 66L, Calcium Level 9.1, Corrected Calcium 10.1, Phosphorus Level 4.1, Magnesium Level 2.0, Total Bilirubin 0.2, Aspartate Amino Transf (AST/SGOT) 29, Alanine Aminotransferase (ALT/SGPT) 19, Alkaline Phosphatase 109, Total Protein 5.4L, Albumin 2.7L Microbiology 06/21/22 Gram Stain - Final, Complete 06/21/22 Sputum Culture - Final, Complete Staphylococcus aureus Strep Species, Beta Hemolytic NOTE: 06/21/22 Urine Culture - Final, Complete NO GROWTH 06/21/22 Blood Culture - Preliminary, Resulted No growth Assessment/Plan Assessment/Plan (1) Pneumonia Status: Acute Assessment & Plan: Diffuse findings on initial CXR, persistent in right middle lobe. On cefepime. (2) Sepsis with acute hypoxic respiratory failure Status: Acute Assessment & Plan: Requiring intubation in ER. Extubated on 06/25, doing well on minimal supplemental oxygen this am Qualifiers: (3) Septic shock Status: Resolved Assessment & Plan: Secondary to pneumonia. Shock resolved. (4) Acute renal failure Status: Resolved Assessment & Plan: Suspect secondary to septic shock. Qualifiers: Qualified Codes: N17.1 - Acute kidney failure with acute cortical necrosis (5) Metabolic acidosis Status: Resolved Assessment & Plan: Secondary to acute renal insufficiency. (6) Depression Status: Chronic (7) Chronic pain Status: Chronic Assessment & Plan: Home meds resumed. (8) Elevated d-dimer Status: Acute Assessment & Plan: V/Q scan low probability for PE. (9) Urinary tract infection Status: Resolved Assessment & Plan: Initially suspected, but micro with no growth (10) Vomiting Status: Acute Assessment & Plan: Anti emetics as needed, bland diet, advance slowly (11) Debility Status: Acute Assessment & Plan: PT (12) DVT prophylaxis Status: Acute Assessment & Plan: Enoxaparin EDUARDA DOLAN MD Jun 27, 2022 11:48
--- NOTE | 2022-06-27 11:57 | Speech Therapy Daily Note ---
Speech Daily Progress Note Subjective Date Seen by Provider: Jun 27, 2022 Time Seen by Provider: 11:16 The patient was lying in bed, awake and alert, upon entrance to her room by the clinician. The patient has a family member present at bedside, who remains for the skilled treatment session. The patient greeted the clinician appropriately and was agreeable to participation in the dysphagia treatment session. Objective The patient has an emesis zepeda at bedside upon arrival. The patient stated she was not feeling nauseated, however, recently experienced multiple vomiting episodes following administration of pills in applesauce. The patient stated, "I don't know what happened. They went down and then it just started." The patient denied coughing or choking on the pills. The patient additionally denied s/s of suspected aspiration with recent P.O. intake, stating she has followed and been compliant with the safe swallowing pre cautions discussed and reviewed on this date. The patient politely deferred P.O. trials for the clinician. The clinician reviewed recommendations, s/s of suspected aspiration, and safe swallowing precautions in detail. ST will continue to follow the patient for diet tolerance. Assessment Assessment Current Status: Fair Progress Treatment Plan Continue Plan of Care Speech Short Term Goals Short Term Goals Short Term Goals 1. The patient will demonstrate safe swallowing strategies with 80% accuracy, independently. Time Frame-STG: Three Days. Speech Care Home Goals Informatics Pharmacist Goals 1. The patient will tolerate the least restrictive diet consistency without s/s of suspected aspiration. Time Frame: One Week. Speech-Plan Treatment Plan Speech Therapy Treatment Plan: Continue Plan of Care Treatment Duration: Jun 29, 2022 Frequency: 4 times per week Estimated Hrs Per Day: .25 hour per day Rehab Potential: Fair Safety Risks/Education Teaching Recipient: Patient, Friend Teaching Methods: Discussion Response to Teaching: Verbalize Understanding Education Topics Provided: Safe Swallowing Precautions, Recommendations Time Speech Therapy Time In: 11:16 Speech Therapy Time Out: 11:30 DATE: Jun 27, 2022 Total Billed Time: 14 Billed Treatment Time 1KAR ELIZABETH ST Jun 27, 2022 11:57
[2022-06-27] MEDS: ONDANSETRON 4 MG (ZOFRAN) ORAL DISSOLVE TAB PO PRN (16:10)
[2022-06-27] MEDS: ENOXAPARIN 40 MG/0.4 ML (LOVENOX) SYR SC SCH (16:12)
[2022-06-27] MEDS: CALCIUM CARBONATE 600 MG (CALCARB) TAB PO SCH (18:26)
[2022-06-27] MEDS: LACTOBACILLUS ACIDOPHILUS (PROBIOTIC) CAPSULE PO SCH (18:37)
[2022-06-27] MEDS: amLODIPine 5 MG (NORVASC) TAB PO SCH (22:15)
[2022-06-28] VITALS (8 sets, daily range): BP systolic 134–155; BP diastolic 65–76
[2022-06-28] MEDS: CEFEPIME INJECTION 1,000 MG in NS (IVPB) 50 ML IV SCH ×4 (01:38→20:15)
[2022-06-28] MEDS: RT-ALBUTEROL/IPRATROPIUM 3 ML (DUONEB) VIAL INH SCH ×4 (03:16→19:30)
[2022-06-28 05:29] LABS: BASOPHILS # (AUTO) 0.1 10^3/uL (0.0-0.1); BASOPHILS % (AUTO) 0 % (0-10); EOSINOPHILS # (AUTO) 0.8 10^3/uL (0.0-0.3); EOSINOPHILS % (AUTO) 3 % (0-10); HEMATOCRIT 28 % (35-52); HEMOGLOBIN 8.5 g/dL (11.5-16.0); LYMPHOCYTES # (AUTO) 4.2 10^3/uL (1.0-4.0); LYMPHOCYTES % (AUTO) 16 % (12-44); MEAN CORPUSCULAR HEMOGLOBIN 30 pg (25-34); MEAN CORPUSCULAR HGB CONC 31 g/dL (32-36); MEAN CORPUSCULAR VOLUME 97 fL (80-99); MEAN PLATELET VOLUME 9.9 fL (9.0-12.2); MONOCYTES # (AUTO) 1.6 10^3/uL (0.0-1.0); MONOCYTES % (AUTO) 6 % (0-12); NEUTROPHILS # (AUTO) 18.4 10^3/uL (1.8-7.8); NEUTROPHILS % (AUTO) 69 % (42-75); PLATELET COUNT 372 10^3/uL (130-400); WHITE BLOOD COUNT 26.7 10^3/uL (4.3-11.0)
[2022-06-28 05:50] LABS: ALBUMIN 2.8 GM/DL (3.2-4.5); POTASSIUM 3.9 MMOL/L (3.6-5.0)
[2022-06-28 05:51] LABS: CALCIUM 9.1 MG/DL (8.5-10.1)
[2022-06-28 05:53] LABS: TOTAL PROTEIN 5.4 GM/DL (6.4-8.2)
[2022-06-28 05:54] LABS: BILIRUBIN,TOTAL 0.2 MG/DL (0.1-1.0)
[2022-06-28 05:56] LABS: CREATININE SERUM 0.84 MG/DL (0.60-1.30); PHOSPHORUS 3.8 MG/DL (2.3-4.7)
[2022-06-28 05:59] LABS: MAGNESIUM 1.7 MG/DL (1.6-2.4)
[2022-06-28] MEDS: lisINopril 20 MG (PRINIVIL) TABLET PO SCH ×2 (09:04→17:53)
[2022-06-28] MEDS: amLODIPine 5 MG (NORVASC) TAB PO SCH (09:04)
[2022-06-28] MEDS: acetaZOLAMIDE 250 MG (DIAMOX) TAB PO SCH (09:04)
[2022-06-28] MEDS: THYROID (ARMOUR) 60 MG TABLET PO SCH (09:04)
[2022-06-28] MEDS: METHADONE 10 MG (DOLOPHINE) TAB GT SCH ×2 (09:05→17:53)
[2022-06-28] MEDS: LORATADINE (CLARITIN) 10 MG TAB PO SCH (09:05)
[2022-06-28] MEDS: DULoxetine 30 MG (CYMBALTA) CAP PO SCH (09:05)
[2022-06-28] MEDS: SENNOSIDES 8.6 MG (SENOKOT) TAB PO SCH ×2 (09:05→20:16)
[2022-06-28] MEDS: DOCUSATE SODIUM 100 MG (COLACE) CAP PO SCH ×2 (09:05→20:16)
--- NOTE | 2022-06-28 10:39 | Physical Therapy Daily Note ---
PT Daily Note-Current Subjective Patient agrees to PT. Pain Section J - Health Conditions 1. Rarely or not at all 2. Occasionally 3. Frequently 4. Almost constantly 8. Unable to answer Pain Effect on Sleep: 2 Pain Interference with Therapy: 2 Pain Interference w/Day-to-Day: 2 Mental Status Patient Orientation: Person, Situation Attachments: Oxygen, Morrell Catheter, IV Transfers SCALE: Activities may be completed with or without assistive devices. 8-Tutzuekfuv-ioyuqic completes the activity by him/herself with no assistance from a helper. 5-Set-up or Clean-up Assistance-helper sets up or cleans up; patient completes activity. [place] assists only prior to or following the activity. 4-Supervision or Touching Assistance-helper provides verbal cues and/or touching/steadying and/or contact guard assistance as patient completes activity. Assistance may be provided throughout the activity or intermittently. 3-Partial/Moderate Assistance-helper does LESS THAN HALF the effort. [place] lifts, holds or supports trunk or limbs, but provides less than half the effort. 2-Substantial/Maximal Assistance-helper does MORE THAN HALF the effort. [place] lifts or holds trunk or limbs and provides more than half the effort. 3-Wzdpwpibv-txvxzt does ALL the effort. Patient does none of the effort to complete the activity. Or, the assistance of 2 or more helpers is required for the patient to complete the activity. If activity was not attempted, code reason: 7-Patient Refused. 9-Not Applicable-not attempted and the patient did not perform the activity before the current illness, exacerbation or injury. 10-Not Attempted due to Environmental Limitations-(lack of equipment, weather restraints, etc.). 88-Not Attempted due to Medical Conditions or Safety Concerns. Roll Left & Right (QC): 3 Sit to Lying (QC): 3 Lying to Sitting/Side of Bed(Q: 3 Sit to Stand (QC): 3 Chair/Fpx-ez-Pxllv Xfer(QC): 3 Patient sat EOB CGA to SBA Gait Training Distance: 10' Walk 10 feet (QC): 3 Gait Assistive Device: FWW unsteady, severely diminished proprioception with all mobility Assessment Patient has episode of, what appears, increase in anxiety requiring patient to return to supine with very quick recovery with BP WFL and physician present to assess. PT to increase activity as tolerated by patient. PT Usp Goals Usp Goals PT Auto Service Representative Goals Time Frame: July 14, 2022 Roll Left & Right (QC): 6 Sit to Lying (QC): 6 Lying-Sitting on Side/Bed(QC): 6 Sit to Stand (QC): 4 Chair/Las-gg-Zeffp Xfer(QC): 4 PT Plan Treatment/Plan Treatment Plan: Continue Plan of Care Treatment Plan: Bed Mobility, Education, Functional Activity Gerald, Functional Strength, Safety, Therapeutic Exercise, Transfers Treatment Duration: July 14, 2022 Frequency: 6 times per week Estimated Hrs Per Day: .25 hour per day Patient and/or Family Agrees t: Yes Time Time In: 925 Time Out: 950 DATE: Jun 28, 2022 Total Billed Treatment Time: 25 Total Billed Treatment 1 visit FA x 2 25 min ADITYA NOLASCO PT Jun 28, 2022 10:39
--- NOTE | 2022-06-28 10:42 | Occupational Ther Daily Note ---
OT Current Status-Daily Note Subjective Requires motivation and encouragement for mobility and Self care, Mental Status/Objective Patient Orientation: Person, Place, Time, Situation Attachments: Morrell Catheter, IV, Oxygen vital taken w/ nurse staff d//t varied alertness, VSS and WFLS ADL-Treatment Therapy Code Descriptions/Definitions Functional [place] Measure: 0=Not Assessed/NA 4=Minimal Assistance 1=Total Assistance 5=Supervision or Setup 2=Maximal Assistance 6=Modified [place] 3=Moderate Assistance 7=Complete IndependenceSCALE: Activities may be completed with or without assistive devices. 0-Tijxcxpeaa-lmkorro completes the activity by him/herself with no assistance from a helper. 5-Set-up or Clean-up Assistance-helper sets up or cleans up; patient completes activity. [place] assists only prior to or following the activity. 4-Supervision or Touching Assistance-helper provides verbal cues and/or touching/steadying and/or contact guard assistance as patient completes activity. Assistance may be provided throughout the activity or intermittently. 3-Partial/Moderate Assistance-helper does LESS THAN HALF the effort. [place] lifts, holds or supports trunk or limbs, but provides less than half the effort. 2-Substantial/Maximal Assistance-helper does MORE THAN HALF the effort. [place] lifts or holds trunk or limbs and provides more than half the effort. 4-Tqkyhcsjv-rythsb does ALL the effort. Patient does none of the effort to complete the activity. Or, the assistance of 2 or more helpers is required for the patient to complete the activity. If activity was not attempted, code reason: 7-Patient Refused. 9-Not Applicable-not attempted and the patient did not perform the activity before the current illness, exacerbation or injury. 10-Not Attempted due to Environmental Limitations-(lack of equipment, weather restraints, etc.). 88-Not Attempted due to Medical Conditions or Safety Concerns. Eating (QC): 4 Oral Hygiene (QC): 4 Shower/Bathe Self (QC): 7 (OT washed patient back d/t skin damp and clammy) Upper Body Dressing (QC): 3 Lower Body Dressing (QC): 2 On/Off Footwear: 7 (already on) Toileting Hygiene (QC): 1 Toilet Transfer (QC): 2 OT Gum Rolling Machine Tender Goals Senior Living Goals Eating (QC): 6 Oral Hygiene (QC): 6 Toileting Hygiene (QC): 5 Shower/Bathe Self (QC): 4 Upper Body Dressing (QC): 5 Lower Body Dressing (QC): 5 On/Off Footwear (QC): 5 1=Demonstrate adherence to instructed precautions during ADL tasks. 2=Patient will verbalize/demonstrate understanding of assistive devices/modifications for ADL. 3=Patient will improve strength/tolerance for activity to enable patient to perform ADL's. OT Education/Plan Problem List/Assessment Assessment: Decreased Activ Tolerance, Decreased Safety Aware, Decreased UE Strength, Dependent Transfers, Impaired Bed Mobility, Impaired Coordination, Impaired Funct Balance, Impaired Self-Care Skills Discharge Recommendations Plan/Recommendations: Continue POC Therapy Discharge Recommendati: Post Acute OT Treatment Plan/Plan of Care Patient would benefit from OT for education, treatment and training to promote independence in ADL's, mobility, safety and/or upper extremity function for ADL's. Plan of Care: ADL Retraining, Concurrent Therapy, Functional Mobility, Group Exercise/Act as Ind, UE Funct Exercise/Act Treatment Duration: July 07, 2022 Frequency: 3 times per week (3-5 times per week) Estimated Hrs Per Day: .25 hour per day Agreement: Yes Rehab Potential: Fair Set up in recliner, all needs met Time Start Time: 09:25 Stop Time: 10:50 DATE: Jun 28, 2022 Total Time Billed (hr/min): 25 Billed Treatment Time ADL 1, FA 1 25 min SABI CHAVARRIA OT Jun 28, 2022 10:42
--- NOTE | 2022-06-28 12:06 | Progress Note ---
Subjective Subjective/Events-last exam Pt sitting at side of bed with PT, got lightheaded and presyncopal, laid back at time I entered room and immediately had improvement and vital signs were normal. She is having poor intake still. Focused Exam Time of Focused Exam: 08:00 Objective Exam Last Set of Vital Signs Vital Signs Date Time Temp Pulse Resp B/P (MAP) Pulse Ox O2 Delivery O2 Flow Rate FiO2 06/28/22 11:24 36.8 102 20 134/76 (95) 95 Nasal Cannula 2.00 06/26/22 20:37 21 Capillary Refill : Less Than 3 Seconds I&O Intake and Output 06/28/22 00:00 Intake Total 620 ml Output Total 1150 ml Balance -530 ml Intake Oral 570 ml IV Total 50 ml Output Urine Total 1150 ml # Bowel Movements 5 General: Alert, No Acute Distress Lungs: Clear to Auscultation, Normal Air Movement Heart: Regular Rate, No Murmurs Abdomen: Normal Bowel Sounds, Soft, No Tenderness Neuro: Normal Speech Psych/Mental Status: Mood NL Results/Procedures Lab Laboratory Tests 06/28/22 05:12: White Blood Count 26.7H, Red Blood Count 2.87L, Hemoglobin 8.5L, Hematocrit 28L, Mean Corpuscular Volume 97, Mean Corpuscular Hemoglobin 30, Mean Corpuscular Hemoglobin Concent 31L, Red Cell Distribution Width 15.6H, Platelet Count 372, Mean Platelet Volume 9.9, Immature Granulocyte % (Auto) 7, Neutrophils (%) (Auto) 69, Lymphocytes (%) (Auto) 16, Monocytes (%) (Auto) 6, Eosinophils (%) (Auto) 3, Basophils (%) (Auto) 0, Neutrophils # (Auto) 18.4H, Lymphocytes # (Auto) 4.2H, Monocytes # (Auto) 1.6H, Eosinophils # (Auto) 0.8H, Basophils # (Auto) 0.1, Immature Granulocyte # (Auto) 1.7H, Sodium Level 142, Potassium Level 3.9, Chloride Level 108H, Carbon Dioxide Level 18L, Anion Gap 16H, Blood Urea Nitrogen 18, Creatinine 0.84, Estimat Glomerular Filtration Rate 82, BUN/Creatinine Ratio 21, Glucose Level 50*L, Calcium Level 9.1, Corrected Calcium 10.1, Phosphorus Level 3.8, Magnesium Level 1.7, Total Bilirubin 0.2, Aspartate Amino Transf (AST/SGOT) 32, Alanine Aminotransferase (ALT/SGPT) 21, Alkaline Phosphatase 100, Total Protein 5.4L, Albumin 2.8L 06/28/22 06:44: Glucometer 81 Microbiology 06/21/22 Gram Stain - Final, Complete 06/21/22 Sputum Culture - Final, Complete Staphylococcus aureus Strep Species, Beta Hemolytic NOTE: 06/21/22 Urine Culture - Final, Complete NO GROWTH 06/21/22 Blood Culture - Final, Complete No growth Assessment/Plan Assessment/Plan (1) Pneumonia Status: Acute Assessment & Plan: Diffuse findings on initial CXR, persistent in right middle lobe. On cefepime. (2) Sepsis with acute hypoxic respiratory failure Status: Acute Assessment & Plan: Requiring intubation in ER. Extubated on 06/25, doing well on minimal supplemental oxygen this am Qualifiers: (3) Septic shock Status: Resolved Assessment & Plan: Secondary to pneumonia. Shock resolved. (4) Acute renal failure Status: Resolved Assessment & Plan: Suspect secondary to septic shock. Qualifiers: Qualified Codes: N17.1 - Acute kidney failure with acute cortical necrosis (5) Metabolic acidosis Status: Resolved Assessment & Plan: Secondary to acute renal insufficiency. (6) Depression Status: Chronic (7) Chronic pain Status: Chronic Assessment & Plan: Home meds resumed. (8) Elevated d-dimer Status: Acute Assessment & Plan: V/Q scan low probability for PE. (9) Urinary tract infection Status: Resolved Assessment & Plan: Initially suspected, but micro with no growth (10) Vomiting Status: Acute Assessment & Plan: Anti emetics as needed, bland diet, advance slowly (11) Debility Status: Acute Assessment & Plan: PT, OT. IRF consult. (12) Dysphagia Status: Acute Assessment & Plan: Reporting new difficulty swallowing since extubation. Has been seen by ST, will follow up. (13) Hypoglycemia Status: Acute Assessment & Plan: Poor intake, secondary to vomiting and dysphagia. Will start D51/2NS for now. (14) DVT prophylaxis Status: Acute Assessment & Plan: Enoxaparin EDUARDA DOLAN MD Jun 28, 2022 12:06
[2022-06-28] MEDS: D5 1/2 NS 1000 ML IV SOLUTION 1,000 ML IV SCH (13:08)
[2022-06-28] MEDS: ENOXAPARIN 40 MG/0.4 ML (LOVENOX) SYR SC SCH (17:53)
[2022-06-28] MEDS: CALCIUM CARBONATE 600 MG (CALCARB) TAB PO SCH (17:54)
[2022-06-28] MEDS: LACTOBACILLUS ACIDOPHILUS (PROBIOTIC) CAPSULE PO SCH (17:54)
[2022-06-29] VITALS (7 sets, daily range): BP systolic 111–144; BP diastolic 70–84
[2022-06-29] MEDS: CEFEPIME INJECTION 1,000 MG in NS (IVPB) 50 ML IV SCH ×2 (01:39→08:04)
[2022-06-29] MEDS: D5 1/2 NS 1000 ML IV SOLUTION 1,000 ML IV SCH ×2 (01:39→09:05)
[2022-06-29] MEDS: RT-ALBUTEROL/IPRATROPIUM 3 ML (DUONEB) VIAL INH SCH ×4 (03:01→22:02)
[2022-06-29 06:04] LABS: BASOPHILS # (AUTO) 0.1 10^3/uL (0.0-0.1); BASOPHILS % (AUTO) 0 % (0-10); EOSINOPHILS # (AUTO) 0.9 10^3/uL (0.0-0.3); EOSINOPHILS % (AUTO) 5 % (0-10); HEMATOCRIT 27 % (35-52); HEMOGLOBIN 8.2 g/dL (11.5-16.0); LYMPHOCYTES # (AUTO) 3.3 10^3/uL (1.0-4.0); LYMPHOCYTES % (AUTO) 18 % (12-44); MEAN CORPUSCULAR HEMOGLOBIN 29 pg (25-34); MEAN CORPUSCULAR HGB CONC 30 g/dL (32-36); MEAN CORPUSCULAR VOLUME 97 fL (80-99); MEAN PLATELET VOLUME 10.3 fL (9.0-12.2); MONOCYTES # (AUTO) 1.7 10^3/uL (0.0-1.0); MONOCYTES % (AUTO) 9 % (0-12); NEUTROPHILS # (AUTO) 11.5 10^3/uL (1.8-7.8); NEUTROPHILS % (AUTO) 63 % (42-75); PLATELET COUNT 342 10^3/uL (130-400); WHITE BLOOD COUNT 18.1 10^3/uL (4.3-11.0)
[2022-06-29 06:33] LABS: ALBUMIN 2.8 GM/DL (3.2-4.5); BILIRUBIN,TOTAL 0.3 MG/DL (0.1-1.0); CREATININE SERUM 0.79 MG/DL (0.60-1.30); MAGNESIUM 1.4 MG/DL (1.6-2.4); POTASSIUM 3.4 MMOL/L (3.6-5.0); TOTAL PROTEIN 5.5 GM/DL (6.4-8.2)
[2022-06-29] MEDS: LORATADINE (CLARITIN) 10 MG TAB PO SCH (08:03)
[2022-06-29] MEDS: SENNOSIDES 8.6 MG (SENOKOT) TAB PO SCH ×2 (08:03→20:02)
[2022-06-29] MEDS: acetaZOLAMIDE 250 MG (DIAMOX) TAB PO SCH (08:03)
[2022-06-29] MEDS: DULoxetine 30 MG (CYMBALTA) CAP PO SCH (08:03)
[2022-06-29] MEDS: THYROID (ARMOUR) 60 MG TABLET PO SCH (08:03)
[2022-06-29] MEDS: amLODIPine 5 MG (NORVASC) TAB PO SCH (08:03)
[2022-06-29] MEDS: lisINopril 20 MG (PRINIVIL) TABLET PO SCH ×2 (08:03→17:42)
[2022-06-29] MEDS: METHADONE 10 MG (DOLOPHINE) TAB GT SCH ×2 (08:03→17:41)
[2022-06-29] MEDS: DOCUSATE SODIUM 100 MG (COLACE) CAP PO SCH ×2 (08:04→20:02)
[2022-06-29] MEDS: MAGNESIUM 1 GM/100 ML IVPB 100 ML IV SCH ×2 (09:05→10:12)
[2022-06-29] MEDS: POTASSIUM CL 10MEQ/50ML IVPB 50 ML IV SCH ×2 (09:05→10:12)
--- NOTE | 2022-06-29 10:01 | Speech Therapy Daily Note ---
Speech Daily Progress Note Subjective Date Seen by Provider: Jun 29, 2022 Time Seen by Provider: 09:18 The patient was recently re-positioned upright in bed by her RN. The patient was awake and alert upon entrance to her room by the clinician. The patient was agreeable to participation in the skilled dysphagia treatment session. Frequent verbal re-direction to task was provided for treatment completion. Objective The patient and clinician extensively discussed the patient's previous dysphagia history. Initially (during the initial evaluation), the patient stated the dysphagia has been present for "twenty years." During today's treatment session, the patient stated the dysphagia symptoms have been present for "two years when this all started with my diagnosis." Per patient, "Things just weren't moving." The patient described a globus sensation with all P.O. consistencies, however, was unable to locate the globus sensation. 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 As the malformation can result in swallowing issues, specifically gagging, and the patient does report reduced or absent pharyngeal sensation, the clinician is concerned of possible silent aspiration with P.O. consistencies. Due to the patient's detailed description, the clinician believes the best practice would be completion of a modified barium swallow study. The patient stated she consumes thin liquids before each bite of food reporting, "I have to grease the skids." The patient reports a reduced rate of P.O. intake, "I just don't aguayo." Prior to the close of the treatment session, the patient does consumed P.O. tria ls for the clinician (limited). The patient consumed straw sips of thin liquid and half teaspoon bites (two) of yogurt. While the patient does not display overt s/s of suspected aspiration, the patient's baseline wet vocal quality remains present (unchanged). The clinician has the patient scheduled for a modified barium swallow on this date at 1115. Updated results pending completion of the swallow study. The patient agrees with the plan of care and the clinician provided the plan of care to the RN. Assessment Assessment Current Status: Good Progress Treatment Plan Continue Plan of Care Speech Short Term Goals Short Term Goals Short Term Goals 1. The patient will demonstrate safe swallowing strategies with 80% accuracy, independently. Time Frame-STG: Three Days. Speech Orchestra Conductor Goals Orchestra Conductor Goals 1. The patient will tolerate the least restrictive diet consistency without s/s of suspected aspiration. Time Frame: One Week. Speech-Plan Treatment Plan Speech Therapy Treatment Plan: Continue Plan of Care Treatment Duration: Jun 29, 2022 Frequency: 4 times per week Estimated Hrs Per Day: .25 hour per day Rehab Potential: Fair Pt/Family Agrees to Plan: Yes Safety Risks/Education Teaching Recipient: Patient, Friend Teaching Methods: Discussion Response to Teaching: Verbalize Understanding Time Speech Therapy Time In: 09:18 Speech Therapy Time Out: 09:43 DATE: Jun 29, 2022 Total Billed Time: 25 Billed Treatment Time 1, CLIVE FORD Jun 29, 2022 10:01
--- NOTE | 2022-06-29 10:07 | Progress Note ---
Subjective Subjective/Events-last exam Feeling good, sitting up in chair, states food is staying down today. Focused Exam Time of Focused Exam: 08:00 Objective Exam Last Set of Vital Signs Vital Signs Date Time Temp Pulse Resp B/P (MAP) Pulse Ox O2 Delivery O2 Flow Rate FiO2 06/29/22 08:00 Room Air 06/29/22 07:57 36.8 90 16 141/73 (95) 97 06/29/22 07:22 2.00 06/26/22 20:37 21 Capillary Refill : Less Than 3 Seconds I&O Intake and Output 06/29/22 00:00 Intake Total 720 ml Output Total 2450 ml Balance -1730 ml Intake Oral 620 ml IV Total 100 ml Output Urine Total 2450 ml # Bowel Movements 2 General: Alert, No Acute Distress Lungs: Clear to Auscultation, Normal Air Movement Heart: Other (tachycardia) Abdomen: Normal Bowel Sounds, Soft Psych/Mental Status: Mood NL Results/Procedures Lab Laboratory Tests 06/29/22 05:20: White Blood Count 18.1H, Red Blood Count 2.81L, Hemoglobin 8.2L, Hematocrit 27L, Mean Corpuscular Volume 97, Mean Corpuscular Hemoglobin 29, Mean Corpuscular Hemoglobin Concent 30L, Red Cell Distribution Width 15.8H, Platelet Count 342, Mean Platelet Volume 10.3, Immature Granulocyte % (Auto) 4, Neutrophils (%) (Auto) 63, Lymphocytes (%) (Auto) 18, Monocytes (%) (Auto) 9, Eosinophils (%) (Auto) 5, Basophils (%) (Auto) 0, Neutrophils # (Auto) 11.5H, Lymphocytes # (Auto) 3.3, Monocytes # (Auto) 1.7H, Eosinophils # (Auto) 0.9H, Basophils # (Auto) 0.1, Immature Granulocyte # (Auto) 0.8H, Sodium Level 143, Potassium Level 3.4L, Chloride Level 107, Carbon Dioxide Level 27, Anion Gap 9, Blood Urea Nitrogen 11, Creatinine 0.79, Estimat Glomerular Filtration Rate 88, BUN/Creatinine Ratio 14, Glucose Level 90, Calcium Level 9.0, Corrected Calcium 10.0, Phosphorus Level 3.0, Magnesium Level 1.4L, Total Bilirubin 0.3, Aspartate Amino Transf (AST/SGOT) 44H, Alanine Aminotransferase (ALT/SGPT) 31, Alkaline Phosphatase 102, Total Protein 5.5L, Albumin 2.8L Microbiology 06/21/22 Gram Stain - Final, Complete 06/21/22 Sputum Culture - Final, Complete Staphylococcus aureus Strep Species, Beta Hemolytic NOTE: 06/21/22 Urine Culture - Final, Complete NO GROWTH 06/21/22 Blood Culture - Final, Complete No growth Assessment/Plan Assessment/Plan (1) Pneumonia Status: Resolved Assessment & Plan: Diffuse findings on initial CXR, persistent in right middle lobe. On cefepime- ending today. (2) Sepsis with acute hypoxic respiratory failure Status: Resolved Assessment & Plan: Requiring intubation in ER. Extubated on 06/25, doing well on minimal supplemental oxygen this am Qualifiers: (3) Septic shock Status: Resolved Assessment & Plan: Secondary to pneumonia. Shock resolved. (4) Acute renal failure Status: Resolved Assessment & Plan: Suspect secondary to septic shock. Qualifiers: Qualified Codes: N17.1 - Acute kidney failure with acute cortical necrosis (5) Metabolic acidosis Status: Resolved Assessment & Plan: Secondary to acute renal insufficiency. (6) Depression Status: Chronic (7) Chronic pain Status: Chronic Assessment & Plan: Home meds resumed. (8) Elevated d-dimer Status: Acute Assessment & Plan: V/Q scan low probability for PE. (9) Urinary tract infection Status: Resolved Assessment & Plan: Initially suspected, but micro with no growth (10) Vomiting Status: Resolved Assessment & Plan: Anti emetics as needed, bland diet, advance slowly (11) Debility Status: Acute Assessment & Plan: PT, OT. IRF consult. (12) Dysphagia Status: Acute Assessment & Plan: Reporting new difficulty swallowing since extubation. Has been seen by ST, will follow up. 06/29- failed barium, recommended NPO, Surgery consulted for PEG. (13) Hypoglycemia Status: Acute Assessment & Plan: Poor intake, secondary to vomiting and dysphagia. Will start D51/2NS for now. (14) DVT prophylaxis Status: Acute Assessment & Plan: Enoxaparin EDUARDA DOLAN MD Jun 29, 2022 10:07
--- NOTE | 2022-06-29 10:23 | Physical Therapy Daily Note ---
PT Daily Note-Current Subjective Patient reports she slept and feels much better on this date. Agrees to therapy Pain Section J - Health Conditions 1. Rarely or not at all 2. Occasionally 3. Frequently 4. Almost constantly 8. Unable to answer Pain Effect on Sleep: 1 Pain Interference with Therapy: 1 Pain Interference w/Day-to-Day: 1 Mental Status Patient Orientation: Normal For Age Attachments: Oxygen, Morrell Catheter, IV Transfers SCALE: Activities may be completed with or without assistive devices. 6-Usqwopqyat-dkhuvsl completes the activity by him/herself with no assistance from a helper. 5-Set-up or Clean-up Assistance-helper sets up or cleans up; patient completes activity. [place] assists only prior to or following the activity. 4-Supervision or Touching Assistance-helper provides verbal cues and/or touching/steadying and/or contact guard assistance as patient completes activity. Assistance may be provided throughout the activity or intermittently. 3-Partial/Moderate Assistance-helper does LESS THAN HALF the effort. [place] lifts, holds or supports trunk or limbs, but provides less than half the effort. 2-Substantial/Maximal Assistance-helper does MORE THAN HALF the effort. [place] lifts or holds trunk or limbs and provides more than half the effort. 0-Wzpxjfwiu-koypfv does ALL the effort. Patient does none of the effort to complete the activity. Or, the assistance of 2 or more helpers is required for the patient to complete the activity. If activity was not attempted, code reason: 7-Patient Refused. 9-Not Applicable-not attempted and the patient did not perform the activity before the current illness, exacerbation or injury. 10-Not Attempted due to Environmental Limitations-(lack of equipment, weather restraints, etc.). 88-Not Attempted due to Medical Conditions or Safety Concerns. Lying to Sitting/Side of Bed(Q: 4 Sit to Stand (QC): 3 Chair/Ucv-xs-Jehjv Xfer(QC): 3 Gait Training Distance: 10' Walk 10 feet (QC): 3 Walk 50 ft with 2 Turns(QC): 88 Gait Assistive Device: FWW noted diminished proprioception due to decreased sensation (chronic) Exercises Seated Therapy Exercises: Long arc quads, Hip flexion Seated Reps: 15 Assessment Patient stood in FWW for several minutes CGA. Patient highly motivated with progress and is up in recliner with family present. PT to increase activity as tolerated by patient. PT Retirement Goals Card Feeder Goals PT Retirement Goals Time Frame: July 14, 2022 Roll Left & Right (QC): 6 Sit to Lying (QC): 6 Lying-Sitting on Side/Bed(QC): 6 Sit to Stand (QC): 4 Chair/Cus-kq-Oxbbp Xfer(QC): 4 PT Plan Treatment/Plan Treatment Plan: Continue Plan of Care Treatment Plan: Bed Mobility, Education, Functional Activity Gerald, Functional Strength, Safety, Therapeutic Exercise, Transfers Treatment Duration: July 14, 2022 Frequency: 6 times per week Estimated Hrs Per Day: .25 hour per day Patient and/or Family Agrees t: Yes Time Time In: 948 Time Out: 1002 DATE: Jun 29, 2022 Total Billed Treatment Time: 14 Total Billed Treatment 1 visit FA 14 min ADITYA NOLASCO PT Jun 29, 2022 10:23
--- NOTE | 2022-06-29 10:53 | Occupational Ther Daily Note ---
OT Current Status-Daily Note Subjective Up in bed w/ visitor, agreeable and in good spirits Mental Status/Objective Patient Orientation: Situation Attachments: IV, Oxygen (currenlty not on patient) ADL-Treatment Therapy Code Descriptions/Definitions Functional [place] Measure: 0=Not Assessed/NA 4=Minimal Assistance 1=Total Assistance 5=Supervision or Setup 2=Maximal Assistance 6=Modified [place] 3=Moderate Assistance 7=Complete IndependenceSCALE: Activities may be completed with or without assistive devices. 3-Dpmlcqqrvi-nfbhskj completes the activity by him/herself with no assistance from a helper. 5-Set-up or Clean-up Assistance-helper sets up or cleans up; patient completes activity. [place] assists only prior to or following the activity. 4-Supervision or Touching Assistance-helper provides verbal cues and/or touching/steadying and/or contact guard assistance as patient completes activity. Assistance may be provided throughout the activity or intermittently. 3-Partial/Moderate Assistance-helper does LESS THAN HALF the effort. [place] lift s, holds or supports trunk or limbs, but provides less than half the effort. 2-Substantial/Maximal Assistance-helper does MORE THAN HALF the effort. [place] lifts or holds trunk or limbs and provides more than half the effort. 7-Uvnflusix-ldbrbc does ALL the effort. Patient does none of the effort to complete the activity. Or, the assistance of 2 or more helpers is required for the patient to complete the activity. If activity was not attempted, code reason: 7-Patient Refused. 9-Not Applicable-not attempted and the patient did not perform the activity before the current illness, exacerbation or injury. 10-Not Attempted due to Environmental Limitations-(lack of equipment, weather restraints, etc.). 88-Not Attempted due to Medical Conditions or Safety Concerns. Eating (QC): 7 (ST evaluation pending) Oral Hygiene (QC): 4 Shower/Bathe Self (QC): 7 (declines, OT performs BM hygiene residual hygiene) Upper Body Dressing (QC): 3 Lower Body Dressing (QC): 2 On/Off Footwear: 1 Toileting Hygiene (QC): 1 Toilet Transfer (QC): 3 Education OT Patient Education: Exercise program, Modified ADL techniques, Progress toward Goal/Update tx plan, Purpose of tx/functional activities, Reviewed pr ecautions, Rehab process, Safety issues, Transfer techniques Teaching Recipient: Patient Teaching Methods: Demonstration, Discussion Response to Teaching: Reinforcement Needed OT Alf Goals Alf Goals Eating (QC): 6 Oral Hygiene (QC): 6 Toileting Hygiene (QC): 5 Shower/Bathe Self (QC): 4 Upper Body Dressing (QC): 5 Lower Body Dressing (QC): 5 On/Off Footwear (QC): 5 1=Demonstrate adherence to instructed precautions during ADL tasks. 2=Patient will verbalize/demonstrate understanding of assistive devices/modif ications for ADL. 3=Patient will improve strength/tolerance for activity to enable patient to perform ADL's. OT Education/Plan Problem List/Assessment Assessment: Decreased Activ Tolerance, Decreased UE Strength, Impaired Self- Care Skills Discharge Recommendations Plan/Recommendations: Continue POC Treatment Plan/Plan of Care Patient would benefit from OT for education, treatment and training to promote independence in ADL's, mobility, safety and/or upper extremity function for ADL's. Plan of Care: ADL Retraining, Concurrent Therapy, Functional Mobility, Group Exercise/Act as Ind, UE Funct Exercise/Act Treatment Duration: July 07, 2022 Frequency: 3 times per week (3-5 times per week) Estimated Hrs Per Day: .25 hour per day Agreement: Yes Rehab Potential: Fair Time Start Time: 09:47 Stop Time: 10:15 DATE: Jun 29, 2022 Total Time Billed (hr/min): 28 Billed Treatment Time ADL 2 28 min SABI CHAVARRIA OT Jun 29, 2022 10:53
--- NOTE | 2022-06-29 12:01 | Diagnostic Imaging Report ---
INDICATION: Dysphagia. TECHNIQUE: The study was performed in conjunction with Speech Pathology. Video fluoroscopy was performed during the swallowing of barium of multiple consistencies. Total of 2.0 minutes of fluoroscopic time was utilized. Patient ingested thin barium as well as nectar and honey-thick consistency. Patient also ingested puree consistency. FINDINGS: There was an episode of aspiration during the swallowing of thin barium. This was silent. Patient ingested bolus of applesauce consistency. This did show a moderate residue at the piriform sinus. Patient appears to have extrinsic compression on the upper esophagus by a large cricopharyngeus bar. There was difficulty clearing the applesauce from the piriform sinus. Multiple repeated swallows would cause penetration and aspiration due to significant puree residue. IMPRESSION: Abnormal video swallow demonstrating multiple episodes of penetration and aspiration, as described. Dictated by: Dictated on workstation # [id number]
--- NOTE | 2022-06-29 13:22 | ST Mod Barium Swallow ---
Speech Evaluation-General Medical Diagnosis Pneumonia, Hypoxia, Sepsis Onset Date: Jun 21, 2022 Therapy Diagnosis Therapy Diagnosis: Severe Pharyngeal Esophageal Dysphagia Precautions Precautions: Fall, Pressure Ulcer, Aspiration Precautions/Isolations: Aspiration, Fall Prevention, Standard Precautions, Pressure Ulcer Referral Referring Physician: Dr. Geller Reason for Referral: Evaluation/Treatment Medical History Pertinent Medical History: HTN Reviewed History: Yes Social History Current Living Status: Significant Other Speech Mod Barium Swallow Prior Level of Function Please locate prior medical information, including prior level of function, throughout the patient's clinical bedside swallowing evaluation and most recent dysphagia treatment session. Textures-Lateral View Lateral View Food Presentation: Thin Liquid via Spoon, [place] Liquid via Spoon, Honey Liquid via Spoon, Pureed Solids Oral Phase Labial Closure: No Impairment (WFL) Bolus Formation Pooling L/R: No Impairment (WFL) Bolus Formation Placement: No Impairment (WFL) A/P Lingual Propulsion: No Impairment (WFL) Lingual Movement: No Impairment (WFL) Oral Phase Residue: No Impairment (WFL) The patient does not display oral deficits of the swallow function throughout the study. The patient orally accepts the bolus, completes bolus formation, and transfers the bolus posterior in the oral cavity effectively. Pharyngeal Phase Swallow Response: No Impairment (WFL) Base of Tongue: No Impairment (WFL) Epiglottic Movement: No Impairment (WFL) Laryngeal Elevation: No Impairment (WFL) Vallecular Residue: Mild (Minimal coating.) Pharyngeal Wall Residue: Mild (Minimal coating.) Piriform Sinus Residue: Severe Laryngeal Penetration: Mild Aspiration Observations: Mild (Silent.) The patient demonstrated marked pharyngeal esophageal dysphagia. The pharyngeal swallow was triggered as the head of the bolus reach the angle of the mandible and base of tongue (timely). Complete hyo-laryngeal excursion and laryngeal elevation were present which resulted in complete epiglottic inversion. Silent aspiration of thin liquids occurred during and following the swallow. As the thin liquid reached the pyriform sinuses and cricopharyngeal region, portions of the bolus was unable to pass due to hypertonicity of the cricipharyneaus muscle. At this time, the thin liquid flowed from the pyriform sinuses into the open airway. A protective response was not displayed. A cued cough was requested by the clinician. The cued cough was weak and not effective at clearing the aspirated material. Following a bolus of puree was attempted. The bolus remained in the pyriform sinuses. The clinician attempted to clear the puree from the pyriform sinuses with mildly thick and moderately thick teaspoons. Minimal amounts of the mildly thick and moderately thick liquids cleared the pyriform sinuses. Portions of the residual material were silently aspirated during subsequent dry swallows. The clinician attempted head turns to each direction, effortful swallows, chin tucks, and sip size variation in attempts to improve cricopharyngeal clearance. None of the maneuvers were effective at improved cricopharyngeal clearance. The patient displayed intact base of tongue retraction and pharyngeal con tractions. Summary/Impressions The patient demonstrated severe pharyngeal esophageal dysphagia characterized by the presence of a cricopharyngeal bar (located at the upper esophageal region correlating with cervical vertebrae three through five). Limited bolus clearance was achieved through the cricopharyngeal region. The residual material which remained resulted in silent aspiration (mild) following the swallow. Regardless of compensatory strategies, improved cricopharyngeal clearance was not achieved. Recommendations: - The patient should remain N.P.O. - Excellent and frequent oral care to reduce the transfer of oral bacteria to the lungs should aspiration of secretions occur. - Consider long-term alternative sources for total nutrition, hydration, and medication (PEG tube). - Consider referral to a GI specialist or able seaman for treatment of the visualized marked cricopharyngeal bar, if deemed appropriate by the attending physician. - Following evaluation and treatment of the cricopharyngeal bar, consider repeating the modified barium swallow evaluation to assess for improvement. Due to silent aspiration, a modified barium swallow will be necessary to assess for improvement as the clinician will not be able to evaluate for silent aspiration at the bedside. - The patient does not display reduced oral/lingual coordination or oropharyngeal weakness throughout the study. Additionally, specific maneuvers were not effective at eliminating aspiration with any consistency tested. Due to this, skilled speech pathology is not warranted. Speech pathology will continue to monitor the patient's medical progress and provide education within speech pathology scope of practice as able. The clinician thoroughly discussed the results and recommendations with the patient and the patient's RN. The patient has requested her niece not be aware of the results. The patient has additionally requested the clinician review the swallow study with her spouse, Nathan. The speech pathologist will complete a dysphagia treatment session with the patient and her on this date to provide additional education regarding the swallow study. The RN stated she would contact Dr. Geller with the results. Speech Short Term Goals Short Term Goals Short Term Goals 1. The patient will demonstrate safe swallowing strategies with 80% accuracy, independently. Time Frame-STG: Three Days. Speech Web Site Specialist Goals Detention Goals 1. The patient will tolerate the least restrictive diet consistency without s/s of suspected aspiration. Time Frame: One Week. Speech-Plan Treatment Plan Speech Therapy Treatment Plan: Continue Plan of Care Treatment Duration: Jun 29, 2022 Frequency: 4 times per week Estimated Hrs Per Day: .25 hour per day Rehab Potential: Fair Pt/Family Agrees to Plan: Yes Safety Risks/Education Teaching Recipient: Patient Teaching Methods: Demonstration, Discussion, Audiovisual Response to Teaching: Verbalize Understanding Education Topics Provided: Results, Recommendations, Plan of Care Time Speech Therapy Time In: 11:05 Speech Therapy Time Out: 11:55 DATE: Jun 29, 2022 Total Billed Time: 50 Billed Treatment Time 1, MOD, DYST CLIVE CABALLERO Jun 29, 2022 13:22
--- NOTE | 2022-06-29 14:13 | Speech Therapy Daily Note ---
Speech Daily Progress Note Subjective Date Seen by Provider: Jun 29, 2022 Time Seen by Provider: 12:00 The patient was lying in bed, awake and alert, upon entrance to her room by the clinician. The patient's spouse, Nathan, was present at bedside. The patient greeted the clinician appropriately and was agreeable to participation in the dysphagia treatment session. Objective The clinician reviewed and discussed the most recent modified barium swallow with the patient and the patient's spouse. The modified barium swallow recording was viewed and education within the clinician's scope of practice was provided. All questions were answered by the clinician as able. The patient denied additional questions or concerns for the clinician at this time. Assessment Assessment Current Status: Good Progress Treatment Plan Continue Plan of Care Speech Short Term Goals Short Term Goals Short Term Goals 1. The patient will demonstrate safe swallowing strategies with 80% accuracy, independently. Time Frame-STG: Three Days. Speech Laundry Sorter Goals Assisted Goals 1. The patient will tolerate the least restrictive diet consistency without s/s of suspected aspiration. Time Frame: One Week. Speech-Plan Treatment Plan Speech Therapy Treatment Plan: Continue Plan of Care Treatment Duration: Jun 29, 2022 Frequency: 4 times per week Estimated Hrs Per Day: .25 hour per day Rehab Potential: Fair Pt/Family Agrees to Plan: Yes Safety Risks/Education Teaching Recipient: Patient, Significant Other Teaching Methods: Demonstration, Discussion, Audiovisual Response to Teaching: Verbalize Understanding Education Topics Provided: Results, Recommendations, Plan of Care Time Speech Therapy Time In: 12:00 Speech Therapy Time Out: 12:23 DATE: Jun 29, 2022 Total Billed Time: 23 Billed Treatment Time 1KAR [facility] ST Jun 29, 2022 14:13
[2022-06-29] MEDS: LACTOBACILLUS ACIDOPHILUS (PROBIOTIC) CAPSULE PO SCH (17:41)
[2022-06-29] MEDS: CALCIUM CARBONATE 600 MG (CALCARB) TAB PO SCH (17:41)
--- NOTE | 2022-06-29 22:13 | Progress Note - Surgery ---
Subjective Date Seen by a Provider: Jun 29, 2022 Time Seen by a Provider: 17:00 Subjective/Events-last exam Asked by Dr. Geller to see patient for PEG tube placement. Since seen previously patient is extubated and on Med/surg floor. She states she is continuing to feel better. Patient was seen by speech and found to have severe pharyngeal esophageal dysphagia. They have recommended patient to be NPO and consider having PEG placed. Patient states that she has had difficulty swallowing for quite some time and they feel that she has worsened lately as well. They state that it makes since she has aspirated multiple times due to the dysphagia causing pneumonias. Patient and family is worried about her nutrition. Focused Exam Time of Focused Exam: 08:00 Objective Exam Vital Signs Date Time Temp Pulse Resp B/P (MAP) Pulse Ox O2 Delivery O2 Flow Rate FiO2 06/29/22 22:02 94 Nasal Cannula 1.00 06/29/22 20:00 Room Air 06/29/22 19:09 36.5 95 18 111/70 (84) 94 Nasal Cannula 1.00 06/29/22 17:41 36.5 96 18 139/81 (100) 94 Nasal Cannula 1.00 06/29/22 16:13 36.6 102 24 141/77 (98) 93 Nasal Cannula 1.00 06/29/22 14:47 93 Room Air 06/29/22 12:00 37.7 104 18 144/78 (100) 91 Room Air 06/29/22 08:00 Room Air 06/29/22 07:57 36.8 90 16 141/73 (95) 97 Room Air 06/29/22 07:22 95 Nasal Cannula 2.00 06/29/22 03:57 36.9 94 18 134/71 (92) 95 Nasal Cannula 2.00 06/29/22 03:03 95 Nasal Cannula 2.00 06/28/22 23:24 36.6 96 18 140/73 (95) 95 Nasal Cannula 2.00 I & O 06/29/22 07:00 Intake Total 450 ml Output Total 3175 ml Balance -2725 ml Capillary Refill : Less Than 3 Seconds General Appearance: No Apparent Distress, WD/WN, Chronically ill HEENT: PERRL/EOMI, Other (erythematous conjunctivae b/l) Neck: Non Tender, Supple Respiratory: Chest Non Tender, No Accessory Muscle Use, No Respiratory Distress, Crackles, Rales Cardiovascular: Regular Rate, Rhythm, No JVD Peripheral Pulses: 1+ Radial Pulses (R), 1+ Radial Pulses (L) Gastrointestinal: soft, no organomegaly, other (implanted device llq) Extremity: Non Tender, No Calf Tenderness, No Pedal Edema Neurologic/Psychiatric: Alert, Normal Mood/Affect Skin: Pallor, Other (SOME MOTTLING TO LEFT HAND AND FOOT. ) Lymphatic: No Adenopathy Results Lab Laboratory Tests 06/29/22 05:20: White Blood Count 18.1H, Red Blood Count 2.81L, Hemoglobin 8.2L, Hematocrit 27L, Mean Corpuscular Volume 97, Mean Corpuscular Hemoglobin 29, Mean Corpuscular Hemoglobin Concent 30L, Red Cell Distribution Width 15.8H, Platelet Count 342, Mean Platelet Volume 10.3, Immature Granulocyte % (Auto) 4, Neutrophils (%) (Auto) 63, Lymphocytes (%) (Auto) 18, Monocytes (%) (Auto) 9, Eosinophils (%) (Auto) 5, Basophils (%) (Auto) 0, Neutrophils # (Auto) 11.5H, Lymphocytes # (Auto) 3.3, Monocytes # (Auto) 1.7H, Eosinophils # (Auto) 0.9H, Basophils # (Auto) 0.1, Immature Granulocyte # (Auto) 0.8H, Sodium Level 143, Potassium Level 3.4L, Chloride Level 107, Carbon Dioxide Level 27, Anion Gap 9, Blood Urea Nitrogen 11, Creatinine 0.79, Estimat Glomerular Filtration Rate 88, BUN/Creatinine Ratio 14, Glucose Level 90, Calcium Level 9.0, Corrected Calcium 10.0, Phosphorus Level 3.0, Magnesium Level 1.4L, Total Bilirubin 0.3, Aspartate Amino Transf (AST/SGOT) 44H, Alanine Aminotransferase (ALT/SGPT) 31, Alkaline Phosphatase 102, Total Protein 5.5L, Albumin 2.8L 06/29/22 19:30: Glucometer 99 Microbiology 06/21/22 Gram Stain - Final, Complete 06/21/22 Sputum Culture - Final, Complete Staphylococcus aureus Strep Species, Beta Hemolytic NOTE: 06/21/22 Urine Culture - Final, Complete NO GROWTH 06/21/22 Blood Culture - Final, Complete No growth Assessment/Plan Assessment/Plan Assessment/Plan sepsis b/l pneumonia uti Severe Pharyngeal Esophageal Dysphagia Patient strict NPO at this time. We discussed risks and benefits of having PEG tube placed Patient and family understands risks and benefits and wishes to proceed. Hold lovenox Consent for procedure Plan to place tomorrow. EVE RODRÍGUEZ DO Jun 29, 2022 22:13
[2022-06-30] VITALS (12 sets, daily range): BP systolic 113–182; BP diastolic 64–86
[2022-06-30] MEDS: RT-ALBUTEROL/IPRATROPIUM 3 ML (DUONEB) VIAL INH SCH ×3 (02:46→21:57)
[2022-06-30] MEDS: D5 1/2 NS 1000 ML IV SOLUTION 1,000 ML IV SCH ×2 (04:34→14:55)
[2022-06-30 05:49] LABS: BASOPHILS % (AUTO) 0 % (0-10); EOSINOPHILS # (AUTO) 0.9 10^3/uL (0.0-0.3); EOSINOPHILS % (AUTO) 6 % (0-10); HEMATOCRIT 29 % (35-52); LYMPHOCYTES # (AUTO) 2.7 10^3/uL (1.0-4.0); LYMPHOCYTES % (AUTO) 19 % (12-44); MEAN CORPUSCULAR HEMOGLOBIN 30 pg (25-34); MEAN CORPUSCULAR HGB CONC 31 g/dL (32-36); MEAN CORPUSCULAR VOLUME 95 fL (80-99); MEAN PLATELET VOLUME 9.9 fL (9.0-12.2); MONOCYTES # (AUTO) 1.2 10^3/uL (0.0-1.0); MONOCYTES % (AUTO) 9 % (0-12); NEUTROPHILS # (AUTO) 9.1 10^3/uL (1.8-7.8); NEUTROPHILS % (AUTO) 63 % (42-75); PLATELET COUNT 345 10^3/uL (130-400); WHITE BLOOD COUNT 14.4 10^3/uL (4.3-11.0)
[2022-06-30 06:02] LABS: ALBUMIN 2.9 GM/DL (3.2-4.5); POTASSIUM 3.2 MMOL/L (3.6-5.0)
[2022-06-30 06:03] LABS: CALCIUM 9.1 MG/DL (8.5-10.1)
[2022-06-30 06:04] LABS: TOTAL PROTEIN 5.6 GM/DL (6.4-8.2)
[2022-06-30 06:06] LABS: BILIRUBIN,TOTAL 0.3 MG/DL (0.1-1.0)
[2022-06-30 06:08] LABS: CREATININE SERUM 0.68 MG/DL (0.60-1.30); PHOSPHORUS 2.7 MG/DL (2.3-4.7)
[2022-06-30 06:11] LABS: MAGNESIUM 1.5 MG/DL (1.6-2.4)
--- NOTE | 2022-06-30 07:27 | Progress Note - Hospitalist ---
Subjective HPI/CC On Admission Date Seen by Provider: Jun 30, 2022 Time Seen by Provider: 11:00 Could not obtain hx from patient bc she was intubated. History gathered from chart review. Ms. Ramírez is a 57 yo female with pmhx significant for Arnold chair malformation, autonomic dysreflexia, brain decompression surgeries, chronic generalized pain for which she takes methadone, chronic blurred vision, chronic dysphagia, and chronic numbness and dizziness who presented to the ED via EMS for AMS. Initial O2 sats in the 60s and pressure was 60/18. On arrival patient had limited verbal response. Pt significant other reports that patient is nonabulatory at baseline but is normally AOx3. He reports that patient has had increased lethargy, decreased mentation, and SOB over the last couple weeks. Pt was diagnosed with pneumonia on 06/19 at [facility] and was prescribed Augmenting and Zithromax. Sepsis protocol was initiated in ED and patient was placed on BIPAP, IV fluids, Cefepime, solumedrol. Pt also received narcan which improved patients mentation while in the ED. This morning in ICU patient seemed confused and had random nonpurposful movements of her hand. Pt became unresponsive and hypotensive in ICU. Discussed options with significant other who is POA and decision to intubate patient for short period of time was agreed upon. This was done without complications and central line was placed. Repeat labs, cxr, abg all ordered. No changes in status at this time. Subjective/Events-last exam PEG in place Meds can go thru it now Aspiration risk is high Awaiting ARU Boyfriend at bedside Review of Systems General: Fatigue Focused Exam Time of Focused Exam: 08:00 Objective Exam Vital Signs Vital Signs Date Time Temp Pulse Resp B/P (MAP) Pulse Ox O2 Delivery O2 Flow Rate FiO2 06/30/22 14:21 36.7 85 96 24 06/30/22 11:19 16 182/86 (118) Nasal Cannula 1.50 Capillary Refill : Less Than 3 Seconds General Appearance: No Apparent Distress, WD/WN, Chronically ill Respiratory: Lungs Clear, Normal Breath Sounds, Decreased Breath Sounds Cardiovascular: Regular Rate, Rhythm Neurologic/Psychiatric: Alert, Oriented x3, Motor Weakness (all ext) Results/Procedures Lab Laboratory Tests 06/30/22 05:40 Patient resulted labs reviewed. Imaging: Reviewed Imaging Report Assessment/Plan Assessment and Plan Assess & Plan/Chief Complaint Assessment: Sepsis with shock UTI and PNA Acute Kidney Failure PNA - bilateral opacities on CXR UTI Acute mental status change Elevated D dimer low prob of PE on VQ scan Anemia Chronic pain syndrome Arnold chiari malformation hypokalemia shock, unresponsive Intubation while in ICU Central line placed DVT prophylaxis: heparin gtt stress ulcer prophylaxis: ppi Code status: DNI; Sig other is POA, PEG in place Critical Care Ventilator Management MAYKEL BURNS DO Jun 30, 2022 07:27
--- NOTE | 2022-06-30 08:45 | Progress Note - Surgery ---
АНДРЕЙMULU 06/30/22 0845: Subjective Date Seen by a Provider: Jun 30, 2022 Time Seen by a Provider: 08:15 Subjective/Events-last exam Today patient states she is ready to get PEG tube. She has had trouble swallowing as well as issues with nausea and vomiting for years and is happy to be finding an option for nutrition. Denies n/v, CP, SOB, abdominal pain at this time. Last BM was yesterday morning and was formed without blood or pain. Last vomiting was 3 days ago per patient report. Barium swallow 06/29 revealed multiple aspirations and difficulty swallowing. Review of Systems General: No Chills, No Night Sweats HEENT: No Head Aches, No Visual Changes Pulmonary: No Dyspnea, No Cough Cardiovascular: No: Chest Pain, Palpitations Gastrointestinal: No: Nausea, Vomiting, Abdominal Pain, Hematochezia Genitourinary: No Dysuria, No Frequency Musculoskeletal: No: neck pain, shoulder pain Neurological: No: Weakness, Numbness Focused Exam Time of Focused Exam: 08:00 Objective Exam Vital Signs Date Time Temp Pulse Resp B/P (MAP) Pulse Ox O2 Delivery O2 Flow Rate FiO2 06/30/22 08:00 94 Room Air 06/30/22 07:35 36.7 87 16 145/77 (99) 94 Nasal Cannula 1.00 06/30/22 03:10 36.5 87 16 143/78 (99) 94 Nasal Cannula 1.00 06/30/22 02:46 95 Nasal Cannula 1.00 06/29/22 23:16 36.4 90 16 138/84 (102) 97 Nasal Cannula 3.00 06/29/22 22:02 94 Nasal Cannula 1.00 06/29/22 20:00 Room Air 06/29/22 19:09 36.5 95 18 111/70 (84) 94 Nasal Cannula 1.00 06/29/22 17:41 36.5 96 18 139/81 (100) 94 Nasal Cannula 1.00 06/29/22 16:13 36.6 102 24 141/77 (98) 93 Nasal Cannula 1.00 06/29/22 14:47 93 Room Air 06/29/22 12:00 37.7 104 18 144/78 (100) 91 Room Air I & O 06/30/22 07:00 Intake Total 2000 ml Output Total 5050 ml Balance -3050 ml Capillary Refill : Less Than 3 Seconds General Appearance: No Apparent Distress, WD/WN, Chronically ill HEENT: PERRL/EOMI, Moist Mucous Membranes, Photophobia (pt not opening eyes), Other (conjunctival erythema bl) Neck: Non Tender, Supple Respiratory: Chest Non Tender, No Accessory Muscle Use, No Respiratory Distress Cardiovascular: Regular Rate, Rhythm, No Edema, No JVD Peripheral Pulses: 1+ Radial Pulses (R), 1+ Radial Pulses (L) Gastrointestinal: non tender, soft, no organomegaly, other (implanted device llq) Extremity: Non Tender, No Calf Tenderness, No Pedal Edema Neurologic/Psychiatric: Alert, Oriented x3, Normal Mood/Affect Skin: Warm/Dry, Ecchymosis (upper extremities b/l) Lymphatic: No Adenopathy Results Lab Laboratory Tests 06/29/22 19:30: Glucometer 99 06/29/22 23:20: Glucometer 99 06/30/22 05:10: Glucometer 105 06/30/22 05:40: White Blood Count 14.4H, Red Blood Count 3.05L, Hemoglobin 9.0L, Hematocrit 29L, Mean Corpuscular Volume 95, Mean Corpuscular Hemoglobin 30, Mean Corpuscular Hemoglobin Concent 31L, Red Cell Distribution Width 16.4H, Platelet Count 345, Mean Platelet Volume 9.9, Immature Granulocyte % (Auto) 3, Neutrophils (%) (Auto) 63, Lymphocytes (%) (Auto) 19, Monocytes (%) (Auto) 9, Eosinophils (%) (Auto) 6, Basophils (%) (Auto) 0, Neutrophils # (Auto) 9.1H, Lymphocytes # (Auto) 2.7, Monocytes # (Auto) 1.2H, Eosinophils # (Auto) 0.9H, Basophils # (Au to) 0.0, Immature Granulocyte # (Auto) 0.4H, Sodium Level 142, Potassium Level 3.2L, Chloride Level 108H, Carbon Dioxide Level 23, Anion Gap 11, Blood Urea Nitrogen 5L, Creatinine 0.68, Estimat Glomerular Filtration Rate 103, BUN/Creatinine Ratio 7, Glucose Level 107H, Calcium Level 9.1, Corrected Calcium 10.0, Phosphorus Level 2.7, Magnesium Level 1.5L, Total Bilirubin 0.3, Aspartate Amino Transf (AST/SGOT) 35H, Alanine Aminotransferase (ALT/SGPT) 30, Alkaline Phosphatase 99, Total Protein 5.6L, Albumin 2.9L Microbiology 06/21/22 Gram Stain - Final, Complete 06/21/22 Sputum Culture - Final, Complete Staphylococcus aureus Strep Species, Beta Hemolytic NOTE: 06/21/22 Urine Culture - Final, Complete NO GROWTH 06/21/22 Blood Culture - Final, Complete No growth Assessment/Plan Assessment/Plan Assessment/Plan sepsis b/l pneumonia uti Severe Pharyngeal Esophageal Dysphagia Patient strict NPO at this time. Patient and family understand risks and benefits and wish to proceed with PEG tube placement today Hold lovenox until after procedure EVE WRIGHT DO 06/30/22 1518: Subjective Subjective/Events-last exam Patient no changes since yesterday. Excited to get gastrostomy tube. Significant other present with her. Currently NPO. No abdominal pain. Denies n/v fever sweats chills shortness of breath or chest pain at this time. Objective Exam General Appearance: No Apparent Distress, Chronically ill HEENT: Moist Mucous Membranes, Other (conjunctival erythema bl) Neck: Non Tender, Supple Respiratory: Chest Non Tender, No Accessory Muscle Use, No Respiratory Distress Cardiovascular: Regular Rate, Rhythm, No JVD Gastrointestinal: non tender, soft, other (implanted device llq) Extremity: Non Tender, No Calf Tenderness Neurologic/Psychiatric: Alert, Normal Mood/Affect Skin: Warm/Dry, Ecchymosis (upper extremities b/l) Lymphatic: No Adenopathy Assessment/Plan Assessment/Plan Assessment/Plan sepsis b/l pneumonia uti Severe Pharyngeal Esophageal Dysphagia Patient strict NPO at this time. Patient and family understand risks and benefits and wish to proceed with PEG tube placement today Hold lovenox until after procedure Can use peg tube for meds today and start feeds tomorrow. Supervisory-Addendum Brief Verification & Attestation Participated in pt care: history, MDM, physical Personally performed: exam, history, MDM, supervision of care Care discussed with: Medical Student Procedures: n/a Results interpretation: Verified all documentation Verification and Attestation of Medical Student E/M Service A medical student performed and documented this service in my presence. I reviewed and verified all information documented by the medical student and made modifications to such information, when appropriate. I personally performed the physical exam and medical decision making. Eve Wright, Jun 30, 2022,09:18 MULU CHIANG Jun 30, 2022 08:45 EVE WRIGHT DO Jun 30, 2022 15:18
--- NOTE | 2022-06-30 09:00 | Physical Therapy Daily Note ---
PT Daily Note-Current Subjective Pt in bed, agreeable. Pt to go for PEG tube placement this AM, agrees to bed ex. Pain Numeric Pain Scale: 0-No Pain Section J - Health Conditions 1. Rarely or not at all 2. Occasionally 3. Frequently 4. Almost constantly 8. Unable to answer Pain Effect on Sleep: 1 Pain Interference with Therapy: 1 Pain Interference w/Day-to-Day: 1 Mental Status Patient Orientation: Person, Place, Time, Situation Attachments: Oxygen, IV Transfers SCALE: Activities may be completed with or without assistive devices. 6-Axdpozvvar-gwidfld completes the activity by him/herself with no assistance from a helper. 5-Set-up or Clean-up Assistance-helper sets up or cleans up; patient completes activity. [place] assists only prior to or following the activity. 4-Supervision or Touching Assistance-helper provides verbal cues and/or touching/steadying and/or contact guard assistance as patient completes activity. Assistance may be provided throughout the activity or intermittently. 3-Partial/Moderate Assistance-helper does LESS THAN HALF the effort. [place] lifts, holds or supports trunk or limbs, but provides less than half the effort. 2-Substantial/Maximal Assistance-helper does MORE THAN HALF the effort. [place] lifts or holds trunk or limbs and provides more than half the effort. 6-Yyygfcmxg-ocbksx does ALL the effort. Patient does none of the effort to complete the activity. Or, the assistance of 2 or more helpers is required for the patient to complete the activity. If activity was not attempted, code reason: 7-Patient Refused. 9-Not Applicable-not attempted and the patient did not perform the activity before the current illness, exacerbation or injury. 10-Not Attempted due to Environmental Limitations-(lack of equipment, weather restraints, etc.). 88-Not Attempted due to Medical Conditions or Safety Concerns. Exercises Supine Ex: Ankle pumps, Quad Set, Glut sets, Heel Slides, Straight leg raise, Hip abd/add Supine Reps: 15 Treatments LE functional strengthening. Pt in bed with O2 in situ, needs met. Assessment Current Status: Fair Progress Pt with good performance with LE exercises; declined OOB this date due to surgery pending within the hour. PT Seo Manager Goals Seo Manager Goals PT Skilled Nursing Goals Time Frame: July 14, 2022 Roll Left & Right (QC): 6 Sit to Lying (QC): 6 Lying-Sitting on Side/Bed(QC): 6 Sit to Stand (QC): 4 Chair/Sni-up-Qmqqi Xfer(QC): 4 PT Plan Problem List Problem List: Activity Tolerance, Functional Strength, Safety, Balance, Gait, Transfer, Bed Mobility Treatment/Plan Treatment Plan: Continue Plan of Care Treatment Plan: Bed Mobility, Education, Functional Activity Gerald, Functional Strength, Safety, Therapeutic Exercise, Transfers Treatment Duration: July 14, 2022 Frequency: 6 times per week Estimated Hrs Per Day: .25 hour per day Patient and/or Family Agrees t: Yes Time Time In: 802 Time Out: 822 DATE: Jun 30, 2022 Total Billed Treatment Time: 20 Total Billed Treatment 1, Ex ANGELA DELUCA DPEmma Jun 30, 2022 09:00
[2022-06-30] MEDS: DOCUSATE SODIUM 100 MG (COLACE) CAP PO SCH ×2 (09:22→21:50)
[2022-06-30] MEDS ORDERED: MIDAZOLAM 2 MG/2 ML (VERSED) VIAL ONE (09:36)
[2022-06-30] MEDS ORDERED: PROPOFOL INJECTION 50 ML IV ONE (10:00)
[2022-06-30] MEDS: THYROID (ARMOUR) 60 MG TABLET PO SCH (11:27)
[2022-06-30] MEDS: amLODIPine 5 MG (NORVASC) TAB PO SCH (11:27)
[2022-06-30] MEDS: LORATADINE (CLARITIN) 10 MG TAB PO SCH (11:27)
[2022-06-30] MEDS: DULoxetine 30 MG (CYMBALTA) CAP PO SCH (11:27)
[2022-06-30] MEDS: acetaZOLAMIDE 250 MG (DIAMOX) TAB PO SCH (11:28)
[2022-06-30] MEDS: lisINopril 20 MG (PRINIVIL) TABLET PO SCH ×2 (11:28→17:48)
[2022-06-30] MEDS: METHADONE 10 MG (DOLOPHINE) TAB GT SCH ×2 (11:28→17:48)
[2022-06-30] MEDS: SENNOSIDES 8.6 MG (SENOKOT) TAB PO SCH ×2 (11:28→21:50)
[2022-06-30] MEDS: POTASSIUM CL 10MEQ/50ML IVPB 50 ML IV SCH ×2 (11:45→14:54)
[2022-06-30] MEDS ORDERED: cloNIDine 0.1 MG (CATAPRES) TAB PO PRN (11:45)
--- NOTE | 2022-06-30 15:23 | Progress Note-Post Operative ---
Post-Operative Progess Note Surgeon (s)/Soldering Machine Feeder (s) Surgeon EVE RODRÍGUEZ DO Soldering Machine Feeder: na Pre-Operative Diagnosis Severe Pharyngeal Esophageal Dysphagia Post-Operative Diagnosis Severe Pharyngeal Esophageal Dysphagia Procedure & Operative Findings Date of Procedure 06/30/22 Procedure Performed/Findings EGD c percutaneous endoscopic gastrostomy tube placement Anesthesia Type mac c local Estimated Blood Loss Estimated blood loss (mL): minimal Specimens/Packing Specimens Removed na EVE RODRÍGUEZ DO Jun 30, 2022 15:23
--- NOTE | 2022-06-30 16:36 | OPERATIVE REPORT ---
DATE OF SERVICE: 06/30/2022 PREOPERATIVE DIAGNOSIS: Severe pharyngoesophageal dysphagia. POSTOPERATIVE DIAGNOSIS: Severe pharyngoesophageal dysphagia. PROCEDURE: EGD with percutaneous endoscopic gastrostomy tube placement. SURGEON: Eve Wright DO. ANESTHESIA: MAC with local. ESTIMATED BLOOD LOSS: Minimal. COMPLICATIONS: None. INDICATIONS: The patient is a 57-year-old female, who was unresponsive and required intubation at time of presentation to the Emergency Department. Since being admitted, the patient is now on the medical surgical floor. The patient was found to have severe pharyngeal esophageal dysphagia and gastrostomy tube placement was recommended. The patient's family discuss risks and benefits of having EGD with percutaneous endoscopic gastrostomy tube placement. They understand risks and benefits and wishes to proceed. Consent was signed in chart. DESCRIPTION OF PROCEDURE: The patient was taken to the operating suite where she was prepped and draped in sterile fashion. Timeout was performed. Scope was inserted in the mouth, down the esophagus, stomach, into the duodenum without difficulty. There were no polyps, masses or ulcerations within the duodenum. Scope was slowly retracted back into stomach where it was further insufflated. No polyps, masses or ulcerations. Scope was retroflexed noting a small hiatal hernia, no other pathology. Scope was returned to its normal position. The light was visualized through the abdominal wall and ballottable. The stomach was prepped and draped in sterile fashion. Local anesthetic was infiltrated and needle was inserted through the abdominal wall into the stomach without difficulty. Local anesthetic was continued to be infiltrated as it was withdrawn. An 11 blade scalpel was used to make a small skin incision. The Angiocath needle was inserted through the abdominal wall and into the stomach under visualization of the scope. The needle was removed. The guidewire was inserted through the sheath and then the sheath was removed after the guidewire was snared. The scope was then slowly retracted back, removing the guidewire through the mouth. The gastrostomy tube was then attached to the guidewire and this was then slowly withdrawn and brought out through the incision. The scope was then reinserted to the mouth, down the esophagus, and into the stomach without difficulty. Good placement of the gastrostomy tube. The outer bolster was then placed on the gastrostomy tube at approximately 4 cm. Tube was cut to length and the remainder of the gastrostomy tube was assembled. The patient tolerated the procedure well without complications, taken to recovery room in stable condition. Job ID: [id number] DocumentID: [id number] Dictated Date: 06/30/2022 15:23:36 Research Executive Date: 06/30/2022 16:34:00 Dictated By: EVE WRIGHT DO
[2022-06-30] MEDS: LACTOBACILLUS ACIDOPHILUS (PROBIOTIC) CAPSULE PO SCH (17:48)
[2022-06-30] MEDS: CALCIUM CARBONATE 600 MG (CALCARB) TAB PO SCH (17:52)
--- NOTE | 2022-07-01 02:30 | Anesthesia-General Post-Op ---
MAC Patient Condition Mental Status/LOC: Same as Preop Cardiovascular: Satisfactory Nausea/Vomiting: Absent Respiratory: Satisfactory Pain: Controlled Complications: Absent Post Op Complications Complications None Follow Up Care/Instructions Patient Instructions None needed. Anesthesiology Discharge Order Discharge Order Patient is doing well, no complaints, stable vital signs, no apparent adverse anesthesia problems. No complications reported per nursing. ANUJ GILL CRNA Jul 01, 2022 02:30
[2022-07-01 03:22] VITALS: BP 132/70
[2022-07-01] MEDS: D5 1/2 NS 1000 ML IV SOLUTION 1,000 ML IV SCH (03:23)
[2022-07-01 05:47] LABS: BASOPHILS % (AUTO) 0 % (0-10); EOSINOPHILS # (AUTO) 0.6 10^3/uL (0.0-0.3); EOSINOPHILS % (AUTO) 4 % (0-10); HEMATOCRIT 31 % (35-52); HEMOGLOBIN 9.3 g/dL (11.5-16.0); LYMPHOCYTES % (AUTO) 13 % (12-44); MEAN CORPUSCULAR HEMOGLOBIN 29 pg (25-34); MEAN CORPUSCULAR HGB CONC 31 g/dL (32-36); MEAN CORPUSCULAR VOLUME 97 fL (80-99); MONOCYTES # (AUTO) 0.9 10^3/uL (0.0-1.0); MONOCYTES % (AUTO) 6 % (0-12); NEUTROPHILS # (AUTO) 11.7 10^3/uL (1.8-7.8); NEUTROPHILS % (AUTO) 75 % (42-75); PLATELET COUNT 384 10^3/uL (130-400); WHITE BLOOD COUNT 15.5 10^3/uL (4.3-11.0)
[2022-07-01 06:08] LABS: ALBUMIN 3.1 GM/DL (3.2-4.5); BILIRUBIN,TOTAL 0.4 MG/DL (0.1-1.0); CALCIUM 9.4 MG/DL (8.5-10.1); CREATININE SERUM 0.71 MG/DL (0.60-1.30); MAGNESIUM 1.2 MG/DL (1.6-2.4); PHOSPHORUS 2.8 MG/DL (2.3-4.7); POTASSIUM 3.5 MMOL/L (3.6-5.0)
--- NOTE | 2022-07-01 06:14 | Progress Note - Hospitalist ---
Subjective HPI/CC On Admission Date Seen by Provider: Jul 01, 2022 Time Seen by Provider: 11:00 Could not obtain hx from patient bc she was intubated. History gathered from chart review. Ms. Ramírez is a 57 yo female with pmhx significant for Arnold chair malformation, autonomic dysreflexia, brain decompression surgeries, chronic generalized pain for which she takes methadone, chronic blurred vision, chronic dysphagia, and chronic numbness and dizziness who presented to the ED via EMS for AMS. Initial O2 sats in the 60s and pressure was 60/18. On arrival patient had limited verbal response. Pt significant other reports that patient is nonabulatory at baseline but is normally AOx3. He reports that patient has had increased lethargy, decreased mentation, and SOB over the last couple weeks. Pt was diagnosed with pneumonia on 06/19 at [facility] and was prescribed Augmenting and Zithromax. Sepsis protocol was initiated in ED and patient was placed on BIPAP, IV fluids, Cefepime, solumedrol. Pt also received narcan which improved patients mentation while in the ED. This morning in ICU patient seemed confused and had random nonpurposful movements of her hand. Pt became unresponsive and hypotensive in ICU. Discussed options with significant other who is POA and decision to intubate patient for short period of time was agreed upon. This was done without complications and central line was placed. Repeat labs, cxr, abg all ordered. No changes in status at this time. Subjective/Events-last exam Much improved Had a shower Moving well DC catheter PEG in place Review of Systems General: Fatigue, Malaise Focused Exam Time of Focused Exam: 08:00 Objective Exam Vital Signs Vital Signs Date Time Temp Pulse Resp B/P (MAP) Pulse Ox O2 Delivery O2 Flow Rate FiO2 07/01/22 11:40 37.0 105 14 119/65 (83) 93 Nasal Cannula 1.00 06/30/22 14:21 24 Capillary Refill : Less Than 3 Seconds General Appearance: No Apparent Distress, WD/WN, Chronically ill Respiratory: Lungs Clear, Normal Breath Sounds Cardiovascular: Regular Rate, Rhythm Neurologic/Psychiatric: Alert, Oriented x3, Normal Mood/Affect, Motor Weakness Results/Procedures Lab Laboratory Tests 07/01/22 05:30 Patient resulted labs reviewed. Imaging: Reviewed Imaging Report Assessment/Plan Assessment and Plan Assess & Plan/Chief Complaint Assessment: Sepsis with shock UTI and PNA Acute Kidney Failure PNA - bilateral opacities on CXR UTI Acute mental status change Elevated D dimer low prob of PE on VQ scan Anemia Chronic pain syndrome Arnold chiari malformation hypokalemia Aspiration risk s/p PEG shock, unresponsive Intubation while in ICU Central line placed DVT prophylaxis: heparin gtt stress ulcer prophylaxis: ppi Code status: DNI; Sig other is POA, PEG in place Critical Care Ventilator Management MAYKEL BURNS DO Jul 01, 2022 06:14
[2022-07-01] MEDS: RT-ALBUTEROL/IPRATROPIUM 3 ML (DUONEB) VIAL INH SCH ×2 (07:31→21:58)
[2022-07-01 08:10] VITALS: BP 113/61
--- NOTE | 2022-07-01 09:17 | Progress Note - Surgery ---
[facility] 07[facility]22 0917: Subjective Date Seen by a Provider: Jul 01, 2022 Time Seen by a Provider: 08:30 Subjective/Events-last exam Patient is lying in bed comfortably with significant other at bedside. Still with some eye sensitivity to light so wearing sunglasses, does note improvement. She is doing well with PEG tube and denies nausea or vomiting. She had 1 formed BM last night without blood or pain. Tube feeds have not yet started. Denies CP, SOB, fevers, chills. Review of Systems General: No Chills, No Night Sweats HEENT: No Head Aches, No Visual Changes; Other (photophobia) Pulmonary: No Dyspnea, No Cough Cardiovascular: No: Chest Pain, Palpitations Gastrointestinal: No: Nausea, Vomiting, Abdominal Pain Genitourinary: No Dysuria, No Frequency Musculoskeletal: No: neck pain, shoulder pain Neurological: No: Weakness, Numbness Focused Exam Time of Focused Exam: 08:00 Objective Exam Vital Signs Date Time Temp Pulse Resp B/P (MAP) Pulse Ox O2 Delivery O2 Flow Rate FiO2 07/01/22 08:10 36.8 92 14 113/61 (78) 98 Nasal Cannula 1.50 07/01/22 07:32 98 Nasal Cannula 2.00 07/01/22 03:22 36.8 99 16 132/70 (90) 98 Nasal Cannula 3.00 06/30/22 23:10 36.5 98 16 131/68 (89) 97 Nasal Cannula 1.50 06/30/22 21:57 93 Nasal Cannula 2.00 06/30/22 20:00 Room Air 06/30/22 19:54 36.2 109 17 113/64 (80) 95 Nasal Cannula 1.50 06/30/22 16:28 37.6 110 18 157/83 (107) 98 Nasal Cannula 1.50 06/30/22 14:21 36.7 85 96 24 06/30/22 11:19 36.7 85 16 182/86 (118) 96 Nasal Cannula 1.50 06/30/22 10:40 36.2 16 145/76 (99) 99 Room Air 06/30/22 10:40 Room Air 06/30/22 10:30 16 152/74 (100) 100 OxyMask 2.00 06/30/22 10:24 OxyMask 4.00 06/30/22 10:20 16 131/74 (93) 100 OxyMask 4.00 06/30/22 10:10 16 141/72 (95) 97 OxyMask 6.00 06/30/22 10:06 36.2 16 137/71 (93) 99 OxyMask 6.00 06/30/22 10:06 OxyMask 6.00 I & O 07/01/22 07:00 Intake Total 680 ml Output Total 3300 ml Balance -2620 ml Capillary Refill : Less Than 3 Seconds General Appearance: No Apparent Distress, WD/WN, Chronically ill HEENT: Moist Mucous Membranes, Photophobia (improved), Other (conjunctival erythema bl- improved) Neck: Non Tender, Supple Respiratory: Lungs Clear, Normal Breath Sounds Cardiovascular: Regular Rate, Rhythm, No Edema Peripheral Pulses: 2+ Dorsalis Pedis (R), 2+ Left Dors-Pedis (L) Gastrointestinal: non tender, soft, other (implanted device llq, PEG tube epigastric region c/d/i) Extremity: Non Tender, No Calf Tenderness, No Pedal Edema Neurologic/Psychiatric: Alert, Oriented x3, Motor Weakness (all ext) Skin: Warm/Dry, Ecchymosis (upper extremities b/l) Lymphatic: No Adenopathy Results Lab Laboratory Tests 06/30/22 11:09: Glucometer 89 06/30/22 17:02: Glucometer 101 06/30/22 23:08: Glucometer 87 07/01/22 05:03: Glucometer 104 07/01/22 05:30: White Blood Count 15.5H, Red Blood Count 3.16L, Hemoglobin 9.3L, Hematocrit 31L, Mean Corpuscular Volume 97, Mean Corpuscular Hemoglobin 29, Mean Corpuscular Hemoglobin Concent 31L, Red Cell Distribution Width 16.9H, Platelet Count 384, Mean Platelet Volume 10.0, Immature Granulocyte % (Auto) 2, Neutrophils (%) (Auto) 75, Lymphocytes (%) (Auto) 13, Monocytes (%) (Auto) 6, Eosinophils (%) (Auto) 4, Basophils (%) (Auto) 0, Neutrophils # (Auto) 11.7H, Lymphocytes # (Auto) 2.0, Monocytes # (Auto) 0.9, Eosinophils # (Auto) 0.6H, Basophils # (Auto) 0.0, Immature Granulocyte # (Auto) 0.3H, Sodium Level 141, Potassium Level 3.5L, Chloride Level 108H, Carbon Dioxide Level 25, Anion Gap 8, Blood Urea Nitrogen 5L, Creatinine 0.71, Estimat Glomerular Filtration Rate 100, BUN/Creatinine Ratio 7, Glucose Level 117H, Calcium Level 9.4, Corrected Calcium 10.1, Phosphorus Level 2.8, Magnesium Level 1.2L, Total Bilirubin 0.4, Aspartate Amino Transf (AST/SGOT) 30, Alanine Aminotransferase (ALT/SGPT) 37, Alkaline Phosphatase 115, Total Protein 6.0L, Albumin 3.1L Microbiology 06/29/22 MRSA Screen - Final, Complete No growth 06/21/22 Urine Culture - Final, Complete NO GROWTH 06/21/22 Blood Culture - Final, Complete No growth Assessment/Plan Assessment/Plan Assessment/Plan sepsis b/l pneumonia uti Severe Pharyngeal Esophageal Dysphagia Patient feeling much improved PEG tube in place Restart Lovenox Start tube feeds today EVE WRIGHT DO 07/01/22 1425: Subjective Subjective/Events-last exam Doing well. Doesn't feel like she had gastrostomy tube placed. Eyes area feeling better. Denies n/v fever sweats chills shortness of breath or chest pain. Objective Exam General Appearance: No Apparent Distress, Chronically ill HEENT: PERRL/EOMI, Other (conjunctival erythema bl- improved) Neck: Non Tender, Supple Respiratory: Chest Non Tender, No Accessory Muscle Use, No Respiratory Distress Cardiovascular: Regular Rate, Rhythm, No JVD Gastrointestinal: non tender, soft, other (implanted device llq, PEG tube luq region c/d/i no signs of infection) Extremity: Non Tender, No Calf Tenderness Neurologic/Psychiatric: Alert, Oriented x3 Skin: Warm/Dry, Ecchymosis (upper extremities b/l) Lymphatic: No Adenopathy Assessment/Plan Assessment/Plan Assessment/Plan sepsis b/l pneumonia uti Severe Pharyngeal Esophageal Dysphagia Patient feeling much improved PEG tube in place May restart Lovenox from surgical standpoint Can use gastrostomy for tube feeds today Will sign off, call if needed. Supervisory-Addendum Brief Verification & Attestation Participated in pt care: history, MDM, physical Personally performed: exam, history, MDM, supervision of care Care discussed with: Medical Student Procedures: n/a Results interpretation: Verified all documentation Verification and Attestation of Medical Student E/M Service A medical student performed and documented this service in my presence. I reviewed and verified all information documented by the medical student and made modifications to such information, when appropriate. I personally performed the physical exam and medical decision making. Eve Wright, Jul 01, 2022,14:25 MULU CHIANG Jul 01, 2022 09:17 EVE WRIGHT DO Jul 01, 2022 14:25
[2022-07-01] MEDS: DOCUSATE SODIUM 100 MG (COLACE) CAP PO SCH ×2 (09:35→19:24)
[2022-07-01] MEDS: lisINopril 20 MG (PRINIVIL) TABLET PO SCH ×2 (09:35→18:13)
[2022-07-01] MEDS: THYROID (ARMOUR) 60 MG TABLET PO SCH (09:35)
[2022-07-01] MEDS: amLODIPine 5 MG (NORVASC) TAB PO SCH (09:35)
[2022-07-01] MEDS: METHADONE 10 MG (DOLOPHINE) TAB GT SCH ×2 (09:35→18:14)
[2022-07-01] MEDS: acetaZOLAMIDE 250 MG (DIAMOX) TAB PO SCH (09:35)
[2022-07-01] MEDS: DULoxetine 30 MG (CYMBALTA) CAP PO SCH (09:35)
[2022-07-01] MEDS: LORATADINE (CLARITIN) 10 MG TAB PO SCH (09:35)
[2022-07-01] MEDS: SENNOSIDES 8.6 MG (SENOKOT) TAB PO SCH ×2 (09:36→19:24)
[2022-07-01 11:40] VITALS: BP 119/65
[2022-07-01 15:57] VITALS: BP 142/54
[2022-07-01] MEDS: CALCIUM CARBONATE 600 MG (CALCARB) TAB PO SCH (18:13)
[2022-07-01] MEDS: LACTOBACILLUS ACIDOPHILUS (PROBIOTIC) CAPSULE PO SCH (18:13)
[2022-07-01 19:19] VITALS: BP 97/55
[2022-07-01 23:10] VITALS: BP 113/51
[2022-07-02 03:29] VITALS: BP 105/60
[2022-07-02 05:42] LABS: BASOPHILS % (AUTO) 0 % (0-10); EOSINOPHILS # (AUTO) 0.5 10^3/uL (0.0-0.3); EOSINOPHILS % (AUTO) 5 % (0-10); HEMATOCRIT 32 % (35-52); HEMOGLOBIN 9.4 g/dL (11.5-16.0); LYMPHOCYTES # (AUTO) 2.3 10^3/uL (1.0-4.0); LYMPHOCYTES % (AUTO) 20 % (12-44); MEAN CORPUSCULAR HEMOGLOBIN 29 pg (25-34); MEAN CORPUSCULAR HGB CONC 30 g/dL (32-36); MEAN CORPUSCULAR VOLUME 99 fL (80-99); MEAN PLATELET VOLUME 10.4 fL (9.0-12.2); MONOCYTES # (AUTO) 0.7 10^3/uL (0.0-1.0); MONOCYTES % (AUTO) 6 % (0-12); NEUTROPHILS # (AUTO) 7.8 10^3/uL (1.8-7.8); NEUTROPHILS % (AUTO) 68 % (42-75); PLATELET COUNT 386 10^3/uL (130-400); WHITE BLOOD COUNT 11.6 10^3/uL (4.3-11.0)
[2022-07-02 06:06] LABS: ALBUMIN 3.2 GM/DL (3.2-4.5); BILIRUBIN,TOTAL 0.3 MG/DL (0.1-1.0); CALCIUM 10.1 MG/DL (8.5-10.1); CREATININE SERUM 0.73 MG/DL (0.60-1.30); MAGNESIUM 1.6 MG/DL (1.6-2.4); PHOSPHORUS 3.9 MG/DL (2.3-4.7); POTASSIUM 3.4 MMOL/L (3.6-5.0); TOTAL PROTEIN 6.3 GM/DL (6.4-8.2)
[2022-07-02] MEDS: RT-ALBUTEROL/IPRATROPIUM 3 ML (DUONEB) VIAL INH SCH (07:19)
[2022-07-02 07:53] VITALS: BP 103/56
--- NOTE | 2022-07-02 08:28 | Speech Therapy Progress Note ---
Therapy Progress Note Per modified barium swallow (06/29/22), the patient displayed appropriate labial and lingual range of motion, coordination, and strength. Additionally, the patient displayed a timely onset of the pharyngeal swallow with appropriate base of tongue and pharyngeal wall strength. The cause of the patient's aspiration is related to the marked cricopharyngeal bar which results in residual material remaining at the location of the pyriform sinuses and spilling in the airway following the swallow (silent aspiration). Pending medical treatment of the cricopharyngeal bar, speech pathology will sign off of services as skilled dysphagia treatment is not warranted. Following treatment of the cricopharyngeal bar, repetition of the modified barium swallow would be necessary/appropriate to assess for improvement and elimination of silent aspiration. Thank you for the consultation. CLIVE CABALLERO July 02, 2022 08:28
[2022-07-02] MEDS: DOCUSATE SODIUM 100 MG (COLACE) CAP PO SCH (08:58)
[2022-07-02] MEDS: SENNOSIDES 8.6 MG (SENOKOT) TAB PO SCH (08:58)
[2022-07-02] MEDS: amLODIPine 5 MG (NORVASC) TAB PO SCH (09:00)
[2022-07-02] MEDS: lisINopril 20 MG (PRINIVIL) TABLET PO SCH (09:00)
[2022-07-02] MEDS: DULoxetine 30 MG (CYMBALTA) CAP PO SCH (09:19)
[2022-07-02] MEDS: LORATADINE (CLARITIN) 10 MG TAB PO SCH (09:19)
[2022-07-02] MEDS: THYROID (ARMOUR) 60 MG TABLET PO SCH (09:19)
[2022-07-02] MEDS: acetaZOLAMIDE 250 MG (DIAMOX) TAB PO SCH (09:19)
[2022-07-02] MEDS: METHADONE 10 MG (DOLOPHINE) TAB GT SCH (09:20)
--- NOTE | 2022-07-02 11:00 | Progress Note - Hospitalist ---
Subjective HPI/CC On Admission Date Seen by Provider: July 02, 2022 Time Seen by Provider: 11:00 Could not obtain hx from patient bc she was intubated. History gathered from chart review. Ms. Ramírez is a 57 yo female with pmhx significant for Arnold chair malformation, autonomic dysreflexia, brain decompression surgeries, chronic g eneralized pain for which she takes methadone, chronic blurred vision, chronic dysphagia, and chronic numbness and dizziness who presented to the ED via EMS for AMS. Initial O2 sats in the 60s and pressure was 60/18. On arrival patient had limited verbal response. Pt significant other reports that patient is nonabulatory at baseline but is normally AOx3. He reports that patient has had increased lethargy, decreased mentation, and SOB over the last couple weeks. Pt was diagnosed with pneumonia on 06/19 at [facility] and was prescribed Augmenting and Zithromax. Sepsis protocol was initiated in ED and patient was placed on BIPAP, IV fluids, Cefepime, solumedrol. Pt also received narcan which improved patients mentation while in the ED. This morning in ICU patient seemed confused and had random nonpurposful movements of her hand. Pt became unresponsive and hypotensive in ICU. Discussed options with significant other who is POA and decision to intubate patient for short period of time was agreed upon. This was done without complications and central line was placed. Repeat labs, cxr, abg all ordered. No changes in status at this time. Focused Exam Time of Focused Exam: 08:00 Objective Exam Vital Signs Vital Signs Date Time Temp Pulse Resp B/P (MAP) Pulse Ox O2 Delivery O2 Flow Rate FiO2 07/02/22 12:00 36.2 108 16 114/55 (74) 91 Room Air 07/02/22 07:19 1.00 06/30/22 14:21 24 Capillary Refill : Less Than 3 Seconds Results/Procedures Lab Laboratory Tests 07/02/22 05:05 Patient resulted labs reviewed. Imaging: Reviewed Imaging Report Assessment/Plan Assessment and Plan Assess & Plan/Chief Complaint Assessment: Sepsis with shock UTI and PNA Acute Kidney Failure PNA - bilateral opacities on CXR UTI Acute mental status change Elevated D dimer low prob of PE on VQ scan Anemia Chronic pain syndrome Arnold chiari malformation hypokalemia Aspiration risk s/p PEG shock, unresponsive Intubation while in ICU Central line placed DVT prophylaxis: heparin gtt stress ulcer prophylaxis: ppi Code status: DNI; Sig other is POA, PEG in place Critical Care Ventilator Management MAYKEL BURNS DO July 02, 2022 11:00
--- NOTE | 2022-07-02 11:30 | Physical Therapy Daily Note ---
PT Daily Note-Current Subjective Patient agrees to PT. Pain Section J - Health Conditions 1. Rarely or not at all 2. Occasionally 3. Frequently 4. Almost constantly 8. Unable to answer Pain Effect on Sleep: 1 Pain Interference with Therapy: 1 Pain Interference w/Day-to-Day: 1 Mental Status Patient Orientation: Normal For Age Transfers SCALE: Activities may be completed with or without assistive devices. 2-Mjqpvwtrtp-ifttvfl completes the activity by him/herself with no assistance from a helper. 5-Set-up or Clean-up Assistance-helper sets up or cleans up; patient completes activity. [place] assists only prior to or following the activity. 4-Supervision or Touching Assistance-helper provides verbal cues and/or touching/steadying and/or contact guard assistance as patient completes activity. Assistance may be provided throughout the activity or intermittently. 3-Partial/Moderate Assistance-helper does LESS THAN HALF the effort. [place] lifts, holds or supports trunk or limbs, but provides less than half the effort. 2-Substantial/Maximal Assistance-helper does MORE THAN HALF the effort. [place] lifts or holds trunk or limbs and provides more than half the effort. 2-Dgabwjnje-lojiad does ALL the effort. Patient does none of the effort to complete the activity. Or, the assistance of 2 or more helpers is required for the patient to complete the activity. If activity was not attempted, code reason: 7-Patient Refused. 9-Not Applicable-not attempted and the patient did not perform the activity before the current illness, exacerbation or injury. 10-Not Attempted due to Environmental Limitations-(lack of equipment, weather restraints, etc.). 88-Not Attempted due to Medical Conditions or Safety Concerns. Lying to Sitting/Side of Bed(Q: 4 Sit to Stand (QC): 4 Chair/Tmq-pu-Tjwlq Xfer(QC): 4 Gait Training Distance: 250' Walk 10 feet (QC): 4 Walk 50 ft with 2 Turns(QC): 4 Walk 150 ft (QC): 4 Gait Assistive Device: FWW safe and functional on this date. CGA for safety/slightly ataxic with self correct/Fair balance Assessment Patient up in recliner with needs met. Patient much improve on this date with improvement in distance with ambulation. PT to continue to increase activity as tolerated by patient. PT Milling Operator Goals Usp Goals PT Milling Operator Goals Time Frame: July 14, 2022 Roll Left & Right (QC): 6 Sit to Lying (QC): 6 Lying-Sitting on Side/Bed(QC): 6 Sit to Stand (QC): 4 Chair/Nej-qu-Axbel Xfer(QC): 4 PT Plan Treatment/Plan Treatment Plan: Continue Plan of Care Treatment Plan: Bed Mobility, Education, Functional Activity Gerald, Functional Strength, Safety, Therapeutic Exercise, Transfers Treatment Duration: July 14, 2022 Frequency: 6 times per week Estimated Hrs Per Day: .25 hour per day Patient and/or Family Agrees t: Yes Time Time In: 1105 Time Out: 1115 DATE: July 02, 2022 Total Billed Treatment Time: 10 Total Billed Treatment 1 visit FA 10 min ADITYA NOLASCO PT July 02, 2022 11:30
[2022-07-02 12:00] VITALS: BP 114/55
--- NOTE | 2022-07-02 13:10 | Occupational Ther Daily Note ---
OT Current Status-Daily Note Subjective UP in chair excited following walk with PT today Mental Status/Objective Patient Orientation: Person, Place, Time, Situation ADL-Treatment Therapy Code Descriptions/Definitions Functional [place] Measure: 0=Not Assessed/NA 4=Minimal Assistance 1=Total Assistance 5=Supervision or Setup 2=Maximal Assistance 6=Modified [place] 3=Moderate Assistance 7=Complete IndependenceSCALE: Activities may be completed with or without assistive devices. 6-Zshyjrqlfr-usdsuro completes the activity by him/herself with no assistance from a helper. 5-Set-up or Clean-up Assistance-helper sets up or cleans up; patient completes activity. [place] assists only prior to or following the activity. 4-Supervision or Touching Assistance-helper provides verbal cues and/or touching/steadying and/or contact guard assistance as patient completes activity. Assistance may be provided throughout the activity or intermittently. 3-Partial/Moderate Assistance-helper does LESS THAN HALF the effort. [place] lifts, holds or supports trunk or limbs, but provides less than half the effort. 2-Substantial/Maximal Assistance-helper does MORE THAN HALF the effort. [place] lifts or holds trunk or limbs and provides more than half the effort. 0-Ibvwolmtd-ukxreq does ALL the effort. Patient does none of the effort to complete the activity. Or, the assistance of 2 or more helpers is required for the patient to complete the activity. If activity was not attempted, code reason: 7-Patient Refused. 9-Not Applicable-not attempted and the patient did not perform the activity befo re the current illness, exacerbation or injury. 10-Not Attempted due to Environmental Limitations-(lack of equipment, weather re straints, etc.). 88-Not Attempted due to Medical Conditions or Safety Concerns. Eating (QC): 88 (PEG placed over weekend) Oral Hygiene (QC): 5 Shower/Bathe Self (QC): 7 Upper Body Dressing (QC): 4 Lower Body Dressing (QC): 4 On/Off Footwear: 4 Toileting Hygiene (QC): 4 Toilet Transfer (QC): 4 Improved FMC, able to un/tie theraband and robe. Other Treatment BUE red theaband exercises one set of 10 R/L abd/shoulder flex/ex. elbow flex/ext, wrist Education OT Patient Education: Correct positioning, Exercise program, Modified ADL tech niques, Progress toward Goal/Update tx plan, Purpose of tx/functional activities, Reviewed precautions, Safety issues, Transfer techniques Teaching Recipient: Patient, Friend (present in room) Teaching Methods: Demonstration, Discussion Response to Teaching: Return Demonstration, Reinforcement Needed OT Personal Insurance Advisor Goals Fdc Goals Eating (QC): 6 Oral Hygiene (QC): 6 Toileting Hygiene (QC): 5 Shower/Bathe Self (QC): 4 Upper Body Dressing (QC): 5 Lower Body Dressing (QC): 5 On/Off Footwear (QC): 5 1=Demonstrate adherence to instructed precautions during ADL tasks. 2=Patient will verbalize/demonstrate understanding of assistive devices/modific ations for ADL. 3=Patient will improve strength/tolerance for activity to enable patient to perform ADL's. OT Education/Plan Problem List/Assessment Assessment: Decreased Activ Tolerance, Decreased UE Strength, Impaired Coordination, Impaired Self-Care Skills Discharge Recommendations Plan/Recommendations: Continue POC Treatment Plan/Plan of Care Patient would benefit from OT for education, treatment and training to promote independence in ADL's, mobility, safety and/or upper extremity function for ADL's. Plan of Care: ADL Retraining, Concurrent Therapy, Functional Mobility, Group Exercise/Act as Ind, UE Funct Exercise/Act Treatment Duration: July 07, 2022 Frequency: 3 times per week (3-5 times per week) Estimated Hrs Per Day: .25 hour per day Agreement: Yes Rehab Potential: Fair Time Start Time: 11:30 Stop Time: 11:45 DATE: July 02, 2022 Total Time Billed (hr/min): 15 Billed Treatment Time EX 1 15 min SABI CHAVARRIA OT July 02, 2022 13:10
[2022-07-02] MEDS ORDERED: LACT-72 PEG (14:10)
--- NOTE | 2022-07-02 14:11 | Discharge Summary ---
Discharge Summary Hospital Course Was the Problem List Reviewed?: Yes Problems/Dx: (1) Sepsis with acute hypoxic respiratory failure Status: Resolved Qualifiers: (2) Acute renal failure Status: Resolved Qualifiers: Qualified Codes: N17.1 - Acute kidney failure with acute cortical necrosis (3) Septic shock Status: Resolved (4) Arnold-Chiari malformation Status: Chronic (5) Depression Status: Chronic (6) Insomnia Status: Chronic (7) Metabolic acidosis Status: Resolved (8) Sepsis Status: Acute (9) Pneumonia Status: Resolved Hospital Course Date of Admission: Jun 21, 2022 at 09:35 Admission Diagnosis : Family Physician/Provider: Ruslan Tracy MD Date of Discharge: 07/02/22 Discharge Diagnosis: [ ] Hospital Course: Lengthy course after she was admitted for AMS and ultimately was intubated. Lengthy intubation with PNA complication in addition to KAMALA. Ultimately patient was extubated and completed abx but patient was aspirating so PEG tube was placed and patient recovered quickly and was able to participate in therapy and was able to DC in improved condition with tube feedings Labs and Pending Lab Test: Laboratory Tests 07/01/22 17:38: Glucometer 78 07/01/22 18:15: Glucometer 109 07/01/22 23:15: Glucometer 113H 07/02/22 05:05: White Blood Count 11.6H, Red Blood Count 3.21L, Hemoglobin 9.4L, Hematocrit 32L, Mean Corpuscular Volume 99, Mean Corpuscular Hemoglobin 29, Mean Corpuscular Hemoglobin Concent 30L, Red Cell Distribution Width 17.1H, Platelet Count 386, Mean Platelet Volume 10.4, Immature Granulocyte % (Auto) 1, Neutrophils (%) (Auto) 68, Lymphocytes (%) (Auto) 20, Monocytes (%) (Auto) 6, Eosinophils (%) ( Auto) 5, Basophils (%) (Auto) 0, Neutrophils # (Auto) 7.8, Lymphocytes # (Auto) 2.3, Monocytes # (Auto) 0.7, Eosinophils # (Auto) 0.5H, Basophils # (Auto) 0.0, Immature Granulocyte # (Auto) 0.2H, Sodium Level 143, Potassium Level 3.4L, Chloride Level 107, Carbon Dioxide Level 26, Anion Gap 10, Blood Urea Nitrogen 9, Creatinine 0.73, Estimat Glomerular Filtration Rate 97, BUN/Creatinine Ratio 12, Glucose Level 99, Calcium Level 10.1, Corrected Calcium 10.7H, Phosphorus Level 3.9, Magnesium Level 1.6, Total Bilirubin 0.3, Aspartate Amino Transf (AST/SGOT) 21, Alanine Aminotransferase (ALT/SGPT) 30, Alkaline Phosphatase 113, Total Protein 6.3L, Albumin 3.2 07/02/22 05:19: Glucometer 94 07/02/22 11:58: Glucometer 110 Microbiology 06/29/22 MRSA Screen - Final, Complete No growth 06/21/22 Urine Culture - Final, Complete NO GROWTH 06/21/22 Blood Culture - Final, Complete No growth Home Meds Active Reported [Baclofen Infusion] INCATH UD 24 HOUR DOSE: 324.9MCG/DAY MAX DAILY DOSE: 384.4MCG PUMP INFUSION INFORMATION FROM [facility] ATTACHED TO CHART Melatonin 5 Mg Tablet 5 Mg PO HS Loratadine 10 Mg Tablet 10 Mg PO 1800 W/DINNER Potassium (Potassium Gluconate) 595 Mg (99 Mg) Tablet 99 Mg PO 1800 W/DINNER Calcium (Calcium Carbonate) 500 Mg Calcium (1250 Mg) Tab.chew 1,000 Mg PO 1800 W/DINNER Turmeric (Turmeric Root Extract) 500 Mg Tablet 500 Mg PO 1800 W/DINNER Probiotic 1 B Cfu-250 mg Cap (Bacillus Coagulans/Inulin) 1 Billion Cell-250 Mg Capsule 2 Each PO 1800 W/DINNER Methadone HCl 10 Mg Tablet 10 Mg PO 1800 W/DINNER Lisinopril-Hctz 20-25 mg Tab (Lisinopril/Hydrochlorothiazide) 20 Mg-25 Mg Tablet 1 Ea PO BID WITH MEALS Centrum Chewables Adults Tab (Multivit-Min/Iron/Folic/Vit K1) 8 Mg Iron-400 Mcg- 10 Mcg Tab.chew 2 Each PO 1800 W/DINNER [place] Thyroid (Thyroid,Pork) 90 Mg Tablet 180 Mg PO DAILY TAKES 2 (90MG) TABS Methadone HCl 10 Mg Tablet 20 Mg PO DAILY W/BREAKFAST TAKES 2 (10MG) TABS Duloxetine HCl 60 Mg Capsule.dr 60 Mg PO DAILY Baclofen 10 Mg Tablet 10 Mg PO TID PRN Acetazolamide 250 Mg Tablet 250 Mg PO DAILY Assessment/Pt Instructions PCP 1 week Discharge Planning: <30 minutes discharge planning Discharge Physical Examination Vital Signs Vital Signs Date Time Temp Pulse Resp B/P (MAP) Pulse Ox O2 Delivery O2 Flow Rate FiO2 07/02/22 12:00 36.2 108 16 114/55 (74) 91 Room Air 07/02/22 07:19 1.00 06/30/22 14:21 24 General Appearance: No Apparent Distress, WD/WN, Chronically ill Respiratory: Lungs Clear, Normal Breath Sounds Cardiovascular: Regular Rate, Rhythm Neurologic/Psychiatric: Alert, Oriented x3, No Motor/Sensory Deficits, Normal Mood/Affect Allergies: Coded Allergies: lactase (Verified Allergy, Severe, 06/30/22) swelling pain and uncontrolled diarrhea Discharge Summary Date of Admission Jun 21, 2022 at 09:35 Date of Discharge Discharge Date: July 02, 2022 Admission Diagnosis sepsis Discharge Diagnosis Assessment: Sepsis with shock UTI and PNA Acute Kidney Failure PNA - bilateral opacities on CXR UTI Acute mental status change Elevated D dimer low prob of PE on VQ scan Anemia Chronic pain syndrome Arnold chiari malformation hypokalemia Aspiration risk s/p PEG shock, unresponsive Intubation while in ICU Central line placed DVT prophylaxis: heparin gtt stress ulcer prophylaxis: ppi Code status: DNI; Sig other is POA, PEG in place MAYKEL BURNS DO July 02, 2022 14:11
[2022-07-02 15:51] VITALS: BP 121/73
== END 2022-07-02 16:57 | disposition home or self-care (01) | DRG 870 ==
LOC: EDUNIT# 07:09 → ER 07:10 → ICU 09:35 → 4TH 06-26 13:35
PROVIDERS: ADMIT Internal Medicine; ATTEND Internal Medicine
PROC: 5A1955Z Respiratory Ventilation, Greater than 96 Consecutive Hours (ICD-10-PCS; principal; 2022-06-21)
PROC: 0BH17EZ Insertion of Endotracheal Airway into Trachea, Via Natural or Artificial Opening (ICD-10-PCS; 2022-06-21)
PROC: 02HV33Z Insertion of Infusion Device into Superior Vena Cava, Percutaneous Approach (ICD-10-PCS; 2022-06-30)
PROC: 0DH63UZ Insertion of Feeding Device into Stomach, Percutaneous Approach (ICD-10-PCS; 2022-06-30)
PROC: 0DJ08ZZ Inspection of Upper Intestinal Tract, Via Natural or Artificial Opening Endoscopic (ICD-10-PCS; 2022-06-30)
DX: A41.9 Sepsis, unspecified organism (principal); G92.8 Other toxic encephalopathy; G93.5 Compression of brain; J96.01 Acute respiratory failure with hypoxia; R65.21 Severe sepsis with septic shock; J18.9 Pneumonia, unspecified organism; N17.9 Acute kidney failure, unspecified; E87.21 Acute metabolic acidosis; N39.0 Urinary tract infection, site not specified; F32.A Depression, unspecified; G47.00 Insomnia, unspecified; D64.9 Anemia, unspecified; G89.4 Chronic pain syndrome; E87.6 Hypokalemia; Z66 Do not resuscitate; F41.9 Anxiety disorder, unspecified; R11.10 Vomiting, unspecified; R53.81 Other malaise; E16.2 Hypoglycemia, unspecified; R13.14 Dysphagia, pharyngoesophageal phase; Z20.822 Contact with and (suspected) exposure to COVID-19
CPT/HCPCS: 36415; 36600; 51702; 70450; 71045; 74230; 80048; 80053; 80202; 80306; 80320; 80329; 81000; 82140; 82150; 82550; 82553; 82805; 82947; 83605; 83690; 83735; 83874; 83880; 84100; 84132; 84439; 84443; 84478; 84484; 85007; 85025; 85027; 85379; 85610; 85652; 85730; 86141; 87040; 87070; 87081; 87088; 87205; 87636; 93005; 93041; 94002; 94003; 94640; 94660; 94760; 94799; 96361; 96365; 96367; 96375; 99291; 99292

== ENCOUNTER 2022-08-05 16:01 | Emergency (ER) | payer MEDICARE, MEDICAID ==
[~2022-08-05] VITALS: Ht 160 cm; Wt 61.0 kg
[~2022-08-05 16:01] MED LIST changes: +AMOX1TAB12 PO; +AZIT250T12 PO; +BACI1CAP14 PO; +BACLOFEN INCATH; +CALC-308 PO; +LACT-72 PEG; +LORA10TA7 PO; +MELA5TAB14 PO; +POTA99TA26 PO; +TURM500T PO
[2022-08-05 17:16] LABS: BASOPHILS % (AUTO) 1 % (0-10); EOSINOPHILS # (AUTO) 0.1 10^3/uL (0.0-0.3); EOSINOPHILS % (AUTO) 2 % (0-10); HEMATOCRIT 36 % (35-52); LYMPHOCYTES # (AUTO) 1.5 10^3/uL (1.0-4.0); LYMPHOCYTES % (AUTO) 23 % (12-44); MEAN CORPUSCULAR HEMOGLOBIN 31 pg (25-34); MEAN CORPUSCULAR HGB CONC 33 g/dL (32-36); MEAN CORPUSCULAR VOLUME 93 fL (80-99); MEAN PLATELET VOLUME 11.5 fL (9.0-12.2); MONOCYTES # (AUTO) 0.6 10^3/uL (0.0-1.0); MONOCYTES % (AUTO) 9 % (0-12); NEUTROPHILS # (AUTO) 4.2 10^3/uL (1.8-7.8); NEUTROPHILS % (AUTO) 66 % (42-75); PLATELET COUNT 237 10^3/uL (130-400); WHITE BLOOD COUNT 6.4 10^3/uL (4.3-11.0)
[2022-08-05 17:17] LABS: ALBUMIN 4.1 GM/DL (3.2-4.5); POTASSIUM 3.6 MMOL/L (3.6-5.0)
[2022-08-05 17:18] LABS: CALCIUM 10.4 MG/DL (8.5-10.1)
[2022-08-05 17:20] LABS: TOTAL PROTEIN 6.8 GM/DL (6.4-8.2)
[2022-08-05 17:21] LABS: BILIRUBIN,TOTAL 0.3 MG/DL (0.1-1.0)
[2022-08-05 17:23] LABS: CREATININE SERUM 0.84 MG/DL (0.60-1.30)
[2022-08-05 17:26] LABS: MAGNESIUM 2.2 MG/DL (1.6-2.4)
--- NOTE | 2022-08-05 17:41 | ED General ---
General Chief Complaint: General Problems/Pain Stated Complaint: WEAKNESS Nursing Triage Note: PT TO RM 3 PER W/C PT CO OF WEAKNESS FOR A FEW DAYS. PT HAS PEG TUBE PLACED 06-30. PT CO OF RAZA AND NECK PAIN. Source of Information: Patient, Family Exam Limitations: No Limitations History of Present Illness Date Seen by Provider: Aug 05, 2022 Time Seen by Provider: 17:10 Initial Comments This 57-year-old woman presents to the emergency room with her significant other with primary complaint of major progressive muscle weakness. She has history of syringomyelia and Chiari malformation. She has undergone multiple surgeries for correction and has a shunt for drainage at C4. Her neurosurgeon is Dr. Yaya Ibrahim at [facility] in [place], [place]. He is affiliated with [facility] in [place]. Patient has also been experiencing abrupt episodes of diaphoresis and hot flashes alternating intermittently with chills. Her weakness has progressed over the past week to the extent that her left arm and hand are "now useless." She has recently also experienced problems with aspiration pneumonia. Reportedly a swallow study led to placement of a PEG tube. She now does not swallow anything due to risk of aspiration. PEG tube was placed June 30. In early July she was diagnosed with a urinary tract infection and treated with antibiotics. Patient states a history of reflux sympathetic dystrophy but does not feel like her current symptoms are consistent with prior episodes. She also does not believe her current symptoms are consistent with shunt malfunction problems. She had her shunt evaluated with MRI within the last 3 months and that imaging was reportedly normal after review by her neurosurgeon. Patient had been seeing Dr. Villatoro at [facility] for her primary care, but he has since retired. She is here with her significant other, Nathan Almeida, who contributes to the history. Patient also reports history of hypothyroidism for which she takes desiccated thyroid and history of a continuous intrathecal baclofen pump. Patient reports her weakness has progressed to the point she is no longer able to safely ambulate to the bathroom and is having incontinence as a result. Allergies and Home Medications Allergies Coded Allergies: lactase (Verified Allergy, Severe, 06/30/22) swelling pain and uncontrolled diarrhea Patient Home Medication List Home Medication List Reviewed: Yes Bacillus Coagulans/Inulin (Probiotic 1 B Cfu-250 mg Cap) 1 Billion Cell-250 Mg Capsule, 2 EACH PO 1800 W/DINNER, (Reported) Entered as Reported by: MARVIN WEBB on 06/21/22 1522 Baclofen (Baclofen) 10 Mg Tablet, 10 MG PO TID PRN for MUSCLE SPASMS, (Reported) Entered as Reported by: MARVIN WEBB on 05/12/20 1149 Calcium Carbonate (Calcium) 500 Mg Calcium (1250 Mg) Tab.chew, 1,000 MG PO 1800 W/DINNER, (Reported) Entered as Reported by: MARVIN WEBB on 06/21/22 1522 Lactose-Reduced Food/Fiber (Jevity 1.5 Mykel Liquid) 0.06 Gram-1.5 Kcal/Ml Liquid, 1 EACH PEG QID Prescribed by: MAYKEL BURNS on 07/02/22 1410 Loratadine (Loratadine) 10 Mg Tablet, 10 MG PO 1800 W/DINNER, (Reported) Entered as Reported by: MARVIN WEBB on 06/21/22 1522 Melatonin (Melatonin) 5 Mg Tablet, 5 MG PO HS, (Reported) Entered as Reported by: MARVIN WEBB on 06/21/22 1522 Methadone HCl (Methadone HCl) 10 Mg Tablet, 20 MG PO DAILY W/BREAKFAST, (Reported) Entered as Reported by: MARVIN WEBB on 05/12/20 1149 Methadone HCl (Methadone HCl) 10 Mg Tablet, 10 MG PO 1800 W/DINNER, (Reported) Entered as Reported by: MARVIN WEBB on 06/21/22 1522 Multivit-Min/Iron/Folic/Vit K1 (Centrum Chewables Adults Tab) 8 Mg Iron-400 Mcg- 10 Mcg Tab.chew, 2 EACH PO 1800 W/DINNER, (Reported) Entered as Reported by: MARVIN WEBB on 07/06/21 1207 Potassium Gluconate (Potassium) 595 Mg (99 Mg) Tablet, 99 MG PO 1800 W/DINNER, (Reported) Entered as Reported by: MARVIN WEBB on 06/21/22 1522 Thyroid,Pork (Slater Thyroid) 90 Mg Tablet, 180 MG PO DAILY, (Reported) Entered as Reported by: MARVIN WEBB on 05/17/20 1515 Turmeric Root Extract (Turmeric) 500 Mg Tablet, 500 MG PO 1800 W/DINNER, (Reported) Entered as Reported by: MARVIN WEBB on 06/21/22 1522 [Baclofen Infusion] , MASSIEL UD, (Reported) Entered as Reported by: MARVIN WEBB on 06/21/22 152 Review of Systems Review of Systems Constitutional: see HPI EENTM: no symptoms reported Respiratory: no symptoms reported Cardiovascular: no symptoms reported Gastrointestinal: no symptoms reported Genitourinary: see HPI Musculoskeletal: see HPI Skin: no symptoms reported Psychiatric/Neurological: See HPI Hematologic/Lymphatic: No Symptoms Reported Immunological/Allergic: no symptoms reported Past Oqbyjkt-Ketxlw-Kdrdii Hx Patient Social History Tobacco Use?: No Substance use?: No Alcohol Use?: No Pt feels they are or have been: No Immunizations Up To Date Tetanus Booster (TDap): Unknown Influenza Vaccine Up-to-Date: Yes; Up-to-Date First/Initial COVID19 Vaccinat: 2020 Second COVID19 Vaccination Butch: 2020 Third COVID19 Vaccination Date: 2020 Past Medical History Surgery/Hospitalization HX: shunt, baclofen pump Surgeries: Yes (Intrathecal baclofen pump) Abdominal (PEG tube), Neurological (Shunt for syringomyelia at C4, Chiari correction) Respiratory: Yes (EMPYEMA 04/2020) Pneumonia Currently Using CPAP: No Currently Using BIPAP: No Cardiac: Yes (AUTONOMIC DYSREFLEXIA) Hypertension Neurological: Yes (Reflex sympathetic dystrophy / autonomic dysreflexia, syringomyelia, Chiari) Paralysis (Chronic left weakness) Reproductive Disorders: No Genitourinary: Yes Bladder Infection Gastrointestinal: No Musculoskeletal: Yes (CHRONIC NECK/BACK/GENERALIZED PAIN ) Chronic Back Pain, Spasms Endocrine: No HEENT: Yes Psychosocial: Yes Anxiety, Depression Integumentary: No Blood Disorders: No Family Medical History No Pertinent Family Hx . 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 -BACLOFEN PUMP PLACEMENT -04/28/20--CHEST TUBE FOR EMPYEMA AND VATS PROCEDURE ADDITIONAL PAST MEDICAL HISTORY: -"SPINAL CORD DISEASE" ALL OF LIFE--SYRINGOMYELIA, SYRINGOBULBIA, ARACHNOIDITIS--( ARNOLD CHIARI MALFORMATION ) WITH AUTONOMIC DYSREFLEXIA, AND LEFT > RIGHT SIDE OF BODY NUMBNESS, BLURRY VISION, DIFFICULTY SWALLOWING, GENERALIZED PAIN--ESPECIALLY BACK OF HEAD AND NECK, AND GENERALIZED WEAKNESS 04/2020--ADMITTED TO [facility] FOR ACCIDENTAL OD ON BACLOFEN, REQUIRED INTUBATION; WAS ALSO SEPTIC WITH EMPYEMA AND REQUIRED CHEST TUBES AND VATS PROCEDURE--THOUGHT TO BE DUE TO SYRINGO-PLEURAL SHUNTS THAT HAD PREVIOUSLY BEEN PLACED IN 2019. Physical Exam Vital Signs Vital Signs - First Documented 08/05/22 08/05/22 16:20 20:27 Temp 36.3 Pulse 97 Resp 16 B/P (MAP) 131/72 (91) Pulse Ox 99 O2 Delivery Room Air Capillary Refill : Less Than 3 Seconds Height, Weight, BMI Height: '" Weight: lbs. oz. kg; 23.00 BMI Method: General Appearance: No Apparent Distress, WD/WN, Thin HEENT: PERRL/EOMI, Normal ENT Inspection Neck: Normal Inspection Respiratory: Lungs Clear, Normal Breath Sounds, No Accessory Muscle Use Cardiovascular: Regular Rate, Rhythm, No Edema, No Murmur Gastrointestinal: Normal Bowel Sounds, Non Tender, Soft; No Distended; Other (PEG tube in place) Extremity: Normal Inspection, No Pedal Edema Neurologic/Psychiatric: Alert, Oriented x3, cost controller II-XII Norm as Tested, Motor Weakness (Weaknesses mild in the bilateral lower extremities (4/5). 3/5 weakness in the right upper extremity. 2/5 weakness in the left upper extr emity) Skin: Normal Color, Warm/Dry, Diaphoresis (Intermittent) Procedures/Interventions Date of ETT Placement: Jun 21, 2022 Progress/Results/Core Measures Suspected Sepsis SIRS Temperature: Pulse: 97 Respiratory Rate: 16 Laboratory Tests 08/05/22 16:30: White Blood Count 6.4 Blood Pressure 131 /72 Mean: 91 Laboratory Tests 08/05/22 16:30: Creatinine 0.84, Platelet Count 237, Total Bilirubin 0.3 Results/Orders Lab Results Laboratory Tests Test 08/05/22 16:30 08/05/22 18:15 Range/Units White Blood Count 6.4 4.3-11.0 10^3/uL Red Blood Count 3.86 3.80-5.11 10^6/uL Hemoglobin 12.0 11.5-16.0 g/dL Hematocrit 36 35-52 % Mean Corpuscular Volume 93 80-99 fL Mean Corpuscular Hemoglobin 31 25-34 pg Mean Corpuscular Hemoglobin Concent 33 32-36 g/dL Red Cell Distribution Width 15.1 H 10.0-14.5 % Platelet Count 237 130-400 10^3/uL Mean Platelet Volume 11.5 9.0-12.2 fL Immature Granulocyte % (Auto) 0 % Neutrophils (%) (Auto) 66 42-75 % Lymphocytes (%) (Auto) 23 12-44 % Monocytes (%) (Auto) 9 0-12 % Eosinophils (%) (Auto) 2 0-10 % Basophils (%) (Auto) 1 0-10 % Neutrophils # (Auto) 4.2 1.8-7.8 10^3/uL Lymphocytes # (Auto) 1.5 1.0-4.0 10^3/uL Monocytes # (Auto) 0.6 0.0-1.0 10^3/uL Eosinophils # (Auto) 0.1 0.0-0.3 10^3/uL Basophils # (Auto) 0.0 0.0-0.1 10^3/uL Immature Granulocyte # (Auto) 0.0 0.0-0.1 10^3/uL Sodium Level 135 135-145 MMOL/L Potassium Level 3.6 3.6-5.0 MMOL/L Chloride Level 94 L 98-107 MMOL/L Carbon Dioxide Level 25 21-32 MMOL/L Anion Gap 16 H 5-14 MMOL/L Blood Urea Nitrogen 17 7-18 MG/DL Creatinine 0.84 0.60-1.30 MG/DL Estimat Glomerular Filtration Rate 82 BUN/Creatinine Ratio 20 Glucose Level 84 70-105 MG/DL Calcium Level 10.4 H 8.5-10.1 MG/DL Corrected Calcium 10.3 H 8.5-10.1 MG/DL Magnesium Level 2.2 1.6-2.4 MG/DL Total Bilirubin 0.3 0.1-1.0 MG/DL Aspartate Amino Transf (AST/SGOT) 16 5-34 U/L Alanine Aminotransferase (ALT/SGPT) 15 0-55 U/L Alkaline Phosphatase 106 40-136 U/L C-Reactive Protein High Sensitivity 1.08 H 0.00-0.50 MG/DL Total Protein 6.8 6.4-8.2 GM/DL Albumin 4.1 3.2-4.5 GM/DL Thyroid Stimulating Hormone (TSH) 0.04 L 0.35-4.94 UIU/ML Free Thyroxine 1.39 0.70-1.48 NG/DL Urine Color YELLOW Urine Clarity CLEAR Urine pH 5.5 5-9 Urine Specific [place] 1.010 L 1.016-1.022 Urine Protein NEGATIVE NEGATIVE Urine Glucose (UA) NEGATIVE NEGATIVE Urine Ketones 3+ H NEGATIVE Urine Nitrite NEGATIVE NEGATIVE Urine Bilirubin 1+ H NEGATIVE Urine Urobilinogen 0.2 < = 1.0 MG/DL Urine Leukocyte Esterase NEGATIVE NEGATIVE Urine RBC (Auto) NEGATIVE NEGATIVE Urine RBC NONE /HPF Urine WBC NONE /HPF Urine Crystals NONE /LPF Urine Bacteria NEGATIVE /HPF Urine Casts NONE /LPF Urine Mucus NEGATIVE /LPF Urine Culture Indicated NO My Orders Orders - RADHA LORA MD Ed Iv/Invasive Line Start (08/05/22 17:10) Monitor-Rhythm Ecg Trace Only (08/05/22 17:10) Cbc With Automated Diff (08/05/22 17:10) Comprehensive Metabolic Panel (08/05/22 17:10) Hs C Reactive Protein (08/05/22 17:10) Magnesium (08/05/22 17:10) Ua Culture If Indicated (08/05/22 17:10) Free T4 (Free Thyroxine) (08/05/22 17:28) Thyroid Stimulating Hormone (08/05/22 17:28) Straight Cath (Urinary) (08/05/22 18:21) Lactated Ringers (Lr 1000 Ml Iv Solution (08/05/22 18:45) Ct Head/Cervical Spine Wo (08/05/22 19:09) Medications Given in ED Vital Signs/I&O 08/05/22 08/05/22 16:20 20:27 Temp 36.3 36.3 Pulse 97 92 Resp 16 16 B/P (MAP) 131/72 (91) 125/75 Pulse Ox 99 99 O2 Delivery Room Air Capillary Refill : Less Than 3 Seconds Blood Pressure Mean: 91 Progress Note : Progress Note Patient underwent a thorough lab review. Labs were reviewed and interpreted by me. Urinalysis revealed 3+ ketones suggesting hypovolemia. Patient was hydrate d with a liter of LR. CBC, CMP, and CRP were relatively unremarkable. TSH was low but free T4 was normal. I was able to track down the call number for Dr. Yaya Ibrahim. I spoke with the physician on-call for him, Dr. Hicks. He recommended CT of the head. If that was unremarkable, patient should contact Dr. Ibrahim tomorrow morning for further instructions. After CT of the head and cervical spine was obtained and reviewed, I offered patient discharged home with outpatient close follow-up with her primary surgeon versus transfer to a facility with MRI capability. Patient felt she was stable to go home, and requested discharge. She was discharged in stable condition with her significant other. Diagnostic Imaging Diagonstic Imaging: CT Plain Films/CT/US/NM/MRI: c-spine, head Comments NAME: CANDI CASAS [facility] REC#: [id number] PT STATUS: REG ER : 1965 PHYSICIAN: RADHA LORA MD ADMIT DATE: 08/05/22/ER Signed Date of Exam:08/05/22 CT HEAD/CERVICAL SPINE WO Procedure: CT head and CT cervical spine without contrast. Technique: Multiple contiguous axial images were obtained through the brain and cervical spine without the use of intravenous contrast. Sagittal and coronal reformations through the cervical spine were then performed. Auto Exposure Controls were utilized during the CT exam to meet ALARA standards for radiation dose reduction. Date: August 05, 2022. Indication: 57-year-old female, weakness. Head and neck pain. Comparison: CT head without contrast June 21, 2022. Findings: There are occipital craniectomy changes with hardware placed. There is no identified skull fracture. The visualized portions of the paranasal sinuses, mastoid air cells, and middle ears are well aerated. There is pneumatization of the petrous apices. The ventricles and additional CSF spaces are within normal limits in size and configuration for patient age. There is no identified subdural or epidural hematoma. There is no evidence of an acute intraparenchymal hemorrhage. There is no mass effect or midline shift. There is a small low-attenuation probable subdural fluid near the postoperative changes of the occipital bone to the left of midline measuring 6 mm in thickness. This is unchanged since the prior exam on June 21, 2022. This is also unchanged since at least July 06, 2021. There is no identified facet joint subluxation or dislocation. There is no asymmetric widening of the cervical disc spaces. There is no prominent prevertebral soft tissue swelling. The cervical disc heights are fairly well preserved. CT is limited for assessment of disc pathology as well as additional nonbony causes of pathology in the spinal canal. There are leads within the spinal canal projecting near the level of C3-C4 and C4-C5. There are laminectomy changes of C4, C5, and C6. 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 There is no identified acute fracture of the cervical spine. Impression: 1. No identified interval acute intracranial abnormality. 2. Status post occipital craniotomy with a low-attenuation left subdural fluid collection, this region measuring 6 mm in thickness unchanged since at least July 06, 2021. 3. Postoperative related changes of the cervical spine as above. 4. No identified acute abnormality of the cervical spine. Dictated by: Dictated on workstation # [id number] Dict: 08/05/221931 Trans: 08/05/221943 CV [id number] Interpreted by: MOISE DOWNEY MD Electronically signed by: MOISE DOWNEY MD 08/05/221943 Departure Impression Primary Impression: Generalized weakness Additional Impressions: Syringomyelia Hot flashes Disposition: 01 HOME, SELF-CARE Condition: Stable Departure-Patient Inst. Decision time for Depature: 20:11 Referrals: DENAE VILLATORO MD (PCP/Family) Primary Care Physician Patient Instructions: Weakness ED Add. Discharge Instructions: The exact cause of your worsening weakness is uncertain. No definite causes were determined in the emergency room work-up. I suspect you may have an issue with your baclofen pump, your shunt drainage, or some other compression related to your spine conditions. Please contact Dr. Ibrahim first thing tomorrow morning for further instructions. If you have worsening condition, please return to the emergency room. If you are able to safely do so, you should present to the [facility] room. Call with questions or concerns. Continue other therapies as previously directed. All discharge instructions reviewed with patient and/or family. Voiced understanding. Copy Copies To 1: [facility]/RADHA HERNANDEZ MD Aug 05, 2022 17:40
[2022-08-05 18:02] LABS: FREE T4 (FREE THYROXINE) 1.39 NG/DL (0.70-1.48)
[2022-08-05 18:22] LABS: CLARITY,URINE CLEAR; COLOR,URINE YELLOW; GLUCOSE, URINE (UA) NEGATIVE (NEGATIVE); KETONES,URINE 3+ (NEGATIVE); LEUKOCYTE ESTERASE ,URINE NEGATIVE (NEGATIVE); NITRITE,URINE NEGATIVE (NEGATIVE); PH,URINE 5.5 (5-9); PROTEIN,URINE NEGATIVE (NEGATIVE)
[2022-08-05 18:31] LABS: BACTERIA,URINE NEGATIVE /HPF; BILIRUBIN,URINE 1+ (NEGATIVE)
[2022-08-05] MEDS ORDERED: LACTATED RINGERS 1,000 ML IV ONE (18:45)
--- NOTE | 2022-08-05 19:41 | Diagnostic Imaging Report ---
Procedure: CT head and CT cervical spine without contrast. Technique: Multiple contiguous axial images were obtained through the brain and cervical spine without the use of intravenous contrast. Sagittal and coronal reformations through the cervical spine were then performed. Auto Exposure Controls were utilized during the CT exam to meet ALARA standards for radiation dose reduction. Date: August 05, 2022. Indication: 57-year-old female, weakness. Head and neck pain. Comparison: CT head without contrast June 21, 2022. Findings: There are occipital craniectomy changes with hardware placed. There is no identified skull fracture. The visualized portions of the paranasal sinuses, mastoid air cells, and middle ears are well aerated. There is pneumatization of the petrous apices. The ventricles and additional CSF spaces are within normal limits in size and configuration for patient age. There is no identified subdural or epidural hematoma. There is no evidence of an acute intraparenchymal hemorrhage. There is no mass effect or midline shift. There is a small low-attenuation probable subdural fluid near the postoperative changes of the occipital bone to the left of midline measuring 6 mm in thickness. This is unchanged since the prior exam on June 21, 2022. This is also unchanged since at least July 06, 2021. There is no identified facet joint subluxation or dislocation. There is no asymmetric widening of the cervical disc spaces. There is no prominent prevertebral soft tissue swelling. The cervical disc heights are fairly well preserved. CT is limited for assessment of disc pathology as well as additional nonbony causes of pathology in the spinal canal. There are leads within the spinal canal projecting near the level of C3-C4 and C4-C5. There are laminectomy changes of C4, C5, and C6. 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 There is no identified acute fracture of the cervical spine. Impression: 1. No identified interval acute intracranial abnormality. 2. Status post occipital craniotomy with a low-attenuation left subdural fluid collection, this region measuring 6 mm in thickness unchanged since at least July 06, 2021. 3. Postoperative related changes of the cervical spine as above. 4. No identified acute abnormality of the cervical spine. Dictated by: Dictated on workstation # [id number]
[2022-08-05 20:27] VITALS: BP 125/75
== END 2022-08-05 20:27 | disposition home or self-care (01) ==
LOC: EDUNIT# 16:01 → ER 16:02
DX: G95.0 Syringomyelia and syringobulbia (principal); R23.2 Flushing
CPT/HCPCS: 36415; 51702; 70450; 72125; 80053; 81000; 83735; 84439; 84443; 85025; 86141; 93041

== ENCOUNTER 2022-09-05 17:59 | Observation (INO) | payer MEDICARE, MEDICAID ==
[2022-09-05] VITALS (7 sets, daily range): BP systolic 103–111; BP diastolic 51–73
[~2022-09-05] VITALS: Ht 160 cm; Wt 62.7 kg
[~2022-09-05 17:59] MED LIST changes: -BIOT10005 PO; -CATHETER FLUSH 10 ML SYR IV PRN; -CHOL10007 PO; -DIPH25CA79 PO; -HOLD METFORMIN - RECEIVED CONTRAST 20 ML VIAL IV SCH; -IOHEXOL 350 MG/ML 100 ML (OMNIPAQUE 350) VIAL IV ONE; -LEVO750T PO; -NS 100 ML (IVPB) BAG IV ONE; -POTA99TA17 PO; -WHEA98PO PO
[2022-09-05] MEDS ORDERED: LACTATED RINGERS 1,000 ML IV ONE (18:15)
--- NOTE | 2022-09-05 18:24 | ED General ---
General Chief Complaint: Altered Mental Status Stated Complaint: UNRESPONSIVE Nursing Triage Note: PT PRESENTS TO ED VIA EMS FROM HOME FOR UNRSPNSIVE EPISODE. PT REPORTS AFTER PT HAD A OUTPT CT SCAN TODAY SHE LAYED DOWN TO REST AND WHEN HE WENT TO TRY TO WAKE HER UP HE COULD NOT GET HER TO ROUSE. EMS REPORTS HYPOTENSION AT SCENE. PT IS ALERT AND ORIENTED UPON ARRIVAL Source of Information: Patient, EMS, Old Records, Spouse History of Present Illness Date Seen by Provider: Sep 05, 2022 Time Seen by Provider: 18:08 Initial Comments PT ARRIVES VIA EMS FROM HOME PT WAS FOUND UNRESPONSIVE BY AROUND 45 MINUTES AGO. LAST KNOWN WELL TIME WAS 1630--PT HAD JUST GOTTEN HOME FROM HAVING OUTPATIENT CT SCAN OF ABDOMEN AND LABS, AFTER BEING SEEN BY VASCULAR NEUROLOGIST AT DR. GRAHAM'S OFFICE TODAY AT 1430. TESTS ORDERED FOR SWELLING OF ABDOMEN. PT HAD A PEG TUBE PLACED 07/01/22, IT APPEARS TO BE FUNCTIONING NORMALLY--NO LEAKING EXTERNALLY. NO ABDOMINAL PAIN NO NAUSEA/VOMITING NO COUGH OR SHORTNESS OF BREATH NO CHEST PAIN NO FEVER/SWEATS/CHILLS NO PAIN ON URINATION PT WAS EXTREMELY TIRED AFTER GETTING HOME THIS AFTERNOON, AND LAID DOWN FOR A NAP AT 1630, AND WAS FINE. FOUND HER UNRESPONSIVE, AND CALLED EMS BP WAS 50 SYSTOLIC FOR EMS, PUPILS WERE PINPOINT. PT WOKE UP AND WAS IMMEDIATELY A&Ox4, AND BP UP TO 120'S SYSTOLIC. IV FLUIDS INI TIATED BY EMS PT STATES SHE FEELS COMPLETELY FINE NOW, AND IS AT HER NORMAL BASELINE PT HAS BEEN ESSENTIALLY BED BOUND SINCE SHE HAD THE FEEDING TUBE PLACED DURING HOSPITALIZATION IN [place]--FOR SEVERE DYSPHAGIA. SHE DOES NOT TAKE ANYTHING BY MOUTH NOW--ALL INTAKE IS VIA FEEDING TUBE--GETS TUBE FEEDINGS THREE TIMES A DAY. 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 SHE HAS CHRONIC PAIN, AND IS ON METHADONE. GIVES HER ALL OF HER MEDICATIONS THRU THE FEEDING TUBE. SHE HAS NOT HAD ANY CHANGES IN MEDICATIONS OR DOSES. SHE ALSO HAS SPASTICITY AND HAS A BACLOFEN PUMP IN PLACE, AND DIFFICULTY WITH BOWEL AND BLADDER FUNCTION. SHE DOES NOT HAVE A URINARY CATHETER SHE WAS ADMITTED IN JUNE FOR SEPTIC SHOCK WITH RESPIRATORY FAILURE, REQUIRING INTUBATION. SHE HAD PNEUMONIA AND ACUTE RENAL FAILURE/INSUFFICIENCY AT THAT TIME. SHE WAS HOSPITALIZED FROM 06/21-07/02/22, AND DISMISSED TO HOME. SHE HAS NOT BEEN AMBULATORY SINCE THAT HOSPITALIZATION DUE TO SEVERE GENERALIZED WEAKNESS. SHE STATES PRIOR TO THAT SHE WAS AMBULATORY. PCP: DR. GRAHAM Allergies and Home Medications Allergies Coded Allergies: lactase (Verified Allergy, Severe, 06/30/22) swelling pain and uncontrolled diarrhea Patient Home Medication List Home Medication List Reviewed: Yes Bacillus Coagulans/Inulin (Probiotic 1 B Cfu-250 mg Cap) 1 Billion Cell-250 Mg Capsule, 2 EACH PO 1800 W/DINNER, (Reported) Entered as Reported by: MARVIN WEBB on 06/21/22 1522 Baclofen (Baclofen) 10 Mg Tablet, 10 MG PO TID PRN for MUSCLE SPASMS, (Reported) Entered as Reported by: MARVIN WEBB on 05/12/20 1149 Calcium Carbonate (Calcium) 500 Mg Calcium (1250 Mg) Tab.chew, 1,000 MG PO 1800 W/DINNER, (Reported) Entered as Reported by: MARVIN WEBB on 06/21/22 1522 Lactose-Reduced Food/Fiber (Jevity 1.5 Mykel Liquid) 0.06 Gram-1.5 Kcal/Ml Liquid, 1 EACH PEG QID Prescribed by: MAYKEL BURNS on 07/02/22 1410 Loratadine (Loratadine) 10 Mg Tablet, 10 MG PO 1800 W/DINNER, (Reported) Entered as Reported by: MARVIN WEBB on 06/21/22 1522 Melatonin (Melatonin) 5 Mg Tablet, 5 MG PO HS, (Reported) Entered as Reported by: MARVIN WEBB on 06/21/22 1522 Methadone HCl (Methadone HCl) 10 Mg Tablet, 20 MG PO DAILY W/BREAKFAST, (Reported) Entered as Reported by: MARVIN WEBB on 05/12/20 1149 Methadone HCl (Methadone HCl) 10 Mg Tablet, 10 MG PO 1800 W/DINNER, (Reported) Entered as Reported by: MARVIN WEBB on 06/21/22 1522 Multivit-Min/Iron/Folic/Vit K1 (Centrum Chewables Adults Tab) 8 Mg Iron-400 Mcg- 10 Mcg Tab.chew, 2 EACH PO 1800 W/DINNER, (Reported) Entered as Reported by: MARVIN WEBB on 07/06/21 1207 Potassium Gluconate (Potassium) 595 Mg (99 Mg) Tablet, 99 MG PO 1800 W/DINNER, (Reported) Entered as Reported by: MARVIN WEBB on 06/21/22 1522 Thyroid,Pork (Kanab Thyroid) 90 Mg Tablet, 180 MG PO DAILY, (Reported) Entered as Reported by: MARVIN WEBB on 05/17/20 1515 Turmeric Root Extract (Turmeric) 500 Mg Tablet, 500 MG PO 1800 W/DINNER, (Reported) Entered as Reported by: MARVIN WEBB on 06/21/22 1522 [Baclofen Infusion] , INCATH UD, (Reported) Entered as Reported by: MARVIN WEBB on 06/21/22 152 Review of Systems Review of Systems Constitutional: see HPI Respiratory: no symptoms reported Cardiovascular: no symptoms reported Gastrointestinal: see HPI Genitourinary: see HPI Musculoskeletal: see HPI Skin: no symptoms reported Psychiatric/Neurological: See HPI Hematologic/Lymphatic: No Symptoms Reported Immunological/Allergic: no symptoms reported Past Yumstxd-Qxkprk-Fjvzuj Hx Patient Social History Tobacco Use?: No Substance use?: No Alcohol Use?: No Pt feels they are or have been: No Immunizations Up To Date Tetanus Booster (TDap): Unknown First/Initial COVID19 Vaccinat: 2020 Second COVID19 Vaccination Butch: 2020 Third COVID19 Vaccination Date: 2020 Past Medical History Surgery/Hospitalization HX: shunt, baclofen pump Surgeries: Yes (Intrathecal baclofen pump; FEEDING TUBE 07/01/22;C5 SHUNT TO PLEURAL CAVITY) Abdominal, Neurological Respiratory: Yes (EMPYEMA 04/2020) Pneumonia Currently Using CPAP: No Currently Using BIPAP: No Cardiac: Yes (AUTONOMIC DYSREFLEXIA) Hypertension Neurological: Yes (Reflex sympathetic dystrophy / autonomic dysreflexia, syringomyelia, Chiari) Neuropathy, Paralysis Reproductive Disorders: No Genitourinary: Yes Bladder Infection, Neurogenic Bladder Gastrointestinal: Yes (FEEDING TUBE PLACED 07/01/22 FOR SEVERE DYSPHAGIA) Gastroesophageal Reflux Musculoskeletal: Yes (CHRONIC NECK/BACK/GENERALIZED PAIN ; ) Chronic Back Pain, Spasms Endocrine: No HEENT: Yes Psychosocial: Yes Anxiety, Depression Integumentary: No Blood Disorders: No Family Medical History No Pertinent Family Hx . 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 -BACLOFEN PUMP PLACEMENT -04/28/20--CHEST TUBE FOR EMPYEMA AND VATS PROCEDURE ADDITIONAL PAST MEDICAL HISTORY: -"SPINAL CORD DISEASE" ALL OF LIFE--SYRINGOMYELIA, SYRINGOBULBIA, ARACHNOIDITIS--( ARNOLD CHIARI MALFORMATION ) WITH AUTONOMIC DYSREFLEXIA, AND LEFT > RIGHT SIDE OF BODY NUMBNESS, BLURRY VISION, DIFFICULTY SWALLOWING, GENERALIZED PAIN--ESPECIALLY BACK OF HEAD AND NECK, AND GENERALIZED WEAKNESS 04/2020--ADMITTED TO [facility] FOR ACCIDENTAL OD ON BACLOFEN, REQUIRED INTUBATION; WAS ALSO SEPTIC WITH EMPYEMA AND REQUIRED CHEST TUBES AND VATS PROCEDURE--THOUGHT TO BE DUE TO SYRINGO-PLEURAL SHUNTS THAT HAD PREVIOUSLY BEEN PLACED IN 2019. Physical Exam Vital Signs Vital Signs - First Documented 09/05/22 09/05/22 18:01 22:20 Temp 35.9 Pulse 87 Resp 22 B/P (MAP) 125/71 (89) Pulse Ox 98 O2 Delivery Room Air Capillary Refill : Less Than 3 Seconds Height, Weight, BMI Height: '" Weight: lbs. oz. kg; 21.00 BMI Method: General Appearance: No Apparent Distress, WD/WN, Other (PT IS VERY ALERT, TALKATIVE, DOES NOT APPEAR TO BE IN ANY DISCOMFORT OR DISTRESS) Neck: Normal Inspection Respiratory: Normal Breath Sounds, No Accessory Muscle Use, No Respiratory Distress Cardiovascular: Regular Rate, Rhythm Gastrointestinal: Non Tender, Soft, Other (FEEDING TUBE IN PLACE, NO SIGNS OF INFECTION OR LEAKING. 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 Norm as Tested, Other (PT HAS DIFFUSE GENERALIZED WEAKNESS, DOES HAVE SOME MINIMAL MOVEMENT OF EXTREMITES, BUT HAS SOME PARTIAL PARALYSIS WITH SPASTICITY AND DECREASED SENSATION --C5 LEVEL AND DISTALLY ) Skin: Normal Color, Warm/Dry; No Rash Focused Exam Sepsis Stage: Ruled Out Reason for ruling out sepsis: DOES NOT MEET CRITERIA Possible Source: Other ( OR PULMONARY) Lactate Level 09/05/22 18:20: Lactic Acid Level 0.60 Time of Focused Exam: 19:20 Respiratory: Normal Breath Sounds, No Accessory Muscle Use, No Respiratory Distress Cardiovascular: Regular Rate, Rhythm, No Murmur Capillary Refill: Less Than 3 Seconds Skin: normal color, warm/dry Lactic Acid Level Laboratory Tests Test 09/05/22 18:20 Lactic Acid Level 0.60 MMOL/L (0.50-2.00) Within 3hrs of presentation: Admin fluids, Admin ABX, Blood cultures prior to ABX's, Focus exam, Lactate level Procedures/Interventions Date of ETT Placement: Jun 21, 2022 Progress/Results/Core Measures Suspected Sepsis SIRS Temperature: Pulse: 87 Respiratory Rate: 22 Laboratory Tests 09/05/22 18:20: White Blood Count 6.5 Blood Pressure 125 /71 Mean: 89 09/05/22 18:20: Lactic Acid Level 0.60 Laboratory Tests 09/05/22 18:20: Creatinine 0.80, Platelet Count 262, Total Bilirubin 0.4 09/05/22 19:14: INR Comment 1.1 Results/Orders Lab Results Laboratory Tests Test 09/05/22 18:20 09/05/22 18:53 09/05/22 19:14 Range/Units White Blood Count 6.5 4.3-11.0 10^3/uL Red Blood Count 3.87 3.80-5.11 10^6/uL Hemoglobin 11.6 11.5-16.0 g/dL Hematocrit 35 35-52 % Mean Corpuscular Volume 90 80-99 fL Mean Corpuscular Hemoglobin 30 25-34 pg Mean Corpuscular Hemoglobin Concent 33 32-36 g/dL Red Cell Distribution Width 13.5 10.0-14.5 % Platelet Count 262 130-400 10^3/uL Mean Platelet Volume 11.0 9.0-12.2 fL Immature Granulocyte % (Auto) 0 % Neutrophils (%) (Auto) 72 42-75 % Lymphocytes (%) (Auto) 19 12-44 % Monocytes (%) (Auto) 7 0-12 % Eosinophils (%) (Auto) 1 0-10 % Basophils (%) (Auto) 0 0-10 % Neutrophils # (Auto) 4.7 1.8-7.8 10^3/uL Lymphocytes # (Auto) 1.2 1.0-4.0 10^3/uL Monocytes # (Auto) 0.5 0.0-1.0 10^3/uL Eosinophils # (Auto) 0.1 0.0-0.3 10^3/uL Basophils # (Auto) 0.0 0.0-0.1 10^3/uL Immature Granulocyte # (Auto) 0.0 0.0-0.1 10^3/uL Sodium Level 124 *L 135-145 MMOL/L Potassium Level 4.0 3.6-5.0 MMOL/L Chloride Level 88 L 98-107 MMOL/L Carbon Dioxide Level 22 21-32 MMOL/L Anion Gap 14 5-14 MMOL/L Blood Urea Nitrogen 16 7-18 MG/DL Creatinine 0.80 0.60-1.30 MG/DL Estimat Glomerular Filtration Rate 87 BUN/Creatinine Ratio 20 Glucose Level 74 70-105 MG/DL Lactic Acid Level 0.60 0.50-2.00 MMOL/L Calcium Level 9.5 8.5-10.1 MG/DL Corrected Calcium 9.8 8.5-10.1 MG/DL Magnesium Level 2.0 1.6-2.4 MG/DL Total Bilirubin 0.4 0.1-1.0 MG/DL Aspartate Amino Transf (AST/SGOT) 19 5-34 U/L Alanine Aminotransferase (ALT/SGPT) 21 0-55 U/L Alkaline Phosphatase 106 40-136 U/L Ammonia 24 11-32 UMOL/L Troponin I < 0.028 <0.028 NG/ML Total Protein 6.0 L 6.4-8.2 GM/DL Albumin 3.6 3.2-4.5 GM/DL Free Thyroxine 1.72 H 0.70-1.48 NG/DL TSH Bradford Testing 0.01 L 0.35-4.94 UIU/ML Serum Alcohol < 10 <10 MG/DL Urine Color YELLOW Urine Clarity CLEAR Urine pH 5.5 5-9 Urine Specific [place] <=1.005 1.016-1.022 Urine Protein NEGATIVE NEGATIVE Urine Glucose (UA) NEGATIVE NEGATIVE Urine Ketones TRACE H NEGATIVE Urine Nitrite POSITIVE H NEGATIVE Urine Bilirubin NEGATIVE NEGATIVE Urine Urobilinogen 0.2 < = 1.0 MG/DL Urine Leukocyte Esterase 3+ H NEGATIVE Urine RBC (Auto) TRACE-I H NEGATIVE Urine RBC 0-2 /HPF Urine WBC 5-10 H /HPF Urine Squamous Epithelial Cells 5-10 /HPF Urine Crystals NONE /LPF Urine Bacteria MODERATE H /HPF Urine Casts NONE /LPF Urine Mucus NEGATIVE /LPF Urine Culture Indicated YES Urine Opiates Screen NEGATIVE NEGATIVE Urine Oxycodone Screen NEGATIVE NEGATIVE Urine Methadone Screen POSITIVE H NEGATIVE Urine Propoxyphene Screen NEGATIVE NEGATIVE Urine Barbiturates Screen NEGATIVE NEGATIVE Ur Tricyclic Antidepressants Screen NEGATIVE NEGATIVE Urine Phencyclidine Screen NEGATIVE NEGATIVE Urine Amphetamines Screen NEGATIVE NEGATIVE Urine Methamphetamines Screen NEGATIVE NEGATIVE Urine Benzodiazepines Screen NEGATIVE NEGATIVE Urine Cocaine Screen NEGATIVE NEGATIVE Urine Cannabinoids Screen NEGATIVE NEGATIVE Prothrombin Time 13.9 12.2-14.7 SEC INR Comment 1.1 0.8-1.4 Activated Partial Thromboplast Time 30 24-35 SEC My Orders Orders - HECTOR MARIANO DO Ed Iv/Invasive Line Start (09/05/22 18:09) Ekg Tracing (09/05/22 18:09) Monitor-Rhythm Ecg Trace Only (09/05/22 18:09) Cbc With Automated Diff (09/05/22 18:09) Comprehensive Metabolic Panel (09/05/22 18:09) Drug Screen Stat (Urine) (09/05/22 18:09) Magnesium (09/05/22 18:09) Protime With Inr (09/05/22 18:09) Partial Thromboplastin Time (09/05/22 18:09) Ua Culture If Indicated (09/05/22 18:09) Troponin I [place] (09/05/22 18:09) Alcohol (09/05/22 18:11) Ammonia (09/05/22 18:11) Lactic Acid Analyzer (09/05/22 18:11) Thyroid Analyzer (09/05/22 18:11) Blood Culture (09/05/22 18:11) Chest 1 View, Ap/Pa Only (09/05/22 18:11) Ed Iv/Invasive Line Start (09/05/22 18:11) Vital Signs Adult Sepsis Patie Q15M (09/05/22 18:11) O2 (09/05/22 18:11) Remove Rings In Anticipation O (09/05/22 18:11) Lactated Ringers (Lr 1000 Ml Iv Solution (09/05/22 18:15) Straight Cath For Spec.-Adult (09/05/22 18:25) Ed Iv/Invasive Line Start (09/05/22 19:10) Ns Iv 1000 Ml (Sodium Chloride 0.9%) (09/05/22 19:15) Free T4 (Free Thyroxine) (09/05/22 18:20) Urine Culture (09/05/22 18:53) Cefepime Injection (Maxipime Injection) (09/05/22 19:30) Ed Admission (Communication) (09/05/22 19:30) Code/Resuscitation (09/05/22 19:37) Catheter(Urinary) Insert & Ass 03,15 (09/05/22 20:31) Lidocaine 2% (Urojet) (Xylocaine Urojet) (09/05/22 20:45) Medications Given in ED Current Medications Medications Dose Ordered Sig/Stevenson Route Start Time Stop Time Status Last Admin Dose Admin Cefepime HCl 1000 mg/Sodium Chloride 50 ml @ 100 mls/hr ONCE ONCE IV 09/05/22 19:30 09/05/22 19:59 DC 09/05/22 19:59 100 MLS/HR Vital Signs/I&O 09/05/22 09/05/22 18:01 22:20 Temp 35.9 Pulse 87 70 Resp 22 18 B/P (MAP) 125/71 (89) 105/51 Pulse Ox 98 97 O2 Delivery Room Air 09/05/22 23:59 Intake Total 2050 ml Balance 2050 ml Capillary Refill : Less Than 3 Seconds Blood Pressure Mean: 89 Progress Note : Progress Note VITALS STABLE--NO FEVER, NO HYPOTENSION, NO TACHYCARDIA, NO HYPOXIA AT ANY TIME DURING ER STAY NO DETERIORATION IN PT'S CONDITION DURING ER STAY. PT REMAINS VERY ALERT AND ORIENTED X 4 THROUGHOUT ER STAY. AND HAS NO COMPLAINTS OTHER THAN BEING VERY TIRED, FROM BEING GONE ALL DAY--DR VISIT, OUTPATIENT TESTS. GIVEN: -IV FLUIDS -CEFEPIME LABS INCLUDING CBC, CMP, UA, TSH, TROPONIN, ETOH, UDS, WELL EKG, CXR ORDERED. PERTINENT LAB FINDINGS: -CBC UNREMARKABLE. -CMP--NA 124. -TROPONIN NEGATIVE -LACTIC ACID NEGATIVE. -TSH 0.01, FREE T4 1.72 -UA WITH 1+ BACTERIA, 5-10 WBC, 3+ LEUKOCYTES, + NITRITES, TRACE KETONES -ETOH NEGATIVE, UDS + FOR METHADONE EKG UNREMARKABLE CXR WITH PERSISTENT LEFT PLEURAL EFFUSION CONSISTENT WITH HISTORY OF SPINAL SHUNT TO PLEURAL CAVITY. NO EVIDENCE OF SEPSIS PT REQUESTS FONTAINE CATHETER, DUE TO URGE TO VOID BUT IS UNABLE TO. STATES SHE HAS NOT URINATED IN AT LEAST 15 HOURS CATHETER PLACED WITH IMMEDIATE RETURN OF > 1000 ML URINE, THEN CLAMPED. LATER DRAINED AN ADDITIONAL > 400 ML URINE. REVIEWED PRIOR RECORDS, INCLUDING ER VISITS, ADMITS/H&P'S/CONSULTS/DISCHARGE SUMMARIES, TESTS/PROCEDURES MOST RECENT URINE CULTURE HAD NO GROWTH. REVIEWED OUTPATIENT CT SCAN AND LABS DONE EARLIER TODAY DISCUSSED TEST RESULTS, NEED FOR ADMIT AND PT AGREES TO PLAN PT WISHES TO BE A FULL CODE VERY COMPLEX MANAGEMENT DUE TO MULTIPLE ISSUES AND CO-MORBIDITIES. ECG Initial ECG Impression Date: Sep 05, 2022 Initial ECG Impression Time: 18:27 Initial ECG Rate: 83 Initial ECG Rhythm: Normal Sinus Initial ECG Intervals: Normal Initial ECG Impression: Normal Comment INTERPRETED BY ME Diagnostic Imaging Comments CXR--PER RADIOLOGIST REPORT AT 1911 COMPARISON: 06/26/2022. FINDINGS: Normal heart size and central pulmonary vascularity. Mild atelectasis or infiltrate in the medial left lung base. Tiny left pleural effusion or thickening. No pneumothorax. No acute osseous findings. IMPRESSION: Mild atelectasis or infiltrate in the left lung base and tiny left pleural effusion or thickening have both improved but not resolved compared to 06/26/2022. CT SCAN ABDOMEN/PELVIS--DONE EARLIER TODAY: COMPARISON: None available. FINDINGS: Limited views of the lower thorax show a moderate left pleural effusion with a indwelling pleural catheter. There is a cyst in the right liver. No suspicious liver lesion. There is no biliary ductal dilation. Gallbladder is normal. Pancreas is normal. Spleen is normal. Adrenal glands are normal. The kidneys are normal. There is no hydronephrosis. Urinary bladder is normal. There is a large stool ball in the rectum with perirectal stranding concerning for stercoral proctitis. An intrauterine device is present in the uterus. No evidence for bowel obstruction. There is a percutaneous feeding tube in the stomach. No free fluid or air. No abdominal or pelvic lymphadenopathy. Aorta is normal in caliber without aneurysm. There are no suspicious osseus lesions. Spinal stimulator is present. IMPRESSION: 1. Large amount of stool in the rectum with perirectal stranding concerning for stercoral proctitis. 2. Moderate left pleural effusion with an indwelling pleural catheter, possibly representing a CSF shunt. Reviewed: Reviewed by Me Departure Communication (Admissions) 1929--SPOKE WITH DR. BURNS, HOSPITALIST. ACCEPTS PT FOR ADMIT. SHE WILL DO ADMIT ORDERS Impression Primary Impression: Episode of unresponsiveness Additional Impressions: SEVERE HYPONATREMIA SEVERELY LOW TSH Generalized weakness Syringomyelia Chiari malformation SEVERE DYSPHAGIA WITH FEEDING TUBE IN PLACE Constipation due to neurogenic bowel Neurogenic bladder Pleural effusion on left Chronic generalized pain CHRONIC SPASTICITY WITH BACLOFEN PUMP IN PLACE SPINAL SHUNT IN PLACE CHRONIC METHADONE USE Urinary tract infection Impacted stool in rectum Partial bilateral paralysis PARTIAL QUARDIPLEGIA BILATERALLY Disposition: ADMITTED INPATIENT Condition: Stable Admissions Decision to Admit Reason: Admit from ER (General) Decision to Admit/Date: Sep 05, 2022 Time/Decision to Admit Time: 19:30 Departure-Patient Inst. Referrals: DESMOND GRAHAM MD (PCP/Family) Primary Care Physician HECTOR MARIANO DO Sep 05, 2022 18:24
[2022-09-05 18:36] LABS: BASOPHILS % (AUTO) 0 % (0-10); EOSINOPHILS # (AUTO) 0.1 10^3/uL (0.0-0.3); EOSINOPHILS % (AUTO) 1 % (0-10); HEMATOCRIT 35 % (35-52); HEMOGLOBIN 11.6 g/dL (11.5-16.0); LYMPHOCYTES # (AUTO) 1.2 10^3/uL (1.0-4.0); LYMPHOCYTES % (AUTO) 19 % (12-44); MEAN CORPUSCULAR HEMOGLOBIN 30 pg (25-34); MEAN CORPUSCULAR HGB CONC 33 g/dL (32-36); MEAN CORPUSCULAR VOLUME 90 fL (80-99); MONOCYTES # (AUTO) 0.5 10^3/uL (0.0-1.0); MONOCYTES % (AUTO) 7 % (0-12); NEUTROPHILS # (AUTO) 4.7 10^3/uL (1.8-7.8); NEUTROPHILS % (AUTO) 72 % (42-75); PLATELET COUNT 262 10^3/uL (130-400); WHITE BLOOD COUNT 6.5 10^3/uL (4.3-11.0)
--- NOTE | 2022-09-05 18:56 | Diagnostic Imaging Report ---
EXAM: CHEST 1 VIEW, AP/PA ONLY INDICATION: Hypotension. Unresponsive. COMPARISON: 06/26/2022. FINDINGS: Normal heart size and central pulmonary vascularity. Mild atelectasis or infiltrate in the medial left lung base. Tiny left pleural effusion or thickening. No pneumothorax. No acute osseous findings. IMPRESSION: Mild atelectasis or infiltrate in the left lung base and tiny left pleural effusion or thickening have both improved but not resolved compared to 06/26/2022. Dictated by: Dictated on workstation # [id number]
[2022-09-05 18:59] LABS: ALANINE AMINOTRANSFERASE 21 U/L (0-55); ALBUMIN 3.6 GM/DL (3.2-4.5); ALKALINE PHOSPHATASE 106 U/L (40-136); AMMONIA 24 UMOL/L (11-32); BILIRUBIN,TOTAL 0.4 MG/DL (0.1-1.0); BUN/CREATININE RATIO 20; CALCIUM 9.5 MG/DL (8.5-10.1); CARBON DIOXIDE 22 MMOL/L (21-32); CHLORIDE 88 MMOL/L (98-107); GFR ESTIMATED 87; GLUCOSE 74 MG/DL (70-105)
[2022-09-05 19:02] LABS: BILIRUBIN,URINE NEGATIVE (NEGATIVE); CLARITY,URINE CLEAR; COLOR,URINE YELLOW; GLUCOSE, URINE (UA) NEGATIVE (NEGATIVE); KETONES,URINE TRACE (NEGATIVE); LEUKOCYTE ESTERASE ,URINE 3+ (NEGATIVE); NITRITE,URINE POSITIVE (NEGATIVE); PH,URINE 5.5 (5-9); PROTEIN,URINE NEGATIVE (NEGATIVE)
[2022-09-05 19:07] LABS: SODIUM 124 MMOL/L (135-145)
[2022-09-05 19:13] LABS: TSH (THYROID ANALYZER) 0.01 UIU/ML (0.35-4.94)
[2022-09-05] MEDS ORDERED: NS IV 1000 ML 1,000 ML IV SCH (19:15)
[2022-09-05 19:21] LABS: BACTERIA,URINE MODERATE /HPF; RBC,URINE 0-2 /HPF
[2022-09-05 19:24] LABS: AMPHETAMINE SCREEN, URINE NEGATIVE (NEGATIVE); BARBITURATE SCREEN URINE NEGATIVE (NEGATIVE); BENZODIAZEPINES SCREEN URINE NEGATIVE (NEGATIVE); CANNABINOID SCREEN, URINE NEGATIVE (NEGATIVE); COCAINE SCREEN URINE NEGATIVE (NEGATIVE); METHADONE STAT POSITIVE (NEGATIVE); OPIATE SCREEN URINE NEGATIVE (NEGATIVE); TRICYCLIC ANTIDEPRESSANTS SCRE NEGATIVE (NEGATIVE)
[2022-09-05 19:25] LABS: OXYCODONE STAT NEGATIVE (NEGATIVE); PROPOXYPHENE STAT NEGATIVE (NEGATIVE)
[2022-09-05] MEDS ORDERED: CEFEPIME INJECTION 1,000 MG in NS (IVPB) 50 ML IV ONE (19:30)
[2022-09-05 19:32] LABS: INR 1.1 (0.8-1.4); PROTHROMBIN TIME PATIENT 13.9 SEC (12.2-14.7)
[2022-09-05 19:45] LABS: FREE T4 (FREE THYROXINE) 1.72 NG/DL (0.70-1.48)
[2022-09-05] MEDS ORDERED: LIDOCAINE UROJET 2% GEL 10 ML PKG TOP ONE (20:45)
[2022-09-05] MEDS ORDERED: polyethylene glycoL POWDER 17 GM (MIRALAX) PACK PEG PRN (22:45)
[2022-09-05] MEDS ORDERED: LORazepam INJ 2 MG/ML (ATIVAN) VIAL IVP PRN (22:45)
[2022-09-05] MEDS ORDERED: diphenhydrAMINE 50 MG/ML INJ (BENADRYL) IVP PRN (22:45)
[2022-09-05] MEDS ORDERED: MILK OF MAGNESIA 400 MG/5 ML 30 ML UDC PEG PRN (22:45)
[2022-09-05] MEDS ORDERED: ONDANSETRON 4 MG (ZOFRAN) ORAL DISSOLVE TAB PO PRN (22:45)
[2022-09-05] MEDS ORDERED: METHADONE 10 MG (DOLOPHINE) TAB PEG PRN (22:45)
[2022-09-05] MEDS ORDERED: CALCIUM CARBONATE 500 MG (TUMS) TAB.CHEW PEG PRN (22:45)
[2022-09-05] MEDS ORDERED: ANTACID SUSP 30 ML UDC (MYLANTA) PEG PRN (22:45)
[2022-09-05] MEDS ORDERED: BISACODYL 10 MG SUPP (DULCOLAX) PR ONE (22:45)
[2022-09-05] MEDS ORDERED: ACETAMINOPHEN 325 MG TABLET PEG PRN (22:45)
[2022-09-05] MEDS ORDERED: BISACODYL 10 MG SUPP (DULCOLAX) PR PRN (22:45)
[2022-09-05] MEDS ORDERED: MELATONIN 3 MG TABLET PEG PRN (22:45)
[2022-09-05] MEDS ORDERED: LACTULOSE SYRUP 10GM/15ML (ENULOSE) 30ML UDC PEG PRN (22:45)
[2022-09-05] MEDS: NS IV 1000 ML 1,000 ML IV SCH (23:10)
[2022-09-05] MEDS: ENOXAPARIN 40 MG/0.4 ML (LOVENOX) SYR SC SCH (23:24)
[2022-09-05] MEDS: LACTULOSE SYRUP 10GM/15ML (ENULOSE) 30ML UDC PEG SCH (23:25)
[2022-09-06] VITALS (21 sets, daily range): BP systolic 79–116; BP diastolic 40–75
[2022-09-06] MEDS: CEFEPIME INJECTION 1,000 MG in NS (IVPB) 50 ML IV SCH ×4 (03:43→21:39)
[2022-09-06 04:50] LABS: BASOPHILS % (AUTO) 0 % (0-10); EOSINOPHILS # (AUTO) 0.1 10^3/uL (0.0-0.3); EOSINOPHILS % (AUTO) 2 % (0-10); HEMATOCRIT 30 % (35-52); HEMOGLOBIN 9.9 g/dL (11.5-16.0); LYMPHOCYTES # (AUTO) 1.5 10^3/uL (1.0-4.0); LYMPHOCYTES % (AUTO) 26 % (12-44); MEAN CORPUSCULAR HEMOGLOBIN 31 pg (25-34); MEAN CORPUSCULAR HGB CONC 33 g/dL (32-36); MEAN CORPUSCULAR VOLUME 92 fL (80-99); MEAN PLATELET VOLUME 11.4 fL (9.0-12.2); MONOCYTES # (AUTO) 0.6 10^3/uL (0.0-1.0); MONOCYTES % (AUTO) 10 % (0-12); NEUTROPHILS # (AUTO) 3.7 10^3/uL (1.8-7.8); NEUTROPHILS % (AUTO) 62 % (42-75); PLATELET COUNT 210 10^3/uL (130-400)
[2022-09-06 05:11] LABS: POTASSIUM 3.5 MMOL/L (3.6-5.0)
[2022-09-06 05:13] LABS: TOTAL PROTEIN 5.1 GM/DL (6.4-8.2)
[2022-09-06 05:15] LABS: BILIRUBIN,TOTAL 0.2 MG/DL (0.1-1.0)
[2022-09-06 05:17] LABS: CREATININE SERUM 0.75 MG/DL (0.60-1.30)
[2022-09-06] MEDS: LACTULOSE SYRUP 10GM/15ML (ENULOSE) 30ML UDC PEG SCH ×4 (05:48→22:54)
[2022-09-06] MEDS: ONDANSETRON 4 MG/2 ML (SDV) Z0FRAN IV PRN ×2 (08:43→14:35)
[2022-09-06] MEDS: SENNOSIDES 8.6 MG (SENOKOT) TAB PEG SCH ×2 (08:44→21:36)
[2022-09-06] MEDS: METHADONE 10 MG (DOLOPHINE) TAB PO SCH (08:44)
[2022-09-06] MEDS: BISACODYL 10 MG SUPP (DULCOLAX) PR SCH (08:44)
--- NOTE | 2022-09-06 10:40 | History & Physical ---
DAPHNIE PALMER 09/06/22 1040: History of Present Illness History of Present Illness Reason for visit/HPI Devika Ramírez is a 57yo F with past medical hx of hypothyroidism, HTN, syringomyelia with syringopleural shunt x2, autonomic dysreflexia, and dysphagia requiring feeding tube placement who presented to the ED on 09/05 after her found her difficult to awake at home. She had an outpatient CT scan of the abdomen done earlier in the day and reported she felt tired afterwards and took and nap and woke up in the hospital. EMS found her to be hypotensive at the scene. She has a hx of blood pressure instability related to her autonomic dysreflexia but has never had to go to the hospital for an episode like this. Her blood pressure has been low but has come up this morning with fluid support. In the ED she was found to have a UTI and has been started on cefepime. She was also hyponatremic which has corrected this morning. CT of the abdomen revealed significant stool volume in rectum with concern for surrounding proctitis. No BM yet. She reports continued weakness but wants to go home. She denies any chest pain, shortness of breath, fever/chills. Date of Admission Sep 05, 2022 at 22:22 Time Seen by a Provider: 08:20 I consulted on this patient on 09/06/22 10:33 Attending Physician Danii Yang MD Admitting Physician Admitting Physician: Siri Burns DO Attending Physician: Siri Burns DO Consult Allergies and Home Medications Allergies Coded Allergies: lactase (Verified Allergy, Severe, 06/30/22) swelling pain and uncontrolled diarrhea Patient Home Medication List Home Medication List Reviewed: Yes Baclofen (Baclofen) 10 Mg Tablet, 10-15 MG PO QID PRN for MUSCLE SPASMS, (Reported) Entered as Reported by: MARVIN WEBB on 05/12/20 1149 Last Action: Reviewed Biotin (Biotin) 10,000 Mcg Capsule, 10,000 MCG PO DAILY, (Reported) Entered as Reported by: MARVIN WEBB on 09/06/22 1149 Last Action: Reviewed Cholecalciferol (Vitamin D3) (Vitamin D3) 25 Mcg (1000 Unit) Capsule, 25 MCG PO DAILY, (Reported) Entered as Reported by: MARVIN WEBB on 09/06/22 1149 Last Action: Reviewed Diphenhydramine HCl (Benadryl) 25 Mg Capsule, 50 MG PO HS, (Reported) Entered as Reported by: MARVIN WEBB on 09/06/221148 Last Action: Reviewed Lisinopril/Hydrochlorothiazide (Lisinopril-Hctz 20-25 mg Tab) 20 Mg-25 Mg Tablet, 0.5 EACH PO 1800, (Reported) Entered as Reported by: MARVIN WEBB on 09/06/221148 Last Action: Reviewed Loratadine (Loratadine) 10 Mg Tablet, 10 MG PO DAILY, (Reported) Entered as Reported by: MARVIN WEBB on 06/21/221521 Last Action: Reviewed Methadone HCl (Methadone HCl) 10 Mg Tablet, 10 MG PO TID, (Reported) Entered as Reported by: MARVIN WEBB on 06/21/221521 Last Action: Reviewed Multivitamin (Multivitamin) 1 Each Tablet, 1 EACH PO DAILY, (Reported) Entered as Reported by: MARVIN WEBB on 09/06/221148 Last Action: Reviewed Potassium Gluconate (Potassium Gluconate 595 MG) 595 Mg (99 Mg) Tablet, 99 MG PO DAILY, (Reported) Entered as Reported by: MRAVIN WEBB on 09/06/221148 Last Action: Reviewed Thyroid,Pork ([place] Thyroid) 90 Mg Tablet, 180 MG PO DAILY, (Reported) Entered as Reported by: MARVIN WEBB on 05/17/20 1515 Last Action: Reviewed Wheat Dextrin (Benefiber) 3 Gram/3.5 Gram Powd.pack, 1 EACH PO DAILY, (Reported) Entered as Reported by: MARVIN WEBB on 09/06/221148 Last Action: Reviewed [Baclofen Infusion] , INCATH UD, (Reported) Entered as Reported by: MARVIN WEBB on 06/21/22 152 Last Action: Reviewed Discontinued Medications Bacillus Coagulans/Inulin (Probiotic 1 B Cfu-250 mg Cap) 1 Billion Cell-250 Mg Capsule, 2 EACH PO 1800 W/DINNER, (Reported) Discontinued Reason: No Longer Taking Entered as Reported by: MARVIN WEBB on 06/21/221521 Last Action: Discontinued Calcium Carbonate (Calcium) 500 Mg Calcium (1250 Mg) Tab.chew, 1,000 MG PO 1800 W/DINNER, (Reported) Discontinued Reason: No Longer Taking Entered as Reported by: MARVIN WEBB on 06/21/221521 Last Action: Discontinued Melatonin (Melatonin) 5 Mg Tablet, 5 MG PO HS, (Reported) Discontinued Reason: No Longer Taking Entered as Reported by: MARVIN WEBB on 06/21/221521 Last Action: Discontinued Methadone HCl (Methadone HCl) 10 Mg Tablet, 20 MG PO DAILY W/BREAKFAST, (Reported) Discontinued Reason: Duplicate Order Entered as Reported by: MARVIN WEBB on 05/12/20 1149 Last Action: Discontinued Multivit-Min/Iron/Folic/Vit K1 (Centrum Chewables Adults Tab) 8 Mg Iron-400 Mcg- 10 Mcg Tab.chew, 2 EACH PO 1800 W/DINNER, (Reported) Discontinued Reason: Duplicate Order Entered as Reported by: MARVIN WEBB on 07/06/21 1207 Last Action: Discontinued Potassium Gluconate (Potassium) 595 Mg (99 Mg) Tablet, 99 MG PO 1800 W/DINNER, (Reported) Discontinued Reason: Duplicate Order Entered as Reported by: MARVIN WEBB on 06/21/221521 Last Action: Discontinued Turmeric Root Extract (Turmeric) 500 Mg Tablet, 500 MG PO 1800 W/DINNER, (Reported) Discontinued Reason: No Longer Taking Entered as Reported by: MARVIN WEBB on 06/21/221521 Last Action: Discontinued Past Nppdpfh-Yospnj-Ulkvmf Hx Patient Social History Tobacco Use?: No Smoking Status: Former Smoker Smokeless Tobacco Frequency: Never a User Substance use?: No Alcohol Use?: No Pt feels they are or have been: No Immunizations Up To Date Date of Influenza Vaccine: Mar 04, 2020 First/Initial COVID19 Vaccinat: 2020 Second COVID19 Vaccination Butch: 2020 Tetanus Booster (TDap): Unknown Hepatitis A: No Hepatitis B: No Date of Pneumonia Vaccine: Aug 02, 2009 Current Status status: No Advance Directives: No Communicates: Verbally Primary Language: Cuban Preferred Spoken Language: Cuban Is interpretation needed?: No Implanted or Applied Medical D: Other Past Medical History Surgeries: Abdominal, Neurological (syringopleural catheter) Pneumonia Currently Using CPAP: No Currently Using BIPAP: No Hypertension Neuropathy, Paralysis Bladder Infection, Neurogenic Bladder Gastroesophageal Reflux Chronic Back Pain, Spasms Anxiety, Depression Blood Disorders: No Family Medical History No Pertinent Family Hx Review of Systems Constitutional: No chills, No diaphoresis, No fever EENTM: No hearing loss, No vision loss Respiratory: No cough, No short of breath, No wheezing Cardiovascular: No chest pain, No palpitations Gastrointestinal: constipation; No jaundice, No nausea, No vomiting Genitourinary: dysuria, frequency Musculoskeletal: muscle stiffness, muscle cramps Psychiatric/Neurological: Denies Headache, Denies Pre-Existing Deficit Physical Exam Vital Signs Vital Signs - First Documented 09/05/22 09/05/22 09/06/22 18:01 22:20 03:57 Temp 35.9 Pulse 87 Resp 22 B/P (MAP) 125/71 (89) Pulse Ox 98 O2 Delivery Room Air FiO2 21 Capillary Refill : Less Than 3 Seconds Height, Weight, BMI Height: '" Weight: lbs. oz. kg; 20.85 BMI Method: General Appearance: No Apparent Distress, WD/WN HEENT: PERRL/EOMI, Moist Mucous Membranes Neck: Non Tender, Supple Respiratory: Lungs Clear, No Accessory Muscle Use, No Respiratory Distress Cardiovascular: Regular Rate, Rhythm, Normal Peripheral Pulses Gastrointestinal: Soft, Tenderness (diffuse, worse in LLQ) Rectal: Deferred Extremity: No Calf Tenderness, No Pedal Edema Neurologic/Psychiatric: Alert, Oriented x3, Normal Mood/Affect Skin: Normal Color, Warm/Dry Assessment/Plan Assessment and Plan Episode of unresponsiveness Hypotension Autonomic dysreflexia Hypotension at scene reported by EMS, lowest here was 79/43 overnight, better this morning after fluids Continue to monitor blood pressure, will likely fluctuate with autonomic dysreflexia hx Reports past episodes of hypotension, nothing that has made her lose consciousness or require hospitalization Continue IV fluids Fecal impaction with stercoral proctitis Abdominal pain General surgery consulted CT revealed fecal mass in rectum with fat stranding suspicious for stercoral proctitis Continue bowel regimen No evidence of bowel perforation or abscess formation on imaging No BM so far today UTI Cefepime 1gm Continue fluids Afebrile, normal WBC Hyponatremia 124 on admission, corrected to 135 after fluids monitor for signs of osmotic demyelination with correction of sodium, none currently Hyperthyroidism Low TSH and elevated T4 Hx of hypothyroidism Will need decreased dose of home thyroid medication Hypoglycemia 63 this morning Asymptomatic Restart tube feeds and continue to monitor glucose levels Feeding tube in place due to dysphagia Syringomyelia with syringopleural catheter Chronic spasticity Resume home baclofen Move to 4th floor today Diet- tube feeds DVT ppx- lovenox 40mg daily CODE status- full SIRI BURNS DO 09/06/222118: Allergies and Home Medications Allergies Coded Allergies: lactase (Verified Allergy, Severe, 06/30/22) swelling pain and uncontrolled diarrhea Patient Home Medication List Home Medication List Reviewed: Yes Baclofen (Baclofen) 10 Mg Tablet, 10-15 MG PO QID PRN for MUSCLE SPASMS, (Reported) Entered as Reported by: MARVIN WEBB on 05/12/201148 Last Action: Reviewed Biotin (Biotin) 10,000 Mcg Capsule, 10,000 MCG PO DAILY, (Reported) Entered as Reported by: MARVIN WEBB on 09/06/221148 Last Action: Reviewed Cholecalciferol (Vitamin D3) (Vitamin D3) 25 Mcg (1000 Unit) Capsule, 25 MCG PO DAILY, (Reported) Entered as Reported by: MARVIN WEBB on 09/06/221148 Last Action: Reviewed Diphenhydramine HCl (Benadryl) 25 Mg Capsule, 50 MG PO HS, (Reported) Entered as Reported by: MARVIN WEBB on 09/06/221148 Last Action: Reviewed Lisinopril/Hydrochlorothiazide (Lisinopril-Hctz 20-25 mg Tab) 20 Mg-25 Mg Tablet, 0.5 EACH PO 1800, (Reported) Entered as Reported by: MARVIN WEBB on 09/06/221148 Last Action: Reviewed Loratadine (Loratadine) 10 Mg Tablet, 10 MG PO DAILY, (Reported) Entered as Reported by: MARVIN WEBB on 06/21/221521 Last Action: Reviewed Methadone HCl (Methadone HCl) 10 Mg Tablet, 10 MG PO TID, (Reported) Entered as Reported by: MARVIN WEBB on 06/21/221521 Last Action: Reviewed Multivitamin (Multivitamin) 1 Each Tablet, 1 EACH PO DAILY, (Reported) Entered as Reported by: MARVIN WEBB on 09/06/221148 Last Action: Reviewed Potassium Gluconate (Potassium Gluconate 595 MG) 595 Mg (99 Mg) Tablet, 99 MG PO DAILY, (Reported) Entered as Reported by: MARVIN WEBB on 09/06/221148 Last Action: Reviewed Thyroid,Pork ([place] Thyroid) 90 Mg Tablet, 180 MG PO DAILY, (Reported) Entered as Reported by: MARVIN WEBB on 05/17/20 1515 Last Action: Reviewed Wheat Dextrin (Benefiber) 3 Gram/3.5 Gram Powd.pack, 1 EACH PO DAILY, (Reported) Entered as Reported by: MARVIN WEBB on 09/06/22 1149 Last Action: Reviewed [Baclofen Infusion] , INCATH UD, (Reported) Entered as Reported by: MARVIN WEBB on 06/21/22 152 Last Action: Reviewed Discontinued Medications Bacillus Coagulans/Inulin (Probiotic 1 B Cfu-250 mg Cap) 1 Billion Cell-250 Mg Capsule, 2 EACH PO 1800 W/DINNER, (Reported) Discontinued Reason: No Longer Taking Entered as Reported by: MARVIN WEBB on 06/21/221521 Last Action: Discontinued Calcium Carbonate (Calcium) 500 Mg Calcium (1250 Mg) Tab.chew, 1,000 MG PO 1800 W/DINNER, (Reported) Discontinued Reason: No Longer Taking Entered as Reported by: MARVIN WEBB on 06/21/22 152 Last Action: Discontinued Melatonin (Melatonin) 5 Mg Tablet, 5 MG PO HS, (Reported) Discontinued Reason: No Longer Taking Entered as Reported by: MARVIN WEBB on 06/21/221521 Last Action: Discontinued Methadone HCl (Methadone HCl) 10 Mg Tablet, 20 MG PO DAILY W/BREAKFAST, (Reported) Discontinued Reason: Duplicate Order Entered as Reported by: MARVIN WEBB on 05/12/20 1149 Last Action: Discontinued Multivit-Min/Iron/Folic/Vit K1 (Centrum Chewables Adults Tab) 8 Mg Iron-400 Mcg- 10 Mcg Tab.chew, 2 EACH PO 1800 W/DINNER, (Reported) Discontinued Reason: Duplicate Order Entered as Reported by: MARVIN WEBB on 07/06/21 1207 Last Action: Discontinued Potassium Gluconate (Potassium) 595 Mg (99 Mg) Tablet, 99 MG PO 1800 W/DINNER, (Reported) Discontinued Reason: Duplicate Order Entered as Reported by: MARVIN WEBB on 06/21/22 152 Last Action: Discontinued Turmeric Root Extract (Turmeric) 500 Mg Tablet, 500 MG PO 1800 W/DINNER, (Reported) Discontinued Reason: No Longer Taking Entered as Reported by: MARVIN BATEMANNT on 06/21/22 1522 Last Action: Discontinued Past Sxqtyqr-Vxjpcl-Umhwyz Hx Patient Social History Marrital Status: Employed/Student: unemployed Review of Systems Constitutional: see HPI Physical Exam General Appearance: No Apparent Distress, WD/WN, Chronically ill Respiratory: Lungs Clear, Normal Breath Sounds Cardiovascular: Regular Rate, Rhythm Assessment/Plan Assessment and Plan Move to fourth floor Cefepime empirically Dr. Wright consultation Supportive care Admission Diagnosis Admission Status: Observation Supervisory-Addendum Brief Verification & Attestation Participated in pt care: history, MDM, physical Personally performed: exam, history, MDM, supervision of care Care discussed with: Medical Student Procedures: n/a Results interpretation: Verified all documentation Verification and Attestation of Medical Student E/M Service A medical student performed and documented this service in my presence. I reviewed and verified all information documented by the medical student and made modifications to such information, when appropriate. I personally performed the physical exam and medical decision making. Siri Burns Sep 06, 2022,21:19 DAPHNIE PALMER Sep 06, 2022 10:40 SIRI BURNS DO Sep 06, 2022 21:19
[2022-09-06] MEDS ORDERED: POTASSIUM BICARB 20 MEQ (EFFER-K) TABLET PEG NR (11:00)
[2022-09-06] MEDS ORDERED: BACLOFEN 10 MG (LIORESAL) TAB PO SCH (11:15)
[2022-09-06] MEDS ORDERED: BIOT10005 PO (11:49)
[2022-09-06] MEDS ORDERED: POTA99TA17 PO (11:49)
[2022-09-06] MEDS ORDERED: WHEA98PO PO (11:49)
[2022-09-06] MEDS ORDERED: DIPH25CA79 PO (11:49)
[2022-09-06] MEDS ORDERED: LISI1TAB48 PO (11:49)
[2022-09-06] MEDS ORDERED: MULT-1136 PO (11:49)
[2022-09-06] MEDS ORDERED: CHOL10007 PO (11:49)
--- NOTE | 2022-09-06 11:56 | Physical Therapy Evaluation ---
PT Evaluation-General Medical Diagnosis Admission Date Sep 05, 2022 at 22:22 Medical Diagnosis: severe hyponatremia Onset Date: Sep 05, 2022 Therapy Diagnosis Therapy Diagnosis: severe weakness/debility Precautions Precautions/Isolations: Standard Precautions Referral Physician: Tammi Reason for Referral: Evaluation/Treatment Medical History Pertinent Medical History: HTN, Renal Insufficiency Additional Medical History PEG 06/21/22/chiari malformation/reflex sympathetic dystrophy/autonomic dysrefle lilia Current History EMS secondary to found unresponsive by spouse Reviewed History: Yes Social History Home: Single Level Current Living Status: Spouse Prior Prior Level of Function SCALE: Activities may be completed with or without assistive devices. 2-Fozlabeghp-wbjabln completes the activity by him/herself with no assistance from a helper. 5-Set-up or Clean-up Assistance-helper sets up or cleans up; patient completes activity. [place] assists only prior to or following the activity. 4-Supervision or Touching Assistance-helper provides verbal cues and/or touching/steadying and/or contact guard assistance as patient completes activity. Assistance may be provided throughout the activity or intermittently. 3-Partial/Moderate Assistance-helper does LESS THAN HALF the effort. [place] lifts, holds or supports trunk or limbs, but provides less than half the effort. 2-Substantial/Maximal Assistance-helper does MORE THAN HALF the effort. [place] lifts or holds trunk or limbs and provides more than half the effort. 6-Ndcxbgqbk-vuisyh does ALL the effort. Patient does none of the effort to complete the activity. Or, the assistance of 2 or more helpers is required for the patient to complete the activity. If activity was not attempted, code reason: 7-Patient Refused. 9-Not Applicable-not attempted and the patient did not perform the activity before the current illness, exacerbation or injury. 10-Not Attempted due to Environmental Limitations-(lack of equipment, weather restraints, etc.). 88-Not Attempted due to Medical Conditions or Safety Concerns. Bed Mobility: 1 Transfers (B,C,W/C): 9 Gait: 9 Stairs: 9 Prior Devices Use: Manual wheelchair, Other-see list below (bed bound per patient) PT Evaluation-Current Subjective Patient agrees to PT. Objective Patient Orientation: Normal For Age Attachments: Morrell Catheter, IV ROM/Strength ROM Lower Extremities bilateral LE WFL Strength Lower Extremities right 2+/5 grossly/left LE 2-/5 grossly Integumentary/Posture Integumentary refer to nursing notes Bowel Incontinence: Yes Bladder Incontinence: Morrell Cath Neuromuscular (Tone, Coordination, Reflexes) severely diminished with all Sensory Vision: Functional Hearing: Functional Transfers Roll Left to Right (QC): 1 Sit to Lying (QC): 1 Lying to Sitting/Side of Bed(Q: 1 Sit to Stand (QC): 88 Chair/Vlo-qy-Kzcbb Xfer(QC): 88 Gait Does the Patient Walk?: No and Walking Goal NOT indicated Balance Sitting Static: Poor Sitting Dynamic: Poor Assessment/Needs Patient will benefit from short term skilled PT to address functional strength to improve functional mobility. Patient is currently dependent with all mobility and, per patient, has been in bed for over 2 weeks with inability to stand. Spouse confirms. Rehab Potential: Poor PT Complaint Adjuster Goals Complaint Adjuster Goals PT Complaint Adjuster Goals Time Frame: Sep 14, 2022 Roll Left & Right (QC): 2 Sit to Lying (QC): 2 Lying-Sitting on Side/Bed(QC): 2 Sit to Stand (QC): 1 PT Plan Problem List Problem List: Activity Tolerance, Functional Strength, Safety, Balance, Transfer, Bed Mobility Treatment/Plan Treatment Plan: Continue Plan of Care Treatment Plan: Bed Mobility, Education, Functional Activity Gerald, Functional Strength, Safety, Therapeutic Exercise, Transfers Treatment Duration: Sep 14, 2022 Frequency: 5 times per week Estimated Hrs Per Day: .25 hour per day Patient and/or Family Agrees t: Yes Time Time In: 1130 Time Out: 1143 DATE: Sep 06, 2022 Total Billed Treatment Time: 13 Total Billed Treatment 1 visit [facility] 13 min ADITYA NOLASCO PT Sep 06, 2022 11:56
[2022-09-06] MEDS: NS IV 1000 ML 1,000 ML IV SCH ×2 (13:03→14:39)
--- NOTE | 2022-09-06 16:20 | Diagnostic Imaging Report ---
EXAMINATION: Abdomen 1 view HISTORY: Constipation. COMPARISON: None available. FINDINGS: Generator pack projects over the abdomen. An intrauterine device is present. Large amount of stool is present in the colon. No dilated bowel or free air. IMPRESSION: 1. Large amount of stool in the colon. Dictated by: Dictated on workstation # [id number]
--- NOTE | 2022-09-06 16:21 | Occupational Therapy Eval ---
OT Evaluation-General/PLF Medical Diagnosis Admission Date Sep 05, 2022 at 22:22 Medical Diagnosis: severe hyponatremia Onset Date: Sep 05, 2022 Therapy Diagnosis Therapy Diagnosis: weakness, debility Precautions Precautions/Isolations: Fall Prevention, Standard Precautions, Pressure Ulcer Weight Bear Status Weight Bearing Restriction: Weight Bearing/Tolerated Location Restriction: LE Bilateral, UE Bilateral Referral Physician: Tammi Hanley Reason: Evaluation/Treatment Medical History Pertinent Medical History: HTN, Renal Insufficiency Additional Medical History Devika Ramírez is a 57yo F with past medical hx of hypothyroidism, HTN, syringomyelia with syringopleural shunt x2, autonomic dysreflexia, and dysphagia requiring feeding tube placement who presented to the ED on 09/05 after her found her difficult to awake at home. She had an outpatient CT scan of the abdomen done earlier in the day and reported she felt tired afterwards and took and nap and woke up in the hospital. EMS found her to be hypotensive at the scene. She has a hx of blood pressure instability related to her autonomic dysreflexia but has never had to go to the hospital for an episode like this. Her blood pressure has been low but has come up this morning with fluid support. In the ED she was found to have a UTI and has been started on cefepime. She was also hyponatremic which has corrected this morning. CT of the abdomen revealed significant stool volume in rectum with concern for surrounding proctitis. No BM yet. She reports continued weakness but wants to go home. Social History Home: Single Level Current Living Status: Spouse ADL-Prior Level of Function SCALE: Activities may be completed with or without assistive devices. 6-Izynuhakbj-rqjgcdp completes the activity by him/herself with no assistance from a helper. 5-Set-up or Clean-up Assistance-helper sets up or cleans up; patient completes activity. [place] assists only prior to or following the activity. 4-Supervision or Touching Assistance-helper provides verbal cues and/or touching/steadying and/or contact guard assistance as patient completes activity. Assistance may be provided throughout the activity or intermittently. 3-Partial/Moderate Assistance-helper does LESS THAN HALF the effort. [place] lifts, holds or supports trunk or limbs, but provides less than half the effort. 2-Substantial/Maximal Assistance-helper does MORE THAN HALF the effort. [place] lifts or holds trunk or limbs and provides more than half the effort. 8-Uldjmzsym-zmcwqv does ALL the effort. Patient does none of the effort to complete the activity. Or, the assistance of 2 or more helpers is required for the patient to complete the activity. If activity was not attempted, code reason: 7-Patient Refused. 9-Not Applicable-not attempted and the patient did not perform the activity before the current illness, exacerbation or injury. 10-Not Attempted due to Environmental Limitations-(lack of equipment, weather restraints, etc.). 88-Not Attempted due to Medical Conditions or Safety Concerns. Self Care: Needed Some Help Functional Cognition: Independent Drive Self: No OT Current Status Subjective Very weak and tired, agreeable to in bed grooming and hygiene w/ evaluation Mental Status/Objective Patient Orientation: Person, Place, Time, Situation Attachments: Morrell Catheter, IV, Oxygen, Telemetry Current Upper Extremity ROM PROM/AAROM BUE Upper Extremity Coordination IMPAIRED Upper Extremity Sensation IMPAIRED Upper Extremity Strength 2/5 ADL-Treatment Eating (QC): 3 Oral Hygiene (QC): 3 Shower/Bathe Self (QC): 7 Upper Body Dressing (QC): 2 Lower Body Dressing (QC): 1 On/Off Footwear (QC): 1 Toileting Hygiene (QC): 1 Education OT Patient Education: Correct positioning, Disease process, Exercise program, Instructions to caregiver, Modified ADL techniques, Progress toward Goal/Update tx plan, Purpose of tx/functional activities, Reviewed precautions, Rehab process, Safety issues, Transfer techniques, Use of adapted equipment Teaching Recipient: Patient, Family Teaching Methods: Demonstration, Discussion Response to Teaching: Verbalize Understanding, Reinforcement Needed OT Community Outreach Coordinator Goals Senior Living Goals 1=Demonstrate adherence to instructed precautions during ADL tasks. 2=Patient will verbalize/demonstrate understanding of assistive devices/modifications for ADL. 3=Patient will improve strength/tolerance for activity to enable patient to perform ADL's. OT Education/Plan Discharge Recommendations Plan/Recommendations: Continue POC Therapy Discharge Recommendati: Post Acute OT Comment Ramp is needed at home Treatment Plan/Plan of Care Treatment,Training & Education: Yes Patient would benefit from OT for education, treatment and training to promote independence in ADL's, mobility, safety and/or upper extremity function for ADL's. Plan of Care: Caregiver Training, Functional Mobility, Group Exercise/Act as In d, UE Funct Exercise/Act Treatment Duration: Sep 14, 2022 Frequency: 3 times per week (3-5 per week) Estimated Hrs Per Day: .25 hour per day Rehab Potential: Poor Time Start Time: 14:05 Stop Time: 14:18 DATE: Sep 06, 2022 Total Time Billed (hr/min): 13 Billed Treatment Time EVM 13 min SABI CHAVARRIA OT Sep 06, 2022 16:21
[2022-09-06] MEDS: BACLOFEN 10 MG (LIORESAL) TAB PO SCH ×2 (16:41→21:38)
--- NOTE | 2022-09-06 17:39 | Consultation - Surgery ---
History of Present Illness History of Present Illness Patient Consulted On(henny/time) 09/06/22 17:39 Date Seen by Provider: Sep 06, 2022 Time Seen by Provider: 17:39 History of Present Illness .Consult requested by Dr. Cadena for fecal impaction/proctitis Patient is a 57-year-old female known to me. Patient states she has not had a bowel movement for 8 days. She states when she gets in a spastic state that she has significant issues. She started to have lower abdominal discomfort. Nothing seems to make it better or worse. No radiation of her pain. Patient had a CT scan yesterday demonstrating a large amount of stool in the rectum and perirectal stranding concerning for stercoral proctitis and moderate left pleural effusion with an indwelling pleural catheter possibly representing a CSF shunt. Allergies and Home Medications Allergies Coded Allergies: lactase (Verified Allergy, Severe, 06/30/22) swelling pain and uncontrolled diarrhea Patient Home Medication List Home Medication List Reviewed: Yes Baclofen (Baclofen) 10 Mg Tablet, 10-15 MG PO QID PRN for MUSCLE SPASMS, (Reported) Entered as Reported by: MARVIN WEBB on 05/12/20 1149 Last Action: Reviewed Biotin (Biotin) 10,000 Mcg Capsule, 10,000 MCG PO DAILY, (Reported) Entered as Reported by: MARVIN WEBB on 09/06/22 114 Last Action: Reviewed Cholecalciferol (Vitamin D3) (Vitamin D3) 25 Mcg (1000 Unit) Capsule, 25 MCG PO DAILY, (Reported) Entered as Reported by: MARVIN WEBB on 09/06/22 114 Last Action: Reviewed Diphenhydramine HCl (Benadryl) 25 Mg Capsule, 50 MG PO HS, (Reported) Entered as Reported by: MARVIN WEBB on 09/06/22 114 Last Action: Reviewed Lisinopril/Hydrochlorothiazide (Lisinopril-Hctz 20-25 mg Tab) 20 Mg-25 Mg Tablet, 0.5 EACH PO 1800, (Reported) Entered as Reported by: MARVIN WEBB on 09/06/22 114 Last Action: Reviewed Loratadine (Loratadine) 10 Mg Tablet, 10 MG PO DAILY, (Reported) Entered as Reported by: MARVIN WEBB on 06/21/22 1522 Last Action: Reviewed Methadone HCl (Methadone HCl) 10 Mg Tablet, 10 MG PO TID, (Reported) Entered as Reported by: MARVIN WEBB on 06/21/221521 Last Action: Reviewed Multivitamin (Multivitamin) 1 Each Tablet, 1 EACH PO DAILY, (Reported) Entered as Reported by: MARVIN WEBB on 09/06/221148 Last Action: Reviewed Potassium Gluconate (Potassium Gluconate 595 MG) 595 Mg (99 Mg) Tablet, 99 MG PO DAILY, (Reported) Entered as Reported by: MARVIN WEBB on 09/06/221148 Last Action: Reviewed Thyroid,Pork ([place]man Thyroid) 90 Mg Tablet, 180 MG PO DAILY, (Reported) Entered as Reported by: MARVIN WEBB on 05/17/201514 Last Action: Reviewed Wheat Dextrin (Benefiber) 3 Gram/3.5 Gram Powd.pack, 1 EACH PO DAILY, (Reported) Entered as Reported by: MARVIN WEBB on 09/06/221148 Last Action: Reviewed [Baclofen Infusion] , INCATH UD, (Reported) Entered as Reported by: MARVIN WEBB on 06/21/221521 Last Action: Reviewed Discontinued Medications Bacillus Coagulans/Inulin (Probiotic 1 B Cfu-250 mg Cap) 1 Billion Cell-250 Mg Capsule, 2 EACH PO 1800 W/DINNER, (Reported) Discontinued Reason: No Longer Taking Entered as Reported by: MARVIN WEBB on 06/21/221521 Last Action: Discontinued Calcium Carbonate (Calcium) 500 Mg Calcium (1250 Mg) Tab.chew, 1,000 MG PO 1800 W/DINNER, (Reported) Discontinued Reason: No Longer Taking Entered as Reported by: MARVIN WEBB on 06/21/221521 Last Action: Discontinued Melatonin (Melatonin) 5 Mg Tablet, 5 MG PO HS, (Reported) Discontinued Reason: No Longer Taking Entered as Reported by: MARVIN WEBB on 06/21/221521 Last Action: Discontinued Methadone HCl (Methadone HCl) 10 Mg Tablet, 20 MG PO DAILY W/BREAKFAST, (Reported) Discontinued Reason: Duplicate Order Entered as Reported by: MARVIN WEBB on 05/12/201148 Last Action: Discontinued Multivit-Min/Iron/Folic/Vit K1 (Centrum Chewables Adults Tab) 8 Mg Iron-400 Mcg- 10 Mcg Tab.chew, 2 EACH PO 1800 W/DINNER, (Reported) Discontinued Reason: Duplicate Order Entered as Reported by: MARVIN WEBB on 07/06/21 1207 Last Action: Discontinued Potassium Gluconate (Potassium) 595 Mg (99 Mg) Tablet, 99 MG PO 1800 W/DINNER, (Reported) Discontinued Reason: Duplicate Order Entered as Reported by: MARVIN WEBB on 06/21/22 1522 Last Action: Discontinued Turmeric Root Extract (Turmeric) 500 Mg Tablet, 500 MG PO 1800 W/DINNER, (Reported) Discontinued Reason: No Longer Taking Entered as Reported by: MARVIN WEBB on 06/21/22 1522 Last Action: Discontinued Past Turqsmj-Wrfckf-Vixywh Hx Patient Social History Smoking Status: Former Smoker Recent Hopitalizations: Yes (DYSREFLEXIA 2005) Alcohol Use?: No Immunizations Up To Date Tetanus Booster (TDap): Unknown Date of Pneumonia Vaccine: Aug 02, 2009 Date of Influenza Vaccine: Mar 04, 2020 Surgeries History of Surgeries: Yes (Intrathecal baclofen pump; FEEDING TUBE 07/01/22;C5 SHUNT TO PLEURAL CAVITY) Surgeries: Abdominal, Neurological (syringopleural catheter) Respiratory History of Respiratory Disorde: Yes (EMPYEMA 04/2020) Respiratory Disorders: Pneumonia Cardiovascular History of Cardiac Disorders: Yes (AUTONOMIC DYSREFLEXIA) Cardiac Disorders: Hypertension Neurological History of Neurological Disord: Yes (Reflex sympathetic dystrophy / autonomic dysreflexia, syringomyelia, Chiari) Neurological Disorders: Neuropathy, Paralysis Reproductive System Hx Reproductive Disorders: No Genitourinary History of Genitourinary Disor: Yes Genitourinary Disorders: Bladder Infection, Neurogenic Bladder Gastrointestinal History of Gastrointestinal Di: Yes (FEEDING TUBE PLACED 07/01/22 FOR SEVERE DYSPHAGIA) Gastrointestinal Disorders: Gastroesophageal Reflux Musculoskeletal History of Musculoskeletal Dis: Yes (CHRONIC NECK/BACK/GENERALIZED PAIN ; ) Musculoskeletal Disorders: Chronic Back Pain, Spasms Endocrine History of Endocrine Disorders: No HEENT History of HEENT Disorders: Yes Psychosocial History of Psychiatric Problem: Yes Behavioral Health Disorders: Anxiety, Depression Integumentary History of Skin or Integumenta: No Blood Transfusions History of Blood Disorders: No Reviewed Nursing Assessment Reviewed/Agree w Nursing PMH: Yes Family Medical History Significant Family History: No Pertinent Family Hx Review of Systems-General Constitutional: No chills, No diaphoresis EENTM: No blurred vision, No double vision Respiratory: No cough, No dyspnea on exertion Cardiovascular: No chest pain, No palpitations Gastrointestinal: No abdominal pain; constipation; No nausea, No vomiting; other (constipation) Genitourinary: No decreased output, No discharge Musculoskeletal: No back pain, No joint pain Skin: No change in color, No change in hair/nails Psychiatric/Neurological: Denies Anxiety, Denies Emotional Problems All Other Systems Reviewed Negative Unless Noted: Yes (Negative excepted noted.) Physical Exam-General Problems Physical Exam Vital Signs Vital Signs - First Documented 09/05/22 09/05/22 09/06/22 18:01 22:20 03:57 Temp 35.9 Pulse 87 Resp 22 B/P (MAP) 125/71 (89) Pulse Ox 98 O2 Delivery Room Air FiO2 21 Capillary Refill : Less Than 3 Seconds General Appearance: no apparent distress, thin HEENT: PERRL/EOMI, normal ENT inspection Neck: non-tender, supple Respiratory: chest non-tender, no respiratory distress, no accessory muscle use Cardiovascular: regular rate, rhythm, no JVD Gastrointestinal: soft, other (gastrostomy tube luq) Rectal: tenderness, other (large hard stool in rectal vault) Back: no CVA tenderness, no vertebral tenderness Extremities: other (limited range of motion) Neurologic/Psychiatric: alert, normal mood/affect, oriented x 3 Skin: normal color, warm/dry Lymphatic: no adenopathy Data Review Labs Laboratory Tests 09/05/22 18:20: White Blood Count 6.5, Red Blood Count 3.87, Hemoglobin 11.6, Hematocrit 35, Mean Corpuscular Volume 90, Mean Corpuscular Hemoglobin 30, Mean Corpuscular Hemoglobin Concent 33, Red Cell Distribution Width 13.5, Platelet Count 262, Mean Platelet Volume 11.0, Immature Granulocyte % (Auto) 0, Neutrophils (%) (Auto) 72, Lymphocytes (%) (Auto) 19, Monocytes (%) (Auto) 7, Eosinophils (%) (Auto) 1, Basophils (%) (Auto) 0, Neutrophils # (Auto) 4.7, Lymphocytes # (Auto) 1.2, Monocytes # (Auto) 0.5, Eosinophils # (Auto) 0.1, Basophils # (Auto) 0.0, Immature Granulocyte # (Auto) 0.0, Sodium Level 124*L, Potassium Level 4.0, Chloride Level 88L, Carbon Dioxide Level 22, Anion Gap 14, Blood Urea Nitrogen 16, Creatinine 0.80, Estimat Glomerular Filtration Rate 87, BUN/Creatinine Ratio 20, Glucose Level 74, Lactic Acid Level 0.60, Calcium Level 9.5, Corrected Calcium 9.8, Magnesium Level 2.0, Total Bilirubin 0.4, Aspartate Amino Transf (AST/SGOT) 19, Alanine Aminotransferase (ALT/SGPT) 21, Alkaline Phosphatase 106, Ammonia 24, Troponin I < 0.028, Total Protein 6.0L, Albumin 3.6, Free Thyroxine 1.72H, TSH [place] Testing 0.01L, Serum Alcohol < 10 09/05/22 18:53: Urine Color YELLOW, Urine Clarity CLEAR, Urine pH 5.5, Urine Specific [place] <=1.005, Urine Protein NEGATIVE, Urine Glucose (UA) NEGATIVE, Urine Ketones TRACEH, Urine Nitrite POSITIVEH, Urine Bilirubin NEGATIVE, Urine Urobilinogen 0.2, Urine Leukocyte Esterase 3+H, Urine RBC (Auto) TRACE-IH, Urine RBC 0-2, Urine WBC 5-10H, Urine Squamous Epithelial Cells 5-10, Urine Crystals NONE, Urine Bacteria MODERATEH, Urine Casts NONE, Urine Mucus NEGATIVE, Urine Culture Indicated YES, Urine Opiates Screen NEGATIVE, Urine Oxycodone Screen NEGATIVE, Urine Methadone Screen POSITIVEH, Urine Propoxyphene Screen NEGATIVE, Urine Barbiturates Screen NEGATIVE, Ur Tricyclic Antidepressants Screen NEGATIVE, Urine Phencyclidine Screen NEGATIVE, Urine Amphetamines Screen NEGATIVE, Urine Methamphetamines Screen NEGATIVE, Urine Benzodiazepines Screen NEGATIVE, Urine Cocaine Screen NEGATIVE, Urine Cannabinoids Screen NEGATIVE 09/05/22 19:14: Prothrombin Time 13.9, INR Comment 1.1, Activated Partial Thromboplast Time 30 09/06/22 03:57: White Blood Count 6.0, Red Blood Count 3.24L, Hemoglobin 9.9L, Hematocrit 30L, Mean Corpuscular Volume 92, Mean Corpuscular Hemoglobin 31, Mean Corpuscular Hemoglobin Concent 33, Red Cell Distribution Width 13.7, Platelet Count 210, Mean Platelet Volume 11.4, Immature Granulocyte % (Auto) 1, Neutrophils (%) (Auto) 62, Lymphocytes (%) (Auto) 26, Monocytes (%) (Auto) 10, Eosinophils (%) (Auto) 2, Basophils (%) (Auto) 0, Neutrophils # (Auto) 3.7, Lymphocytes # (Auto) 1.5, Monocytes # (Auto) 0.6, Eosinophils # (Auto) 0.1, Basophils # (Auto) 0.0, Immature Granulocyte # (Auto) 0.0, Sodium Level 135, Potassium Level 3.5L, Chloride Level 102, Carbon Dioxide Level 21, Anion Gap 12, Blood Urea Nitrogen 12, Creatinine 0.75, Estimat Glomerular Filtration Rate 94, BUN/Creatinine Ratio 16, Glucose Level 63L, Calcium Level 9.0, Corrected Calcium 9.8, Total Bilirubin 0.2, Aspartate Amino Transf (AST/SGOT) 16, Alanine Aminotransferase (ALT/SGPT) 1 5, Alkaline Phosphatase 80, Total Protein 5.1L, Albumin 3.0L 09/06/22 11:01: Glucometer 76 Microbiology 09/05/22 Urine Culture - Preliminary, Resulted Proteus,Morganella,Providencia 09/05/22 Blood Culture - Preliminary, Resulted No growth Assessment/Plan Assessment/Plan Assessment/Plan fecal impaction stercoral proctitis patient discussed need for disimpaction. Female nurse at bedside and patient in agreement. Large amount of hard and oralia like stool removed with patient in left lateral recumbent position. Tolerated well without difficulty. [place] significantly improved once she was disimpacted. Clears through gastrostomy tube today. Then advance to normal dietary regimen EVE RODRÍGUEZ DO Sep 06, 2022 17:39
[2022-09-06] MEDS: ENOXAPARIN 40 MG/0.4 ML (LOVENOX) SYR SC SCH (21:36)
[2022-09-07] VITALS: BP 100/52
[2022-09-07] MEDS: CEFEPIME INJECTION 1,000 MG in NS (IVPB) 50 ML IV SCH ×2 (03:44→10:37)
[2022-09-07 04:00] VITALS: BP 100/52
[2022-09-07] MEDS: LACTULOSE SYRUP 10GM/15ML (ENULOSE) 30ML UDC PEG SCH (05:44)
[2022-09-07 06:12] LABS: BASOPHILS % (AUTO) 0 % (0-10); EOSINOPHILS # (AUTO) 0.1 10^3/uL (0.0-0.3); EOSINOPHILS % (AUTO) 2 % (0-10); HEMATOCRIT 30 % (35-52); HEMOGLOBIN 9.9 g/dL (11.5-16.0); LYMPHOCYTES # (AUTO) 1.6 10^3/uL (1.0-4.0); LYMPHOCYTES % (AUTO) 27 % (12-44); MEAN CORPUSCULAR HEMOGLOBIN 31 pg (25-34); MEAN CORPUSCULAR HGB CONC 33 g/dL (32-36); MEAN CORPUSCULAR VOLUME 94 fL (80-99); MEAN PLATELET VOLUME 10.7 fL (9.0-12.2); MONOCYTES # (AUTO) 0.5 10^3/uL (0.0-1.0); MONOCYTES % (AUTO) 9 % (0-12); NEUTROPHILS # (AUTO) 3.5 10^3/uL (1.8-7.8); NEUTROPHILS % (AUTO) 61 % (42-75); PLATELET COUNT 180 10^3/uL (130-400); WHITE BLOOD COUNT 5.8 10^3/uL (4.3-11.0)
[2022-09-07] MEDS: NS IV 1000 ML 1,000 ML IV SCH (06:22)
[2022-09-07 06:27] LABS: ALBUMIN 2.9 GM/DL (3.2-4.5); POTASSIUM 3.4 MMOL/L (3.6-5.0)
[2022-09-07 06:28] LABS: CALCIUM 8.8 MG/DL (8.5-10.1)
[2022-09-07 06:29] LABS: TOTAL PROTEIN 4.9 GM/DL (6.4-8.2)
[2022-09-07 06:31] LABS: BILIRUBIN,TOTAL 0.2 MG/DL (0.1-1.0)
[2022-09-07 06:33] LABS: CREATININE SERUM 0.78 MG/DL (0.60-1.30)
[2022-09-07 07:45] VITALS: BP 104/56
[2022-09-07] MEDS: BISACODYL 10 MG SUPP (DULCOLAX) PR SCH (08:43)
[2022-09-07] MEDS: METHADONE 10 MG (DOLOPHINE) TAB PO SCH (08:44)
[2022-09-07] MEDS: SENNOSIDES 8.6 MG (SENOKOT) TAB PEG SCH (08:44)
[2022-09-07] MEDS: BACLOFEN 10 MG (LIORESAL) TAB PO SCH (08:44)
[2022-09-07] MEDS: ONDANSETRON 4 MG/2 ML (SDV) Z0FRAN IV PRN (09:00)
--- NOTE | 2022-09-07 09:57 | Physical Therapy Daily Note ---
PT Daily Note-Current Subjective Patient reports she was impacted and she feels better now and wants to go home. Agrees to bed exercises. Pain Section J - Health Conditions 1. Rarely or not at all 2. Occasionally 3. Frequently 4. Almost constantly 8. Unable to answer Pain Effect on Sleep: 1 Pain Interference with Therapy: 1 Pain Interference w/Day-to-Day: 1 Transfers SCALE: Activities may be completed with or without assistive devices. 1-Nzmtplwkew-wyxihdn completes the activity by him/herself with no assistance from a helper. 5-Set-up or Clean-up Assistance-helper sets up or cleans up; patient completes activity. [place] assists only prior to or following the activity. 4-Supervision or Touching Assistance-helper provides verbal cues and/or touching/steadying and/or contact guard assistance as patient completes activity. Assistance may be provided throughout the activity or intermittently. 3-Partial/Moderate Assistance-helper does LESS THAN HALF the effort. [place] lifts, holds or supports trunk or limbs, but provides less than half the effort. 2-Substantial/Maximal Assistance-helper does MORE THAN HALF the effort. [place] lifts or holds trunk or limbs and provides more than half the effort. 3-Zunbwmgyt-xqgobh does ALL the effort. Patient does none of the effort to complete the activity. Or, the assistance of 2 or more helpers is required for the patient to complete the activity. If activity was not attempted, code reason: 7-Patient Refused. 9-Not Applicable-not attempted and the patient did not perform the activity before the current illness, exacerbation or injury. 10-Not Attempted due to Environmental Limitations-(lack of equipment, weather restraints, etc.). 88-Not Attempted due to Medical Conditions or Safety Concerns. Exercises Supine Ex: Ankle pumps, Quad Set, Heel Slides, Straight leg raise Supine Reps: 15 (x 2 sets (AAROM left LE)) Assessment Patient much improved on this date with strength bilateral LE's by demonstrating exercise program. Patient remained in bed per her request. PT encouraged patient to be up to recliner, however, patient declined. PT Shelter Goals Shelter Goals PT Supervisor Accounts Receivable Goals Time Frame: Sep 14, 2022 Roll Left & Right (QC): 2 Sit to Lying (QC): 2 Lying-Sitting on Side/Bed(QC): 2 Sit to Stand (QC): 1 PT Plan Treatment/Plan Treatment Plan: Continue Plan of Care Treatment Plan: Bed Mobility, Education, Functional Activity Gerald, Functional Strength, Safety, Therapeutic Exercise, Transfers Treatment Duration: Sep 14, 2022 Frequency: 5 times per week Estimated Hrs Per Day: .25 hour per day Patient and/or Family Agrees t: Yes Time Time In: 933 Time Out: 946 DATE: Sep 07, 2022 Total Billed Treatment Time: 13 Total Billed Treatment 1 visit EX 13 min ADITYA NOLASCO PT Sep 07, 2022 09:57
--- NOTE | 2022-09-07 10:49 | Progress Note - Surgery ---
Subjective Date Seen by a Provider: Sep 07, 2022 Time Seen by a Provider: 10:48 Subjective/Events-last exam Patient feeling better. Passing gas. No lower abdominal pain. Denies any issues. Tolerating tube feed. Denies nausea vomiting fever sweats chills shortness of breath or chest pain. Focused Exam Lactate Level 09/05/22 18:20: Lactic Acid Level 0.60 Time of Focused Exam: 19:20 Objective Exam Vital Signs Date Time Temp Pulse Resp B/P (MAP) Pulse Ox O2 Delivery O2 Flow Rate FiO2 09/07/22 10:47 95 Room Air 09/07/22 08:00 95 Room Air 09/07/22 07:45 36.7 79 12 104/56 (72) 97 Room Air 09/07/22 07:00 82 09/07/22 04:00 36.4 81 12 100/52 (74) 99 Room Air 09/07/22 01:00 80 09/07/22 00:00 36.7 91 10 100/52 (74) 90 Room Air 09/06/22 23:45 36.7 09/06/22 23:30 83 8 89/50 (70) Room Air 09/06/22 23:00 89 8 95/46 (65) 98 Room Air 09/06/22 22:30 93 7 94/51 (66) 98 Room Air 09/06/22 22:00 93 9 95/50 (69) 95 Room Air 09/06/22 21:30 96 10 103/52 (71) Room Air 09/06/22 21:00 93 11 99/58 (69) 97 Room Air 09/06/22 20:30 107/63 (75) 09/06/22 20:02 96 Room Air 09/06/22 20:00 93 6 102/60 (76) 97 Room Air 09/06/22 19:30 36.5 88 10 103/57 (75) 93 Room Air 09/06/22 19:00 86 09/06/22 19:00 83 14 94/54 (70) 97 Room Air 09/06/22 18:30 85 8 93/55 (68) Room Air 09/06/22 18:00 81 10 100/54 (70) 96 Room Air 09/06/22 13:00 84 09/06/22 11:51 36.8 76 16 90/48 (62) 96 Room Air I & O 09/07/22 07:00 Intake Total 1850 ml Output Total 800 ml Balance 1050 ml Capillary Refill : Less Than 3 Seconds General Appearance: No Apparent Distress, WD/WN, Chronically ill HEENT: PERRL/EOMI, Moist Mucous Membranes Neck: Non Tender, Supple Respiratory: Chest Non Tender, No Accessory Muscle Use, No Respiratory Distress Cardiovascular: Regular Rate, Rhythm, No JVD Gastrointestinal: non tender, soft, other (gastrostomy tube luq) Extremity: No Calf Tenderness, No Pedal Edema; Other Neurologic/Psychiatric: Alert, Oriented x3, Normal Mood/Affect, Sensory Deficit (limited range of motion) Skin: Normal Color, Warm/Dry Lymphatic: No Adenopathy Results Lab Laboratory Tests 09/06/22 11:01: Glucometer 76 09/06/22 18:19: Glucometer 69L 09/07/22 00:11: Glucometer 67L 09/07/22 05:52: Glucometer 79 09/07/22 06:03: Glucometer 88 09/07/22 06:04: White Blood Count 5.8, Red Blood Count 3.19L, Hemoglobin 9.9L, Hematocrit 30L, Mean Corpuscular Volume 94, Mean Corpuscular Hemoglobin 31, Mean Corpuscular Hemoglobin Concent 33, Red Cell Distribution Width 13.7, Platelet Count 180, Mean Platelet Volume 10.7, Immature Granulocyte % (Auto) 0, Neutrophils (%) (Auto) 61, Lymphocytes (%) (Auto) 27, Monocytes (%) (Auto) 9, Eosinophils (%) (Auto) 2, Basophils (%) (Auto) 0, Neutrophils # (Auto) 3.5, Lymphocytes # (Auto) 1.6, Monocytes # (Auto) 0.5, Eosinophils # (Auto) 0.1, Basophils # (Auto) 0.0, Immature Granulocyte # (Auto) 0.0, Sodium Level 140, Potassium Level 3.4L, Chloride Level 108H, Carbon Dioxide Level 20L, Anion Gap 12, Blood Urea Nitrogen 8, Creatinine 0.78, Estimat Glomerular Filtration Rate 90, BUN/Creatinine Ratio 10, Glucose Level 85, Calcium Level 8.8, Corrected Calcium 9.7, Total Bilirubin 0.2, Aspartate Amino Transf (AST/SGOT) 12, Alanine Aminotransferase (ALT/SGPT) 12, Alkaline Phosphatase 74, Total Protein 4.9L, Albumin 2.9L Microbiology 09/05/22 Urine Culture - Preliminary, Resulted Proteus,Morganella,Providencia 09/05/22 Blood Culture - Preliminary, Resulted No growth Assessment/Plan Assessment/Plan Assessment/Plan fecal impaction s/p disimpaction stercoral proctitis doing well having bowel function resume gastrostomy feeds. likely dc home today EVE RODRÍGUEZ DO Sep 07, 2022 10:49
[2022-09-07 11:53] VITALS: BP 115/63
[2022-09-07] MEDS ORDERED: BACL10TA PO (12:15)
[2022-09-07] MEDS ORDERED: LEVO750T PO (12:20)
--- NOTE | 2022-09-07 12:21 | Discharge Summary ---
Diagnosis/Chief Complaint Date of Admission Sep 05, 2022 at 22:22 Date of Discharge Discharge Date: Sep 07, 2022 Discharge Diagnosis Episode of unresponsiveness Hypotension Autonomic dysreflexia Hypotension at scene reported by EMS, lowest here was 79/43 overnight, better this morning after fluids Continue to monitor blood pressure, will likely fluctuate with autonomic dysreflexia hx Reports past episodes of hypotension, nothing that has made her lose consciousness or require hospitalization Continue IV fluids Fecal impaction with stercoral proctitis Abdominal pain General surgery consulted CT revealed fecal mass in rectum with fat stranding suspicious for stercoral proctitis Continue bowel regimen No evidence of bowel perforation or abscess formation on imaging No BM so far today UTI Cefepime 1gm Continue fluids Afebrile, normal WBC Hyponatremia 124 on admission, corrected to 135 after fluids monitor for signs of osmotic demyelination with correction of sodium, none currently Hyperthyroidism Low TSH and elevated T4 Hx of hypothyroidism Will need decreased dose of home thyroid medication Hypoglycemia 63 this morning Asymptomatic Restart tube feeds and continue to monitor glucose levels Feeding tube in place due to dysphagia Syringomyelia with syringopleural catheter Chronic spasticity Resume home baclofen Move to 4th floor today Diet- tube feeds DVT ppx- lovenox 40mg daily CODE status- full Discharge Summary Discharge Physical Examination Allergies: Coded Allergies: lactase (Verified Allergy, Severe, 06/30/22) swelling pain and uncontrolled diarrhea Vitals & I&Os Vital Signs Date Time Temp Pulse Resp B/P (MAP) Pulse Ox O2 Delivery O2 Flow Rate FiO2 09/07/22 12:40 09/07/22 11:53 36.3 90 12 97 Room Air 09/06/22 03:57 21 General Appearance: Alert, Oriented X3, Cooperative Respiratory: Clear to Auscultation Cardiovascular: Regular Rate Psych/Mental Status: Mental Status NL Hospital Course Was the Problem List Reviewed?: Yes Devika Ramírez is a 57yo F admitted after her found her to unresponsive following returning home from an outpatient CT scan. In the ED on 09/05 she was found to be hypotensive, hyponatremic, and there was evidence of UTI. Her outpatient CT was of the abdomen due to pain and swelling she had discussed with her primary care provider. This CT showed significant stool burden in rectum w ith surrounding proctitis. HPI from ED "PT ARRIVES VIA EMS FROM HOME PT WAS FOUND UNRESPONSIVE BY AROUND 45 MINUTES AGO. LAST KNOWN WELL TIME WAS 1630--PT HAD JUST GOTTEN HOME FROM HAVING OUTPATIENT CT SCAN OF ABDOMEN AND LABS, AFTER BEING SEEN BY CHIEF SECURITY OFFICER AT DR. GRAHAM'S OFFICE TODAY AT 1430. TESTS ORDERED FOR SWELLING OF ABDOMEN. PT HAD A PEG TUBE PLACED 07/01/22, IT APPEARS TO BE FUNCTIONING NORMALLY--NO LEAKING EXTERNALLY. NO ABDOMINAL PAIN NO NAUSEA/VOMITING NO COUGH OR SHORTNESS OF BREATH NO CHEST PAIN NO FEVER/SWEATS/CHILLS NO PAIN ON URINATION PT WAS EXTREMELY TIRED AFTER GETTING HOME THIS AFTERNOON, AND LAID DOWN FOR A NAP AT 1630, AND WAS FINE. FOUND HER UNRESPONSIVE, AND CALLED EMS BP WAS 50 SYSTOLIC FOR EMS, PUPILS WERE PINPOINT. PT WOKE UP AND WAS IMMEDIATELY A&Ox4, AND BP UP TO 120'S SYSTOLIC. IV FLUIDS INITIATED BY EMS PT STATES SHE FEELS COMPLETELY FINE NOW, AND IS AT HER NORMAL BASELINE PT HAS BEEN ESSENTIALLY BED BOUND SINCE SHE HAD THE FEEDING TUBE PLACED DURING HOSPITALIZATION IN [place]--FOR SEVERE DYSPHAGIA. SHE DOES NOT TAKE ANYTHING BY MOUTH NOW--ALL INTAKE IS VIA FEEDING TUBE--GETS TUBE FEEDINGS THREE TIMES A DAY. 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 SHE HAS CHRONIC PAIN, AND IS ON METHADONE. GIVES HER ALL OF HER MEDICATIONS THRU THE FEEDING TUBE. SHE HAS NOT HAD ANY CHANGES IN MEDICATIONS OR DOSES. SHE ALSO HAS SPASTICITY AND HAS A BACLOFEN PUMP IN PLACE, AND DIFFICULTY WITH BOWEL AND BLADDER FUNCTION. SHE DOES NOT HAVE A URINARY CATHETER SHE WAS ADMITTED IN [place] FOR SEPTIC SHOCK WITH RESPIRATORY FAILURE, REQUIRING INTUBATION. SHE HAD PNEUMONIA AND ACUTE RENAL FAILURE/INSUFFICIENCY AT THAT TIME. SHE WAS HOSPITALIZED FROM 06/21-07/02/22, AND DISMISSED TO HOME. SHE HAS NOT BEEN AMBULATORY SINCE THAT HOSPITALIZATION DUE TO SEVERE GENERALIZED WEAKNESS. SHE STATES PRIOR TO THAT SHE WAS AMBULATORY." She was then admitted to room [address] Burns. HPI on admission "Deviak Ramírez is a 57yo F with past medical hx of hypothyroidism, HTN, syringomyelia with syringopleural shunt x2, autonomic dysreflexia, and dysphagia requiring feeding tube placement who presented to the ED on 09/05 after her found her difficult to awake at home. She had an outpatient CT scan of the abdomen done earlier in the day and reported she felt tired afterwards and took and nap and woke up in the hospital. EMS found her to be hypotensive at the scene. She has a hx of blood pressure instability related to her autonomic dysreflexia but has never had to go to the hospital for an episode like this. Her blood pressure has been low but has come up this morning with fluid support. In the ED she was found to have a UTI and has been started on cefepime. She was also hyponatremic which has corrected this morning. CT of the abdomen revealed significant stool volume in rectum with concern for surrounding proctitis. No BM yet. She reports continued weakness but wants to go home. She denies any chest pain, shortness of breath, fever/chills." Her hyponatremia improved with IV fluids and normalized to 140 by day 3. Her UTI was treated with cefepime. Her culture grew proteus and morganella sensitivities pending. She had no further episodes of unresponsiveness while hospitalized. Her hypotension improved with fluids in the setting of her autonomic dysreflexia. General surgery was consulted for her stercoral proctitis and impaction. This was manually disimpacted by Dr Wright with significant relief in the patient's symptoms. Her home dose of baclofen was restarted. She was then advanced to clear liquids and then back to her normal tube feeds. She remained afebrile with a normal WBC count with no signs of systemic infection. She was then discharged home on 09/07 with prescriptions for baclofen and levofloxacin. DAPHNIE PALMER Labs (last 24 hrs) Laboratory Tests 09/05/22 18:20: White Blood Count 6.5, Red Blood Count 3.87, Hemoglobin 11.6, Hematocrit 35, Mean Corpuscular Volume 90, Mean Corpuscular Hemoglobin 30, Mean Corpuscular Hemoglobin Concent 33, Red Cell Distribution Width 13.5, Platelet Count 262, Mean Platelet Volume 11.0, Immature Granulocyte % (Auto) 0, Neutrophils (%) (Aut o) 72, Lymphocytes (%) (Auto) 19, Monocytes (%) (Auto) 7, Eosinophils (%) (Auto) 1, Basophils (%) (Auto) 0, Neutrophils # (Auto) 4.7, Lymphocytes # (Auto) 1.2, Monocytes # (Auto) 0.5, Eosinophils # (Auto) 0.1, Basophils # (Auto) 0.0, Immature Granulocyte # (Auto) 0.0, Sodium Level 124*L, Potassium Level 4.0, Chloride Level 88L, Carbon Dioxide Level 22, Anion Gap 14, Blood Urea Nitrogen 16, Creatinine 0.80, Estimat Glomerular Filtration Rate 87, BUN/Creatinine Ratio 20, Glucose Level 74, Lactic Acid Level 0.60, Calcium Level 9.5, Corrected Calcium 9.8, Magnesium Level 2.0, Total Bilirubin 0.4, Aspartate Amino Transf (AST/SGOT) 19, Alanine Aminotransferase (ALT/SGPT) 21, Alkaline Phosphatase 106, Ammonia 24, Troponin I < 0.028, Total Protein 6.0L, Albumin 3.6, Free Thyroxine 1.72H, TSH Haskell Testing 0.01L, Serum Alcohol < 10 09/05/22 18:53: Urine Color YELLOW, Urine Clarity CLEAR, Urine pH 5.5, Urine Specific Ragan <=1.005, Urine Protein NEGATIVE, Urine Glucose (UA) NEGATIVE, Urine Ketones TRACEH, Urine Nitrite POSITIVEH, Urine Bilirubin NEGATIVE, Urine Urobilinogen 0.2, Urine Leukocyte Esterase 3+H, Urine RBC (Auto) TRACE-IH, Urine RBC 0-2, Urine WBC 5-10H, Urine Squamous Epithelial Cells 5-10, Urine Crystals NONE, Urine Bacteria MODERATEH, Urine Casts NONE, Urine Mucus NEGATIVE, Urine Culture Indicated YES, Urine Opiates Screen NEGATIVE, Urine Oxycodone Screen NEGATIVE, Urine Methadone Screen POSITIVEH, Urine Propoxyphene Screen NEGATIVE, Urine Barbiturates Screen NEGATIVE, Ur Tricyclic Antidepressants Screen NEGATIVE, Urine Phencyclidine Screen NEGATIVE, Urine Amphetamines Screen NEGATIVE, Urine Methamphetamines Screen NEGATIVE, Urine Benzodiazepines Screen NEGATIVE, Urine Cocaine Screen NEGATIVE, Urine Cannabinoids Screen NEGATIVE 09/05/22 19:14: Prothrombin Time 13.9, INR Comment 1.1, Activated Partial Thromboplast Time 30 09/06/22 03:57: White Blood Count 6.0, Red Blood Count 3.24L, Hemoglobin 9.9L, Hematocrit 30L, Mean Corpuscular Volume 92, Mean Corpuscular Hemoglobin 31, Mean Corpuscular Hemoglobin Concent 33, Red Cell Distribution Width 13.7, Platelet Count 210, Mean Platelet Volume 11.4, Immature Granulocyte % (Auto) 1, Neutrophils (%) (Auto) 62, Lymphocytes (%) (Auto) 26, Monocytes (%) (Auto) 10, Eosinophils (%) (Auto) 2, Basophils (%) (Auto) 0, Neutrophils # (Auto) 3.7, Lymphocytes # (Auto) 1.5, Monocytes # (Auto) 0.6, Eosinophils # (Auto) 0.1, Basophils # (Auto) 0.0, Immature Granulocyte # (Auto) 0.0, Sodium Level 135, Potassium Level 3.5L, Chloride Level 102, Carbon Dioxide Level 21, Anion Gap 12, Blood Urea Nitrogen 12, Creatinine 0.75, Estimat Glomerular Filtration Rate 94, BUN/Creatinine Ratio 16, Glucose Level 63L, Calcium Level 9.0, Corrected Calcium 9.8, Total Bilirubin 0.2, Aspartate Amino Transf (AST/SGOT) 16, Alanine Aminotransferase (ALT/SGPT) 15, Alkaline Phosphatase 80, Total Protein 5.1L, Albumin 3.0L 09/06/22 11:01: Glucometer 76 09/06/22 18:19: Glucometer 69L 09/07/22 00:11: Glucometer 67L 09/07/22 05:52: Glucometer 79 09/07/22 06:03: Glucometer 88 09/07/22 06:04: White Blood Count 5.8, Red Blood Count 3.19L, Hemoglobin 9.9L, Hematocrit 30L, Mean Corpuscular Volume 94, Mean Corpuscular Hemoglobin 31, Mean Corpuscular Hemoglobin Concent 33, Red Cell Distribution Width 13.7, Platelet Count 180, Mean Platelet Volume 10.7, Immature Granulocyte % (Auto) 0, Neutrophils (%) (Auto) 61, Lymphocytes (%) (Auto) 27, Monocytes (%) (Auto) 9, Eosinophils (%) (Auto) 2, Basophils (%) (Auto) 0, Neutrophils # (Auto) 3.5, Lymphocytes # (Auto) 1.6, Monocytes # (Auto) 0.5, Eosinophils # (Auto) 0.1, Basophils # (Auto) 0.0, Immature Granulocyte # (Auto) 0.0, Sodium Level 140, Potassium Level 3.4L, Chloride Level 108H, Carbon Dioxide Level 20L, Anion Gap 12, Blood Urea Nitrogen 8, Creatinine 0.78, Estimat Glomerular Filtration Rate 90, BUN/Creatinine Ratio 10, Glucose Level 85, Calcium Level 8.8, Corrected Calcium 9.7, Total Bilirubin 0.2, Aspartate Amino Transf (AST/SGOT) 12, Alanine Aminotransferase (ALT/SGPT) 12, Alkaline Phosphatase 74, Total Protein 4.9L, Albumin 2.9L 09/07/22 11:47: Glucometer 82 Microbiology 09/05/22 Urine Culture - Preliminary, Resulted Hafnia alvei Susceptibility To Follow 09/05/22 Blood Culture - Preliminary, Resulted No growth Pending Labs Microbiology Date/Time Source Procedure Growth Status 09/05/22 18:53 Urine Straight Cath, In/Out Urine Culture - Preliminary Hafnia alvei Susceptibility To Follow Resulted 09/05/22 18:35 Peripheral Lt Ac Blood Culture - Preliminary No growth Resulted 09/05/22 18:20 Peripheral Rt Ac Blood Culture - Preliminary No growth Resulted Laboratory Tests 09/05/22 18:20: White Blood Count 6.5, Red Blood Count 3.87, Hemoglobin 11.6, Hematocrit 35, Mean Corpuscular Volume 90, Mean Corpuscular Hemoglobin 30, Mean Corpuscular Hemoglobin Concent 33, Red Cell Distribution Width 13.5, Platelet Count 262, Mean Platelet Volume 11.0, Immature Granulocyte % (Auto) 0, Neutrophils (%) (Auto) 72, Lymphocytes (%) (Auto) 19, Monocytes (%) (Auto) 7, Eosinophils (%) (Auto) 1, Basophils (%) (Auto) 0, Neutrophils # (Auto) 4.7, Lymphocytes # (Auto) 1.2, Monocytes # (Auto) 0.5, Eosinophils # (Auto) 0.1, Basophils # (Auto) 0.0, Immature Granulocyte # (Auto) 0.0, Sodium Level 124, Potassium Level 4.0, Chloride Level 88, Carbon Dioxide Level 22, Anion Gap 14, Blood Urea Nitrogen 16, Creatinine 0.80, Estimat Glomerular Filtration Rate 87, BUN/Creatinine Ratio 20, Glucose Level 74, Lactic Acid Level 0.60, Calcium Level 9.5, Corrected Calcium 9.8, Magnesium Level 2.0, Total Bilirubin 0.4, Aspartate Amino Transf (AST/SGOT) 19, Alanine Aminotransferase (ALT/SGPT) 21, Alkaline Phosphatase 106, Ammonia 24, Troponin I < 0.028, Total Protein 6.0, Albumin 3.6, Free Thyroxine 1.72, TSH Haskell Testing 0.01, Serum Alcohol < 10 09/05/22 18:53: Urine Color YELLOW, Urine Clarity CLEAR, Urine pH 5.5, Urine Specific Ragan <=1.005, Urine Protein NEGATIVE, Urine Glucose (UA) NEGATIVE, Urine Ketones TRACE, Urine Nitrite POSITIVE, Urine Bilirubin NEGATIVE, Urine Urobilinogen 0.2, Urine Leukocyte Esterase 3+, Urine RBC (Auto) TRACE-I, Urine RBC 0-2, Urine WBC 5-10, Urine Squamous Epithelial Cells 5-10, Urine Crystals NONE, Urine Bacteria MODERATE, Urine Casts NONE, Urine Mucus NEGATIVE, Urine Culture Indicated YES, Urine Opiates Screen NEGATIVE, Urine Oxycodone Screen NEGATIVE, Urine Methadone Screen POSITIVE, Urine Propoxyphene Screen NEGATIVE, Urine Barbiturates Screen NEGATIVE, Ur Tricyclic Antidepressants Screen NEGATIVE, Urine Phencyclidine Screen NEGATIVE, Urine Amphetamines Screen NEGATIVE, Urine Methamphetamines Screen NEGATIVE, Urine Benzodiazepines Screen NEGATIVE, Urine Cocaine Screen NEGATIVE, Urine Cannabinoids Screen NEGATIVE 09/05/22 19:14: Prothrombin Time 13.9, INR Comment 1.1, Activated Partial Thromboplast Time 30 09/06/22 03:57: White Blood Count 6.0, Red Blood Count 3.24, Hemoglobin 9.9, Hematocrit 30, Mean Corpuscular Volume 92, Mean Corpuscular Hemoglobin 31, Mean Corpuscular Hemoglobin Concent 33, Red Cell Distribution Width 13.7, Platelet Count 210, Mean Platelet Volume 11.4, Immature Granulocyte % (Auto) 1, Neutrophils (%) (Auto) 62, Lymphocytes (%) (Auto) 26, Monocytes (%) (Auto) 10, Eosinophils (%) (Auto) 2, Basophils (%) (Auto) 0, Neutrophils # (Auto) 3.7, Lymphocytes # (Auto) 1.5, Monocytes # (Auto) 0.6, Eosinophils # (Auto) 0.1, Basophils # (Auto) 0.0, I mmature Granulocyte # (Auto) 0.0, Sodium Level 135, Potassium Level 3.5, Chloride Level 102, Carbon Dioxide Level 21, Anion Gap 12, Blood Urea Nitrogen 12, Creatinine 0.75, Estimat Glomerular Filtration Rate 94, BUN/Creatinine Ratio 16, Glucose Level 63, Calcium Level 9.0, Corrected Calcium 9.8, Total Bilirubin 0.2, Aspartate Amino Transf (AST/SGOT) 16, Alanine Aminotransferase (ALT/SGPT) 15, Alkaline Phosphatase 80, Total Protein 5.1, Albumin 3.0 09/06/22 11:01: Glucometer 76 09/06/22 18:19: Glucometer 69 09/07/22 00:11: Glucometer 67 09/07/22 05:52: Glucometer 79 09/07/22 06:03: Glucometer 88 09/07/22 06:04: White Blood Count 5.8, Red Blood Count 3.19, Hemoglobin 9.9, Hematocrit 30, Mean Corpuscular Volume 94, Mean Corpuscular Hemoglobin 31, Mean Corpuscular Hemoglobin Concent 33, Red Cell Distribution Width 13.7, Platelet Count 180, Mean Platelet Volume 10.7, Immature Granulocyte % (Auto) 0, Neutrophils (%) (Auto) 61, Lymphocytes (%) (Auto) 27, Monocytes (%) (Auto) 9, Eosinophils (%) (Auto) 2, Basophils (%) (Auto) 0, Neutrophils # (Auto) 3.5, Lymphocytes # (Auto) 1.6, Monocytes # (Auto) 0.5, Eosinophils # (Auto) 0.1, Basophils # (Auto) 0.0, Immature Granulocyte # (Auto) 0.0, Sodium Level 140, Potassium Level 3.4, Chloride Level 108, Carbon Dioxide Level 20, Anion Gap 12, Blood Urea Nitrogen 8, Creatinine 0.78, Estimat Glomerular Filtration Rate 90, BUN/Creatinine Ratio 10, Glucose Level 85, Calcium Level 8.8, Corrected Calcium 9.7, Total Bilirubin 0.2, Aspartate Amino Transf (AST/SGOT) 12, Alanine Aminotransferase (ALT/SGPT) 12, Alkaline Phosphatase 74, Total Protein 4.9, Albumin 2.9 09/07/22 11:47: Glucometer 82 Discharge Home Medications: Active Scripts Active Levofloxacin 750 Mg Tablet 750 Mg PO DAILY Baclofen 10 Mg Tablet 15 Mg PO QID Reported Potassium Gluconate 595 MG (Potassium Gluconate) 595 Mg (99 Mg) Tablet 99 Mg PO DAILY Vitamin D3 (Cholecalciferol (Vitamin D3)) 25 Mcg (1000 Unit) Capsule 25 Mcg PO DAILY Benadryl (Diphenhydramine HCl) 25 Mg Capsule 50 Mg PO HS TAKES 2 (25NG) CAPS Multivitamin 1 Each Tablet 1 Each PO DAILY Benefiber (Wheat Dextrin) 3 Gram/3.5 Gram Powd.pack 1 Each PO DAILY Biotin 10,000 Mcg Capsule 10,000 Mcg PO DAILY Lisinopril-Hctz 20-25 mg Tab (Lisinopril/Hydrochlorothiazide) 20 Mg-25 Mg Tablet 0.5 Each PO 1800 TAKES A TAB [Baclofen Infusion] INCATH UD 24 HOUR DOSE: 349.7MCG (14.6MCG/HR) MAX DAILY DOSE: 409.2MCG PUMP INFUSION INFORMATION FROM [facility] ATTACHED TO CHART Loratadine 10 Mg Tablet 10 Mg PO DAILY Methadone HCl 10 Mg Tablet 10 Mg PO TID [place] Thyroid (Thyroid,Pork) 90 Mg Tablet 180 Mg PO DAILY TAKES 2 (90MG) TABS Instructions to patient/family Please see electronic discharge instructions given to patient. MAYKEL BURNS DO Sep 07, 2022 12:21
--- NOTE | 2022-09-07 12:21 | D/C HH Face to Face Order ---
D/C Face to Face Orders Reconcile Patient Problems Problems Reviewed?: Yes Instructions for Patient Via [facility], Patient Instructions/FollowUp: PCP 1 week Physician to follow Patient: Celia Discharge Diet for Home: Tube Feeding Patient Problems: Colon impaction UTI Patient Data-Allergies,Ht & Wt Patient Allergies: Coded Allergies: lactase (Verified Allergy, Severe, 06/30/22) swelling pain and uncontrolled diarrhea Home Health Need/Face to Face Date of Face to Face: Sep 07, 2022 Clinical Findings: Generalized weakness and fatigue, Instability, Muscle weakness I have seen Pt [id number]: Yes Discharged To: Home Diagnosis/Conditions: UTI Patient is Homebound due to: Muscle weakness Homebound Status Due to the above stated illness, injury or surgical procedure (medical condition or diagnosis) and associated clinical findings, the patient is homebound because of his/her inability to leave home except with aid of a supportive device and/or person AND leaving the home requires a considerable and taxing effort or is medically contraindicated. Pt req the following assistanc: [facility] Nursing Orders Home Health Services Order: Nursing Services, Receiver Stocker-Evaluate & Treat, Physical Therapy-Evaluate & Treat Home Health Infusion Therapy Line Start Date: Sep 05, 2022 Certify Stmt I certify that this patient is under my care and that I, a nurse practitioner or a physician; a miller head assistant wet process working with me, had a face to face encounter that - meets the physician face to face encounter requirements with this patient as dated. MAYKEL BURNS DO Sep 07, 2022 12:21
== END 2022-09-07 12:14 | disposition home or self-care (01) ==
LOC: ER 17:59 → EDUNIT# 17:59 → UNDOADMOB 22:22 → CSD 22:22 → UNDODISOB 09-07 12:14
PROVIDERS: ADMIT Internal Medicine; ATTEND Internal Medicine
DX: R40.4 Transient alteration of awareness (principal); I95.9 Hypotension, unspecified; G90.4 Autonomic dysreflexia; K56.41 Fecal impaction; R10.9 Unspecified abdominal pain; N39.0 Urinary tract infection, site not specified; E87.1 Hypo-osmolality and hyponatremia; E03.9 Hypothyroidism, unspecified; E16.2 Hypoglycemia, unspecified; R13.10 Dysphagia, unspecified; G95.0 Syringomyelia and syringobulbia; R25.2 Cramp and spasm; J90 Pleural effusion, not elsewhere classified; G93.5 Compression of brain; K59.2 Neurogenic bowel, not elsewhere classified; N31.9 Neuromuscular dysfunction of bladder, unspecified; K62.89 Other specified diseases of anus and rectum; G89.29 Other chronic pain; G83.89 Other specified paralytic syndromes; G82.50 Quadriplegia, unspecified; Z98.2 Presence of cerebrospinal fluid drainage device; Z93.1 Gastrostomy status; Z87.891 Personal history of nicotine dependence; Z79.890 Hormone replacement therapy
CPT/HCPCS: 51701; 51702; 71045; 74018; 80053 ×3; 80306; 81000; 82140; 82947 ×2; 83605; 83735; 84439; 84443; 84484; 85025 ×3; 85610; 85730; 87040; 87077; 87088; 87186; 93005; 93041; 94664 ×2; 94760 ×2; 96366 ×2; 96372 ×2; 96375; 96376 ×2; 97110; 97163; 97166; 99285; G0378 ×2; G0480; 36415; 80320; 96361; 96365

== ENCOUNTER → 2022-09-05 | Outpatient (CLI) | payer MEDICARE, MEDICAID ==
[~2022-09-05] MED LIST changes: +BIOT10005 PO; +CATHETER FLUSH 10 ML SYR IV PRN; +CHOL10007 PO; +DIPH25CA79 PO; +HOLD METFORMIN - RECEIVED CONTRAST 20 ML VIAL IV SCH; +IOHEXOL 350 MG/ML 100 ML (OMNIPAQUE 350) VIAL IV ONE; +LEVO750T PO; +NS 100 ML (IVPB) BAG IV ONE; +POTA99TA17 PO; +WHEA98PO PO
[2022-09-05 15:40] LABS: HEMATOCRIT 38 % (35-52); MEAN CORPUSCULAR HEMOGLOBIN 30 pg (25-34); MEAN CORPUSCULAR HGB CONC 34 g/dL (32-36); MEAN CORPUSCULAR VOLUME 89 fL (80-99); MEAN PLATELET VOLUME 11.3 fL (9.0-12.2); PLATELET COUNT 297 10^3/uL (130-400); WHITE BLOOD COUNT 7.7 10^3/uL (4.3-11.0)
[2022-09-05 15:42] LABS: POTASSIUM 3.6 MMOL/L (3.6-5.0)
[2022-09-05 15:44] LABS: CALCIUM 10.6 MG/DL (8.5-10.1)
[2022-09-05 15:47] LABS: BILIRUBIN,TOTAL 0.4 MG/DL (0.1-1.0)
[2022-09-05 15:48] LABS: CREATININE SERUM 0.83 MG/DL (0.60-1.30)
--- NOTE | 2022-09-05 16:36 | Diagnostic Imaging Report ---
EXAMINATION: CT abdomen and pelvis with intravenous contrast. TECHNIQUE: Multiple contiguous axial images were obtained through the abdomen and pelvis after the uneventful administration of intravenous contrast. All CT scans use one or more of the following dose optimizing techniques: automated exposure control, MA and/or KvP adjustment based on patient size and exam type or iterative reconstruction. HISTORY: Abdominal mass and fatigue. COMPARISON: None available. FINDINGS: Limited views of the lower thorax show a moderate left pleural effusion with a indwelling pleural catheter. There is a cyst in the right liver. No suspicious liver lesion. There is no biliary ductal dilation. Gallbladder is normal. Pancreas is normal. Spleen is normal. Adrenal glands are normal. The kidneys are normal. There is no hydronephrosis. Urinary bladder is normal. There is a large stool ball in the rectum with perirectal stranding concerning for stercoral proctitis. An intrauterine device is present in the uterus. No evidence for bowel obstruction. There is a percutaneous feeding tube in the stomach. No free fluid or air. No abdominal or pelvic lymphadenopathy. Aorta is normal in caliber without aneurysm. There are no suspicious osseus lesions. Spinal stimulator is present. IMPRESSION: 1. Large amount of stool in the rectum with perirectal stranding concerning for stercoral proctitis. 2. Moderate left pleural effusion with an indwelling pleural catheter, possibly representing a CSF shunt. Dictated by: Dictated on workstation # [id number]
== END ==
LOC: RAD 15:12
PROVIDERS: ATTEND Nurse Practitioner Family
DX: J90 Pleural effusion, not elsewhere classified (principal); R53.83 Other fatigue; Z97.8 Presence of other specified devices
CPT/HCPCS: 36415; 74177; 80053; 84443; 84480; 85027

== ENCOUNTER 2022-09-10 13:20 | Emergency (ER) | payer MEDICARE, MEDICAID ==
[~2022-09-10] VITALS: Ht 160 cm; Wt 54.4 kg
[~2022-09-10 13:20] MED LIST changes: +BIOT10005 PO; +CHOL10007 PO; +DIPH25CA79 PO; +LEVO750T PO; +POTA99TA17 PO; +WHEA98PO PO
[2022-09-10 13:53] LABS: BASOPHILS % (AUTO) 0 % (0-10); EOSINOPHILS # (AUTO) 0.2 10^3/uL (0.0-0.3); EOSINOPHILS % (AUTO) 4 % (0-10); HEMATOCRIT 34 % (35-52); HEMOGLOBIN 11.1 g/dL (11.5-16.0); LYMPHOCYTES # (AUTO) 1.6 10^3/uL (1.0-4.0); LYMPHOCYTES % (AUTO) 36 % (12-44); MEAN CORPUSCULAR HEMOGLOBIN 31 pg (25-34); MEAN CORPUSCULAR HGB CONC 33 g/dL (32-36); MEAN CORPUSCULAR VOLUME 94 fL (80-99); MEAN PLATELET VOLUME 11.1 fL (9.0-12.2); MONOCYTES # (AUTO) 0.5 10^3/uL (0.0-1.0); MONOCYTES % (AUTO) 11 % (0-12); NEUTROPHILS # (AUTO) 2.2 10^3/uL (1.8-7.8); NEUTROPHILS % (AUTO) 49 % (42-75); PLATELET COUNT 225 10^3/uL (130-400); WHITE BLOOD COUNT 4.6 10^3/uL (4.3-11.0)
[2022-09-10 14:03] LABS: ALBUMIN 3.5 GM/DL (3.2-4.5); POTASSIUM 3.5 MMOL/L (3.6-5.0)
[2022-09-10 14:05] LABS: CALCIUM 9.7 MG/DL (8.5-10.1)
[2022-09-10 14:07] LABS: BILIRUBIN,TOTAL 0.2 MG/DL (0.1-1.0)
[2022-09-10 14:09] LABS: CREATININE SERUM 0.7 MG/DL (0.60-1.30)
[2022-09-10 14:12] LABS: MAGNESIUM 1.9 MG/DL (1.6-2.4)
--- NOTE | 2022-09-10 14:25 | ED General ---
General Chief Complaint: Altered Mental Status Stated Complaint: BLOOD PRESSURE FLUCTUATION | CONFUSED Nursing Triage Note: PT TO ED BY POV WITH C/O FLUCTUATING BP AND CONFUSION. SIGNIFICANT OTHER REPORTS PT HAS BEEN CONFUSED AND BEHAVING ODDLY SINCE LAST NIGHT AND HAD DRASTIC FLUCTUATIONS IN BP TODAY. PT NAUSEOUS UPON ARRIVAL. PT A&O X 4 AT THIS TIME. PT WAS DC FROM HOSPITAL ON SATURDAY AND HAS BEEN HAVING DIARRHEA SINCE. Source of Information: Patient, Family Exam Limitations: No Limitations (DARSHAN BENAVIDES) History of Present Illness Date Seen by Provider: Sep 10, 2022 Time Seen by Provider: 13:55 Initial Comments Our patient is a 57 yo F with a complex medical history who presents to the emergency department for altered mental status since being discharged from the hospital last Saturday. She was originally hospitalized for hyponatremia, UTI, and severe constipation. Her sodium levels were corrected during this stay, she was placed on stool softeners and manually disimpacted, and was prescribed levofloxacin for her UTI. She experienced diarrhea on Saturday but this has since resolved. On interview, she is alert to person, time, and place but her states that she has acted confused for the last two days or so. She has been repeating questions, often up to eight times and seems to get stuck on c ertain topics. In addition, she has experienced a highly labile blood pressure over the past few days with a low of 87/58 up to 150/81. Her O2 saturation this morning was 85 which prompted them to seek care at the ER today. She indicates malaise, nausea, vomiting, throbbing and fuzziness in her left eye, dizziness (feels like the room is spinning), and cold intolerance. She denies headache, fever, shortness of breath, chest pain, or continued bowel irregularity. Timing/Duration: 3-4 Days Associated Systoms: No Chest Pain, No Cough; Fever/Chills (Chills without fever); No Headaches; Malaise, Nausea/Vomiting; No Shortness of Air; Weakness (DARSHAN BENAVIDES) Allergies and Home Medications Allergies Coded Allergies: lactase (Verified Allergy, Severe, 06/30/22) swelling pain and uncontrolled diarrhea levofloxacin (Verified Adverse Reaction, Intermediate, AMS, 09/10/22) Altered mental status and labile vital signs Patient Home Medication List Home Medication List Reviewed: Yes (RADHA LORA MD) Baclofen (Baclofen) 10 Mg Tablet, 15 MG PO QID Prescribed by: MAYKEL BURNS on 09/07/22 1215 Biotin (Biotin) 10,000 Mcg Capsule, 10,000 MCG PO DAILY, (Reported) Entered as Reported by: MARVIN WEBB on 09/06/22 1149 Cholecalciferol (Vitamin D3) (Vitamin D3) 25 Mcg (1000 Unit) Capsule, 25 MCG PO DAILY, (Reported) Entered as Reported by: MARVIN WEBB on 09/06/22 1149 Diphenhydramine HCl (Benadryl) 25 Mg Capsule, 50 MG PO HS, (Reported) Entered as Reported by: MARVIN WEBB on 09/06/22 114 Levofloxacin (Levofloxacin) 750 Mg Tablet, 750 MG PO DAILY Prescribed by: MAYKEL BURNS on 09/07/22 1220 Lisinopril/Hydrochlorothiazide (Lisinopril-Hctz 20-25 mg Tab) 20 Mg-25 Mg Tablet, 0.5 EACH PO 1800, (Reported) Entered as Reported by: MARVIN WEBB on 09/06/22 1149 Loratadine (Loratadine) 10 Mg Tablet, 10 MG PO DAILY, (Reported) Entered as Reported by: MARVIN WEBB on 06/21/22 1522 Methadone HCl (Methadone HCl) 10 Mg Tablet, 10 MG PO TID, (Reported) Entered as Reported by: MARVIN WEBB on 06/21/22 1522 Multivitamin (Multivitamin) 1 Each Tablet, 1 EACH PO DAILY, (Reported) Entered as Reported by: MARVIN WEBB on 09/06/22 1149 Nitrofurantoin Macrocrystal (Nitrofurantoin) 50 Mg Capsule, 100 MG PEG BID Prescribed by: RADHA NAVARRO on 09/10/22 1719 Potassium Gluconate (Potassium Gluconate 595 MG) 595 Mg (99 Mg) Tablet, 99 MG PO DAILY, (Reported) Entered as Reported by: MARVIN WEBB on 09/06/22 1149 Thyroid,Pork ([place] Thyroid) 90 Mg Tablet, 180 MG PO DAILY, (Reported) Entered as Reported by: MARVIN WEBB on 05/17/20 1515 Wheat Dextrin (Benefiber) 3 Gram/3.5 Gram Powd.pack, 1 EACH PO DAILY, (Reported) Entered as Reported by: MARVIN WEBB on 09/06/22 1149 [Baclofen Infusion] , INCATH UD, (Reported) Entered as Reported by: MARVIN WEBB on 06/21/22 1522 Discontinued Medications Bacillus Coagulans/Inulin (Probiotic 1 B Cfu-250 mg Cap) 1 Billion Cell-250 Mg Capsule, 2 EACH PO 1800 W/DINNER, (Reported) Discontinued Reason: No Longer Taking Entered as Reported by: MARVIN WEBB on 06/21/22 1522 Baclofen (Baclofen) 10 Mg Tablet, 10-15 MG PO QID PRN for MUSCLE SPASMS, (Reported) Entered as Reported by: MARVIN WEBB on 05/12/20 1149 Calcium Carbonate (Calcium) 500 Mg Calcium (1250 Mg) Tab.chew, 1,000 MG PO 1800 W/DINNER, (Reported) Discontinued Reason: No Longer Taking Entered as Reported by: MARVIN WEBB on 06/21/22 1522 Melatonin (Melatonin) 5 Mg Tablet, 5 MG PO HS, (Reported) Discontinued Reason: No Longer Taking Entered as Reported by: MARVIN WEBB on 06/21/22 1522 Methadone HCl (Methadone HCl) 10 Mg Tablet, 20 MG PO DAILY W/BREAKFAST, (Reported) Discontinued Reason: Duplicate Order Entered as Reported by: MARVIN WEBB on 05/12/20 1149 Multivit-Min/Iron/Folic/Vit K1 (Centrum Chewables Adults Tab) 8 Mg Iron-400 Mcg- 10 Mcg Tab.chew, 2 EACH PO 1800 W/DINNER, (Reported) Discontinued Reason: Duplicate Order Entered as Reported by: MARVIN WEBB on 07/06/21 1207 Potassium Gluconate (Potassium) 595 Mg (99 Mg) Tablet, 99 MG PO 1800 W/DINNER, (Reported) Discontinued Reason: Duplicate Order Entered as Reported by: MARVIN WEBB on 06/21/22 1522 Turmeric Root Extract (Turmeric) 500 Mg Tablet, 500 MG PO 1800 W/DINNER, (Reported) Discontinued Reason: No Longer Taking Entered as Reported by: MARVIN WEBB on 06/21/22 1522 Review of Systems Review of Systems Constitutional: chills; No diaphoresis; dizziness; No fever; malaise, weakness EENTM: blurred vision (left-sided), eye pain (Throbbing, left); No hearing loss, No throat pain Respiratory: No cough, No short of breath Cardiovascular: No chest pain, No palpitations, No syncope Gastrointestinal: No abdominal pain, No constipation, No diarrhea; nausea, vomiting Genitourinary: dysuria, frequency Musculoskeletal: muscle pain Skin: no symptoms reported Psychiatric/Neurological: Denies Headache, Denies Numbness; Weakness Hematologic/Lymphatic: No Symptoms Reported Immunological/Allergic: no symptoms reported (DARSHAN BENAVIDES) Past Ekgitbg-Osjotq-Vxwweo Hx Patient Social History Tobacco Use?: No Use of E-Cig and/or Vaping dev: No Substance use?: No Alcohol Use?: No Pt feels they are or have been: No (DARSHAN BENAVIDES) Immunizations Up To Date Tetanus Booster (TDap): Unknown First/Initial COVID19 Vaccinat: 2020 Second COVID19 Vaccination Butch: 2020 Third COVID19 Vaccination Date: 2020 (DARSHAN BENAVIDES) Past Medical History Surgery/Hospitalization HX: 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, shunt x 2, baclofen pump tonsilectomy Surgeries: Yes (Intrathecal baclofen pump; FEEDING TUBE 07/01/22;C5 SHUNT TO PLEURAL CAVITY) Abdominal, Neurological, Tonsillectomy Respiratory: Yes (EMPYEMA 04/2020) Pneumonia Currently Using CPAP: No Currently Using BIPAP: No Cardiac: Yes (AUTONOMIC DYSREFLEXIA) Hypertension Neurological: Yes (Reflex sympathetic dystrophy / autonomic dysreflexia, syringomyelia, Chiari) Neuropathy, Paralysis Reproductive Disorders: No Genitourinary: Yes Bladder Infection, Neurogenic Bladder Gastrointestinal: Yes (FEEDING TUBE PLACED 07/01/22 FOR SEVERE DYSPHAGIA) Gastroesophageal Reflux Musculoskeletal: Yes (CHRONIC NECK/BACK/GENERALIZED PAIN ; ) Chronic Back Pain, Spasms Endocrine: No HEENT: Yes Psychosocial: Yes Anxiety, Depression Integumentary: No Blood Disorders: No (DARSHAN BENAVIDES) Family Medical History No Pertinent Family Hx (DARSHAN BENAVIDES) Physical Exam Vital Signs Vital Signs - First Documented 09/10/22 13:24 Temp 36.6 Pulse 97 Resp 18 B/P (MAP) 142/91 (108) Pulse Ox 97 O2 Delivery Room Air (RADHA LORA MD) Vital Signs Capillary Refill : Less Than 3 Seconds (DARSHAN BENAVIDES) Height, Weight, BMI Height: '" Weight: lbs. oz. kg; 21.00 BMI Method: General Appearance: Anxious, Chronically ill, Mild Distress HEENT: PERRL/EOMI, Pharynx Normal; No Scleral Icterus (L), No Scleral Icterus (R); Other (Left cheek is swollen and erythematous compared to the left) Neck: Normal Inspection, Non Tender, Supple; No Carotid Bruit, No JVD, No Lymphadenopathy (L), No Lymphadenopathy (R), No Tender Lateral, No Tender Midline, No Thyromegaly Respiratory: Chest Non Tender, Lungs Clear, Normal Breath Sounds, No Accessory Muscle Use, No Respiratory Distress Cardiovascular: Regular Rate, Rhythm, No Edema, No Gallop, No JVD, No Murmur, Normal Peripheral Pulses Gastrointestinal: Normal Bowel Sounds, No Organomegaly, Non Tender, Soft; No Tenderness Rectal: Deferred Back: Normal Inspection Extremity: Normal Inspection, Non Tender, Other (Weakness to shoulder shrug on left) Neurologic/Psychiatric: Alert, Oriented x3 Skin: Normal Color, Warm/Dry (DARSHAN BENAVIDES) Procedures/Interventions Date of ETT Placement: Jun 21, 2022 (DARSHAN BENAVIDES) Progress/Results/Core Measures Suspected Sepsis SIRS Temperature: Pulse: 97 Respiratory Rate: 18 Laboratory Tests 09/10/22 13:43: White Blood Count 4.6 Blood Pressure 142 /91 Mean: 108 Laboratory Tests 09/10/22 13:43: Platelet Count 225 (DARSHAN BENAVIDES) Results/Orders Lab Results Laboratory Tests Test 09/10/22 13:43 09/10/22 14:55 Range/Units White Blood Count 4.6 4.3-11.0 10^3/uL Red Blood Count 3.63 L 3.80-5.11 10^6/uL Hemoglobin 11.1 L 11.5-16.0 g/dL Hematocrit 34 L 35-52 % Mean Corpuscular Volume 94 80-99 fL Mean Corpuscular Hemoglobin 31 25-34 pg Mean Corpuscular Hemoglobin Concent 33 32-36 g/dL Red Cell Distribution Width 13.6 10.0-14.5 % Platelet Count 225 130-400 10^3/uL Mean Platelet Volume 11.1 9.0-12.2 fL Immature Granulocyte % (Auto) 0 % Neutrophils (%) (Auto) 49 42-75 % Lymphocytes (%) (Auto) 36 12-44 % Monocytes (%) (Auto) 11 0-12 % Eosinophils (%) (Auto) 4 0-10 % Basophils (%) (Auto) 0 0-10 % Neutrophils # (Auto) 2.2 1.8-7.8 10^3/uL Lymphocytes # (Auto) 1.6 1.0-4.0 10^3/uL Monocytes # (Auto) 0.5 0.0-1.0 10^3/uL Eosinophils # (Auto) 0.2 0.0-0.3 10^3/uL Basophils # (Auto) 0.0 0.0-0.1 10^3/uL Immature Granulocyte # (Auto) 0.0 0.0-0.1 10^3/uL Sodium Level 138 135-145 MMOL/L Potassium Level 3.5 L 3.6-5.0 MMOL/L Chloride Level 102 98-107 MMOL/L Carbon Dioxide Level 25 21-32 MMOL/L Anion Gap 11 5-14 MMOL/L Blood Urea Nitrogen 6 L 7-18 MG/DL Creatinine 0.70 0.60-1.30 MG/DL Estimat Glomerular Filtration Rate 102 BUN/Creatinine Ratio 9 Glucose Level 96 70-105 MG/DL Calcium Level 9.7 8.5-10.1 MG/DL Corrected Calcium 10.1 8.5-10.1 MG/DL Magnesium Level 1.9 1.6-2.4 MG/DL Total Bilirubin 0.2 0.1-1.0 MG/DL Aspartate Amino Transf (AST/SGOT) 30 5-34 U/L Alanine Aminotransferase (ALT/SGPT) 27 0-55 U/L Alkaline Phosphatase 79 40-136 U/L C-Reactive Protein High Sensitivity 0.32 0.00-0.50 MG/DL Total Protein 6.0 L 6.4-8.2 GM/DL Albumin 3.5 3.2-4.5 GM/DL Thyroid Stimulating Hormone (TSH) 0.02 L 0.35-4.94 UIU/ML Free Thyroxine 1.19 0.70-1.48 NG/DL Urine Color YELLOW Urine Clarity CLEAR Urine pH 6.5 5-9 Urine Specific [place] <=1.005 1.016-1.022 Urine Protein NEGATIVE NEGATIVE Urine Glucose (UA) NEGATIVE NEGATIVE Urine Ketones TRACE H NEGATIVE Urine Nitrite NEGATIVE NEGATIVE Urine Bilirubin NEGATIVE NEGATIVE Urine Urobilinogen 0.2 < = 1.0 MG/DL Urine Leukocyte Esterase 2+ H NEGATIVE Urine RBC (Auto) NEGATIVE NEGATIVE Urine RBC NONE /HPF Urine WBC 2-5 /HPF Urine Squamous Epithelial Cells 5-10 /HPF Urine Crystals NONE /LPF Urine Bacteria TRACE /HPF Urine Casts NONE /LPF Urine Mucus NEGATIVE /LPF Urine Culture Indicated NO (RADHA LORA MD) My Orders Orders - RADHA LORA MD Cbc With Automated Diff (09/10/22 13:46) Comprehensive Metabolic Panel (09/10/22 13:46) Hs C Reactive Protein (09/10/22 13:46) Magnesium (09/10/22 13:46) Thyroid Stimulating Hormone (09/10/22 13:46) Ua Culture If Indicated (09/10/22 13:46) Ed Iv/Invasive Line Start (09/10/22 13:46) Free T4 (Free Thyroxine) (09/10/22 13:46) Nitrofurantoin Capsule (Macrodantin Caps (09/10/22 17:00) (RADHA LORA MD) Vital Signs/I&O 09/10/22 09/10/22 13:24 17:23 Temp 36.6 Pulse 97 89 Resp 18 16 B/P (MAP) 142/91 (108) 119/98 Pulse Ox 97 95 O2 Delivery Room Air (RADHA LORA MD) Vital Signs/I&O Capillary Refill : Less Than 3 Seconds (DARSHAN BENAVIDES) Blood Pressure Mean: 108 Progress Note : Progress Note Care of this patient was initiated with review of chief complaint and triage information. Orders were placed accordingly at 1346. Approach to case was discussed with MS[employer] medical student who saw the patient at 1355 while I more thoroughly reviewed the chart from prior admission. This patient was known to me from prior ER visit and I am familiar with the background of her health conditions. History was discussed thoroughly with MS4, patient, and . Report was received from MS4. I personally interviewed and examined the patient and along with MS4. Labs were reviewed and interpreted in their entirety. CBC was unremarkable except for minimal anemia with hemoglobin of 11.1. CMP was grossly unremarkable with a minimal change in potassium of 3.5. TSH was low at 0.02 but free T4 was normal at 1.4. These findings are not clinically relevant. Urinalysis did still suggest urinary tract infection with 2+ leukocyte esterase, 2-5 WBC, and trace bacteria. Exam was grossly unremarkable. Patient's mental status had improved by the time of my exam, even between the time of medical students initial interview and my exam. She was alert and oriented. She did seem a bit giddy but was otherwise stable and notably improved from last night according to her . With lack of other explanation, it appears patient is likely experiencing adverse effect of bekah quinolone use. Her last dose was last night shortly before the onset of more severe symptoms. As time has passed from this dose, her symptoms have improved. Urine culture from the prior admission was reviewed. Nitrofurantoin was selected as the next best appropriate antibiotic based on the local antimicrobial gram and culture results. The first dose of nitrofurantoin was administered in the emergency room. There was a delay in administering the dose as the pharmacy reported the 100 mg capsules could not be emptied to place in the PEG tube but the 50 mg capsules could. The order was changed and patient received the 50 mg capsules. Patient was ultimately discharged in stable condition with improving symptoms. The labile vital signs reported in the history were not observed during the ER visit. See discharge instructions for further discussion. Levofloxacin was added to the list of allergies and adverse reactions. (RADHA LORA MD) Departure Impression Primary Impression: Medication adverse effect Qualified Codes: T50.905A - Adverse effect of unspecified drugs, medicaments and biological substances, initial encounter Additional Impressions: Altered mental status Qualified Codes: R41.82 - Altered mental status, unspecified Urinary tract infection Qualified Codes: N39.0 - Urinary tract infection, site not specified Disposition: 01 HOME, SELF-CARE Condition: Stable Departure-Patient Inst. Decision time for Depature: 16:43 (RADHA LORA MD) Referrals: DESMOND GRAHAM MD (PCP/Family) Primary Care Physician Patient Instructions: Urinary Tract Infection, Adult ED Add. Discharge Instructions: Your altered mental status is likely related to use of levofloxacin. This is a bekah quinolone and can cause confusion or other altered mental status in some people. Please stop levofloxacin. In future healthcare encounters please inform healthcare providers that levofloxacin caused an adverse reaction of altered mental status and labile vital signs. Start Macrobid (nitrofurantoin) tomorrow morning. Please note this medication may turn your urine a reddish or orange color. Do not be alarmed by this color change. Drink plenty of clear liquids while treating this urinary tract infection. Follow-up with your primary care provider soon as possible. Return to the emergency room if you have worsening symptoms. All discharge instructions reviewed with patient and/or family. Voiced understanding. Scripts Nitrofurantoin Macrocrystal (Nitrofurantoin) 50 Mg Capsule 100 MG PEG BID, #12 CAP Empty capsule and give via PEG. Prov: RADHA LORA MD 09/10/22 Medical Student Attestation and Attending Note: I have personally interviewed and examined this patient along with Darshan Benavides, MS4. I have reviewed student documentation including history, physical, and assessments. I agree with the documentation except where otherwise noted. Exam: General: Alert, oriented, no acute distress, well developed, thin HEENT: Normocephalic and atraumatic Heart: Regular rate and rhythm without murmur Lungs: Clear to auscultation bilaterally with normal effort Abdomen: Soft, nontender Neuropsych: Alert, oriented, no acute focal deficits, demeanor appear giddy and excited Skin: Warm and dry without rashes head: (RADHA LORA MD) Copy Copies To 1: DESMOND GRAHAM MD, JOSEPH D Sep 10, 2022 14:25 RADHA LORA MD Sep 10, 2022 16:45
[2022-09-10 14:33] LABS: FREE T4 (FREE THYROXINE) 1.19 NG/DL (0.70-1.48)
[2022-09-10 15:04] LABS: BILIRUBIN,URINE NEGATIVE (NEGATIVE); CLARITY,URINE CLEAR; COLOR,URINE YELLOW; GLUCOSE, URINE (UA) NEGATIVE (NEGATIVE); KETONES,URINE TRACE (NEGATIVE); LEUKOCYTE ESTERASE ,URINE 2+ (NEGATIVE); NITRITE,URINE NEGATIVE (NEGATIVE); PH,URINE 6.5 (5-9); PROTEIN,URINE NEGATIVE (NEGATIVE)
[2022-09-10 15:16] LABS: BACTERIA,URINE TRACE /HPF
[2022-09-10] MEDS ORDERED: NITROFURANTOIN 100 MG (MACROBID) CAPSULE PO ONE (16:45)
[2022-09-10] MEDS ORDERED: NITR-65 PO (16:45)
[2022-09-10] MEDS ORDERED: NITROFURANTOIN 50 MG (MACRODANTIN) CAP PO ONE (17:00)
[2022-09-10] MEDS ORDERED: NITR50CA PEG (17:19)
[2022-09-10 17:23] VITALS: BP 119/98
== END 2022-09-10 17:23 | disposition home or self-care (01) ==
LOC: EDUNIT# 13:20 → ER 13:21
DX: R41.82 Altered mental status, unspecified (principal); R11.2 Nausea with vomiting, unspecified; R42 Dizziness and giddiness; T36.8X5A Adverse effect of other systemic antibiotics, initial encounter; N39.0 Urinary tract infection, site not specified; Z88.1 Allergy status to other antibiotic agents
CPT/HCPCS: 36415; 80053; 81000; 83735; 84439; 84443; 85025; 86141

== ENCOUNTER → 2022-09-25 | Outpatient (CLI) | payer MEDICARE, MEDICAID ==
[~2022-09-25] MED LIST changes: +NITR-65 PO; +NITR50CA PEG
== END ==
LOC: WOUNDCARE 13:03
PROVIDERS: ATTEND Family Medicine
DX: L89.321 Pressure ulcer of left buttock, stage 1 (principal); M62.3 Immobility syndrome (paraplegic); G95.0 Syringomyelia and syringobulbia; N39.498 Other specified urinary incontinence
CPT/HCPCS: 99213